=== PATIENT | female | born 1980 | race Caucasian/White ===

== ENCOUNTER 2023-10-10 09:10 | Emergency (ER) | payer SELFPAY ==
[2023-10-10] VITALS (12 sets, daily range): BP systolic 144–184; BP diastolic 98–104; PULSE 66–77; TEMP 36.7; O2SAT 95–99; BMI 37.8
--- NOTE | 2023-10-10 09:29 | XR_ITS ---
The [address] [address] Patient Name: MYLES MARADIAGA MRN: [id number] date: 1980 Sex: F Assigned Patient Location: ER Current Patient Location: ER Accession/Order Number: [id number] Exam Date: 10/10/2023 09:40 Report Date: 10/10/2023 09:53 At the request of: EVER BANSAL Procedure: XR chest 1V EXAM: XR chest 1V HISTORY: CP COMPARISON: None. TECHNIQUE: AP view of the chest. FINDINGS: The cardiomediastinal silhouette is normal. The lungs are clear. There is no pneumothorax. No pleural effusion is noted. The osseous structures are intact. XR/XR chest 1V IMPRESSION: No acute cardiopulmonary process. Electronically authenticated by: RAVINDER WRIGHT Date: 10/10/2023 09:53
--- NOTE | 2023-10-10 09:29 | ECG_ITS ---
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
--- NOTE | 2023-10-10 09:30 | ED_ITS ---
HPI - Chest Pain General Chief Complaint: Chest Pain Stated Complaint: CHEST/ABDOMINAL PAIN Time Seen by Provider: 10/10/23 09:17 Source: patient Mode of arrival: walk-in Limitations: no limitations History of Present Illness HPI narrative: 43-year-old female presents to the emergency department for chief complaint of chest pain. It started today when she was at work. There was no trauma or unusual activity and its on the right side of her chest. It is moderate. For few days she has had urinary symptoms, feeling like she cannot urinate. She has never had a UTI. No flank pain or vomiting or gross hematuria. She thought she may have had a fever this morning at home but she did not check her temperature. Related Data Home Medications ?Medication ?Instructions ?Recorded ?Confirmed clonazepam 0.5 mg tablet 0.5 mg PO DAILY 10/10/23 10/10/23 metoprolol succinate 25 mg 25 mg PO DAILY 10/10/23 10/10/23 tablet,extended release 24 hr pantoprazole 40 mg tablet,delayed 40 mg PO DAILY 10/10/23 10/10/23 release tizanidine 4 mg tablet 4 mg PO DAILY PRN muscle spasticity 10/10/23 10/10/23 Previous Rx's ?Medication ?Instructions ?Recorded cephalexin 500 mg capsule 500 mg PO TID 7 days #21 caps 10/10/23 Allergies Allergy/AdvReac Type Severity Reaction Status Date / Time calcium [From DHEA] Allergy Mild Verified 10/10/23 09:14 calcium carbonate [From DHEA] Allergy Mild Verified 10/10/23 09:14 prasterone (DHEA) [From DHEA] Allergy Mild Verified 10/10/23 09:14 Review of Systems ROS Narrative A ten point review of systems is negative except as noted above. [facility] Medical History (Updated 10/10/23 @ 11:42 by Elder Rivera MD) COVID-19 ?U07.1 - COVID-19 (ICD-10) Hypertension ?I10 - Essential (primary) hypertension (ICD-10) Atrial fibrillation ?I48.91 - Unspecified atrial fibrillation (ICD-10) Atrial fibrillation ?I48.91 - Unspecified atrial fibrillation (ICD-10) Exam Narrative Exam Narrative: Nurses note and vital signs reviewed and patient is not hypoxic. General: The patient appears uncomfortable and is in no apparent respiratory distress Skin: Warm, dry, no pallor noted. There is no rash noted. Head: Normocephalic, atraumatic Eye: Normal conjunctiva, no drainage Ears, Nose, Mouth, and Throat: oral mucosa is moist. Nares patent. Cardiovascular: Regular Rate and Rhythm Respiratory: Patient is in no distress, no accessory muscle use, lungs are clear to auscultation, no wheezing, rales or rhonchi; no crepitus on the chest wall. Back: non-tender GI: Soft and nontender Musculoskeletal: The patient has no evidence of calf tenderness, no pitting edema, symmetrical pulses noted bilaterally Neurological: A&O, normal speech Psychiatric: Cooperative Constitutional Vital Signs, click to edit/add: Last Vital Signs Temp 98.0 F 10/10/23 09:14 Pulse 66 10/10/23 10:50 Resp 18 10/10/23 09:14 BP 144/98 H 10/10/23 10:04 Pulse Ox 98 10/10/23 10:50 O2 Del Method Room Air 10/10/23 09:14 Course Vital Signs Vital signs: Vital Signs Temperature 98.0 F 10/10/23 09:14 Pulse Rate 77 10/10/23 09:14 Respiratory Rate 18 10/10/23 09:14 Blood Pressure 184/100 H 10/10/23 09:14 Pulse Oximetry 99 10/10/23 09:14 Oxygen Delivery Method Room Air 10/10/23 09:14 Temperature 98.0 F 10/10/23 09:14 Pulse Rate 66 10/10/23 10:50 Respiratory Rate 18 10/10/23 09:14 Blood Pressure 144/98 H 10/10/23 10:04 Pulse Oximetry 98 10/10/23 10:50 Oxygen Delivery Method Room Air 10/10/23 09:14 MDM - Chest Pain MDM Narrative Medical decision making narrative: Urinary tract infection is identified. She was given IV Rocephin and prescribed Keflex. She also had some pain on the right side of her chest and 2 troponins are negative. She is able to be discharged home. Treatment diagnosis and follow-up were discussed with the patient. I have no clinical suspicion of pulmonary embolism. Differential Diagnosis Differential diagnosis: Likely pneumothorax, atypical chest pain, st elevation myocardial infarction, chest pain and other (UTI) Lab Data Attestation: I reviewed the patient's lab results. Labs: Lab Results 10/10/23 10/10/23 Range/Units 09:25 10:55 WBC 10.1 (4.0-11.0) 10^3/uL RBC 4.69 (4.20-5.40) 10^6/uL Hgb 14.0 (12.0-16.0) g/dL Hct 43.6 (36.0-48.0) % MCV 93.0 (81.0-99.0) fL MCH 29.9 (26.7-34.0) pg MCHC 32.1 (29.9-35.2) g/dL RDW 14.0 (11.0-15.0) % Plt Count 288 (150-450) 10^3/uL MPV 9.9 (9.5-13.5) fL Neut % (Auto) 76.2 H (43.0-75.0) % Lymph % (Auto) 12.2 L (20.5-60.0) % [place] % (Auto) 8.4 (1.7-12.0) % Eos % (Auto) 1.5 (0.9-7.0) % Baso % (Auto) 0.9 (0.2-2.0) % Neut # (Auto) 7.7 H (1.4-6.5) 10^3/uL Lymph # (Auto) 1.2 (1.2-3.8) 10^3/uL [place] # (Auto) 0.9 H (0.3-0.8) 10^3/uL Eos # (Auto) 0.2 (0.0-0.7) 10^3/uL Baso # (Auto) 0.1 (0.0-0.1) 10^3/uL Abs Immat Gran (auto) 0.08 H (0.00-0.03) 10^3/uL Imm/Tot Granulo (auto) 0.8 H (0.0-0.5) % Sodium 135 L (136-145) mmol/L Potassium 4.1 (3.5-5.1) mmol/L Chloride 101 (98-107) mmol/L Carbon Dioxide 20.6 L (21.0-32.0) mmol/L Anion Gap 17.5 BUN 9.0 (7.0-18.0) mg/dL Creatinine 0.67 (0.55-1.02) mg/dL Est GFR ( Amer) >60 (>=60) Est GFR (Non-Af Amer) >60 (>=60) BUN/Creatinine Ratio 13.4 Glucose 86 (74-106) mg/dL Calcium 8.4 L (8.5-10.1) mg/dL Troponin I High Sens <4.0 L <4.0 L (4.0-51.3) pg/mL Urine Color Lt. yellow (YELLOW) Urine Clarity Clear (CLEAR) Urine pH 6.0 (5.0-9.0) Ur Specific [place] <=1.005 A (1.005-1.025) Urine Protein Negative (NEG/TRACE) mg/dL Urine Glucose (UA) Negative (NEGATIVE) mg/dL Urine Ketones Negative (NEGATIVE) mg/dL Urine Occult Blood Trace-i (NEGATIVE) Urine Nitrite Negative (NEGATIVE) Urine Bilirubin Negative (NEGATIVE) Urine Urobilinogen 0.2 (0.2-1.0) EU/dL Ur Leukocyte Esterase Moderate A (NEGATIVE) Urine RBC 0-2 (0-2) #/HPF Urine WBC 10-20 A (NONE SEEN) #/HPF Ur Squamous Epith Cells Few A (NONE/RARE) #/LPF Urine Crystals None seen (None Seen) #/HPF Urine Bacteria Trace A (NONE SEEN) #/HPF Urine Casts None seen (NONE SEEN) #/LPF Urine Mucus None seen (NONE SEEN) Imaging Data Chest x-ray: Radiologist's impression: ITS Impressions Chest X-Ray 10/10/23 09:29 IMPRESSION: No acute cardiopulmonary process. Electronically authenticated by: RAVINDER WRIGHT Date: 10/10/2023 09:53 Heart Score History: Slightly/Non-Suspicious ECG: Normal Age: <45 years Risk Factors: No Risk Factors Troponin: <Normal Limit Total Heart Score Recommendations & Risks:: 0 Discharge Plan Discharge Stand Alone Forms: Portal Instructions Chief Complaint: Chest Pain Clinical Impression: Urinary tract infection Patient Disposition: Home, Self-Care Time of Disposition Decision: 11:42 Condition: Good Mode of Transportation: Private Vehicle Prescriptions / Home Meds: New cephalexin 500 mg capsule 500 mg PO TID 7 Days Qty: 21 0RF No Action clonazepam 0.5 mg tablet 0.5 mg PO DAILY metoprolol succinate 25 mg tablet extended release 24 hr 25 mg PO DAILY pantoprazole 40 mg tablet,delayed release (DR/EC) 40 mg PO DAILY tizanidine 4 mg tablet 4 mg PO DAILY PRN (Reason: muscle spasticity) Print Language: Kyrgyz Instructions: Urinary Tract Infection in Women (ED) Referrals: Jenifer Loyola [employer]RA[employer] FINISHER HELPER [Primary Care Provider] - 1 week
[2023-10-10 09:34] LABS: Basophils Absolute Auto 0.1 10^3/uL (0.0-0.1); Basophils Percent Auto 0.9 % (0.2-2.0); Eosinophils Absolute Auto 0.2 10^3/uL (0.0-0.7); Eosinophils Percent Auto 1.5 % (0.9-7.0); Hematocrit 43.6 % (36.0-48.0); Immature Granulocytes Abs Auto 0.08 10^3/uL (0.00-0.03); Immature Granulocytes Pct Auto 0.8 % (0.0-0.5); Lymphocytes Absolute Auto 1.2 10^3/uL (1.2-3.8); Lymphocytes Percent Auto 12.2 % (20.5-60.0); Mean Corpuscular HGB Conc 32.1 g/dL (29.9-35.2); Mean Corpuscular Hemoglobin 29.9 pg (26.7-34.0); Mean Platelet Volume 9.9 fL (9.5-13.5); Monocytes Absolute Auto 0.9 10^3/uL (0.3-0.8); Monocytes Percent Auto 8.4 % (1.7-12.0); Neutrophils Absolute Auto 7.7 10^3/uL (1.4-6.5); Neutrophils Percent Auto 76.2 % (43.0-75.0); Platelet Count 288 10^3/uL (150-450); Red Blood Count 4.69 10^6/uL (4.20-5.40); White Blood Count 10.1 10^3/uL (4.0-11.0)
[2023-10-10 09:54] LABS: Anion Gap 17.5; BUN Creatinine Ratio 13.4; Calcium 8.4 mg/dL (8.5-10.1); Carbon Dioxide 20.6 mmol/L (21.0-32.0); Chloride 101 mmol/L (98-107); Estimated GFR (African America >60 (>=60); Estimated GFR (Non-African Ame >60 (>=60); Glucose 86 mg/dL (74-106); Potassium 4.1 mmol/L (3.5-5.1); Sodium 135 mmol/L (136-145); Troponin I High Sensitivity <4.0 pg/mL (4.0-51.3)
[2023-10-10 10:15] LABS: Bilirubin Urine NEGATIVE (NEGATIVE); Blood Urine TRACE-I (NEGATIVE); Clarity Urine CLEAR (CLEAR); Color Urine LT. YELLOW (YELLOW); Glucose Urine UA NEGATIVE (NEGATIVE); Ketones Urine NEGATIVE (NEGATIVE); Leukocyte Esterase Urine MODERATE (NEGATIVE); Nitrite Urine NEGATIVE (NEGATIVE); Protein Urine NEGATIVE (NEG/TRACE); Specific Gravity Urine <=1.005 (1.005-1.025); Urobilinogen Urine 0.2 EU/dL (0.2-1.0)
[2023-10-10 10:24] LABS: Bacteria Urine TRACE #/HPF (NONE SEEN); Cast Seen? NONE SEEN #/LPF (NONE SEEN); Crystals Seen? None Seen #/HPF (None Seen); Mucus Urine NONE SEEN (NONE SEEN); RBC Urine 0-2 #/HPF (0-2); Squamous Epithelial Cell Urine FEW #/LPF (NONE/RARE)
[2023-10-10] MEDS: KETOROLAC TROMETHAMINE 30 MG/ML VIAL IVP (10:41)
[2023-10-10] MEDS: CEFTRIAXONE 1,000 MG in 0.9 % SODIUM CHLORIDE 50 ML 100 MG IV (10:45)
[2023-10-10 11:23] LABS: Troponin I High Sensitivity <4.0 pg/mL (4.0-51.3)
--- NOTE | 2023-10-13 08:33 | PC.NURSE ---
10/13/[address] dias reviewed pt c+s or urine from 10/10/23. nno at this time. Cory Hawthorne RN
== END 2023-10-10 11:52 | disposition home or self-care (01) ==
PROVIDERS: Emergency Provider Emergency Medicine; PCP Nurse Practitioner
DX: N39.0 Urinary tract infection, site not specified (principal); I10 Essential (primary) hypertension; I48.91 Unspecified atrial fibrillation; Z86.16 Personal history of COVID-19; Z79.899 Other long term (current) drug therapy
CPT/HCPCS: 36415; 71045; 80048; 81001; 84484; 85025; 87086; 87150; 87186; 93005; 96365; 96375; 99285

== ENCOUNTER 2024-10-30 09:25 | Emergency (ER) | payer SELFPAY ==
[2024-10-30 09:34] VITALS: BP 180/105; PULSE 70; TEMP 36.9; O2SAT 100
--- NOTE | 2024-10-30 09:43 | ED_ITS ---
HPI HPI - General Adult General Chief complaint: Abdominal Pain Stated complaint: RECTAL AND VAGINAL BLEEDING Time Seen by Provider: 10/30/24 09:30 Source: patient Mode of arrival: walk-in Limitations: no limitations History of Present Illness HPI narrative: 44-year-old female presents for rectal bleeding and vaginal bleeding. She has had these issues since May, 5 months ago. She saw her PCP 3 days ago who ordered some outpatient blood test. She was told to come to the emergency department last night but she waited until today because she did not have a ride. She was told her white blood cell count was elevated. Her WBC is 18,000. She has had a colonoscopy but none for about 6 years. She states she has been fatigued as well. Related Data Home Medications ?Medication ?Instructions ?Recorded ?Confirmed clonazepam 0.5 mg tablet 0.5 mg PO DAILY 10/10/23 10/10/23 metoprolol succinate 25 mg 25 mg PO DAILY 10/10/23 10/30/24 tablet,extended release 24 hr pantoprazole 40 mg tablet,delayed 40 mg PO DAILY 10/10/23 10/10/23 release tizanidine 4 mg tablet 4 mg PO DAILY PRN muscle spasticity 10/10/23 10/10/23 Previous Rx's ?Medication ?Instructions ?Recorded cephalexin 500 mg capsule 500 mg PO TID 7 days #21 caps 10/10/23 Allergies Allergy/AdvReac Type Severity Reaction Status Date / Time calcium (From DHEA) Allergy Mild Anaphylaxis Verified 10/30/24 09:32 calcium carbonate (From DHEA) Allergy Mild Anaphylaxis Verified 10/30/24 09:32 prasterone (DHEA) (From DHEA) Allergy Mild Anaphylaxis Verified 10/30/24 09:32 Opioid HPI Opioid Management Most Recent Opioid Data: Last Pain Scale 4 10/10/23 11:15 10/10/23 Review of Systems ROS Narrative A ten point review of systems is negative except as noted above. [facility] Medical History (Updated 10/30/24 @ 11:14 by Elder Rivera MD) COVID-19 ?U07.1 - COVID-19 (ICD-10) Hypertension ?I10 - Essential (primary) hypertension (ICD-10) Atrial fibrillation ?I48.91 - Unspecified atrial fibrillation (ICD-10) Atrial fibrillation ?I48.91 - Unspecified atrial fibrillation (ICD-10) Social History Little interest or pleasure in doing things: not at all Feeling down, depressed, or hopeless: not at all Exam Narrative Exam Narrative: Nurses note and vital signs reviewed and patient is not hypoxic. General: The patient appears well and in no apparent distress. Patient is resting comfortably on cart. Skin: Warm, dry, no pallor noted. There is no rash noted. Head: Normocephalic, atraumatic Eye: Normal conjunctiva, no drainage Ears, Nose, Mouth, and Throat: oral mucosa is moist. Nares patent. Cardiovascular: Regular Rate and Rhythm Respiratory: Patient is in no distress, no accessory muscle use, lungs are clear to auscultation, no wheezing, rales or rhonchi Back: non-tender GI: Obese, mild diffuse tenderness Musculoskeletal: The patient has no evidence of calf tenderness, no pitting edema, symmetrical pulses noted bilaterally Neurological: A&O, normal speech Psychiatric: Cooperative Constitutional Vital Signs, click to edit/add: Last Vital Signs Temp 98.4 F 10/30/24 09:34 Pulse 70 10/30/24 09:34 Resp 20 10/30/24 09:34 BP 180/105 H 10/30/24 09:34 Pulse Ox 100 10/30/24 09:34 O2 Del Method Room Air 10/30/24 09:34 Course Vital Signs Vital signs: Vital Signs Temperature 98.4 F 10/30/24 09:34 Pulse Rate 70 10/30/24 09:34 Respiratory Rate 20 10/30/24 09:34 Blood Pressure 180/105 H 10/30/24 09:34 Pulse Oximetry 100 10/30/24 09:34 Oxygen Delivery Method Room Air 10/30/24 09:34 Temperature 98.4 F 10/30/24 09:34 Pulse Rate 70 10/30/24 09:34 Respiratory Rate 20 10/30/24 09:34 Blood Pressure 180/105 H 10/30/24 09:34 Pulse Oximetry 100 10/30/24 09:34 Oxygen Delivery Method Room Air 10/30/24 09:34 Medical Decision Making MDM Narrative Medical decision making narrative: Blood work was reviewed from yesterday. WBC was 18,000. CAT scan today however is negative. She is referred to general surgery for appropriate follow-up. This is an ongoing issue for this patient, at least 5 months and possibly a year. Treatment diagnosis and follow-up were discussed thoroughly. Differential Diagnosis Differential Diagnosis: Rectal: bleeding, internal hemorrhoid, diverticulitis, colitis Lab Data Lab results reviewed: Yes I reviewed the patient's lab results Labs: Lab Results 10/30/24 Range/Units 09:50 Serum HCG, Qual Negative (NEGATIVE) Imaging Data CT scan - abdomen: Radiologist's impression: Peritoneum: There is no free air or abscess, bowel: No obstruction, no evidence of inflamed bowel loops, appendix is normal, mesentery, no adenopathy Discharge Plan Discharge Chief Complaint: Abdominal Pain Clinical Impression: Rectal bleeding Patient Disposition: Home, Self-Care Time of Disposition Decision: 11:14 Condition: Good Mode of Transportation: Private Vehicle Prescriptions / Home Meds: No Action clonazepam 0.5 mg tablet 0.5 mg PO DAILY metoprolol succinate 25 mg tablet extended release 24 hr 25 mg PO DAILY pantoprazole 40 mg tablet,delayed release (DR/EC) 40 mg PO DAILY tizanidine 4 mg tablet 4 mg PO DAILY PRN (Reason: muscle spasticity) cephalexin 500 mg capsule 500 mg PO TID 7 Days Qty: 21 0RF Print Language: Korean Instructions: Rectal Bleeding (ED) Referrals: Jenifer Loyola NP [Primary Care Provider] - 1 week Olegario Camargo MD [Physician] - Olegario Pan MD [Physician] -
[2024-10-30 10:21] LABS: HCG Qualitative NEGATIVE (NEGATIVE); Internal Control Within Normal Limits
== END 2024-10-30 11:28 | disposition home or self-care (01) ==
PROVIDERS: Emergency Provider Emergency Medicine; PCP Nurse Practitioner
DX: K62.5 Hemorrhage of anus and rectum (principal)
CPT/HCPCS: 36415; 74177; 84703; 99285; Q9967

== ENCOUNTER 2024-12-22 11:19 | Outpatient (OUT) | payer OTHER, SELFPAY ==
--- OUTSIDE RECORDS SUMMARY | 2024-12-22 11:22 | XMS_ITS | Clinical Summary ---
Author Organization [facility] Address [address] [place] [address] Care Team Providers Care Business Planning Analyst Name Role Phone Unavailable Primary Care Provider Unavailabl e Social History Tobacco Use Types Packs/Day Years Used Date Smoking Tobacco: Never Assessed [place] Safety & Environment Answer Date Rec orded Fear of Current or Ex-Partner Not on file Emotionally Abused Not on file 08/30/2023 Physically Abused Not on file 08/30/2023 Sexually Abused Not on file 08/30/2023 Physically or Sexually Abused Not on file Comments Unknown Sex and Gender Information Value Date Recorded Sex Assigned at Not on file Legal Sex Female 9:56 PM EDT Gender Identity Not on file Sexual Orientation Not on file Plan of Treatment Health Maintenance Due Date Last Done Comments CT Colonography 1980 Colonoscopy 1980 Colorectal Cancer Screening 1980 FIT-DNA 1980 FIT 1980 FOBT 1980 Sigmoidoscopy 1980 Depression Screening 1990 Hepatitis B Vaccines (1 of 3 - 19+ 3-dose series) 1997 Pap Smear 1999 Adult Tetanus 01/24/2000 Cervical Cancer Screening 01/24/2008 HPV/Cotest 01/24/2008 Mammogram 2018 Influenza Vaccine (Season Ended) 2025 Zoster Vaccines (1 of 2) 01/24/2028 HIB Vaccines Aged Out No longer eligi ble based on patient's age to complete this topic HPV Vaccines Aged Out No longer eligi ble based on patient's age to complete this topic IPV Vaccines Aged Out No longer eligi ble based on patient's age to complete this topic Meningococcal B Vaccine Aged Out No l onger eligible based on patient's age to complete this topic Meningococcal Vaccine Aged Out No radha buffy eligible based on patient's age to complete this topic Pneumococcal Vaccine: Pediat rics (0 to 5 Years) and At-Risk Patients (6 to 64 Years) Aged Out No longer eligible b ased on patient's age to complete this topic Rotavirus Vaccines Aged Out No longer eligible based on patient's age to complete this topic
--- OUTSIDE RECORDS SUMMARY | 2024-12-22 11:22 | XMS_ITS | Encounter Summary ---
Author Organization [facility] Address [id number] [place] [address] Care Team Providers Care Junior Business Analyst Name Role Phone No Pcp, No Pcp Primary Care Provider Unavailabl e Reason for Visit * Reason Onset Date Comments Med Refill Med Refill 08/13/2019 Encounter Details Date Type Department Care Team (Late st Contact Info) Description 08/08/2019 Refill [facility] [address] [id number] Cameron Nascimento, DO [address] [facility] [place], [place] [id number] Med Refill; Med Refill Social History Tobacco Use Types Packs/Day Years Used Date Smoking Tobacco: Every Day Cigarettes Smokeless Tobacco: Never Alcohol Use Standard Drinks/Week Comments No 0 (1 standard drink = 0.6 oz pur e alcohol) Childcare Answer Date Recorded Childcare Unknown 12/18/2018 Employment Answer Date Recorded Employment Unknown 12/18/2018 Comments No Sex and Gender Information Value Date Recorded Sex Assigned at Female 08/27/2019 1:16 PM EST Legal Sex Female 11:28 AM EDT Gender Identity Not on file Sexual Orientation Not on file documented as of this encounter Plan of Treatment Not on file documented as of this encounter Visit Diagnoses Not on filedocumented in this encounter Care Teams Junior Business Analyst Relationship Specialty Start Date End Date No Pcp, [place] [address] PCP - General Family Medicine 08/29/19 11/27/24 documented as of this encounter
--- OUTSIDE RECORDS SUMMARY | 2024-12-22 11:22 | XMS_ITS | Referral Summary ---
Author Organization [facility] Address [address] [place] [address] Care Team Providers Care Building Coordinator Name Role Phone Unavailable Primary Care Provider [...] Orientation Not on file Plan of Treatment Not on file
[2024-12-22 11:54] LABS: Basophils Absolute Auto 0.1 10^3/uL (0.0-0.1); Basophils Percent Auto 0.8 % (0.2-2.0); Eosinophils Absolute Auto 0.2 10^3/uL (0.0-0.7); Eosinophils Percent Auto 1.6 % (0.9-7.0); Hematocrit 42.8 % (36.0-48.0); Hemoglobin 14.2 g/dL (12.0-16.0); Immature Granulocytes Abs Auto 0.08 10^3/uL (0.00-0.03); Immature Granulocytes Pct Auto 0.6 % (0.0-0.5); Lymphocytes Absolute Auto 3.7 10^3/uL (1.2-3.8); Lymphocytes Percent Auto 26.4 % (20.5-60.0); Mean Corpuscular HGB Conc 33.2 g/dL (29.9-35.2); Mean Corpuscular Hemoglobin 30.8 pg (26.7-34.0); Mean Corpuscular Volume 92.8 fL (81.0-99.0); Mean Platelet Volume 9.8 fL (9.5-13.5); Monocytes Absolute Auto 0.9 10^3/uL (0.3-0.8); Monocytes Percent Auto 6.5 % (1.7-12.0); Neutrophils Absolute Auto 9.1 10^3/uL (1.4-6.5); Neutrophils Percent Auto 64.1 % (43.0-75.0); Platelet Count 346 10^3/uL (150-450); Red Blood Count 4.61 10^6/uL (4.20-5.40); Red Cell Distribution Width 12.9 % (11.0-15.0); White Blood Count 14.1 10^3/uL (4.0-11.0)
[2024-12-22 12:04] LABS: Alanine Aminotransferase 15 U/L (14-59); Albumin Globulin Ratio 0.9; Albumin Level 3.5 g/dL (3.4-5.0); Alkaline Phosphatase 82 U/L (46-116); Anion Gap 12.5; Aspartate Amino Transferase 12 U/L (15-37); BUN Creatinine Ratio 31.4; Bilirubin Total 0.4 mg/dL (0.2-1.0); Calcium 8.8 mg/dL (8.5-10.1); Carbon Dioxide 26.5 mmol/L (21.0-32.0); Chloride 104 mmol/L (98-107); Estimated GFR (African America >60 (>=60 mL/min/1.73m^2); Estimated GFR (Non-African Ame >60 (>=60 mL/min/1.73m^2); Globulin 3.7 g/dL; Glucose 85 mg/dL (74-106); Sodium 139 mmol/L (136-145); Thyroid Stimulating Hormone 1.685 uIU/mL (0.358-3.740); Total Protein 7.2 g/dL (6.4-8.2)
[2024-12-22 12:18] LABS: Bilirubin Urine NEGATIVE (NEGATIVE); Blood Urine TRACE-I (NEGATIVE); Clarity Urine SL CLOUDY (CLEAR); Color Urine LT. YELLOW (YELLOW); Glucose Urine UA NEGATIVE (NEGATIVE); Ketones Urine NEGATIVE (NEGATIVE); Leukocyte Esterase Urine TRACE (NEGATIVE); Nitrite Urine NEGATIVE (NEGATIVE); Protein Urine NEGATIVE (NEG/TRACE); Urobilinogen Urine 0.2 EU/dL (0.2-1.0)
[2024-12-22 12:25] LABS: Percent Iron Saturation 18.7 %
[2024-12-22 12:48] LABS: Free T4 0.98 ng/dL (0.76-1.46)
[2024-12-22 12:57] LABS: Urine Microscopic Indicated YES
[2024-12-22 13:28] LABS: Bacteria Urine SMALL #/HPF (NONE SEEN); Cast Seen? NONE SEEN #/LPF (NONE SEEN); Crystals Seen? None Seen #/HPF (None Seen); Mucus Urine NONE SEEN (NONE SEEN); RBC Urine 0-2 #/HPF (0-2); Squamous Epithelial Cell Urine MODERATE #/LPF (NONE/RARE)
[2024-12-23 04:07] LABS: Vitamin B12 294 pg/mL (232-1245)
[2024-12-23 05:07] LABS: Transferrin 225 mg/dL (192-364)
== END 2024-12-22 11:20 | disposition home or self-care (01) ==
LOC: LAB 11:20
PROVIDERS: PCP Nurse Practitioner; Visit Provider Nurse Practitioner
DX: R53.83 Other fatigue (principal); I10 Essential (primary) hypertension; K58.1 Irritable bowel syndrome with constipation; E55.9 Vitamin D deficiency, unspecified; F17.219 Nicotine dependence, cigarettes, with unspecified nicotine-induced disorders; R19.4 Change in bowel habit; K62.5 Hemorrhage of anus and rectum
CPT/HCPCS: 36415; 80053; 81001; 82306; 82607; 82728; 83540; 83550; 84439; 84443; 84466; 85025

== ENCOUNTER 2025-06-08 08:54 | Outpatient (OUT) | payer OTHER, SELFPAY ==
--- OUTSIDE RECORDS SUMMARY | 2025-05-26 12:06 | XMS_ITS | Encounter Summary ---
Author Organization [facility] GoGoPin [facility] tem Address [facility] [place], [place] [address] [place] [address] Care Team Providers Care Marine Engineering Professor Name Role Phone Jenifer Loyola APRN-CARDIAC CATHETERIZATION TECHNOLOGIST Primary Care Provider Reason for Visit * ReasonCommentsHypertension Encounter Details DateTypeDepartmentCare Team (Latest Contact Info)Badqztxygjl14/18/2025 12:06 PM EST - 05/26/2025 5:14 PM [facility]Aen[facility] [address] [place] [phone] Darian Hawkins MD [address] [place] [address] Hypertensive emergency (Primary Dx) Discharge Disposition: Another Hospital Social History Tobacco UseTypesPacks/DayYears UsedDateSmoking Tobacco: Every DayCigarettes Smokeless Tobacco: NeverAlcohol UseStandard Drinks/WeekCommentsNo0 (1 standard drink = 0.6 oz pure alcohol)PHQ-2AnswerDate RecordedTotal Ilbde2722/23/2025 AUDIT-CAnswerDate RecordedQ1: How often do you have a drink containing alcohol? Never04/24/2025Q2: How many drinks containing alcohol do you have on a typical day when you are drinking?Patient does not drink10/17/2025Q3: How often do you have six or more drinks on one occasion?Never04/24/2025Overall Financial Resource Strain (CARDIA)AnswerDate RecordedHow hard is it for you to pay for the very basics like food, housing, medical care, and heating?Not hard at all 05/26/2025PRAPARE - TransportationAnswerDate RecordedIn the past 12 months, has lack of transportation kept you from medical appointments or from getting medications?No05/26/2025In the past 12 months, has lack of transportation kept you from meetings, work, or from getting things needed for daily living?No 05/26/2025HC UtilitiesAnswerDate RecordedIn the past 12 months has the electric, gas, oil, or water company threatened to shut off services in your home?No05/26/2025Housing InstabilityAnswerDate RecordedAre you worried or concerned that in the next two months you may not have stable housing that you own, rent or stay in as a part of a household?No05/26/2025hildcareAnswerDate CzmqburhLkkvjkhaxFtdecaz85/12/2019EmploymentAnswerDate RecordedEmploymentUnknown 12/18/2018Hunger ScreeningAnswerDate RecordedWithin the past 12 months we worried whether our food would run out before we got money to buy more.Never True05/27/2025Within the past 12 months the food we bought just didn't last and we didn't have money to get more.Never True05/27/2025Purpose - LifeAnswerDate RecordedPurpose and direction in dncpLqmvfgg11/11/2021CommentsNoSex and Gender InformationValueDate RecordedSex Assigned at NgztxZdzmot76/19/2020 1:16 PM ESTLegal NscWhifsc79/06/2015 11:28 AM EDTGender IdentityNot on fileSexual OrientationNot on filedocumented as of this encounter Last Filed Vital Signs Vital SignReadingTime TakenCommentsBlood Oajesbtj493/8905/26/2025 4:53 PM EST Hemjc770105/26/2025 4:53 PM SUBHafnxeiwoue30.4 ??C (97.5 ??F)05/26/2025 11:45 AM ESTRespiratory Igmn051105/26/2025 4:53 PM ESTOxygen Yjckpuzbrc32%05/26/2025 4:53 PM ESTInhaled Oxygen Concentration--Weight--Height--Body Mass Index--documented in this encounter Medications at Time of Discharge MedicationSigDispense QuantityRefillsLast FilledStart DateEnd Date busPIRone (BUSPAR) 5 mg tablet Take 1 tablet (5 mg total) by mouth 3 (three) times a day for 30 days. 90 tablet wnxhczepln-lrlmvehcdaoes-riub (FIORICET, ESGIC) 50-325-40 mg per tablet Indications:Other migraine without status migrainosus, not intractableTake 1 tablet by mouth every 6 (six) hours as needed for headaches. 15 tablet 05/21/2025 clonazePAM (KlonoPIN) 0.5 mg tablet Take 1 tablet (0.5 mg total) by mouth daily as needed for anxiety.10/27/2024 losartan (COZAAR) 100 mg tablet Take 1 tablet (100 mg total) by mouth in the morning for 30 days. 30 tablet magnesium oxide (MAGOX) 400 mg tablet Take 1 tablet (400 mg total) by mouth nightly for 30 days. 30 tablet metoprolol succinate XL (TOPROL XL) 50 mg 24 hr tablet Take 2 tablets (100 mg total) by mouth in the morning.04/03/2025 NIFEdipine XL (PROCARDIA XL) 60 mg 24 hr tablet Take 1 tablet (60 mg total) by mouth in the morning for 30 days. 30 tablet losartan (COZAAR) 50 mg tablet Take 1 tablet (50 mg total) by mouth in the morning. documented as of this encounter ED Notes * Darian Hawkins MD - 05/26/2025 12:09 PM ESTAssociated Order(s): Critical Care Images from the original note were not included. [facility] - EMERGENCY Pt Name: Damien Gill Birthdate: 1980 Chief Complaint: Chief Complaint Patient presents with Hypertension History of Present Illness: Initial evaluation performed at 12:[address] Sohail Hawkins. Patient is a 45 y.o. female who presents to the ED for evaluation of hypertension. Pt reports her blood pressure readings have been higher than her baseline for the past week, and she is experiencingheadaches and shortness of breath. History provided by: Patient spray drier used: No Past Medical History: Past Medical History: Diagnosis Date ADHD (attention deficit hyperactivity disorder) 07/1989 Anxiety 07/1989 Back pain Chest pain Dyspnea on exertion Eczema 1999 Hyperlipidemia Hypertension 2015 Migraine 1991 Peptic ulceration Pneumonia Past Surgical History: Past Surgical History: Procedure Laterality Date BACK SURGERY 2009 SECTION CHOLECYSTECTOMY COLONOSCOPY LYMPH NODE BIOPSY 2008 Family History: Family History Problem Relation Age of Onset Colon cancer Maternal Grandmother Heart disease Father Diabetes Father Early Mother Early Brother Breast cancer Neg Hx Ovarian cancer Neg Hx Uterine cancer Neg Hx Social History: Social History Socioeconomic History Marital status: Tobacco Use Smoking status: Every Day Current packs/day: 1.00 Types: Cigarettes Smokeless tobacco: Never Vaping Use Vaping status: Never Used Substance and Sexual Activity Alcohol use: No Drug use: Yes Types: Marijuana Comment: daily Sexual activity: Not Currently control/protection: None Comment: Other Topics Concern Caffeine Use Yes Social Drivers of Health Food Insecurity: No Food Insecurity (05/26/2025) Hunger Screening Food Insecurity - Worry: Never True Food Insecurity - Inability: Never True Interpersonal Safety: Unknown (08/30/2023) Received from [facility] [place] [facility] Fear of Current or Ex-Partner: Not on file Emotionally Abused: Not on file Physically Abused: Not on file Sexually Abused: Not on file Physically or Sexually Abused: Not on file Review of Systems: Review of Systems Physical Exam: ED Triage Vitals Temp Heart Rate Resp BP SpO2 05/26/25 1145 05/26/25 1143 05/26/25 1143 05/26/25 1143 05/26/25 1143 36.4 ??C (97.5 ??F) 63 18 (!) 196/126 97 % Temp Source Heart Rate Source Patient Position BP Location FiO2 (%) 05/26/25 1145 -- -- -- -- Temporal Vitals: 05/26/25 1143 05/26/25 1145 05/26/25 1345 05/26/25 1415 BP: (!) 196/126 (!) 204/125 (!) 186/114 Temp: 36.4 ??C (97.5 ??F) TempSrc: Temporal Pulse: 63 59 77 Resp: 18 15 (!) 26 SpO2: 97% 97% 98% MAP (mmHg): 149 136 Physical Exam Vitals reviewed. HENT: Head: Normocephalic and atraumatic. Eyes: Conjunctiva/sclera: Conjunctivae normal. Cardiovascular: Rate and Rhythm: Normal rate and regular rhythm. Pulmonary: Effort: Pulmonary effort is normal. No respiratory distress. Breath sounds: Normal breath sounds and air entry. No decreased breath sounds. Abdominal: General: There is no distension. Palpations: Abdomen is soft. Musculoskeletal: General: Normal range of motion. Cervical back: Normal range of motion and neck supple. Skin: General: Skin is warm and dry. Neurological: General: No focal deficit present. Mental Status: She is alert and oriented to person, place, and time. GCS: GCS eye subscore is 4. GCS verbal subscore is 5. GCS motor subscore is 6. Psychiatric: Mood and Affect: Mood is anxious. Procedure: Critical Care Performed by: Darian Hawkisn MD Authorized by: Darian Hawkins MD Critical care provider statement: Critical care time (minutes): 30 Critical care time was exclusive of: Separately billable procedures and treating other patients Critical care was necessary to treat or prevent imminent or life-threatening deterioration of the following conditions: Cardiac failure Critical care was time spent personally by me on the following activities: Blood draw for specimens, development of treatment plan with patient or surrogate, discussions with consultants, evaluation of patient's response to treatment, examination of patient, interpretation of cardiac output measurements, obtaining history from patient or surrogate, ordering and performing treatments and interventions, ordering and review of laboratory studies, ordering and review of radiographic studies, pulse oximetry and re-evaluation of patient's condition I assumed direction of critical care for this patient from another provider in my specialty: no Care discussed with: admitting provider Re-evaluation: I, Brielle sorto), documented on behalf and in the presence of Dr Sohail Hawkins. 2:30 PM Reevaluation of patient. Patient states she is not feeling much better at this time, and her blood pressure readings have also not went down. Discussed nicardipine drip and plan for admission, patient was agreeable. Medical Decision Making Amount and/or Complexity of Data Reviewed Labs: ordered. Details: Labs notable for: CBC and BMP were unremarkable. Troponin normal. ECG/medicine tests: ordered and independent interpretation performed. Discussion of management or test interpretation with external provider(s): 3:[address] Silva (Hospitalist), who reviewed case and is agreeable to admit the patient for further care and evaluation. However, would like the patient to be transferred to [place]. Risk Prescription drug management. ED Course: Clinical Impressions as of 05/26/25 1513 Hypertensive emergency . ED Disposition ED Disposition Transfer to Another Facility Date/Time SunMay 26, 2025 3:12 PM Comment At this time, the patient requires transfer due to the lack of Capacity at this facility. The patient has been informed of their EMTALA rights as well as the risks and benefits of transfer. The patient consents to transfer to the accepting facility t hat had the capacity and capability to care for them. The patient will be transferred. . Please note that portions of this note were completed with a voice recognition program. Efforts were made to edit the dictations but occasionally words are mis-transcribed. Brielle Wilcoxphrey 05/26/25 1211 Brielle Wilcoxphrey 05/26/25 1219 Jarra Simmons 05/26/25 1335 Jarra Simmons 05/26/25 1432 Jarra Simmons 05/26/25 1513 Darian Hawkins MD 06/03/25 2304 * Deepti Leija RN - 05/26/2025 11:59 AM EST Patient reports hypertension for a few days. documented in this encounter Plan of Treatment DateTypeDepartmentCare Team (Latest Contact Info)Avrqqqngxuu85/03/2025 10:00 AM ESTProcedure visit [facility] [address] [place] [address] 06/23/2025 8:30 AM ESTHospital Encounter [facility] [address] [place] [address] Idalia Neumann MD [address] [place] [address] 06/23/2025 8:30 AM EST - 06/23/2025 11:30 AM ESTSurgery [facility] [address] [place] [address] Idalia Neumann MD [address] [place] [address] [address], [address] [place] [address] DAVINCI HYSTERECTOMY XYQSTSHIHTTQC83/22/2025 11:00 AM ESTOffice Visit [facility] [address] [facility] [address] [place] [phone] Idalia Neumann MD [address] [place] [address] [address] [place] [address] 08/10/2025 11:00 AM ESTOffice Visit [facility] [address] [facility] [address] [place] [phone] Idalia Neumann MD [address] [place] [address] , [facility] [address] [place] [address] 09/22/2025 9:00 AM EDTOffice Visit [facility] [place] [address] [place] [address] Agnieszka Whipple MD [address] [place] [address], [facility] [address] [place] [address] NamePriorityAssociated DiagnosesDate/TimeDAVINCI HYSTERECTOMY SALPINGECTOMY Pelvic pain in female Subserous leiomyoma of uterus Abnormal uterine bleeding (AUB) 06/23/2025 8:30 AM ESTDAVINCI CYSTECTOMY OVARIAN Pelvic pain in female Subserous leiomyoma of uterus Abnormal uterine bleeding (AUB) 06/23/2025 8:30 AM ESTEXCISION LIPOMA MIDSECTION Pelvic pain in female Subserous leiomyoma of uterus Abnormal uterine bleeding (AUB) 06/23/2025 8:30 AM ESTdocumented as of this encounter Procedures Procedure NamePriorityDate/TimeAssociated DiagnosisCommentsTROP I, HIGH SENSITIVITY 1 PZPNETKD44/18/2025 1:56 PM EST POCT NURSING URINE MACROSCOPIC QWQoupplz96/18/2025 1:56 PM EST ER EXTRA URINE NMVGMRBWNK56/18/2025 1:48 PM EST ER EXTRA URINE BJCVFJWQPIN34/18/2025 1:48 PM EST ER EXTRA PZBENTJNW21/18/2025 1:48 PM EST TROPONIN I, HIGH SENSITIVITY 0 UUJMFHOK36/18/2025 12:35 PM EST EXTRA TUBES BLUE UQEUpydybs80/18/2025 12:35 PM EST TROPONIN I, HIGH SENSITIVITY 0 AJTJLCNA14/18/2025 12:35 PM EST EXTRA XWHWFSmfilex32/18/2025 12:35 PM EST CBC WITH AUTO XZROJHFHJTONXJIH39/18/2025 12:35 PM EST BASIC METABOLIC KKGZRENQD39/18/2025 12:35 PM EST PM ED CRITICAL BIMPUllkwdi14/18/2025 12:09 PM EST ECG 12-WLBXIIWH36/18/2025 11:49 AM EST documented in this encounter Results * (ABNORMAL) POCT Nursing Urine Macroscopic UA (05/26/2025 1:56 PM EST)Component ValueRef RangeTest MethodAnalysis TimePerformed AtPathologist [facility] Urine Specific Gravity1.0151.010, 1.015, 1.020, 1.2831005/26/2025 1:59 PM EST [facility] Urine Leukocyte EsteraseNegative Ulexennu86/18/2025 1:59 PM ESTSELECT [facility] Urine WbwbfhkUwhmekwqFrwxwnyl84/18/2025 1:59 PM [place]PR[place] Urine pH7.55.0, 6.0, 6.5, 7.0, 7.5, 8.0, 8.5, 5. 1:59 PM [place]PROKERN [place]LEY Urine ProteinNegativeNegative 05/26/2025 1:59 PM ESTSELECT [facility] Urine Glucose JxjvyuzcNwmskgev70/18/2025 1:59 PM ESTSELECT [facility] Urine DyeumzqNpbfmooaMpmizyic82/18/2025 1:59 PM ESTPROKERN VALLEY Urine Urobilinogen0.2 E.U./dL05/26/2025 1:59 PM [place]PROKERN [place]LEY Urine VacilpljoFmabntfiEvfivthr18/18/2025 1:59 PM [place]PROKERN [place]LEY Urine Blood/HGBLarge(A)Negative 05/26/2025 1:59 PM ESTPARMA COMMUNITY GENERAL HOSPITALpecimen (Source) Anatomical Location / LateralityCollection Method / VolumeCollection Time Received QfxsBpnrs03/18/2025 1:56 PM EST05/26/2025 1:59 PM EST Narrative Authorizing ProviderResult TypeResult StatusPatricmatty Hawkins MDPOINT OF CARE TEST ORDERABLESFinal ResultPerforming OrganizationAddressCity/State/ZIP CodePhone Number [facility] [address] [place] [address], [place] * Troponin I, High Sensitivity 1 Hour (05/26/2025 1:56 PM EST)ComponentValueRef RangeTest MethodAnalysis TimePerformed AtPathologist SignatureTROPONIN I, HIGH SENSITIVITY<2<16 ng/L107/26/2024 2:40 PM [facility] Specimen (Source)Anatomical Location / LateralityCollection Method / Volume Collection TimeReceived TimeBloodVenous blood / UnknownVenipuncture / Unknown 05/26/2025 1:56 PM EST05/26/2025 2:07 PM EST Narrative Authorizing ProviderResult TypeResult StatusRogertricmatty TAYLOR BLOOD ORDERABLESFinal ResultPerforming OrganizationAddressty/State/ZIP CodePhone Number [address] [address], [place] * Extra Urine Pledger (05/26/2025 1:48 PM EST)ComponentValueRef RangeTest Method Analysis TimePerformed AtPathologist SignatureExtra TubeAuto Resulted 05/26/2025 3:01 PM [facility]ITALpecatrium healthn (Source) Anatomical Location / LateralityCollection Method / VolumeCollection Time Received TimeUrineUrine specimen collection, clean catch / Erqacyi2005/26/2025 1:48 PM EST05/26/2025 2:10 PM EST Narrative Authorizing ProviderResult TypeResult StatusRogertricmatty CHISHOLM ORDERABLES Final ResultPerforming OrganizationAddCrichton Rehabilitation Center/[facility]/ZIP CodePhone Number [address] [address], [place] * Extra Urine Culture (05/26/2025 1:48 PM EST)ComponentValueRef RangeTest Method Analysis TimePerformed AtPathologist SignatureExtra TubeAuto Resulted 05/26/2025 3:01 PM ESTPROSAINT FRANCIS MEMORIAL HOSPITALpecatrium healthn (Source) Anatomical Location / LateralityCollection Method / VolumeCollection Time Received TimeUrineUrine specimen collection, clean catch / Qetpoyo0205/26/2025 1:48 PM EST05/26/2025 2:10 PM EST Narrative Authorizing ProviderResult TypeResult StatusRogertricmatty CHISHOLM ORDERABLES Final ResultPerforming OrganizationAddressty/State/ZIP CodePhone Number [address] [address], [place] * Extra Urine (05/26/2025 1:48 PM EST)ComponentValueRef RangeTest MethodAnalysis TimePerformed AtPathologist SignatureExtra TubeAuto Rghunmgl89/18/2025 3:01 PM ESTPROSAINT FRANCIS MEMORIAL HOSPITALpecatrium healthn (Source)Anatomical Location / LateralityCollection Method / VolumeCollection TimeReceived TimeUrineUrine specimen collection, clean catch / Tdkhrlz1205/26/2025 1:48 PM EST05/26/2025 2:10 PM EST Narrative Authorizing ProviderResult TypeResult StatusRogertricmatty CHISHOLM ORDERABLES Final ResultPerforming OrganizationAddressCity/State/ZIP CodePhone Number [address] [place] [address], [place] * Light Blue Top (05/26/2025 12:35 PM EST)ComponentValueRef RangeTest Method Analysis TimePerformed AtPathologist SignatureExtra TubeAuto Resulted 05/26/2025 2:03 PM ESTPARMA COMMUNITY GENERAL HOSPITALpecgrady memorial hospital (Source) Anatomical Location / LateralityCollection Method / VolumeCollection Time Received TimeBloodVenous blood / Ithscwg6505/26/2025 12:35 PM EST05/26/2025 12:48 PM EST Narrative Authorizing ProviderResult TypeResult StatusDarian TAYLOR BLOOD ORDERABLESFinal ResultPerforming OrganizationAddressCity/State/ZIP CodePhone Number [address] [place] [address], [place] * Troponin I, High Sensitivity 0 Hour (05/26/2025 12:35 PM EST)ComponentValueRef RangeTest MethodAnalysis TimePerformed AtPathologist SignatureTROPONIN I, HIGH SENSITIVITY<2<16 ng/L107/26/2024 1:18 PM ESTKETTERING HEALTH Specimen (Source)Anatomical Location / LateralityCollection Method / Volume Collection TimeReceived TimeBloodVenous blood / UnknownVenipuncture / Unknown 05/26/2025 12:35 PM EST05/26/2025 12:48 PM EST Narrative Authorizing ProviderResult TypeResult StatusDarian TAYLOR BLOOD ORDERABLESFinal ResultPerforming OrganizationAddressCity/State/ZIP CodePhone Number [facility] [address] [place] [address], * Basic Metabolic Panel (05/26/2025 12:35 PM EST)ComponentValueRef RangeTest MethodAnalysis TimePerformed AtPathologist UhlwqrrjgOOHRJY785286 - 146 mmol/L 05/26/2025 1:05 PM ESTKETTERING HEALTHPOTASSIUM4.03.5 - 5.0 mmol/L107/26/2024 1:05 PM [facility]ICCHLORIDE10298 - 109 mmol/L107/26/2024 1:05 PM [facility]ICCARBON RESWUDX7048 - 32 mmol/L107/26/2024 1:05 PM [facility]INICANION GAP95 - 15 mmol/L107/26/2024 1:05 PM [facility]ICBLOOD UREA YUMYFZIM240 - 23 mg/dL05/26/2025 1:05 PM EST [facility]ALTHCREATININE0.530.40 - 1.00 mg/dL05/26/2025 1:05 PM [facility]ICComment:METHOD TRACEABLE TO IDMS JWJRXWXXDGGLZZU6923 - 99 mg/dL05/26/2025 1:05 PM [facility]ICCALCIUM8.68.5 - 10.5 mg/dL05/26/2025 1:05 PM [facility]ICEGFR Non-Race Dependent>90>=60 ml/min/1.73sq.m107/26/2024 1:05 PM [facility]ICComment: eGFR not reported due to non-numeric value for Creatinine. Reported eGFR is based on the CKD-EPI 2020 equation that does not use a race coefficient. Specimen (Source)Anatomical Location / LateralityCollection Method / Volume Collection TimeReceived TimeBloodVenous blood / UnknownVenipuncture / Unknown 05/26/2025 12:35 PM EST05/26/2025 12:48 PM EST Narrative Authorizing ProviderResult TypeResult StatusPaml Hawkins MDLAB BLOOD ORDERABLESFinal ResultPerforming OrganizationAddressCity/State/ZIP CodePhone Number [facility] [address] [place] [address], * (ABNORMAL) CBC auto differential (05/26/2025 12:35 PM EST)ComponentValueRef RangeTest MethodAnalysis TimePerformed AtPathologist QhtpmnbqdQGJ13.3(H)4 - 11 X10^9/L107/26/2024 1:02 PM [facility]ICRBC Count4.77 3.8 - 5.2 X10^12/L107/26/2024 1:02 PM [facility] Ixjhsewezd09.511.7 - 15.5 g/dL05/26/2025 1:02 PM ESTKETTERING HEALTHHematocrit42.435 - 47 %05/26/2025 1:02 PM ESTKETTERING HEALTHMCV8980 - 100 fL05/26/2025 1:02 PM [facility]ICMCH30.527 - 34 pg05/26/2025 1:02 PM ESTKETTERING HEALTHMCHC34.332 - 36 g/dL05/26/2025 1:02 PM ESTKETTERING HEALTHRDW13.211.5 - 15 %05/26/2025 1:02 PM [facility]ICPlatelet Dhzhj603208 - 450 X10^9/L107/26/2024 1:02 PM EST [facility]MPV8.67 - 12 fL05/26/2025 1:02 PM EST [facility]ALTHNeutrophils %60.3%05/26/2025 1:02 PM EST [facility]ALTHLymphocytes %30.3%05/26/2025 1:02 PM EST [facility]Monocytes %5.9%05/26/2025 1:02 PM EST [facility]ALTHEosinophils %2.2%05/26/2025 1:02 PM EST [facility]ALTHBasophils %1.3%05/26/2025 1:02 PM EST [facility] HEALTHNeutrophils Absolute (A)6.8(H)1.5 - 6.6 X10^9/L107/26/2024 1:02 PM ESTKETTERING HEALTHLymphocytes Absolute3.41.0 - 3.5 X10^9/L107/26/2024 1:02 PM ESTKETTERING HEALTHMonocytes Absolute0.70.0 - 0.9 X10^9/L107/26/2024 1:02 PM ESTKETTERING HEALTHEosinophils Absolute0.20.0 - 0.4 X10^9/L107/26/2024 1:02 PM [facility]ICBasophils Absolute0.10.0 - 0.2 X10^9/L107/26/2024 1:02 PM [facility]ICDifferential TypeAUTOMATED LVYSZIBGLKRR82/18/2025 1:02 PM [facility]OS[facility]ITALpecimen (Source)Anatomical Location / LateralityCollection Method / VolumeCollection TimeReceived TimeBloodVenous blood / UnknownVenipuncture / Cnqcigf7305/26/2025 12:35 PM EST05/26/2025 12:47 PM EST Narrative Authorizing ProviderResult TypeResult StatusPatricmatty Hawkins MDLAB BLOOD ORDERABLESFinal ResultPerforming OrganizationAddressCity/State/ZIP CodePhone Number [facility] [address] [place] [address], * Critical Care (05/26/2025 12:09 PM EST) Narrative Darian Hawkins MD - 05/26/2025 12:09 PM EST Darian Hawkins MD 06/03/2025 11:06 PM Critical Care Performed by: Darian Hawkins MD Authorized by: Darian Hawkins MD ?? Critical care provider statement: ??Critical care time (minutes): ??30 ??Critical care time was exclusive of: ??Separately billable procedures and treating other patients ??Critical care was necessary to treat or prevent imminent or life-threatening deterioration of the following conditions: ??Cardiac failure ??Critical care was time spent personally by me on the following activities: ??Blood draw for specimens, development of treatment plan with patient or surrogate, discussions with consultants, evaluation of patient's response to treatment, examination of patient, interpretation of cardiac output measurements, obtaining history from patient or surrogate, ordering and performing treatments and interventions, ordering and review of laboratory studies, ordering and review of radiographic studies, pulse oximetry and re-evaluation of patient's condition ??I assumed direction of critical care for this patient from another provider in my specialty: no ?Care discussed with: admitting provider ?? Authorizing ProviderResult TypeResult Chris Hawkins MDPROCEDURE/MINOR SURGICAL ORDERABLESFinal Result * ECG 12 lead (05/26/2025 11:49 AM EST)Specimen (Source)Anatomical Location / LateralityCollection Method / VolumeCollection TimeReceived Time05/26/2025 11:49 AM EST Narrative TRACEMASTERVUE - 05/26/2025 12:28 PM EST Authorizing ProviderResult TypeResult Chris Hawkins MDECG ORDERABLES Final ResultPerforming OrganizationAddressCity/State/ZIP CodePhone Number TRACEMASTERVUE documented in this encounter Visit Diagnoses Diagnosis Pelvic pain in female Unspecified symptom associated with female genital organs Subserous leiomyoma of uterus Abnormal uterine bleeding (AUB) Hypertensive emergency- Primary Pelvic pain in female Unspecified symptom associated with female genital organs Subserous leiomyoma of uterus Abnormal uterine bleeding (AUB) documented in this encounter Administered Medications Medication OrderMAR ActionAction DateDoseRateSite alum-mag hydroxide-simeth (MAALOX) 200-200-20 mg/5 mL suspension 30 mL 30 mL, swish & swallow, Once, On Sun05/26/25 at 1554, For 1 dose, Nurse to mix maalox and lidocaine products together prior to administration Look-alike/sound-alike medication - verify indication for use. Shake well. Given05/26/2025 3:57 PM EST30 mL hydrALAZINE (APRESOLINE) injection 20 mg 20 mg, intravenous, Once, On Sun05/26/25 at 1327, For 1 dose, For systolic blood pressure greater than 180 mmHg Look-alike/sound-alike medication - verify indication for use. Administer IV doses as a slow IV push; maximum rate: 5 mg/minute. Given05/26/2025 1:48 PM EST20 mg lidocaine viscous (XYLOCAINE VISCOUS) 2 % solution 10 mL 10 mL, swish & swallow, Once, On Sun05/26/25 at 1554, For 1 dose, Nurse to mix maalox and lidocaine products together prior to administration Given05/26/2025 3:56 PM EST10 mL LORazepam (ATIVAN) injection 2 mg 2 mg, intravenous, Once, On Sun05/26/25 at 1214, For 1 dose, Look-alike/sound-alike medication - verify indication for use;IV use requires increased monitoring of HR,BP,Respirations and Pulse Oximetry;For IV-dilute with equal volume PF sod chloride Given05/26/2025 1:01 PM EST2 mg LORazepam (ATIVAN) injection 2 mg 2 mg, intravenous, Once, On Sun05/26/25 at 1355, For 1 dose, Look-alike/sound-alike medication - verify indication for use;IV use requires increased monitoring of HR,BP,Respirations and Pulse Oximetry;For IV-dilute with equal volume PF sod chloride Given05/26/2025 2:20 PM EST2 mg metoprolol (LOPRESSOR) injection 5 mg 5 mg, intravenous, Once, On Sun05/26/25 at 1214, For 1 dose, Look-alike/sound-alike medication - verify indication for use. Given05/26/2025 12:53 PM EST5 mg morphine injection 4 mg 4 mg, intravenous, Once, On Sun05/26/25 at 1430, For 1 dose, Look-alike/sound-alike medication - verify indication for use. Given05/26/2025 3:09 PM EST4 mg niCARdipine (CARDENE-IV) infusion 40 mg/200 mL in iso-osmotic sodium chloride (0.2 mg/mL premix) 5-15 mg/hr (25-75 mL/hr), intravenous, Continuous, Starting on Sun05/26/25 at 1430, Notify prescriber if rate exceeds 15 mg/hour Administer through large peripheral vein or central line; Change the infusion site every 12 hours if administered via peripheral vein. Look-alike/sound-alike medication.Verify indication for use. Do not combine or run in the same line as other medications., MonitoringGoals: SBP, Monitoring Goal Direction: Less than or Equal to, Please specify: 160, Starting Dose: 5mg/hour, Titration Dose Range (range 2.5 to 5 mg/hour): 2.5 to 5 mg/hour, Titration Frequency - As Frequent As: 3 minutes New Bag05/26/2025 4:04 PM EST5 mg/hr25 mL/hr ondansetron (PF) (ZOFRAN) injection 4 mg 4 mg, intravenous, Once, On Sun05/26/25 at 1519, For 1 dose, Intravenous administration preferred to be given over 2-5 minutes. Given05/26/2025 3:21 PM EST4 mg pantoprazole (PROTONIX) injection 40 mg 40 mg, intravenous, Once, On Sun05/26/25 at 1528, For 1 dose, Look-alike/sound-alike medication - verify indication for use., Indication: Contraindication/intolerance to H2RAs Given05/26/2025 3:37 PM EST40 mg sodium chloride 0.9 % flush 3 mL 3 mL, intravenous, As needed, line care, before and after each intermittent use, Starting on Sun05/26/25 at 1213 documented in this encounter Active and Recently Administered Medications Times are shown in EST.Medication Order// alum-mag hydroxide-simeth (MAALOX) 200-200-20 mg/5 mL suspension 30 mL (COMPLETED)(Linked Group 1) 30 mL, swish & swallow, Once, On Sun05/26/25 at 1554, For 1 dose, Nurse to mix maalox and lidocaine products together prior to administration Look-alike/sound-alike medication - verify indication for use. Shake well. * 1557 (Given - Provider: Sangeetha Muñoz RN) gabapentin (NEURONTIN) capsule 400 mg 400 mg, oral, Once, On Sun05/26/25 at 1554, For 1 dose, Look-alike/sound-alike medication - verifyindication for use. * 1554 (Not Given - Provider: Sangeetha Muñoz RN - Reason: Patient/family refused) hydrALAZINE (APRESOLINE) injection 20 mg (COMPLETED) 20 mg, intravenous, Once, On Sun05/26/25 at 1327, For 1 dose, For systolic blood pressure greater than 180 mmHg Look-alike/sound-alike medication - verify indication for use. Administer IV doses as a slow IV push; maximum rate: 5 mg/minute. * 1348 (Given - Provider: Sangeetha Muñoz RN) lidocaine viscous (XYLOCAINE VISCOUS) 2 % solution 10 mL (COMPLETED)(Linked Group 1) 10 mL, swish & swallow, Once, On Sun05/26/25 at 1554, For 1 dose, Nurse to mix maalox and lidocaine products together prior to administration * 1556 (Given - Provider: Sangeetha Muñoz RN) LORazepam (ATIVAN) injection 2 mg (COMPLETED) 2 mg, intravenous, Once, On Sun05/26/25 at 1214, For 1 dose, Look-alike/sound-alike medication - verify indication for use;IV use requires increased monitoring of HR,BP,Respirations and Pulse Oximetry;For IV-dilute with equal volume PF sod chloride * 1301 (Given - Provider: Sangeetha Muñoz RN) LORazepam (ATIVAN) injection 2 mg (COMPLETED) 2 mg, intravenous, Once, On Sun05/26/25 at 1355, For 1 dose, Look-alike/sound-alike medication - verify indication for use;IV use requires increased monitoring of HR,BP,Respirations and Pulse Oximetry;For IV-dilute with equal volume PF sod chloride * 1420 (Given - Provider: Sangeetha Muñoz RN) metoprolol (LOPRESSOR) injection 5 mg (COMPLETED) 5 mg, intravenous, Once, On Sun05/26/25 at 1214, For 1 dose, Look-alike/sound-alike medication - verify indication for use. * 1253 (Given - Provider: Sangeetha Muñoz RN) morphine injection 4 mg (COMPLETED) 4 mg, intravenous, Once, On Sun05/26/25 at 1430, For 1 dose, Look-alike/sound-alike medication - verify indication for use. * 1509 (Given - Provider: Sangeetha Muñoz RN) ondansetron (PF) (ZOFRAN) injection 4 mg (COMPLETED) 4 mg, intravenous, Once, On Sun05/26/25 at 1519, For 1 dose, Intravenous administration preferred to be given over 2-5 minutes. * 1521 (Given - Provider: Sangeetha Muñoz, RN) pantoprazole (PROTONIX) injection 40 mg (COMPLETED) 40 mg, intravenous, Once, On Sun05/26/25 at 1528, For 1 dose, Look-alike/sound-alike medication - verify indication for use., Indication: Contraindication/intolerance to H2RAs * 1537 (Given - Provider: Sangeetha Muñoz, RN) Medication Order// niCARdipine (CARDENE-IV) infusion 40 mg/200 mL in iso-osmotic sodium chloride (0.2 mg/mL premix) 5-15 mg/hr (25-75 mL/hr), intravenous, Continuous, Starting on Sun05/26/25 at 1430, Notify prescriber if rate exceeds 15 mg/hour Administer through large peripheral vein or central line; Change the infusion site every 12 hours if administered via peripheral vein. Look-alike/sound-alike medication.Verify indication for use. Do not combine or run in the same line as other medications., MonitoringGoals: SBP, Monitoring Goal Direction: Less than or Equal to, Please specify: 160, Starting Dose: 5mg/hour, Titration Dose Range (range 2.5 to 5 mg/hour): 2.5 to 5 mg/hour, Titration Frequency - As Frequent As: 3 minutes * 1508 (Continue to Other Facility/Home/Admission - Provider: Sangeetha Muñoz, RN) * 1604 (New Bag - Provider: Sangeetha Muñoz, RN) * 1714 (Continue to Other Facility/Home/Admission - Provider: Sangeetha Muñoz, RN) Medication Order// sodium chloride 0.9 % flush 3 mL 3 mL, intravenous, As needed, line care, before and after each intermittent use, Starting on Sun05/26/25 at 1213 Order Group 1: alum-mag hydroxide-simeth (MAALOX) 200-200-20 mg/5 mL suspension 30 mL (COMPLETED)Jump to med 30 mL, swish & swallow, Once, On Sun05/26/25 at 1554, For 1 dose, Nurse to mix maalox and lidocaine products together prior to administration Look-alike/sound-alike medication - verify indication for use. Shake well. And lidocaine viscous (XYLOCAINE VISCOUS) 2 % solution 10 mL (COMPLETED)Jump to med 10 mL, swish & swallow, Once, On Sun05/26/25 at 1554, For 1 dose, Nurse to mix maalox and lidocaine products together prior to administration documented in this encounter Additional Health Concerns AssessmentNoted TimePHQ-9 Depression Total Score: 12011/28/2024 12:43 PM EDTA Body Mass Index follow-up plan has been documented for the sbvhrqt3911/28/2024 1:38 PM EDTdocumented as of this encounter Care Teams Team MemberRelationshipSpecialtyStart DateEnd Date Jenifer Loyola, NATALIE-CARDIAC CATHETERIZATION TECHNOLOGIST [address] [facility] [place] [address] PCP - GeneralNurse Practitioner03/25/25documented as of this encounter
--- OUTSIDE RECORDS SUMMARY | 2025-05-26 17:58 | XMS_ITS | Encounter Summary ---
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 Name Role Phone Jenifer Loyola Primary Care Provider Reason for Referral * Misc (Routine) - Pending ReviewSpecialtyDiagnoses / ProceduresReferred By ContactReferred To Contact Diagnoses Hypertensive encephalopathy Hypertensive urgency Procedures Follow-up with primary care provider Talita Coombs APRN-CNP [address] [place] [address] Phone: tel: fax: Referral IDStatusReasonStart DateExpiration DateVisits RequestedVisits [id number] [id number]/ * Misc (Routine) - Pending ReviewSpecialtyDiagnoses / ProceduresReferred By ContactReferred To Contact Procedures Adult diet Talita Coombs APRN-CNP [address] [place] [address] Phone: tel: fax: Referral IDStatusReasonStart DateExpiration DateVisits RequestedVisits [id number] [id number]/ Reason for Visit * Auth/CertSpecialtyDiagnoses / ProceduresReferred By ContactReferred To Contact Kyree Lazo MD [address] [place] [address] Phone: tel: fax: Referral IDStatusReasonStart DateExpiration DateVisits RequestedVisits [id number] Encounter Details DateTypeDepartmentCare Team (Latest Contact Info)Htvhycypfsp53/18/2025 5:58 PM EST - 05/28/2025 11:11 AM ESTHospital Encounter [facility] [address] [place] [id number] Kyree Lazo MD [address], [facility] [address] [place] [address] Hypertensive encephalopathy (Primary Dx); Hypertensive urgency Discharge Disposition: Home Social History Tobacco UseTypesPacks/DayYears UsedDateSmoking Tobacco: Every DayCigarettes Smokeless Tobacco: NeverAlcohol UseStandard Drinks/WeekCommentsNo0 (1 standard drink = 0.6 oz pure alcohol)PHQ-2AnswerDate RecordedTotal Nrucn3233/23/2025 AUDIT-CAnswerDate RecordedQ1: How often do you have a drink containing alcohol? Never04/24/2025Q2: How many drinks containing alcohol do you have on a typical day when you are drinking?Patient does not drink04/24/2025Q3: How often do you have six or [...] from getting things needed for daily living?No 5AHC UtilitiesAnswerDate RecordedIn the past 12 months has the electric, gas, oil, or water company threatened to shut off services in your home?No05/26/2025Housing InstabilityAnswerDate RecordedAre you worried or concerned that in the next two months you may not have stable housing that you own, rent or stay in as a part of a household?No5ChildcareAnswerDate NkktyevmUghyoqjqvIpkpfmh61/12/2019EmploymentAnswerDate RecordedEmploymentUnknown 12/18/2018Hunger ScreeningAnswerDate RecordedWithin the past 12 months we worried whether our food would run out before we got money to buy more.Never True05/27/2025Within the past 12 months the food we bought just didn't last and we didn't have money to get more.Never True05/27/2025Purpose - LifeAnswerDate RecordedPurpose and direction in rgfqClshvqz32/11/2021CommentsNoSex and Gender InformationValueDate RecordedSex Assigned at YshvpLvrxnx08/19/2020 1:16 PM ESTLegal DoqWngumr04/06/2015 11:28 AM EDTGender IdentityNot on fileSexual OrientationNot on filedocumented as of this encounter Last Filed Vital Signs Vital SignReadingTime TakenCommentsBlood Takgyaib044/9205/28/2025 8:52 AM EST Fkahj014305/28/2025 8:52 AM QSLYsaowesjwgc64.1 ??C (97 ??F)05/28/2025 4:00 AM EST Respiratory Sksb923807/28/2024 8:52 AM ESTOxygen Gcxgrketqh97%05/28/2025 4:00 AM ESTInhaled Oxygen Concentration--Gggwoj72.7 kg (215 lb 6.4 oz)05/27/2025 2:56 AM LUVFathcw213 cm (5' 3 )05/26/2025 6:06 PM ESTBody Mass Index38.16107/26/2024 6:06 PM ESTdocumented in this encounter Functional Status documented as of this encounter Discharge Summaries * Kyree Lazo MD - 05/28/2025 7:25 AM EST Images from the original note were not included. 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 Damien Gill is a pleasant 45 year old female who presented to [facility] with ongoing HTN that has been being managed outpatient with some difficulty. Patient had multiple medication changes reports she has surgery scheduled for June 23 but with blood pressure running higher is not cleared. Patient had accompanying visual changes headache was started on IV [facility] no beds over and [facility] was transferred over here and admitted for hypertension urgency. Patient was switched over to nifedipine increase losartan had echo showing normal EF with mild LVH. Would recommend statin after repeat CMP if LFT's are normal as they were up a bit started to trend down. Patient is stable to discharge home on increased losartan, nifedipine, lifestyle changes including decrease caffeine intake anddietary changes, magnesium added and buspar. Patient will need to follow up with PCP in one week ifCMP normal would recommend statin due to 10 year cardio vascular risk score 8.7%. Review of Systems Constitutional: Negative for chills, decreased appetite, diaphoresis, fever and malaise/fatigue. HENT: Negative for congestion. Cardiovascular: Negative for chest pain, dyspnea on exertion, leg swelling and palpitations. Respiratory: Negative for cough, shortness of breath, sputum production and wheezing. Hematologic/Lymphatic: Does not bruise/bleed easily. Skin: Negative for dry skin and poor wound healing. Musculoskeletal: Negative for arthritis, back pain and falls. Gastrointestinal: Negative for bloating, abdominal pain, dysphagia, nausea and vomiting. Genitourinary: Negative for bladder incontinence. Neurological: Positive for headaches. Negative for excessive daytime sleepiness, dizziness, paresthesias, tremors and weakness. Psychiatric/Behavioral: Negative for altered mental status and memory loss. Physical Exam Vitals (on Ra) and nursing note reviewed. Constitutional: General: She is not in acute distress. Appearance: Normal appearance. She is obese. She is not ill-appearing, toxic- appearing or diaphoretic. HENT: Head: Normocephalic and atraumatic. Nose: Nose normal. Mouth/Throat: Mouth: Mucous membranes are moist. Eyes: Pupils: Pupils are equal, round, and reactive to light. Cardiovascular: Rate and Rhythm: Normal rate and regular rhythm. Pulses: Normal pulses. Heart sounds: Normal heart sounds. Pulmonary: Effort: Pulmonary effort is normal. No respiratory distress. Breath sounds: Normal breath sounds. No wheezing or rales. Abdominal: General: Bowel sounds are normal. There is no distension. Palpations: Abdomen is soft. Tenderness: There is no abdominal tenderness. Musculoskeletal: Cervical back: Normal range of motion and neck supple. Right lower leg: No edema. Left lower leg: No edema. Skin: General: Skin is warm and dry. Capillary Refill: Capillary refill takes less than 2 seconds. Neurological: Mental Status: She is alert and oriented to person, place, and time. Mental status is at baseline. Sensory: No sensory deficit. Motor: No weakness. Gait: Gait normal. Psychiatric: Mood and Affect: Mood normal. Behavior: Behavior normal. Thought Content: Thought content normal. Judgment: Judgment normal. Comments: Daughter stayed the night Sepsis suspected, no-not clinically evident at this time. Code Status: Prior Labs Recent Results (from the past 48 hours) Hepatitis panel, acute Collection Time: 05/27/25 5:52 AM Result Value Ref Range HEPATITIS B SURF AG Non-Reactive Non-Reactive HEPATITIS A IGM Non-Reactive Non-Reactive HEPATITIS B CORE IGM Non-Reactive Non-Reactive ANTI HCV W/PCR REFLX Non-Reactive Non-Reactive CBC auto differential Collection Time: 05/27/25 5:57 AM Result Value Ref Range WBC 13.3 (H) 4 - 11 10^9/L RBC Count 4.88 3.8 - 5.2 10^12/L Hemoglobin 14.8 11.7 - 15.5 g/dL Hematocrit 43.7 35 - 47 % MCV 90 80 - 100 fL MCH 30.3 27 - 34 pg MCHC 33.9 32 - 36 g/dL RDW 13.0 11.5 - 15 % Platelet Count 300 150 - 450 10^9/L MPV 8.1 7 - 12 fL Neutrophils % 69.8 % Lymphocytes % 20.8 % Monocytes % 8.0 % Eosinophils % 0.6 % Basophils % 0.8 % Neutrophils Absolute (A) 9.3 (H) 1.5 - 6.6 10^9/L Lymphocytes Absolute 2.8 1.0 - 3.5 10^9/L Monocytes Absolute 1.1 (H) 0.0 - 0.9 10^9/L Eosinophils Absolute 0.1 0.0 - 0.4 10^9/L Basophils Absolute 0.1 0.0 - 0.2 10^9/L Differential Type AUTOMATED DIFFERENTIAL Comprehensive metabolic panel Collection Time: 05/27/25 5:57 AM Result Value Ref Range SODIUM 133 (L) 134 - 146 mmol/L POTASSIUM 3.5 3.5 - 5.0 mmol/L CHLORIDE 102 98 - 109 mmol/L CARBON DIOXIDE 22 22 - 32 mmol/L ANION GAP 9 5 - 15 mmol/L BLOOD UREA NITROGEN 11 5 - 23 mg/dL CREATININE 0.57 0.40 - 1.00 mg/dL GLUCOSE 96 65 - 99 mg/dL CALCIUM 8.4 (L) 8.5 - 10.5 mg/dL TOTAL PROTEIN 7.3 6.0 - 8.0 g/dL ALBUMIN 3.7 3.2 - 5.3 g/dL ALKALINE PHOSPHATASE 110 39 - 130 U/L AST 66 (H) <=41 U/L ALT 66 (H) <=31 U/L BILIRUBIN,TOTAL 0.9 0.3 - 1.2 mg/dL EGFR Non-Race Dependent >90 >=60 ml/min/1.73sq.m Magnesium Collection Time: 05/27/25 5:57 AM Result Value Ref Range MAGNESIUM 2.1 1.8 - 2.6 mg/dL T3, free Collection Time: 05/27/25 5:57 AM Result Value Ref Range FREE T3 2.66 2.50 - 3.90 pg/mL Thyroid profile includes TSH FT4 Collection Time: 05/27/25 5:57 AM Result Value Ref Range FREE T4 0.77 0.61 - 1.60 ng/dL TSH 2.66 0.49 - 4.67 uIU/mL Lipid profile Collection Time: 05/27/25 5:57 AM Result Value Ref Range CHOLESTEROL 242 (H) 150 - 200 mg/dL TRIGLYCERIDE 121 27 - 150 mg/dL HDL CHOLESTEROL 52 >39 mg/dL LDL (CALC) 166 (H) <130 mg/dL CHOLESTEROL:HDL 4.7 1.0 - 5.0 VERY LOW LIPOPROTEIN 24 0 - 30 mg/dL Hemoglobin A1c Collection Time: 05/27/25 5:57 AM Result Value Ref Range HEMOGLOBIN A1C 5.0 4.4 - 5.6 % EST. AVERAGE GLUCOSE 97 mg/dL CBC auto differential Collection Time: 05/28/25 5:28 AM Result Value Ref Range WBC 13.7 (H) 4 - 11 10^9/L RBC Count 4.66 3.8 - 5.2 10^12/L Hemoglobin 14.4 11.7 - 15.5 g/dL Hematocrit 41.7 35 - 47 % MCV 90 80 - 100 fL MCH 31.0 27 - 34 pg MCHC 34.6 32 - 36 g/dL RDW 13.0 11.5 - 15 % Platelet Count 310 150 - 450 10^9/L MPV 8.1 7 - 12 fL Neutrophils % 73.7 % Lymphocytes % 17.8 % Monocytes % 7.4 % Eosinophils % 0.1 % Basophils % 1.0 % Neutrophils Absolute (A) 10.1 (H) 1.5 - 6.6 10^9/L Lymphocytes Absolute 2.4 1.0 - 3.5 10^9/L Monocytes Absolute 1.0 (H) 0.0 - 0.9 10^9/L Eosinophils Absolute 0.0 0.0 - 0.4 10^9/L Basophils Absolute 0.1 0.0 - 0.2 10^9/L Differential Type AUTOMATED DIFFERENTIAL Comprehensive metabolic panel Collection Time: 05/28/25 5:28 AM Result Value Ref Range SODIUM 134 134 - 146 mmol/L POTASSIUM 3.9 3.5 - 5.0 mmol/L CHLORIDE 104 98 - 109 mmol/L CARBON DIOXIDE 21 (L) 22 - 32 mmol/L ANION GAP 9 5 - 15 mmol/L BLOOD UREA NITROGEN 18 5 - 23 mg/dL CREATININE 0.47 0.40 - 1.00 mg/dL GLUCOSE 112 (H) 65 - 99 mg/dL CALCIUM 9.0 8.5 - 10.5 mg/dL TOTAL PROTEIN 7.4 6.0 - 8.0 g/dL ALBUMIN 3.7 3.2 - 5.3 g/dL ALKALINE PHOSPHATASE 91 39 - 130 U/L AST 24 <=41 U/L ALT 42 (H) <=31 U/L BILIRUBIN,TOTAL 0.7 0.3 - 1.2 mg/dL EGFR Non-Race Dependent >90 >=60 ml/min/1.73sq.m Radiology Echo complete W/O contrast Result Date: 05/27/2025 Narrative: Left Ventricle: Left ventricle appears normal in size. Systolic function is normal with an ejection fraction of 60-65%. The quantitative EF by 2D Schultz biplane is 65%. Normal left ventricular size and systolic function with mild concentric left ventricular hypertrophy. No significantlyabnormal stenotic or regurgitant flows are present. CT angiogram carotid Result Date: 05/21/2025 Narrative: CT CTA CAROTID HISTORY: Headache, vision changes, tongue numbness COMPARISON: None TECHNIQUE: * CTA of the carotid arteries performed after administration of 100 mL Omnipaque 350 intravenous contrast. 3-D post-processing techniques were utilized. * All CT scans at this facility use dose modulation, iterative reconstruction, and/or weight based dosing when appropriate to reduce radiation dose to as low as reasonably achievable. The NASCET methodology was utilized for calculation of percent stenosis. FINDINGS: Three-vessel aortic arch with minimal atherosclerotic calcification. Brachiocephalic and bilateral subclavian arteries appear unremarkable. Bilateral carotid vasculature appears unremarkable. Bilateral vertebral arteries appear unremarkable. Left dominant vertebral arterialcirculation. Visualized pulmonary parenchyma and cervical soft tissues appear grossly unremarkable.IMPRESSION: * No cervical large vessel stenosis, occlusion, dissection, or aneurysm. Approved by Resident: Sen Talbert MD on 05/21/2025 2:54 PM I, Desmond Duran MD have personally reviewed the image(s) and agree with and/or edited the report Finalized by Desmond Duran MD on 05/21/2025 3:[address] angiogram head Result Date: 05/21/2025 Narrative: CT CTA HEAD CLINICAL INFORMATION: headache vision changes tongue numbness. COMPARISON: None. PROCEDURE: Routine CTA Brady of Castro was obtained after the uncomplicated intravenous administration of contrast. Sagittal and coronal reformatted images with 3-D Maximum intensity projection reconstructions of the Brady of Castro constructed under concurrent physician supervision on a independent workstation for evaluation of vascular abnormalities. Arterial blood flow was measured to assist the stroke clinical team in the diagnosis of large vessel occlusion in patients undergoing screening for acute ischemic stroke using Rapid AI software when clinically indicated. All CT scans at this facility use dose modulation, iterative reconstruction, and/or weight based dosing when appropriate to reduce radiation dose to as low as reasonably achievable. 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 Right posterior cerebral artery ispatent. Internal carotid arteries are normal. Minimal atherosclerotic calcifications present. Anterior cerebral arteries and anterior commuting artery appear normal. The middle cerebral arteries are patent. Venous contamination degrades assessment for subtle abnormalities. 3-D reformatted images confirm the source data findings. IMPRESSION: * No evidence of large vessel occlusion. [id number] Finalized by Reza Esparza MD on 05/21/2025 2:51 PM X-ray chest 1 view Result Date: 05/21/2025 Narrative: XR CHEST 1 VW 05/21/2025 2:35 PM INDICATION: Stroke alert. Headaches. Left facial numbness. COMPARISON: 04/18/2016. TECHNIQUE: PA view of the chest. FINDINGS: Trachea is midline. Cardiomediastinal silhouette is unremarkable. No focal consolidation, pleural effusion, or discrete pneumothorax. IMPRESSION: No acute cardiopulmonary process. Finalized by Luis Eduardo Linda MD on 05/21/2025 2:[address] brain without contrast stroke alert Result Date: 05/21/2025 Narrative: CT BRAIN WO CONT STROKE ALERT CLINICAL HISTORY: Headache. Vision changes. COMPARISON: CTbrain 04/20/2011.. TECHNIQUE: CT brain without intravenous contrast. Automated exposure control wasutilized. FINDINGS: No acute intracranial hemorrhage, mass effect, shift of midline structures, or abnormal extra axial fluid collection. No evidence of acute large vessel territorial ischemia. Overall brain volume is normal. Ventricular system size and morphology are normal, basal cisterns are patent. Orbits are symmetric. No depressed or displaced calvarial fracture. Partial empty sella. Mucousretention cyst of the right maxillary sinus. Frothy secretions within the sphenoid sinuses. Mastoidair cells are well-aerated. Presumed cerumen within the external auditory canals. IMPRESSION: * No acute intracranial findings by CT. All CT scans at this facility use dose modulation, iterative reconstruction, and/or weight based dosing when appropriate to reduce radiation dose to as low as reasonably achievable. Finalized by Luis Eduardo Linda MD on 05/21/2025 2:33 PM DISCHARGE INSTRUCTION Disposition: Home Condition:Stable Activity: activity as tolerated Diet: Adult diet Follow up: JENIFER LOYOLA APRN-VIANEY within 7-14 days. CMP to recheck LFT's if ok statin Labs/Imaging/Pathology: Discharge Medications: Medication List PAUSE taking these medications Instructions Last Dose Given Next Dose Due sosobwknnk-yctxksmvjtwyg-llkm 50-325-40 mg per tablet Wait to take this until your doctor or other care provider tells you to start again. Commonly known as: FIORICET, ESGIC Take 1 tablet by mouth every 6 (six) hours as needed for headaches. START taking these medications Instructions Last Dose Given Next Dose Due busPIRone 5 mg tablet Commonly known as: BUSPAR Take 1 tablet (5 mg total) by mouth 3 (three) times a day for 30 days. magnesium oxide 400 mg tablet Commonly known as: MAGOX Take 1 tablet (400 mg total) by mouth nightly for 30 days. NIFEdipine XL 60 mg 24 hr tablet Commonly known as: PROCARDIA XL Start taking on: May 29, 2025 Take 1 tablet (60 mg total) by mouth in the morning for 30 days. CHANGE how you take these medications Instructions Last Dose Given Next Dose Due losartan 100 mg tablet Commonly known as: COZAAR What changed: medication strength how much to take Take 1 tablet (100 mg total) by mouth in the morning for 30 days. CONTINUE taking these medications Instructions Last Dose Given Next Dose Due clonazePAM 0.5 mg tablet Commonly known as: KlonoPIN Take 1 tablet (0.5 mg total) by mouth daily as needed for anxiety. metoprolol succinate XL 50 mg 24 hr tablet Commonly known as: TOPROL XL Take 2 tablets (100 mg total) by mouth in the morning. Where to Get Your Medications These medications were sent to [facility]/pharmacy #[id number] [facility] [address] busPIRone 5 mg tablet losartan 100 mg tablet magnesium oxide 400 mg tablet NIFEdipine XL 60 mg 24 hr tablet >30 minutes were spent on discharging this patient. VINI Love 05/28/2025 4:49 PM [facility] Internal Medicine 7AM-7PM & 7PM-7AM: EpicChat or page through On-Call Finder. VINI Love 05/28/25 1146 Physician Attestation I, Kyree Lazo MD, personally performed a face to face diagnostic evaluation on this patient. I have reviewed the note authored by the advance practice provider including history, review of systems,physical examination,medical decision making and agree with the assessment and plan as written. I have seen and evaluated the patient, I have repeated the jay portions of the physical exam and concur with the NAN findings. I have reviewed all laboratory findings and imaging reports/films. I agree with the plan as noted. documented in this encounter Medications at Time of Discharge MedicationSigDispense QuantityRefillsLast FilledStart DateEnd Date busPIRone (BUSPAR) 5 mg tablet Take 1 tablet (5 mg total) by mouth 3 (three) times a day for 30 days. 90 tablet lshkjxpejt-dsfikcprjizgt-hwgg (FIORICET, ESGIC) 50-325-40 mg per tablet Indications:Other [...] the morning for 30 days. 30 tablet documented as of this encounter Progress Notes * Brian Brady PA-C - 05/28/2025 8:05 AM EST Images from the original note were not included. [facility] [address] [place] [address] PROGRESS NOTE Damien Gill resting comfortably in bed. No CP, SOB, palpitations. States that she is feeling much better today compared to initial evaluation. Has very mild headache. No abdominal discomfort, vision changes, LAN. SUBJECTIVE Allergies: Allergies Allergen Reactions Morphine (Pf) GI Disturbance, Abdominal Pain and Abnormal Behavior Dhea [Prasterone (Dhea)] Propranolol CURRENT MEDICATIONS busPIRone, 5 mg, oral, TID enoxaparin (LOVENOX) injection, 40 mg, subcutaneous, Q24H BERNA famotidine, 20 mg, oral, Q12H losartan, 100 mg, oral, Daily metoprolol succinate XL, 100 mg, oral, Daily nicotine, 1 patch, transdermal, Daily NIFEdipine XL, 30 mg, oral, Q24H BERNA sodium chloride, 3 mL, intravenous, Q12H BERNA CONTINUOUS INFUSIONS dextrose 5 % in water, 100 mL/hr OBJECTIVE CBC: Results from last 7 days Lab Units 05/28/2552705/27/25 0557 05/26/25 1235 WBC 10^9/L 13.7* 13.3* 11.3* HEMOGLOBIN g/dL 14.4 14.8 14.5 HEMATOCRIT % 41.7 43.7 42.4 MCV fL 90 90 89 PLATELETS 10^9/L 310 300 300 BMP: Results from last 7 days Lab Units 05/28/25 0528 05/27/25 0557 05/26/25 1235 05/21/25 1450 SODIUM mmol/L 134 133* 136 131* POTASSIUM mmol/L 3.9 3.5 4.0 3.7 CHLORIDE mmol/L 104 102 102 102 CO2 mmol/L 21* 22 25 23 BUN mg/dL 18 11 12 13 CREATININE mg/dL 0.47 0.57 0.53 0.67 CALCIUM mg/dL 9.0 8.4* 8.6 8.4* MAGNESIUM mg/dL -- 2.1 -- 2.1 PT/INR: APTT: MAG: Results from last 7 days Lab Units 05/27/25 0557 05/21/25 1450 MAGNESIUM mg/dL 2.1 2.1 D Dimer: Troponin I ProBNP Lipid Panel: Lab Results Component Value Date CHOL 242 (H) 05/27/2025 TRIG 121 05/27/2025 HDL 52 05/27/2025 HDL 33 01/20/2015 CHOLHDLR 01/20/2015 RISK FEMALE RATIO MALE RATIO 1/2 AVERAGE 3.27 3.43 AVERAGE 4.44 4.97 2X 7.05 9.55 3X 11.04 23.39 Liver Panel: No results found for: TBIL , ALB HgA1C: Lab Results Component Value Date HGBA1C 5.0 05/27/2025 ABG: CV TESTING HISTORY: ECHO: Echo complete W/O contrast Result Date: 05/27/2025 Left Ventricle: Left ventricle appears normal in size. Systolic function is normal with an ejectionfraction of 60-65%. The quantitative EF by 2D Schultz biplane is 65%. Normal left ventricular size and systolic function with mild concentric left ventricular hypertrophy. No significantly abnormal stenotic or regurgitant flows are present. CXR: X-ray chest 1 view Result Date: 05/21/2025 XR CHEST 1 VW 05/21/2025 2:35 PM INDICATION: Stroke alert. Headaches. Left facial numbness. COMPARISON: 04/18/2016. TECHNIQUE: PA view of the chest. FINDINGS: Trachea is midline. Cardiomediastinal silhouette is unremarkable. No focal consolidation, pleural effusion, or discrete pneumothorax. IMPRESSION: No acute cardiopulmonary process. Finalized by Luis Eduardo Linda MD on 05/21/2025 2:50 PM TELEMETRY: NSR PHYSICAL EXAM Admission Weight: Weight: 100.6 kg (221 lb 12.8 oz) I/O last 3 completed shifts: In: 940 [P.O.:240; I.V.:200; IV Piggyback:500] Out: 1275 [Urine:1275] Weight change: Wt Readings from Last 3 Encounters: 05/27/25 97.7 kg (215 lb 6.4 oz) 05/21/25 94.3 kg (208 lb) 04/24/25 94.3 kg (208 lb) Vitals: Vitals: 05/28/25 0100 05/28/25 0200 05/28/25 0300 05/28/25 0400 BP: (!) 161/99 (!) 163/100 137/87 135/76 Pulse: 76 66 68 67 Resp: Temp: 36.1 ??C (97 ??F) TempSrc: Temporal SpO2: 97% Weight: Height: Admit Weight Weight: 100.6 kg (221 lb 12.8 oz) Last 3 Weights Last 3 Weight Readings 05/26/25 1806 05/27/25 0256 Weight: 100.6 kg (221 lb 12.8 oz) 97.7 kg (215 lb 6.4 oz) Body mass index is 38.16 kg/m??. INTAKE/OUTPUT I/O last 3 completed shifts: In: 940 [P.O.:240; I.V.:200; IV Piggyback:500] Out: 1275 [Urine:1275] Intake/Output Summary (Last 24 hours) at 05/28/2025 0805 Last data filed at 05/27/2025 1943 Gross per 24 hour Intake 940 ml Output -- Net 940 ml General appearance: Alert oriented and cooperative, In no acute distress Skin: Warm and dry to touch Lungs: Clear to ausculation bilaterally, no use of accessory muscles Heart:: RRR with normal S1 and S2, no murmurs and no gallops. Extremities: No edema ASSESSMENT Essential HTN Dyslipidemia Elevated liver enzymes Your other diagnoses PLAN Currently maintained on Losartan 100 mg QD, Toprol XL 100 mg QD, and Nifedipine XL 30 mg QD. BP overnight and into this morning noted to be elevated. Will increase Nifedipine to 60 mg QD. Can additionally consider switch in Toprol XL to Carvedilol for further BP optimization. Pending BP response, patient likely can discharge home today with close outpatient follow up in 1-2weeks. Will arrange. BRIAN BRADY PA-C This note was completed using a voice stringing machine operator system. Every effort was made to ensure accuracy. However, inadvertent computerized stringing machine operator errors may be present. Brian Brady PA-C 05/28/25 0823 documented in this encounter H&P Notes * Kyree Lazo MD - 05/27/2025 7:05 AM EST Images from the original note were not included. [facility] - ICU [address] [place] [id number] Hospital Medicine History & Physical Patient: Damien Gill Date of : 1980 Room: 08/09 PCP: JENIFER LOYOLA APRN-VIANEY Admission date: 05/26/2025 5:58 PM Encounter date: 05/27/25 Hospital Day: 2 SUBJECTIVE Damien Gill is a 45 y.o. female who presents with HTN with known history and is also a smoker. BP196/126 HR 63 was given IV lopressor, IV Ativan, IV hydralazine, Protonix and zofran. Meds did not make much of a difference so was started on Nicardipine, no beds at [facility] sent to [facility] for admit. Patient reports she is scheduled for full hysterectomy on and she is not cleared due to chronic BP issues. Patient reports her PCP did make some changes recently with BP meds but not working and having headaches but does have a hx of migraines. Patient had some blurred vision at some point too since those are gone. Daughter is present in room. Patient reports that she has a lot of stress with her job and does smoke working on quitting. Patient reports dad of a maker at age 48 but was also doing drugs. Patient reports that her brother from drugs at age 31 and patient's mom passed in Jul. Patient reports they are doing hysterectomy due to uterine fibroid they think possible attached to colon and causing constipation. Results in ER WBC 11.3 A. Neutrophils 6.8 BMP ok negative cardiac enzymes No imaging in ER EKG SR Admit for HTN urgency Allergies: Morphine (pf), Dhea [prasterone (dhea)], and Propranolol Prior to Admission medications Medication Sig Start Date End Date Taking? Authorizing Provider yoqpxjfmtg-niqjrnnlfeycn-yhay (FIORICET, ESGIC) 50-325-40 mg per tablet Take 1 tablet by mouth every 6 (six) hours as needed for headaches. 05/21/25 Yes Talita Lagos APRN-VIANEY clonazePAM (KlonoPIN) 0.5 mg tablet Take 1 tablet (0.5 mg total) by mouth daily as needed for anxiety. 10/27/24 Yes Not In System Ref Prov losartan (COZAAR) 50 mg tablet Take 1 tablet (50 mg total) by mouth in the morning. 05/12/25 Yes NotIn System Ref Prov metoprolol succinate XL (TOPROL XL) 50 mg 24 hr tablet Take 2 tablets (100 mg total) by mouth in the morning. 04/03/25 Yes Not In System Ref Prov Past Medical History: Patient has a past medical history of ADHD (attention deficit hyperactivity disorder) (07/1989), Anxiety (07/1989), Back pain, Chest pain, Dyspnea on exertion, Eczema (1999), Hyperlipidemia, Hypertension (2014), Migraine (1991), Peptic ulceration, and Pneumonia. Past Surgical History: Patient has a past surgical history that includes Back surgery (2008); Cholecystectomy; section; Colonoscopy; and Lymph node biopsy (2008). Family History: Patient's family history includes Colon cancer in her maternal grandmother; Diabetes in her father;Early in her brother and mother; Heart disease in her father. Social History: Patient reports that she has been smoking cigarettes. She has never used smokeless tobacco. She reports current drug use. Drug: Marijuana. She reports that she does not drink alcohol. Review of Systems Constitutional: Negative for chills, decreased appetite, diaphoresis, fever and malaise/fatigue. HENT: Negative for congestion. Cardiovascular: Negative for chest pain, dyspnea on exertion, leg swelling and palpitations. Respiratory: Negative for cough, shortness of breath, sputum production and wheezing. Hematologic/Lymphatic: Does not bruise/bleed easily. Skin: Negative for dry skin and poor wound healing. Musculoskeletal: Negative for arthritis, back pain and falls. Gastrointestinal: Positive for constipation. Negative for bloating, abdominal pain, dysphagia, nausea and vomiting. Genitourinary: Negative for bladder incontinence. Neurological: Positive for headaches. Negative for excessive daytime sleepiness, dizziness, paresthesias, tremors and weakness. Psychiatric/Behavioral: Negative for altered mental status and memory loss. OBJECTIVE BP (!) 152/92 Pulse 71 Temp 36.1 ??C (97 ??F) Resp 21 Ht 160 cm (5' 3 ) Wt 97.7 kg (215 lb 6.4 oz) SpO2 93% BMI 38.16 kg/m?? Temp: [36.1 ??C (97 ??F)-36.7 ??C (98 ??F)] 36.1 ??C (97 ??F) Pulse: [64-83] 71 Resp: [10-22] 21 BP: (109-158)/(66-100) 152/92 SpO2: [87 %-100 %] 93 % O2 Device: None (Room air) O2 Flow Rate (L/min): [0 L/min-2 L/min] 0 L/min Intake/Output Summary (Last 24 hours) at 05/27/2025 1836 Last data filed at 05/27/2025 0945 Gross per 24 hour Intake 240 ml Output 1275 ml Net -1035 ml Physical Exam Vitals (on RA) and nursing note reviewed. Constitutional: General: She is not in acute distress. Appearance: Normal appearance. She is obese. She is not ill-appearing, toxic- appearing or diaphoretic. HENT: Head: Normocephalic and atraumatic. Nose: Nose normal. Mouth/Throat: Mouth: Mucous membranes are moist. Eyes: Pupils: Pupils are equal, round, and reactive to light. Cardiovascular: Rate and Rhythm: Normal rate and regular rhythm. Pulses: Normal pulses. Heart sounds: Normal heart sounds. Pulmonary: Effort: Pulmonary effort is normal. No respiratory distress. Breath sounds: Normal breath sounds. No wheezing or rales. Abdominal: General: Bowel sounds are normal. There is no distension. Palpations: Abdomen is soft. Tenderness: There is no abdominal tenderness. Musculoskeletal: Cervical back: Normal range of motion and neck supple. Right lower leg: No edema. Left lower leg: No edema. Skin: General: Skin is warm and dry. Capillary Refill: Capillary refill takes less than 2 seconds. Neurological: Mental Status: She is alert and oriented to person, place, and time. Mental status is at baseline. Sensory: No sensory deficit. Motor: No weakness. Gait: Gait normal. Psychiatric: Mood and Affect: Mood normal. Behavior: Behavior normal. Thought Content: Thought content normal. Judgment: Judgment normal. Medications Scheduled: enoxaparin (LOVENOX) injection, 40 mg, subcutaneous, Q24H BERNA famotidine, 20 mg, oral, Q12H losartan, 100 mg, oral, Daily metoprolol succinate XL, 100 mg, oral, Daily nicotine, 1 patch, transdermal, Daily NIFEdipine XL, 30 mg, oral, Q24H BERNA sodium chloride, 3 mL, intravenous, Q12H BERNA Infusions: dextrose 5 % in water, 100 mL/hr As Needed: acetaminophen alum-mag hydroxide-simeth ezjxwgdokk-cttxshyqvktnh-pijl clonazePAM dextrose dextrose 5 % in water dextrose 50 % in water (D50W) diazePAM glucagon (human recombinant) ketorolac ondansetron prochlorperazine OR prochlorperazine OR prochlorperazine sennosides-docusate sodium sodium chloride sodium chloride Allergies: Morphine (pf), Dhea [prasterone (dhea)], and Propranolol Labs Recent Results (from the past 24 hours) CBC auto differential Collection Time: 05/27/25 5:57 AM Result Value Ref Range WBC 13.3 (H) 4 - 11 10^9/L RBC Count 4.88 3.8 - 5.2 10^12/L Hemoglobin 14.8 11.7 - 15.5 g/dL Hematocrit 43.7 35 - 47 % MCV 90 80 - 100 fL MCH 30.3 27 - 34 pg MCHC 33.9 32 - 36 g/dL RDW 13.0 11.5 - 15 % Platelet Count 300 150 - 450 10^9/L MPV 8.1 7 - 12 fL Neutrophils % 69.8 % Lymphocytes % 20.8 % Monocytes % 8.0 % Eosinophils % 0.6 % Basophils % 0.8 % Neutrophils Absolute (A) 9.3 (H) 1.5 - 6.6 10^9/L Lymphocytes Absolute 2.8 1.0 - 3.5 10^9/L Monocytes Absolute 1.1 (H) 0.0 - 0.9 10^9/L Eosinophils Absolute 0.1 0.0 - 0.4 10^9/L Basophils Absolute 0.1 0.0 - 0.2 10^9/L Differential Type AUTOMATED DIFFERENTIAL Comprehensive metabolic panel Collection Time: 05/27/25 5:57 AM Result Value Ref Range SODIUM 133 (L) 134 - 146 mmol/L POTASSIUM 3.5 3.5 - 5.0 mmol/L CHLORIDE 102 98 - 109 mmol/L CARBON DIOXIDE 22 22 - 32 mmol/L ANION GAP 9 5 - 15 mmol/L BLOOD UREA NITROGEN 11 5 - 23 mg/dL CREATININE 0.57 0.40 - 1.00 mg/dL GLUCOSE 96 65 - 99 mg/dL CALCIUM 8.4 (L) 8.5 - 10.5 mg/dL TOTAL PROTEIN 7.3 6.0 - 8.0 g/dL ALBUMIN 3.7 3.2 - 5.3 g/dL ALKALINE PHOSPHATASE 110 39 - 130 U/L AST 66 (H) <=41 U/L ALT 66 (H) <=31 U/L BILIRUBIN,TOTAL 0.9 0.3 - 1.2 mg/dL EGFR Non-Race Dependent >90 >=60 ml/min/1.73sq.m Magnesium Collection Time: 05/27/25 5:57 AM Result Value Ref Range MAGNESIUM 2.1 1.8 - 2.6 mg/dL T3, free Collection Time: 05/27/25 5:57 AM Result Value Ref Range FREE T3 2.66 2.50 - 3.90 pg/mL Thyroid profile includes TSH FT4 Collection Time: 05/27/25 5:57 AM Result Value Ref Range FREE T4 0.77 0.61 - 1.60 ng/dL TSH 2.66 0.49 - 4.67 uIU/mL Lipid profile Collection Time: 05/27/25 5:57 AM Result Value Ref Range CHOLESTEROL 242 (H) 150 - 200 mg/dL TRIGLYCERIDE 121 27 - 150 mg/dL HDL CHOLESTEROL 52 >39 mg/dL LDL (CALC) 166 (H) <130 mg/dL CHOLESTEROL:HDL 4.7 1.0 - 5.0 VERY LOW LIPOPROTEIN 24 0 - 30 mg/dL Hemoglobin A1c Collection Time: 05/27/25 5:57 AM Result Value Ref Range HEMOGLOBIN A1C 5.0 4.4 - 5.6 % EST. AVERAGE GLUCOSE 97 mg/dL Radiology CT angiogram carotid Result Date: 05/21/2025 Narrative: CT CTA CAROTID HISTORY: Headache, vision changes, tongue numbness COMPARISON: None TECHNIQUE: * CTA of the carotid arteries performed after administration of 100 mL Omnipaque 350 intravenous contrast. 3-D post-processing techniques were utilized. * All CT scans at this facility use dose modulation, iterative reconstruction, and/or weight based dosing when appropriate to reduce radiation dose to as low as reasonably achievable. The NASCET methodology was utilized for calculation of percent stenosis. FINDINGS: Three-vessel aortic arch with minimal atherosclerotic calcification. Brachiocephalic and bilateral subclavian arteries appear unremarkable. Bilateral carotid vasculature appears unremarkable. Bilateral vertebral arteries appear unremarkable. Left dominant vertebral arterialcirculation. Visualized pulmonary parenchyma and cervical soft tissues appear grossly unremarkable.IMPRESSION: * No cervical large vessel stenosis, occlusion, dissection, or aneurysm. Approved by Resident: Sen Talbert MD on 05/21/2025 2:54 PM I, Desmond Duran MD have personally reviewed the image(s) and agree with and/or edited the report Finalized by Desmond Duran MD on 05/21/2025 3:[address] angiogram head Result Date: 05/21/2025 Narrative: CT CTA HEAD CLINICAL INFORMATION: headache vision changes tongue numbness. COMPARISON: None. PROCEDURE: Routine CTA Brady of [place] was obtained after the uncomplicated intravenous administration of contrast. Sagittal and coronal reformatted images with 3-D Maximum intensity projection reconstructions of the Brady of [place] constructed under concurrent physician supervision on a independent workstation for evaluation of vascular abnormalities. Arterial blood flow was measured to assist the stroke clinical team in the diagnosis of large vessel occlusion in patients undergoing screening for acute ischemic stroke using Rapid AI software when clinically indicated. All CT scans at this facility use dose modulation, iterative reconstruction, and/or weight based dosing when appropriate to reduce radiation dose to as low as reasonably achievable. 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 Right posterior cerebral artery ispatent. Internal carotid arteries are normal. Minimal atherosclerotic calcifications present. Anterior cerebral arteries and anterior commuting artery appear normal. The middle cerebral arteries are patent. Venous contamination degrades assessment for subtle abnormalities. 3-D reformatted images confirm the source data findings. IMPRESSION: * No evidence of large vessel occlusion. [id number] Finalized by Reza Esparza MD on 05/21/2025 2:51 PM X-ray chest 1 view Result Date: 05/21/2025 Narrative: XR CHEST 1 VW 05/21/2025 2:35 PM INDICATION: Stroke alert. Headaches. Left facial numbness. COMPARISON: 04/18/2016. TECHNIQUE: PA view of the chest. FINDINGS: Trachea is midline. Cardiomediastinal silhouette is unremarkable. No focal consolidation, pleural effusion, or discrete pneumothorax. IMPRESSION: No acute cardiopulmonary process. Finalized by Luis Eduardo Linda MD on 05/21/2025 2:[address] brain without contrast stroke alert Result Date: 05/21/2025 Narrative: CT BRAIN WO CONT STROKE ALERT CLINICAL HISTORY: Headache. Vision changes. COMPARISON: CTbrain 04/20/2011.. TECHNIQUE: CT brain without intravenous contrast. Automated exposure control wasutilized. FINDINGS: No acute intracranial hemorrhage, mass effect, shift of midline structures, or abnormal extra axial fluid collection. No evidence of acute large vessel territorial ischemia. Overall brain volume is normal. Ventricular system size and morphology are normal, basal cisterns are patent. Orbits are symmetric. No depressed or displaced calvarial fracture. Partial empty sella. Mucousretention cyst of the right maxillary sinus. Frothy secretions within the sphenoid sinuses. Mastoidair cells are well-aerated. Presumed cerumen within the external auditory canals. IMPRESSION: * No acute intracranial findings by CT. All CT scans at this facility use dose modulation, iterative reconstruction, and/or weight based dosing when appropriate to reduce radiation dose to as low as reasonably achievable. Finalized by Luis Eduardo Linda MD on 05/21/2025 2:33 PM HOSPITAL PROBLEM LIST Principal Problem: Hypertensive urgency Active Problems: Anxiety Hyperlipidemia Obstructive sleep apnea, adult Migraine headache with aura Insomnia Hypertensive encephalopathy ASSESSMENT & PLAN HTN urgency -cardene gtt -on losartan and toprol continue with both -135/88 HR 64 will wait to see what BP does with home meds, did increase losartan -ECHO today -cardiology consulted appreciate input especially with need of clearance for upcoming surgery. -encourage decreasing stress Hyperlipidemia -encourage low fat/low cholesterol diet KIARA Obesity BMI 38 -supportive care encourage compliance Nicotine dependence -supportive care -encourage cessation -nicotine patch in place Sepsis suspected, no-not clinically evident at this time. Chart reviewed. Admission orders placed. Home medications reconciled. VTE chemoprophylaxis: enoxaparin. GI prophylaxis: add famotidine. PT/OT to evaluate and treat. DC planning: Full code. Medically Ready for Discharge: Anticipated Today or tomorrow pending BP and ECHO results VINI Love 05/27/2025 6:36 PM [facility] Internal Medicine 7AM-7PM & 7PM-7AM: EpicChat or page through On-Call Finder. VINI Love 05/27/25 1212 Physician Attestation I, Kyree Lazo MD, personally performed a face to face diagnostic evaluation on this patient. I have reviewed the note authored by the advance practice provider including history, review of systems,physical examination,medical decision making and agree with the assessment and plan as written. I have seen and evaluated the patient, I have repeated the jay portions of the physical exam and concur with the NAN findings. I have reviewed all laboratory findings and imaging reports/films. I agree with the plan as noted. documented in this encounter Consult Notes * DEJA Kearney - 05/27/2025 2:44 PM ESTSummary: Nutrition Note Pt offered nutrition education r/t abnormal Lipid panel and diagnosis of HTN. Cholesterol = 242, LDL = 166, results reviewed with pt. Pt denies ever having abnormal Lipid panel in the past. Pt is interested in weight loss which can improve Lipid panel. Pt states that she has recently lost 50# d/t GI issues related to a uterine fibroid. Wt Readings from Last 10 Encounters: 05/27/25 97.7 kg (215 lb 6.4 oz) 05/21/25 94.3 kg (208 lb) 04/24/25 94.3 kg (208 lb) 03/25/25 94.3 kg (208 lb) 02/26/25 93.1 kg (205 lb 3.2 oz) 01/19/25 85.3 kg (188 lb) 11/28/24 90.8 kg (200 lb 3.2 oz) 08/29/19 106.6 kg (235 lb) 03/09/19 97.5 kg (215 lb) 08/02/18 100.7 kg (222 lb) Pt is planning a hysterectomy which she hopes will alleviate GI symptoms. Reviewed a gastric soft diet with pt for symptoms she described as being related to diverticulitis (nausea, abdominal pain, and decreased appetite). Pt to reintroduce fiber into her diet after symptoms subside. Pt educated kofi calorie restricted, low fat, low cholesterol, high fiber, FAUSTINO diet for improvement in Lipid paneland weight loss. 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 Pt has abstract writer's contact information for any questions or concerns in the future. No further f/u planned unless condition changes or consulted. Frida Stephenson RD, LD, [facility] * Rell Mcnair MD - 05/27/2025 1:34 PM ESTAssociated Order(s): IP CONSULT TO CARDIOLOGY Images from the original note were not included. [facility] ([facility] Consult Date of Admission: 05/26/2025 Date of Consultation: 05/27/2025 PCP: JENIFER LOYOLA APRN-VIANEY Chief Complaint: Asked to see this patient regarding hypertension. History of Present Illness: Damien Gill is a 45 y.o. female smoker with a history of ADHD, anxiety, chronic back pain previous surgery, dyslipidemia, migraine headaches, fairly severe essential hypertension. She has uterine fibroids and is scheduled for hysterectomy in June. Patient has been extremely anxious with multiple family stressors. Blood pressures have generally been running high and there have been a couple of adjustments as an outpatient. She presented to emergency room in [facility] with fairly severe hypertension and admitted at [facility] due to lack of beds at [facility]. She was on a Cardene drip which has been discontinued. She is still mildly hypertensive but blood pressures mostly have been controlled. She has had no neurologic issues. She denies particular chest pain. She is breathing comfortably. No history of renal failure She has had echocardiogram which shows preserved left ventricular systolic function without significant valvulopathy. PMH: Past Medical History: Diagnosis Date ADHD (attention deficit hyperactivity disorder) 07/1989 Anxiety 07/1989 Back pain Chest pain Dyspnea on exertion Eczema 1999 Hyperlipidemia Hypertension 2014 Migraine 1991 Peptic ulceration Pneumonia PSH: has a past surgical history that includes Back surgery (2008); Cholecystectomy; section; Colonoscopy; and Lymph node biopsy (2008). Allergies: Allergies Allergen Reactions Morphine (Pf) GI Disturbance, Abdominal Pain and Abnormal Behavior Dhea [Prasterone (Dhea)] Propranolol Home Meds: Prior to Admission medications Medication Sig Start Date End Date Taking? Authorizing Provider judqvhjrxk-qpbzqncbqquof-tkxd (FIORICET, ESGIC) 50-325-40 mg per tablet Take 1 tablet by mouth every 6 (six) hours as needed for headaches. 05/21/25 Yes Talita Lagos APRN-VIANEY clonazePAM (KlonoPIN) 0.5 mg tablet Take 1 tablet (0.5 mg total) by mouth daily as needed for anxiety. 10/27/24 Yes Not In System Ref Prov losartan (COZAAR) 50 mg tablet Take 1 tablet (50 mg total) by mouth in the morning. 05/12/25 Yes NotIn System Ref Prov metoprolol succinate XL (TOPROL XL) 50 mg 24 hr tablet Take 2 tablets (100 mg total) by mouth in the morning. 04/03/25 Yes Not In System Ref Prov Hospital Meds: Current Facility-Administered Medications Medication Dose Route Frequency Provider Last Rate Last Admin acetaminophen (TYLENOL) tablet 650 mg 650 mg oral Q4H PRN Kyree Lazo MD 650 mg at 05/27/25 0945 alum-mag hydroxide-simeth (MAALOX) 200-200-20 mg/5 mL suspension 30 mL 30 mL oral [facility] Kyree Lazo MD nyratcekjp-muqjplgudrxyg-sabs (FIORICET, ESGIC) 50-325-40 mg per tablet 1 tablet 1 tablet oral Q6H PRN Kyree Lazo MD clonazePAM (KlonoPIN) tablet 0.5 mg 0.5 mg oral Daily PRN Kyree Lazo MD dextrose (GLUTOSE) 40 % gel 15 g 15 g oral PRN Kyree Lazo MD dextrose 5 % (D5W) infusion 100 mL/hr intravenous Continuous PRN Kyree Lazo MD dextrose 50 % in water (D50W) 50% solution 25 mL 25 mL intravenous PRN Kyree Lazo MD diazePAM (VALIUM) injection 4 mg 4 mg intravenous Q4H PRN JHONY Munoz 4 mg at 05/26/25 2108 enoxaparin (LOVENOX) syringe 40 mg 40 mg subcutaneous Q24H BERNA Kyree Lazo MD 40 mg at 05/27/25 0824 famotidine (PEPCID) tablet 20 mg 20 mg oral Q12H Kyree Lazo MD 20 mg at 05/27/25 0820 glucagon HCL injection 1 mg 1 mg intramuscular PRN Kyree Lazo MD ketorolac (TORADOL) injection 15 mg 15 mg intravenous Q6H PRN Kyree Lazo MD 15 mg at 05/27/25 0820 losartan (COZAAR) tablet 100 mg 100 mg oral Daily Kyree Lazo MD 100 mg at 05/27/25 0820 metoprolol succinate XL (TOPROL XL) 24 hr tablet 100 mg 100 mg oral Daily Kyree Lazo MD 100 mg at 05/27/25 0820 niCARdipine (CARDENE-IV) infusion 40 mg/200 mL in iso-osmotic sodium chloride (0.2 mg/mL premix) 2.5-15 mg/hr intravenous Continuous Kyree Lazo MD 12.5 mL/hr at 05/27/25 1110 2.5 mg/hr at 05/27/25 1110 nicotine (NICODERM CQ) 21 mg/24 hr 1 patch 1 patch transdermal Daily Talita Coombs APRN-VIANEY 1 patchat 05/27/25 1126 ondansetron (PF) (ZOFRAN) injection 4 mg 4 mg intravenous Q6H PRN Kyree Lazo MD 4 mg at 05/27/25 0946 prochlorperazine (COMPAZINE) tablet 5 mg 5 mg oral Q6H PRRamone Lazo MD Or prochlorperazine (COMPAZINE) injection 5 mg 5 mg intravenous Q6H PRN Kyree Lazo MD 5 mg at 05/27/25 0449 Or prochlorperazine (COMPAZINE) injection 5 mg 5 mg intramuscular Q8H PRN Kyree Lazo MD sennosides-docusate sodium (SENOKOT-S) 8.6-50 mg 1 tablet 1 tablet oral Q12H PRN Kyree Lazo MD sodium chloride 0.9 % flush 3 mL 3 mL intravenous PRN Kyree Lazo MD sodium chloride 0.9 % flush 3 mL 3 mL intravenous Q12H BERNA Kyree Lazo MD 3 mL at 05/27/25 0829 sodium chloride 0.9 % flush bag 25 mL intravenous PRN Kyree Lazo MD sodium chloride 0.9 % infusion 20 mL/hr intravenous Continuous PRRamone Lazo MD Social History: Social History Socioeconomic History Marital status: Spouse name: Not on file Number of children: Not on file Years of education: Not on file Highest education level: Not on file Occupational History Not on file Tobacco Use Smoking status: Every Day Current packs/day: 1.00 Types: Cigarettes Smokeless tobacco: Never Vaping Use Vaping status: Never Used Substance and Sexual Activity Alcohol use: No Drug use: Yes Types: Marijuana Comment: daily Sexual activity: Not Currently control/protection: None Comment: Other Topics Concern Caffeine Use Yes Social History Narrative Not on file Social Drivers of Health Financial Resource Strain: Low Risk (05/26/2025) Overall Financial Resource Strain (CARDIA) Difficulty of Paying Living Expenses: Not hard at all Food Insecurity: No Food Insecurity (05/27/2025) Hunger Screening Food Insecurity - Worry: Never True Food Insecurity - Inability: Never True Transportation Needs: No Transportation Needs (05/26/2025) PRAPARE - Transportation Lack of Transportation (Medical): No Lack of Transportation (Non-Medical): No Physical Activity: Not on file Stress: Not on file Social Connections: Not on file Interpersonal Safety: Not At Risk (05/26/2025) Humiliation, Afraid, Rape, and Kick questionnaire Fear of Current or Ex-Partner: No Emotionally Abused: No Physically Abused: No Sexually Abused: No Housing Instability: Low Risk (05/26/2025) Housing Instability Housing Instability: No Family History: Family History Problem Relation Age of Onset Colon cancer Maternal Grandmother Heart disease Father Diabetes Father Early Mother Early Brother Breast cancer Neg Hx Ovarian cancer Neg Hx Uterine cancer Neg Hx Review of Systems: Constitutional: No Fevers/Chills, No recent weight gain weight loss, No fatigue. Eyes: No visual changes or diplopia. ENT: No Headaches, hearing loss or vertigo. Cardiovascular: Per HPI Respiratory: No cough or wheezing, no sputum production. No hematemesis. Gastrointestinal: No Nausea, Vomiting, Diarrhea, or Constipation Genitourinary: No dysuria,hematuria. Musculoskeletal: No gait disturbance, weakness or joint complaints. Integumentary: No rash or pruritis. Neurological: No headache, No Hx CVA/TIA Psychiatric: Generally anxious Endocrine: No temperature intolerance. Hematologic/Lymphatic: No abnormal bruising or bleeding Physical Exam Vital Signs: BP 141/85 Pulse 72 Temp 36.1 ??C (97 ??F) Resp 13 Ht 160 cm (5' 3 ) Wt 97.7 kg (215 lb 6.4 oz) SpO2 93% BMI 38.16 kg/m?? O2 Flow Rate (L/min): 0 L/min Admission Weight: 100.6 kg (221 lb 12.8 oz) General appearance: Alert oriented and cooperative. In no acute distress Skin: Warm and Dry to touch Head: Normocephalic, without obvious abnormality, atraumatic Eyes: Conjunctivae unremarkable, EOM's intact. Neck: No JVD, No carotid bruit. Neck supple, trachea midline Lungs: Clear to ausculation bilaterally, no use of accessory muscles. Heart:: S1-S2 are normal. No murmur Abdomen: Soft, non-tender. Bowel sounds normal. Extremities: No edema Neurologic: Oriented to time, person and place, affect appropriate. No focal/major motor defects noted. Psychiatric: Appropriate mood, memory and judgment Pertinent Testing: Cardiac Cath: ECHO/BUTCH: 05/27/25 Ordering Provider: Kyree Lazo MD Clinical Indications: None Listed Reading Physicians Performing Staff Cardiology: Rell Mcnair MD Tech: Pura Flores RDMS Department Department Name Address Phone Fax [facility] - ICU [address] [place], [place] [address] [id number] Reason for Exam Reason for exam? dyspnea Reason for Exam Reason for exam? dyspnea PACS Images (Uniview) Show images for Echo complete W/O contrast Interpretation Summary Show Result Comparison Left Ventricle: Left ventricle appears normal in size. Systolic function is normal with an ejectionfraction of 60-65%. The quantitative EF by 2D Schultz biplane is 65%. Normal left ventricular size and systolic function with mild concentric left ventricular hypertrophy. No significantly abnormal stenotic or regurgitant flows are present. Study Information Study Details A complete echo was performed using complete 2D, color flow Doppler and spectral Doppler. Overall the study quality was adequate. Myocardial Findings Left Ventricle Left ventricle appears normal in size. There is mild concentric increased wall thickness/hypertrophy. Systolic function is normal with an ejection fraction of 60-65%. The quantitative EF by 2D Schultz biplane is 65%. No obvious regional wall motion abnormalities. Normal diastolic function is present. Lateral E' is 9.36 cm/s. Medial E' is 9.57 cm/s. Right Ventricle Right ventricular size appears normal. The right ventricular basal diameter is 38.0mm. Systolic function is normal. Left Atrium Left atrium volume index is normal. The left atrial volume index is 26.8 mL/m2. Right Atrium Right atrium is normal in size. The right atrial area is 17.1 cm2. Aortic Valve Unable to determine leaflets. The leaflets are not thickened. There is no regurgitation or stenosis. Mitral Valve Mitral valve structure is normal. There is trace regurgitation. There is no evidence of mitral valve stenosis. Tricuspid Valve Tricuspid valve appears to be normal. There is no regurgitation or stenosis. Pulmonic Valve The leaflets are not thickened. There is trace to mild regurgitation. There is no evidence of pulmonic valve stenosis. Ascending Aorta The aortic root is normal in size. IVC/SVC IVC appears normal. Pericardium There is no pericardial effusion. Wall Motion Wall Scoring Baseline Score Index: 1.00 The left ventricular wall motion is normal. 2D Measurements STRESS: EKG: CXR: Labs: CBC: Lab Results Component Value Date WBC 13.3 (H) 05/27/2025 HGB 14.8 05/27/2025 HCT 43.7 05/27/2025 MCV 90 05/27/2025 RDW 13.0 05/27/2025 RDW 13.9 04/23/2015 PLT 300 05/27/2025 BMP: Lab Results Component Value Date K 3.5 05/27/2025 CL 102 05/27/2025 CL 104 08/15/2015 CO2 22 05/27/2025 BUN 11 05/27/2025 CREATININE 0.57 05/27/2025 CREATININE 0.72 08/15/2015 EGFR >90 05/27/2025 GLU 96 05/27/2025 GLU 95 05/21/2025 MG/PHOS: Lab Results Component Value Date MG 2.1 05/27/2025 PT/INR: No results found for: LABPROT , INR PTT: No results found for: APTT BNP: No results found for: BNP Last 3 Troponin: No components found for: TROPONINI;3 Lipid Panel: Lab Results Component Value Date CHOL 242 (H) 05/27/2025 TRIG 121 05/27/2025 HDL 52 05/27/2025 HDL 33 01/20/2015 CHOLHDLR 01/20/2015 RISK FEMALE RATIO MALE RATIO 1/2 AVERAGE 3.27 3.43 AVERAGE 4.44 4.97 2X 7.05 9.55 3X 11.04 23.39 Plan: 1. Essential hypertension. Toprol and Cardizem have been increased and she is being started on low-dose of calcium channel amara. The addition of a diuretic could be considered if not at goal. Likely be able to discharge tomorrow. 2. Dyslipidemia. She has not been on statin therapy. By the ACC risk calculator she would qualify but AST and ALT are elevated and I would not empirically start statin. 3. Encouraged to quit smoking 4. Elevated AST ALT. I would defer the primary service. Previous we are normal her abdominal exam is benign. Right upper quadrant ultrasound could be considered 5. Surgical risk. From a cardiac standpoint she seems to represent low risk of cardiac complications from general anesthesia and I see no cardiac contraindication to proceeding with clinically indicated surgery. Routine monitoring is appropriate 6. Your other diagnoses documented in this encounter Miscellaneous Notes * Plan of Care - Sindy Gill RN - 05/28/2025 10:36 AM EST Problem: Pain Goal: Patient goal is pain score less than 4, able to rest, and participant in treatment plan as appropriate Description: INTERVENTIONS: 1. Encourage patient or legal phlebotomy services representative to report early pain and ask for pain medicine when needed 2. Assess pain using appropriate pain scale and include the scale used when documenting 3. Administer analgesics based on type and severity of pain and evaluate response within appropriate time frame 4. Implement non-pharmacological measures as appropriate and evaluate response 5. Consider cultural and social influences on pain and pain management 6. Notify LIP if interventions ineffective or patient reports new pain 7. Monitor vital signs including pulse ox, end-tidal CO2 based on pain intervention 8. Reassess pain per policy 9. Teach patient or legal phlebotomy services representative interventions for comforting Outcome: Progressing Note: Evaluation of progress towards goal: Patient pain controlled with PRN pain medication. Will continue to assess every 4 hours and as needed Problem: Safety Goal: Patient will be injury free during hospitalization Description: INTERVENTIONS: 1. Assess patient's risk for falls and implement fall prevention plan of care per policy 2. Provide and maintain a safe environment 3. Proper use of double Identifiers 4. Medication administration using the 5 rights 5. Hand hygiene 6. Specimens are labeled at the bedside 7. Instruct patient/ patient phlebotomy services representative about use of safety devices 8. Include patient/ patient phlebotomy services representative in decisions related to safety Outcome: Progressing Note: Evaluation of progress towards goal: Patient remains free of falls and injury this shift. * Plan of Care - Loretta Washington RN - 05/28/2025 4:24 AM EST Problem: Pain Goal: Patient goal is pain score less than 4, able to rest, and participant in treatment plan as appropriate Description: INTERVENTIONS: 1. Encourage patient or legal phlebotomy services representative to report early pain and ask for pain medicine when needed 2. Assess pain using appropriate pain scale and include the scale used when documenting 3. Administer analgesics based on type and severity of pain and evaluate response within appropriate time frame 4. Implement non-pharmacological measures as appropriate and evaluate response 5. Consider cultural and social influences on pain and pain management 6. Notify LIP if interventions ineffective or patient reports new pain 7. Monitor vital signs including pulse ox, end-tidal CO2 based on pain intervention 8. Reassess pain per policy 9. Teach patient or legal phlebotomy services representative interventions for comforting Outcome: Progressing Note: Evaluation of progress towards goal: Patient will be taught pain scale, medication options, repositioning * Query Response - Kyree Lazo MD - 05/27/2025 6:37 PM EST Query Response Note CDI QUERY TEXT: Encephalopathy Type [id number] Disclaimer: By submitting this query, we are merely seeking further clarification of documentation to accurately reflect all conditions that you are monitoring, evaluating, treating or that extend the hospitalization or utilize additional resources of care. Please utilize your independent clinical judgment when addressing the question(s) below. Encephalopathy is documented in the medical record. -- Malignant Hypertension bp 204/14 206/106 -- Visual Disturbance -- IV Antihypertensives Please specify type such as: - Alcoholic - Anoxic - Due to medications or drugs, specify: - Hepatic - Hypertensive - Hypoxic - Hypoxic ischemic (please specify mild, moderate or severe) - Leukoencephalopathy with calcifications and cysts - Megaloencephalic leukoencephalopathy with subcortical cysts - Metabolic - Septic - Toxic, Toxic metabolic - Wernicke?s Thank you, Gino Dang MD, [facility] Clinical Documentation Senior Sales Compensation Analyst [facility] Clinical Revenue Cycle Email: [email or web address] The patient's Clinical Indicators include: see CDI RESPONSE TEXT: Acute hypertensive encephalopathy Query created by: Gino Dang on 05/27/2025 4:59 PM Electronically signed by: Kyree Lazo MD 05/27/2025 6:35 PM * Discharge Planning Note - DANIAL Hill - 05/27/2025 9:29 AM EST Images from the original note were not included. Initial Assessment Discharge Planning Assessment Damien Gill Admit Status: Inpatient Meet: Unknown Readmission Risk: 9%. Date of Admission: 05/26/2025 GMLOS: unknown Target Discharge Date: unknown Discharge Planning Assessment completed at bedside. Press Tender Incendiary Grenade identified self and role to the patient.Patient is agreeable to the assessment and discussion of a safe discharge plan. Initial Assessment Flowsheet Row Most Recent Value Patient Information Initial Pre-Hospitalization Assessment Completed? Completed Primary Caregiver Self Support System Children Discharge Planning Living Arrangements Adult Child(elida) Assistance Needed Patient is independent with ADLs and mobility. She and her adult adult live together in a one story home. She is currently employed and does drive. She does not endorse any financial barriers to food, medication, or utilities. Type of Residence Private residence Private Residence 1 story Can patient reside on one level? Yes Home Care Services No Community Agencies Currently Utilized None Community Referrals / Resources Provided Denies needs Does The Patient Have Existing Home DME? No Will the patient need DME at discharge? 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 Never True Within the past 12 months the food we bought just didn't last and we didn't have money to get more.Never True Hunger Screening Complete? Yes Warm Handoff Complete Caregiver/Family Member Caregiver/Support System Limitations Caregiver/Support Systems Limitations (Check All That Apply) No Caregiver Needed Patient/Caregiver Goals Patient/Caregiver Goals Home No Needs Home No Needs Alone Community Provider Referral Community Provider Referral None Services Requested Patient expects to be discharged to: Home with self care Does the patient wish to have family/friend/caregiver involved in their discharge planning? No, thepatient does not wish to have family/friend/caregiver involved in their discharge planning Discharge Disposition Home with self care Does the patient need discharge transportation arranged? No DC Planning Complete Discharge Milestones Yes 3-Midnight Pharmacy: [facility] [place] PCP: Jenifer [facility] Providers this admission: none Patient will make her own follow up appointments: yes Patient Goals: Goals Home with self care (pt-stated) Evaluation of progress towards goal: Patient will return home with self care Plan to prevent readmission: follow up with PCP Patient/Family do not endorse any questions at this time. Patient Discharge Plan: Home with self care Follow up with PCP Jenifer Loyola within 7-10 days. Patient prefers to schedule own appointment. - DANIAL Hill 05/27/25 9:32 AM * Plan of Care - Yara Alfredo RN - 05/27/2025 9:16 AM EST Problem: Pain Goal: Patient goal is pain score less than 4, able to rest, and participant in treatment plan as appropriate Description: INTERVENTIONS: 1. Encourage patient or legal phlebotomy services representative to report early pain and ask for pain medicine when needed 2. Assess pain using appropriate pain scale and include the scale used when documenting 3. Administer analgesics based on type and severity of pain and evaluate response within appropriate time frame 4. Implement non-pharmacological measures as appropriate and evaluate response 5. Consider cultural and social influences on pain and pain management 6. Notify LIP if interventions ineffective or patient reports new pain 7. Monitor vital signs including pulse ox, end-tidal CO2 based on pain intervention 8. Reassess pain per policy 9. Teach patient or legal phlebotomy services representative interventions for comforting Outcome: Progressing Note: Evaluation of progress towards goal: Pt able to report pain according to 0/10 pain scale. Medicating patient for pain per orders. Problem: Safety Goal: Patient will be injury free during hospitalization Description: INTERVENTIONS: 1. Assess patient's risk for falls and implement fall prevention plan of care per policy 2. Provide and maintain a safe environment 3. Proper use of double Identifiers 4. Medication administration using the 5 rights 5. Hand hygiene 6. Specimens are labeled at the bedside 7. Instruct patient/ patient phlebotomy services representative about use of safety devices 8. Include patient/ patient phlebotomy services representative in decisions related to safety Outcome: Progressing Note: Evaluation of progress towards goal: Safety measures initiated/maintained. Pt remains safe from harm/injury/falls Problem: Infection Goal: Absence of infection during hospitalization Description: INTERVENTIONS 1. Assess and monitor for signs and symptoms of infection. 2. Monitor lab/diagnostic results. 3. Monitor all insertion sites i.e., indwelling lines, tubes and drains. 4. Monitor endotracheal (as able) and nasal secretions for changes in amount and color. 5. Administer medications as ordered. 6. Instruct and encourage patient and family to use good hand hygiene technique. 7. Identify and instruct patient/patient phlebotomy services representative in use of appropriate isolation precautionsfor identified infection/symptoms. 8. Provide and discuss with patient/patient phlebotomy services representative on educational MDRO sheet. 9. Encourage and monitor nutritional status daily and consult blacktop spreader if indicated. 10. Implement neutropenic guidelines as needed. Outcome: Progressing Note: Evaluation of progress towards goal: Patient VS WNL, remains afebrile for shift. Continue to monitor. Problem: Knowledge Deficit Goal: Patient/patient phlebotomy services representative demonstrates understanding of disease process, treatment plan,medications, and discharge instructions Description: INTERVENTIONS 1. Complete learning assessment and assess knowledge base 2. Provide teaching at level of understanding 3. Provide teaching via preferred learning method(s) Outcome: Progressing Note: Evaluation of progress towards goal: POC discussed with patient. Questions answered PRN. * Plan of Care - Mariella Foreman RN - 05/26/2025 7:46 PM EST Problem: Pain Goal: Patient goal is pain score less than 4, able to rest, and participant in treatment plan as appropriate Description: INTERVENTIONS: 1. Encourage patient or legal phlebotomy services representative to report early pain and ask for pain medicine when needed 2. Assess pain using appropriate pain scale and include the scale used when documenting 3. Administer analgesics based on type and severity of pain and evaluate response within appropriate time frame 4. Implement non-pharmacological measures as appropriate and evaluate response 5. Consider cultural and social influences on pain and pain management 6. Notify LIP if interventions ineffective or patient reports new pain 7. Monitor vital signs including pulse ox, end-tidal CO2 based on pain intervention 8. Reassess pain per policy 9. Teach patient or legal phlebotomy services representative interventions for comforting Outcome: Progressing Note: Evaluation of progress towards goal: Pt able to report pain according to 0/10 scale. Medicating patient per PRN orders. Problem: Safety Goal: Patient will be injury free during hospitalization Description: INTERVENTIONS: 1. Assess patient's risk for falls and implement fall prevention plan of care per policy 2. Provide and maintain a safe environment 3. Proper use of double Identifiers 4. Medication administration using the 5 rights 5. Hand hygiene 6. Specimens are labeled at the bedside 7. Instruct patient/ patient phlebotomy services representative about use of safety devices 8. Include patient/ patient phlebotomy services representative in decisions related to safety Outcome: Progressing Note: Evaluation of progress towards goal: Safety measures initiated/maintained. Patient remains safe from harm/injury/falls. Problem: Infection Goal: Absence of infection during hospitalization Description: INTERVENTIONS 1. Assess and monitor for signs and symptoms of infection. 2. Monitor lab/diagnostic results. 3. Monitor all insertion sites i.e., indwelling lines, tubes and drains. 4. Monitor endotracheal (as able) and nasal secretions for changes in amount and color. 5. Administer medications as ordered. 6. Instruct and encourage patient and family to use good hand hygiene technique. 7. Identify and instruct patient/patient phlebotomy services representative in use of appropriate isolation precautionsfor identified infection/symptoms. 8. Provide and discuss with patient/patient phlebotomy services representative on educational MDRO sheet. 9. Encourage and monitor nutritional status daily and consult blacktop spreader if indicated. 10. Implement neutropenic guidelines as needed. Outcome: Progressing Note: Evaluation of progress towards goal: Patient VS WNL's, remains aferbile for shift. Continue to monitor. Problem: Knowledge Deficit Goal: Patient/patient phlebotomy services representative demonstrates understanding of disease process, treatment plan,medications, and discharge instructions Description: INTERVENTIONS 1. Complete learning assessment and assess knowledge base 2. Provide teaching at level of understanding 3. Provide teaching via preferred learning method(s) Outcome: Progressing Note: Evaluation of progress towards goal: POC discussed with patient, questions answered PRN. Problem: Discharge Planning Goal: Discharge to post-acute care, other facility, or home with appropriate resources Description: Patient's goal is: INTERVENTIONS 1. Conduct assessment to determine patient/family and health care team treatment goals, and need for post-acute services based on payer coverage, community resources, and patient preferences, and barriers to discharge 2. Coordinate with Social work, Care Navigation, and Utilization Review to arrange appropriate level of services according to patient's needs based on patient preference and payer coverage in collaboration with the physician and health care team 3. Address psychosocial, clinical, and financial barriers to discharge as identified in assessment in conjunction with the patient/family and health care team 4. Consult appropriate ancillary services (i.e.. PT/OT/ST, etc) as needed 5. Communicate with and update the patient/family, physician, and health care team regarding progress on the discharge plan 6. Identify discharge learning needs (meds, wound care, etc). 7. Arrange for needed discharge transportation as appropriate Outcome: Progressing Note: Evaluation of progress towards goal: Pt discharge initated with attending provider, PT/Familycommunicated with and updated regarding process on discharge as needed. * Plan of Care - Yara Alfredo RN - 05/26/2025 6:27 PM EST Problem: Pain Goal: Patient goal is pain score less than 4, able to rest, and participant in treatment plan as appropriate Description: INTERVENTIONS: 1. Encourage patient or legal phlebotomy services representative to report early pain and ask for pain medicine when needed 2. Assess pain using appropriate pain scale and include the scale used when documenting 3. Administer analgesics based on type and severity of pain and evaluate response within appropriate time frame 4. Implement non-pharmacological measures as appropriate and evaluate response 5. Consider cultural and social influences on pain and pain management 6. Notify LIP if interventions ineffective or patient reports new pain 7. Monitor vital signs including pulse ox, end-tidal CO2 based on pain intervention 8. Reassess pain per policy 9. Teach patient or legal phlebotomy services representative interventions for comforting Outcome: Progressing Note: Evaluation of progress towards goal: Pt able to report pain according to 0/10 pain scale. Medicating patient for pain per orders. Problem: Safety Goal: Patient will be injury free during hospitalization Description: INTERVENTIONS: 1. Assess patient's risk for falls and implement fall prevention plan of care per policy 2. Provide and maintain a safe environment 3. Proper use of double Identifiers 4. Medication administration using the 5 rights 5. Hand hygiene 6. Specimens are labeled at the bedside 7. Instruct patient/ patient phlebotomy services representative about use of safety devices 8. Include patient/ patient phlebotomy services representative in decisions related to safety Outcome: Progressing Note: Evaluation of progress towards goal: Safety measures initiated/maintained. Pt remains safe from harm/injury/falls Problem: Infection Goal: Absence of infection during hospitalization Description: INTERVENTIONS 1. Assess and monitor for signs and symptoms of infection. 2. Monitor lab/diagnostic results. 3. Monitor all insertion sites i.e., indwelling lines, tubes and drains. 4. Monitor endotracheal (as able) and nasal secretions for changes in amount and color. 5. Administer medications as ordered. 6. Instruct and encourage patient and family to use good hand hygiene technique. 7. Identify and instruct patient/patient phlebotomy services representative in use of appropriate isolation precautionsfor identified infection/symptoms. 8. Provide and discuss with patient/patient phlebotomy services representative on educational MDRO sheet. 9. Encourage and monitor nutritional status daily and consult blacktop spreader if indicated. 10. Implement neutropenic guidelines as needed. Outcome: Progressing Note: Evaluation of progress towards goal: Patient VS WNL, remains afebrile for shift. Continue to monitor. Problem: Knowledge Deficit Goal: Patient/patient phlebotomy services representative demonstrates understanding of disease process, treatment plan,medications, and discharge instructions Description: INTERVENTIONS 1. Complete learning assessment and assess knowledge base 2. Provide teaching at level of understanding 3. Provide teaching via preferred learning method(s) Outcome: Progressing Note: Evaluation of progress towards goal: POC discussed with patient. Questions answered PRN. documented in this encounter Plan of Treatment DateTypeDepartmentCare Team (Latest Contact Info)Jqlxeftfvms68/03/2025 10:00 AM ESTProcedure visit [facility] [place] [address] 06/23/2025 8:30 AM ESTHospital Encounter [facility] [address] [place] [address] Idalia Neumann MD [address] [place] [address] , [address] [place] [address] 06/23/2025 8:30 AM EST - 06/23/2025 11:30 AM ESTSurgery [facility] [address] [address] Idalia Nuemann MD [address] [place] [address] [address], [address] [place] [address] DAVINCI HYSTERECTOMY QVNBPXUOHRSBL31/22/2025 11:00 AM ESTOffice Visit [facility] [address] [place] [address] Idalia [facility] [place] [address] [place] [address] 08/10/2025 11:00 AM ESTOffice Visit [facility] [address] [place] [address] Idalia Nuemann MD [address] [facility] , [facility] [address] [place] [address] 09/22/2025 9:00 AM EDTOffice Visit [facility] [address] [place] [address] Agnieszka Whipple MD [facility], [facility] [address] [place] [id number] NamePriorityAssociated DiagnosesDate/TimeDAVINCI HYSTERECTOMY SALPINGECTOMY Pelvic pain in female Subserous leiomyoma of uterus Abnormal uterine bleeding (AUB) 06/23/2025 8:30 AM ESTDAVINCI CYSTECTOMY OVARIAN Pelvic pain in female Subserous leiomyoma of uterus Abnormal uterine bleeding (AUB) 06/23/2025 8:30 AM ESTEXCISION LIPOMA MIDSECTION Pelvic pain in female Subserous leiomyoma of uterus Abnormal uterine bleeding (AUB) 06/23/2025 8:30 AM ESTdocumented as of this encounter Goals GoalPatient Goal TypeAssociated ProblemsRecent ProgressPatient-Stated?Author Home with self care Katie Cruz LSW Note: Evaluation of progress towards goal: Patient will return home with self care documented as of this encounter Procedures Procedure NamePriorityDate/TimeAssociated DiagnosisCommentsCBC WITH AUTO QXLFUQCIUFIEMxhvlwj20/20/2025 5:28 AM EST COMPREHENSIVE METABOLIC LRLDPHridxve33/20/2025 5:28 AM EST ECHO COMPLETE WO WURKHVYOSkwhrvm51/19/2025 10:57 AM EST RESPIRATORY CARE IIEVDNWGPGbzrqil10/19/2025 9:27 AM ESTTHYROID PROFILE INCLUDES TSH VW8Ylqpwkp14/19/2025 5:57 AM EST CBC WITH AUTO VSXRQDNSPGINEyleuki55/19/2025 5:57 AM EST T3, FJVUFqluiwd01/19/2025 5:57 AM EST TDJSGBTRRJskupno15/19/2025 5:57 AM EST HEMOGLOBIN Y9NKmtcnti60/19/2025 5:57 AM EST LIPID XXEPOMNZmdbnjn25/19/2025 5:57 AM EST COMPREHENSIVE METABOLIC METUCKaqyhps30/19/2025 5:57 AM EST HEPATITIS PANEL, GEHJPGtlxbsn79/19/2025 5:52 AM EST documented in this encounter Results * (ABNORMAL) Comprehensive metabolic panel (05/28/2025 5:28 AM EST)Component ValueRef RangeTest MethodAnalysis TimePerformed AtPathologist SignatureSODIUM 231392 - 146 mmol/L107/28/2024 6:20 AM [facility]POTASSIUM 3.93.5 - 5.0 mmol/L107/28/2024 6:20 AM [facility]OSPITALCHLORIDE 33683 - 109 mmol/L107/28/2024 6:20 AM [facility]ITALCARBON YJUHGZD15(L)22 - 32 mmol/L107/28/2024 6:20 AM [facility] ANION GAP95 - 15 mmol/L107/28/2024 6:20 AM [facility]ITALBLOOD UREA UZRLMEUQ131 - 23 mg/dL05/28/2025 6:20 AM [facility] CREATININE0.470.40 - 1.00 mg/dL05/28/2025 6:20 AM [facility]ITALComment:METHOD TRACEABLE TO IDMS RBSXVTJNIYOQOIS043(H)65 - 99 mg/dL 05/28/2025 6:20 AM [facility]ITALCALCIUM9.08.5 - 10.5 mg/dL 05/28/2025 6:20 AM [facility]ITALTOTAL PROTEIN7.46.0 - 8.0 g/dL05/28/2025 6:20 AM [facility]ITALALBUMIN3.73.2 - 5.3 g/dL 05/28/2025 6:20 AM [facility]ITALALKALINE DPOYVTOXVNR1365 - 130 U/L107/28/2024 6:20 AM [facility]ITALAST24<=41 U/L 05/28/2025 6:20 AM [facility]ITALALT42(H)<=31 U/L107/28/2024 6:20 AM [facility]PITALBILIRUBIN,TOTAL0.70.3 - 1.2 mg/dL 05/28/2025 6:20 AM [facility]OSPITALEGFR Non-Race Dependent>90 >=60 ml/min/1.73sq.m107/28/2024 6:20 AM [facility]PITALComment: eGFR not reported due to non-numeric value for Creatinine. Reported eGFR is based on the CKD-EPI 2020 equation that does not use a race coefficient. Specimen (Source)Anatomical Location / LateralityCollection Method / Volume Collection TimeReceived TimeBloodVenous blood / UnknownVenipuncture / Unknown 05/28/2025 5:28 AM EST05/28/2025 5:51 AM EST Narrative Authorizing ProviderResult TypeResult StatusKaedouard Lazo MDLAB BLOOD ORDERABLES Final ResultPerforming OrganizationAddressCity/State/[facility] CodePhone Number [address] [address], * (ABNORMAL) CBC auto differential (05/28/2025 5:28 AM EST)ComponentValueRef RangeTest MethodAnalysis TimePerformed AtPathologist HgxivwmmdTTH07.7(H)4 - 11 10^9/L107/28/2024 5:59 AM [facility]OSPITALRBC Count4.663.8 - 5.2 10^12/L107/28/2024 5:59 AM [facility]PITALHemoglobin14.411.7 - 15.5 g/dL05/28/2025 5:59 AM [facility]OSPITALHematocrit41.735 - 47 %05/28/2025 5:59 AM [facility]PITALMCV9080 - 100 fL 05/28/2025 5:59 AM [facility]ITALMCH31.027 - 34 pg05/28/2025 5:59 AM [facility] PUIBEQAKDITI78.632 - 36 g/dL05/28/2025 5:59 AM [facility] FRDMBCJEAMA30.011.5 - 15 %05/28/2025 5:59 AM [facility] HOSPITALPlatelet Irzwf980036 - 450 10^05/28/2025 5:59 AM [facility] HOSPITALMPV8.17 - 12 fL05/28/2025 5:59 AM [facility] HOSPITALNeutrophils %73.7%05/28/2025 5:59 AM [facility] HOSPITALLymphocytes %17.8%05/28/2025 5:59 AM [facility] HOSPITAL Monocytes %7.4%05/28/2025 5:59 AM [facility] HOSPITALEosinophils % 0.1%05/28/2025 5:59 AM [facility] HOSPITALBasophils %1.0%05/28/2025 5:59 AM [facility] HOSPITALNeutrophils Absolute (A)10.1(H)1.5 - 6.6 10^05/28/2025 5:59 AM [facility] HOSPITALLymphocytes Absolute2.4 1.0 - 3.5 10^05/28/2025 5:59 AM [facility] HOSPITALMonocytes Absolute1.0(H)0.0 - 0.9 10^05/28/2025 5:59 AM [facility] HOSPITALEosinophils Absolute0.00.0 - 0.4 10^05/28/2025 5:59 AM [facility] HOSPITALBasophils Absolute0.10.0 - 0.2 10^05/28/2025 5:59 AM [facility] HOSPITALDifferential TypeAUTOMATED CMHMJGBENFSA01/20/2025 5:59 AM [facility] HOSPITALSpecimen (Source)Anatomical Location / LateralityCollection Method / VolumeCollection TimeReceived TimeBloodVenous blood / UnknownVenipuncture / Cuxzzdg6205/28/2025 5:28 AM EST05/28/2025 5:51 AM EST Narrative Authorizing ProviderResult TypeResult StatusKyree Lazo MDLAB BLOOD ORDERABLES Final ResultPerforming OrganizationAddressCity/State/ZIP CodePhone Number [address] [address], [place] * Echo complete W/O contrast (05/27/2025 10:57 AM EST)ComponentValueRef Range Test MethodAnalysis TimePerformed AtPathologist SignatureLVOT stroke volume 53.57mlXCELERALV Systolic Pbgamy54.50fHETHNMSVQR87%SWGHOSWZR7507 - 44 %XCELERA LV Diastolic Qihjop33.27rUZACSAZOQVFVw0.504.95 - 6.87 cmXCELERALVIDs3.002.91 - 4.40 cmXCELERAIVS1.100.6 - 1.1 cmXCELERAPW1.000.6 - 1.1 cmXCELERALVOT diameter 1.47scDABRQIJGVU7.36cm/sXCELERAMV TDI E' (medial)9.57cm/sXCELERALA Volume Index26.8mL/h2TKVZEBNU/A ratio1.15XCELERAE wave deceleration kaor614.00msec XCELERAMV Peak E Vel93.40cm/sXCELERAMV Peak A Vel81.40cm/sXCELERALA size4.20cm XCELERAAortic root3.50cmXCELERALA .23af8QRMRTUNZT diastolic dimension (basal)38.3pcAKQQUVJZSWBY9.00cmXCELERAAV peak apm992.00cm/sXCELERALVOT peak vel1.09m/sXCELERAAV VTI31.90cmXCELERALVOT peak VTI23.60cmXCELERAAV mean gradient5.00mmHgXCELERAAV peak gradient8.07mmHgXCELERAAV valve area1.68XCELERA Valve area - Index0.8XCELERAMV pressure 1/2 time67.00msXCELERAMV valve area p 1/2 method3.08pj3PWEKNHAII ESV A2C49.80mLXCELERALV ESV A4C57.10mLXCELERALV RWT 2D44.44XCELERAEcho EF Hszbjavnr34%XCELERAAV Velocity Ratio0.74XCELERALeft Ventricle Axhf494.158036025530593gGNQDFJBZketuryiartegyqf Septum Diastolic Thickness by 4L13taKNZYIIMJBOY01.4cm/sXCELERARA 2D Ruaqnp20.0mL/d2TAYOQFECB area17.9ul9PPIEDDZUZPTVV-3.39XCELERAZLVIDD-2.59XCELERAEnergy loss index19.23 XCELERAAnatomical RegionLateralityModalityChestN/AUltrasoundSpecimen (Source) Anatomical Location / LateralityCollection Method / VolumeCollection Time Received Time Narrative 05/27/2025 11:09 AM EST Left Ventricle: Left ventricle appears normal in size. Systolic function is normal with an ejection fraction of 60-65%. The quantitative EF by 2D Schultz biplane is 65%. Normal left ventricular size and systolic function with mild concentric left ventricular hypertrophy. ?? No significantly abnormal stenotic or regurgitant flows are present. Left Ventricle Left ventricle appears normal in size. There is mild concentric increased wall thickness/hypertrophy. Systolic function is normal with an ejection fraction of 60-65%. The quantitative EF by 2D Schultz biplane is 65%. No obvious regional wall motion abnormalities. Normal diastolic function is present. Lateral E' is 9.36 cm/s. Medial E' is 9.57 cm/s. Right Ventricle Right ventricular size appears normal. The right ventricular basal diameter is 38.0 mm. Systolic function is normal. Left Atrium Left atrium volume index is normal. The left atrial volume index is 26.8 mL/m2. Right Atrium Right atrium is normal in size. The right atrial area is 17.1 cm2. IVC/SVC IVC appears normal. Mitral Valve Mitral valve structure is normal. There is trace regurgitation. There is no evidence of mitral valve stenosis. Tricuspid Valve Tricuspid valve appears to be normal. There is no regurgitation or stenosis. Aortic Valve Unable to determine leaflets. The leaflets are not thickened. There is no regurgitation or stenosis. Pulmonic Valve The leaflets are not thickened. There is trace to mild regurgitation. There is no evidence of pulmonic valve stenosis. Ascending Aorta The aortic root is normal in size. Pericardium There is no pericardial effusion. Study Details A complete echo was performed using complete 2D, color flow Doppler and spectral Doppler. Overall the study quality was adequate. Wall Scoring Baseline Score Index: 1.00 The left ventricular wall motion is normal. Authorizing ProviderResult TypeResult StatusKyree Lazo MDCV ECHO ORDERABLES Final Result * Hemoglobin A1c (05/27/2025 5:57 AM EST)ComponentValueRef RangeTest Method Analysis TimePerformed AtPathologist SignatureHEMOGLOBIN A1C5.04.4 - 5.6 % 05/27/2025 9:57 AM [facility] LABORATORYComment: ?ADA Guidelines ?Result ?HgbA1c ? Normal : ? less than 5.7 % ? Prediabetes : ?5.7 % ??to 6.4 % Diabetes : > 6.4 % ?Use with caution in patients with abnormal hemoglobin variants as ??the half-life of red blood cells and in vivo glycation rates are ??affected. EST. AVERAGE BZXNSIT45uy/dL05/27/2025 9:57 AM [facility] LABORATORYSpecimen (Source)Anatomical Location / LateralityCollection Method / VolumeCollection TimeReceived TimeBloodVenous blood / UnknownVenipuncture / Ftjuyof5705/27/2025 5:57 AM EST05/27/2025 6:09 AM EST Narrative Authorizing ProviderResult TypeResult StatusKyree Lazo MDLAB BLOOD ORDERABLES Final ResultPerforming OrganizationAddressCity/State/ZIP CodePhone Number [facility] [address] [place] [address], [place] [phone] * (ABNORMAL) Lipid profile (05/27/2025 5:57 AM EST)ComponentValueRef RangeTest MethodAnalysis TimePerformed AtPathologist BaiibivaePXOCMNJDNHJ072(H)150 - 200 mg/dL05/27/2025 9:56 AM [facility] XOVMYBQPYERIEXLQQHBXSS592 27 - 150 mg/dL05/27/2025 9:56 AM [facility] LABORATORYHDL LAIKXCBQHSG75>39 mg/dL05/27/2025 9:56 AM [facility] LABORATORYComment: HDL <40 mg/dL - High Risk HDL > or = 40mg/dL- Desirable HDL >60 mg/dL - Negative Risk LDL (CALC)166(H)<130 mg/dL05/27/2025 9:56 AM [facility] LABORATORYComment: LDL <100 mg/dL - Desirable LDL >160 mg/dL - High Risk CHOLESTEROL:HDL4.71.0 - 5.011 9:56 AM [facility] LABORATORYVERY LOW VLRPCOMBPFC870 - 30 mg/dL05/27/2025 9:56 AM [facility] LABORATORYSpecimen (Source)Anatomical Location / Laterality Collection Method / VolumeCollection TimeReceived TimeBloodVenous blood / UnknownVenipuncture / Yoheijh2205/27/2025 5:57 AM EST05/27/2025 6:09 AM EST Narrative Authorizing ProviderResult TypeResult StatusKalestephani Lazo MDLAB BLOOD ORDERABLES Final ResultPerforming OrganizationAddressCity/State/ZIP CodePhone Number [facility] [address] [place] [address], * Thyroid profile includes TSH FT4 (05/27/2025 5:57 AM EST)ComponentValueRef RangeTest MethodAnalysis TimePerformed AtPathologist SignatureFREE T40.770.61 - 1.60 ng/dL05/27/2025 6:47 AM [facility]ITALTSH2.660.49 - 4.67 uIU/mL05/27/2025 6:47 AM [facility]) Anatomical Location / LateralityCollection Method / VolumeCollection Time Received TimeBloodVenous blood / UnknownVenipuncture / Foyysnd3305/27/2025 5:57 AM EST05/27/2025 6:09 AM EST Narrative Authorizing ProviderResult TypeResult StatusKyree TAYLOR BLOOD ORDERABLES Final ResultPerforming OrganizationAddressty/State/ZIP CodePhone Number [address] [address], [place] * T3, free (05/27/2025 5:57 AM EST)ComponentValueRef RangeTest MethodAnalysis TimePerformed AtPathologist SignatureFREE T32.662.50 - 3.90 pg/mL05/27/2025 10:06 AM [facility] LABORATORYSpecimen (Source)Anatomical Location / LateralityCollection Method / VolumeCollection TimeReceived Time BloodVenous blood / UnknownVenipuncture / Pnqsagr9105/27/2025 5:57 AM EST 05/27/2025 6:09 AM EST Narrative Authorizing ProviderResult TypeResult StatusKyree TAYLOR BLOOD ORDERABLES Final ResultPerforming OrganizationAddressty/State/ZIP CodePhone Number [facility] [address] [place] [address], [place] [phone] * Magnesium (05/27/2025 5:57 AM EST)ComponentValueRef RangeTest MethodAnalysis TimePerformed AtPathologist SignatureMAGNESIUM2.11.8 - 2.6 mg/dL05/27/2025 6:40 AM [facility]ITALpecimen (Source)Anatomical Location / LateralityCollection Method / VolumeCollection TimeReceived TimeBloodVenous blood / UnknownVenipuncture / Ymgimuh7305/27/2025 5:57 AM EST05/27/2025 6:09 AM EST Narrative Authorizing ProviderResult TypeResult StatusKyree TAYLOR BLOOD ORDERABLES Final ResultPerforming OrganizationAddressCity/State/ZIP CodePhone Number [place] [phone], [place] * (ABNORMAL) Comprehensive metabolic panel (05/27/2025 5:57 AM EST)Component ValueRef RangeTest MethodAnalysis TimePerformed AtPathologist SignatureSODIUM 133(L)134 - 146 mmol/L107/27/2024 6:40 AM [facility] POTASSIUM3.53.5 - 5.0 mmol/L107/27/2024 6:40 AM [facility] IVWXFWSW86533 - 109 mmol/L107/27/2024 6:40 AM [facility] CARBON VVTCYBV7589 - 32 mmol/L107/27/2024 6:40 AM [facility]ITALANION GAP95 - 15 mmol/L107/27/2024 6:40 AM [facility]ITALBLOOD UREA PPDQZMBQ724 - 23 mg/dL05/27/2025 6:40 AM [facility]PITALCREATININE0.570.40 - 1.00 mg/dL05/27/2025 6:40 AM [facility]Comment:METHOD TRACEABLE TO IDMS TTBTEJXPGCUYHUL06 65 - 99 mg/dL05/27/2025 6:40 AM [facility]PITALCALCIUM8.4(L)8.5 - 10.5 mg/dL05/27/2025 6:40 AM [facility]ITALTOTAL PROTEIN7.3 6.0 - 8.0 g/dL05/27/2025 6:40 AM [facility]ITALALBUMIN3.73.2 - 5.3 g/dL05/27/2025 6:40 AM [facility] HOSPITALALKALINE PHOSPHATASE 63903 - 130 U/L107/27/2024 6:40 AM [facility] TWOQLBSZFWX07(H)<=41 U/L107/27/2024 6:40 AM [facility] VHPIATMRCAZ94(H)<=31 U/L107/27/2024 6:40 AM [facility]PITALBILIRUBIN,TOTAL0.90.3 - 1.2 mg/dL 05/27/2025 6:40 AM [facility]OSPITALEGFR Non-Race Dependent>90 >=60 ml/min/1.73sq.m107/27/2024 6:40 AM [facility]ITALComment: eGFR not reported due to non-numeric value for Creatinine. Reported eGFR is based on the CKD-EPI 2020 equation that does not use a race coefficient. Specimen (Source)Anatomical Location / LateralityCollection Method / Volume Collection TimeReceived TimeBloodVenous blood / UnknownVenipuncture / Unknown 05/27/2025 5:57 AM EST05/27/2025 6:09 AM EST Narrative Authorizing ProviderResult TypeResult StatusKyree Lazo MDLAB BLOOD ORDERABLES Final ResultPerforming OrganizationAddressCity/State/ZIP CodePhone Number [address] [address], * (ABNORMAL) CBC auto differential (05/27/2025 5:57 AM EST)ComponentValueRef RangeTest MethodAnalysis TimePerformed AtPathologist FoengartgUVK88.3(H)4 - 11 10^9/L107/27/2024 6:19 AM [facility]OSPITALRBC Count4.883.8 - 5.2 10^12/L107/27/2024 6:19 AM [facility]PITALHemoglobin14.811.7 - 15.5 g/dL05/27/2025 6:19 AM [facility]PITALHematocrit43.735 - 47 %05/27/2025 6:19 AM [facility]ITALMCV9080 - 100 fL 05/27/2025 6:19 AM [facility]ITALMCH30.327 - 34 pg05/27/2025 6:19 AM [facility]ITALMCHC33.932 - 36 g/dL05/27/2025 6:19 AM [facility]OSPITALRDW13.011.5 - 15 %05/27/2025 6:19 AM [facility]OSPITALPlatelet Rnyry205664 - 450 10^9/L107/27/2024 6:19 AM [facility]ITALMPV8.17 - 12 fL05/27/2025 6:19 AM [facility] HOSPITALNeutrophils %69.8%05/27/2025 6:19 AM [facility]ITALLymphocytes %20.8%05/27/2025 6:19 AM [facility] HOSPITAL Monocytes %8.0%05/27/2025 6:19 AM [facility] HOSPITALEosinophils % 0.6%05/27/2025 6:19 AM [facility]ITALBasophils %0.8%05/27/2025 6:19 AM [facility] HOSPITALNeutrophils Absolute (A)9.3(H)1.5 - 6.6 10^9/L107/27/2024 6:19 AM [facility] HOSPITALLymphocytes Absolute2.8 1.0 - 3.5 10^9L107/27/2024 6:19 AM [facility] HOSPITALMonocytes Absolute1.1(H)0.0 - 0.9 10^9/L107/27/2024 6:19 AM [facility] HOSPITALEosinophils Absolute0.10.0 - 0.4 10^9/L107/27/2024 6:19 AM [facility]ITALBasophils Absolute0.10.0 - 0.2 10^9L107/27/2024 6:19 AM [facility] HOSPITALDifferential TypeAUTOMATED ITZTSGVBHVJM63/19/2025 6:19 AM [facility]ITALpecimen (Source)Anatomical Location / LateralityCollection Method / VolumeCollection TimeReceived TimeBloodVenous blood / UnknownVenipuncture / Cohrvrv3205/27/2025 5:57 AM EST05/27/2025 6:09 AM EST Narrative Authorizing ProviderResult TypeResult StatusKaleem Nghia Lazo MDLAB BLOOD ORDERABLES Final ResultPerforming OrganizationAddressCity/State/ZIP CodePhone Number [address] [address], * Hepatitis panel, acute (05/27/2025 5:52 AM EST)ComponentValueRef RangeTest MethodAnalysis TimePerformed AtPathologist SignatureHEPATITIS B SURF AG Fjr-TmvikyocPtb-Vqkidlxw76/19/2025 6:55 PM [facility] LABORATORYHEPATITIS A RBREby-DgqmdxrzBib-Vyldcffd28/19/2025 6:55 PM [facility] LABORATORYHEPATITIS B CORE MCDDfy-DwbrwsvaXjd-Tsmwpnhe 05/27/2025 6:55 PM [facility] LABORATORYANTI HCV W/PCR REFLX Znb-SfaifddwYzp-Jggnfsze34/19/2025 6:55 PM [facility] LABORATORYComment: If recent infection suspected, recommend repeat testing (>2 months). Akabse-rf-hdojnn ratio is <1.0. Specimen (Source)Anatomical Location / LateralityCollection Method / Volume Collection TimeReceived TimeBloodVenous blood / UnknownVenipuncture / Unknown 05/27/2025 5:52 AM EST05/27/2025 11:47 AM EST Narrative Authorizing ProviderResult TypeResult StatusRachel Corin FARM WORKER-CNPLAB BLOOD ORDERABLESFinal ResultPerforming OrganizationAddressCity/State/ZIP CodePhone Number [facility] [address] [place] [address], documented in this encounter Visit Diagnoses Diagnosis Pelvic pain in female Unspecified symptom associated with female genital organs Subserous leiomyoma of uterus Abnormal uterine bleeding (AUB) Hypertensive urgency- Primary Hypertensive encephalopathy Hypertensive urgency Hyperlipidemia Other and unspecified hyperlipidemia Anxiety Anxiety state, unspecified Obstructive sleep apnea, adult Migraine headache with aura Insomnia Insomnia, unspecified Hypertensive encephalopathy Pelvic pain in female Unspecified symptom associated with female genital organs Subserous leiomyoma of uterus Abnormal uterine bleeding (AUB) documented in this encounter Admitting Diagnoses Diagnosis Hypertensive urgency documented in this encounter Administered Medications Medication OrderMAR ActionAction DateDoseRateSite acetaminophen (TYLENOL) tablet 650 mg 650 mg, oral, Every 4 hours PRN, Temperature greater than 38.3 C, Starting on Sun05/26/25 at 1830,[Warning: Total Acetaminophen not to exceed more than 4 grams (4000 mg) in 24 hours] Given05/27/2025 9:45 AM ZAT921 mg alum-mag hydroxide-simeth (MAALOX) 200-200-20 mg/5 mL suspension 30 mL 30 mL, oral, 4 times daily after meals and at bedtime as needed, dyspepsia, Starting on Sun05/26/25 at 1830, Look-alike/sound-alike medication - verify indication for use. Shake well., Indications: dyspepsia Indications:dyspepsia busPIRone (BUSPAR) 5 mg tablet - Pyxis Override Pull Starting on Sun05/27/25 at 1914, For 1 dose, [place], [place]: cabinet override Look-alike/sound-alike medication - verify indication for use. Avoid grapefruit juice. busPIRone (BUSPAR) tablet 5 mg 5 mg, oral, 3 times daily, First dose on Sun05/27/25 at 2200, Look-alike/sound-alike medication - verify indication for use. Avoid grapefruit juice. Given05/28/2025 5:30 AM EST5 wyLpzyf1105/27/2025 7:16 PM EST5 mg gfbcwcbzye-ughjjfaosxzyt-iyrb (FIORICET, ESGIC) 50-325-40 mg per tablet 1 tablet 1 tablet, oral, Every 6 hours PRN, headaches, Starting on Sun05/26/25 at 1828, Look-alike/sound-alike medication - verify indication for use. Given05/27/2025 9:31 PM EST1 tablet clonazePAM (KlonoPIN) tablet 0.5 mg 0.5 mg, oral, Daily PRN, anxiety, Starting on Sun05/26/25 at 1828, Look-alike/sound-alike medication - verify indication for use. Given05/28/2025 12:16 AM EST0.5 kvVmpuw1405/27/2025 1:55 PM EST0.5 mg dexAMETHasone (DECADRON) injection 4 mg 4 mg, intravenous, Once, On Sun05/27/25 at 1115, For 1 dose, May alter blood glucose or insulin requirements. Look-alike/sound-alike medication - verify indication for use. Given05/27/2025 11:26 AM EST4 mg dextrose (GLUTOSE) 40 % gel 15 g 15 g, oral, As needed, low blood sugar, blood glucose less than 70 mg/dL, Starting on Sun05/26/25 at 1830, If patient conscious and taking PO. If blood glucose is not greater than 70 mg/dL after initial treatment, repeat treatment. dextrose 5 % (D5W) infusion 100 mL/hr, intravenous, Continuous PRN, blood glucose less than 70 mg/dL, Starting on Sun05/26/25 at 1830, For 365 days, Use immediately following dextrose 50% or glucagon treatment for patients whoare unconscious or NPO. Contact prescriber for additional orders. If blood glucose is not greater than 70 mg/dL after initial treatment, repeat treatment. dextrose 50 % in water (D50W) 50% solution 25 mL 25 mL, intravenous, As needed, low blood sugar, blood glucose less than 70 mg/dL and unconscious orNPO with IV access, Starting on Sun05/26/25 at 1830, Push over 1-3 minutes STAT. If conscious and not NPO, immediately follow with meal tray or high protein (7 grams) snack if tray not available. IfNPO, initiate 5% dextrose in water at 100 mL/hr and contact prescriber for additional orders. If blood glucose is not greater than 70 mg/dL after initial treatment, repeat treatment. VESICANT (RED) Warning: HYPERTONIC solution. diazePAM (VALIUM) injection 4 mg 4 mg, intravenous, Every 4 hours PRN, anxiety, Starting on Sun05/26/25 at 2018, Look-alike/sound-alike medication - verify indication for use. Given05/28/2025 2:03 AM EST4 kvOaqut8305/27/2025 9:25 PM EST4 ngPfveb9205/27/2025 3:15 PM EST4 mg enoxaparin (LOVENOX) syringe 40 mg 40 mg, subcutaneous, Every 24 hours scheduled, First dose on Sun05/27/25 at 0900, Look-alike/sound-alike medication - verify indication for use. Given05/27/2025 8:24 AM EST40 mgAbdominal Tissue famotidine (PEPCID) tablet 20 mg 20 mg, oral, Every 12 hours, First dose on Sun05/26/25 at 2100, Pharmacy to adjust dose per renal function Given05/28/2025 8:44 AM EST20 maJncnt2605/27/2025 7:16 PM EST20 jdEeoij4605/27/2025 8:20 AM EST20 mg glucagon HCL injection 1 mg 1 mg, intramuscular, As needed, low blood sugar, blood glucose less than 70 mg/dL and unconscious or NPO without IV access., Starting on Sun05/26/25 at 1830, If conscious and not NPO, immediately follow with meal tray or high protein (7Grams) snack if tray not available. If NPO, initiate IV 5% Dext edvin/Water at 100 mL/hr and contact prescriber for additional orders. If blood glucose is not greater than 70 mg/dL after initial treatment, repeat treatment. ketorolac (TORADOL) injection 15 mg 15 mg, intravenous, Every 6 hours PRN, severe pain - pain scale 7-10, Starting on Sun05/26/25 at 1833, For 5 days, Look-alike/sound-alike medication - verify indication for use. Duration of therapy is not to exceed 5 days. Maximum recommended dose + 120mg/24 hours. Given05/28/2025 2:03 AM EST15 tdJzhec8205/27/2025 7:20 PM EST15 mwXixkv7905/27/2025 8:20 AM EST15 mg ketorolac (TORADOL) injection 15 mg 15 mg, intravenous, Once, On Sun05/27/25 at 1115, For 1 dose, Look-alike/sound-alike medication - verify indication for use. Duration of therapy is not to exceed 5 days. Maximum recommended dose + 120mg/24 hours. Given05/27/2025 11:25 AM EST15 mg losartan (COZAAR) tablet 100 mg 100 mg, oral, Daily, First dose (after last modification) on Sun05/27/25 at 0900, Look-alike/sound-alike medication - verify indication for use. Given05/28/2025 8:44 AM FQY169 ttOolbz4005/27/2025 8:20 AM [id number] mg magnesium sulfate IVPB 1000 mg/100 mL in dextrose 5% (10 mg/mL premix) 1,000 mg, intravenous, at 100 mL/hr, Administer over 60 Minutes, Once, On Lou 05/28/25 at 0945, For1 dose, Infuse each gram over 60 minutes. New Bag05/28/2025 9:50 AM EST1,000 mg100 mL/hr metoprolol succinate XL (TOPROL XL) 24 hr tablet 100 mg 100 mg, oral, Daily, First dose on Sun05/27/25 at 0900, Look-alike/sound-alike medication - verifyindication for use. Do not crush or chew. Given05/28/2025 8:44 AM FOD235 [id number]/27/2025 8:20 AM [id number] mg niCARdipine (CARDENE-IV) infusion 40 mg/200 mL in iso-osmotic sodium chloride (0.2 mg/mL premix) 2.5-15 mg/hr (12.5-75 mL/hr), intravenous, Continuous, Starting on Sun05/26/25 at 1845, Notify prescriber if rate exceeds 15 mg/hour Administer through large peripheral vein or central line; Change the infusion site every 12 hours if administered via peripheral vein. Look-alike/sound-alike medication. Verify indication for use. Do not combine or run in the same line as other medications., Monitoring Goals: SBP, Monitoring Goal Direction: Less than or Equal to, Please specify: 150, Starting Dose: 5 mg/hour, Titration Dose Range (range 2.5 to 5 mg/hour): 2.5 to 5 mg/hour, Titration Frequency -As Frequent As: 3 minutes Rate/Dose Yutqtb0705/27/2025 11:10 AM EST2.5 mg/hr12.5 mL/hrRate/Dose Change 05/27/2025 12:55 AM EST5 mg/hr25 mL/hrNew Bag05/26/2025 10:34 PM EST2.5 mg/hr 12.5 mL/hr nicotine (NICODERM CQ) 21 mg/24 hr 1 patch 1 patch, transdermal, Administer over 24 Hours, Daily, First dose on Sun05/27/25 at 0930, Remove patch prior to MRI procedure as serious bourgeois may occur- patch may be reapplied. Remove previous patch, if present, before applying new. Medication Fxrfmgm0405/28/2025 8:44 AM EST1 patchOtherMedication Ghpuknu5505/27/2025 11:26 AM EST1 patchLeft Arm NIFEdipine XL (PROCARDIA XL) 24 hr tablet 30 mg 30 mg, oral, Every 24 hours scheduled, First dose on Sun05/27/25 at 1600, Look-alike/sound-alike medication - verify indication for use. Swallow whole-do not split, crush, or chew. Avoid grapefruit juice. Given05/27/2025 4:31 PM EST30 mg NIFEdipine XL (PROCARDIA XL) 24 hr tablet 60 mg 60 mg, oral, Every 24 hours scheduled, First dose (after last modification) on Sun05/28/25 at 0900, Look-alike/sound-alike medication - verify indication for use. Swallow whole-do not split, crush, or chew. Avoid grapefruit juice. Given05/28/2025 8:48 AM EST60 mg ondansetron (PF) (ZOFRAN) injection 4 mg 4 mg, intravenous, Once, On Sun05/26/25 at 1815, For 1 dose, Intravenous administration preferred to be given over 2-5 minutes. Given05/26/2025 6:47 PM EST4 mg ondansetron (PF) (ZOFRAN) injection 4 mg 4 mg, intravenous, Every 6 hours PRN, nausea, vomiting, Starting on Sun05/26/25 at 1830, Intravenous administration preferred to be given over 2-5 minutes. Given05/27/2025 9:46 AM EST4 mg prochlorperazine (COMPAZINE) injection 10 mg 10 mg, intravenous, Once, On Sun05/27/25 at 1115, For 1 dose, When administered via IV push, do not exceed 5 mg per minute When administered via IV Push, do not exceed 5 mg per minute Given05/27/2025 11:25 AM EST10 mg prochlorperazine (COMPAZINE) injection 5 mg 5 mg, intravenous, Every 6 hours PRN, nausea, vomiting, if patient unable to tolerate PO, Starting on Sun05/26/25 at 1812, When administered via IV Push, do not exceed 5 mg per minute Given05/27/2025 11:20 PM EST5 [id number]/27/2025 4:49 AM EST5 ebCrtwu0105/26/2025 7:21 PM EST5 mg prochlorperazine (COMPAZINE) injection 5 mg 5 mg, intramuscular, Every 8 hours PRN, nausea, vomiting, if patient unable to tolerate PO and doesnot have IV access, Starting on Sun05/26/25 at 1812, When administered via IV Push, do not exceed 5 mg per minute prochlorperazine (COMPAZINE) tablet 5 mg 5 mg, oral, Every 6 hours PRN, nausea, vomiting, Starting on Sun05/26/25 at 1812 sennosides-docusate sodium (SENOKOT-S) 8.6-50 mg 1 tablet 1 tablet, oral, Every 12 hours PRN, constipation, Starting on Sun05/26/25 at 1830 sodium chloride 0.9 % bolus 500 mL, intravenous, at 2,000 mL/hr, Administer over 15 Minutes, Once, On Sun05/27/25 at 1115, For1 dose New Bag05/27/2025 11:38 AM [id number] mL/hr sodium chloride 0.9 % flush 3 mL 3 mL, intravenous, As needed, line care, before and after each intermittent use, Starting on Sun05/26/25 at 1830 sodium chloride 0.9 % flush 3 mL 3 mL, intravenous, Every 12 hours scheduled, First dose on Sun05/26/25 at 2100 Given05/28/2025 8:50 AM EST3 sUTbsyj5505/27/2025 7:21 PM EST3 yNBuxse4005/27/2025 8:29 AM EST3 mL sodium chloride 0.9 % flush bag 25 mL, intravenous, at 100 mL/hr, Administer over 15 Minutes, As needed, line care, line care afterIVPB administration, Starting on Sun05/26/25 at 1830 documented in this encounter Active and Recently Administered Medications Times are shown in EST.Medication Order511/511/ busPIRone (BUSPAR) tablet 5 mg 5 mg, oral, 3 times daily, First dose on Sun05/27/25 at 2200, Look-alike/sound-alike medication - verify indication for use. Avoid grapefruit juice. * 1916 (Given - Provider: Loretta Washington, SARA) * 0530 (Given - Provider: Loretta Washington, SARA) dexAMETHasone (DECADRON) injection 4 mg (COMPLETED) 4 mg, intravenous, Once, On Sun05/27/25 at 1115, For 1 dose, May alter blood glucose or insulin requirements. Look-alike/sound-alike medication - verify indication for use. * 1126 (Given - Provider: Niru Richmond) enoxaparin (LOVENOX) syringe 40 mg 40 mg, subcutaneous, Every 24 hours scheduled, First dose on Sun05/27/25 at 0900, Look-alike/sound-alike medication - verify indication for use. * 0824 (Given - Provider: Niru Richmond) * 0900 (Not Given - Provider: Sindy Gill RN - Reason: Patient/family refused) famotidine (PEPCID) tablet 20 mg 20 mg, oral, Every 12 hours, First dose on Sun05/26/25 at 2100, Pharmacy to adjust dose per renal function * 2100 (Not Given - Provider: Mariella Foreman RN - Reason: Nausea) * 0820 (Given - Provider: Niru Richmond) * 1916 (Given - Provider: Loretta Washington RN) * 0844 (Given - Provider: Sindy Gill RN) ketorolac (TORADOL) injection 15 mg (COMPLETED) 15 mg, intravenous, Once, On Sun05/27/25 at 1115, For 1 dose, Look-alike/sound-alike medication - verify indication for use. Duration of therapy is not to exceed 5 days. Maximum recommended dose + 120mg/24 hours. * 1125 (Given - Provider: Niru Richmond) losartan (COZAAR) tablet 100 mg 100 mg, oral, Daily, First dose (after last modification) on Sun05/27/25 at 0900, Look-alike/sound-alike medication - verify indication for use. * 0820 (Given - Provider: Niru Richmond) * 0844 (Given - Provider: Sindy Gill RN) magnesium sulfate IVPB 1000 mg/100 mL in dextrose 5% (10 mg/mL premix) (COMPLETED) 1,000 mg, intravenous, at 100 mL/hr, Administer over 60 Minutes, Once, On Sun05/28/25 at 0945, For1 dose, Infuse each gram over 60 minutes. * 0950 (New Bag - Provider: Sindy Gill RN) * 1050 (Due: Stop Bag - Provider: Sindy Gill RN) metoprolol succinate XL (TOPROL XL) 24 hr tablet 100 mg 100 mg, oral, Daily, First dose on Sun05/27/25 at 0900, Look-alike/sound-alike medication - verifyindication for use. Do not crush or chew. * 0820 (Given - Provider: Niru Richmond) * 0844 (Given - Provider: Sindy Gill RN) nicotine (NICODERM CQ) 21 mg/24 hr 1 patch 1 patch, transdermal, Administer over 24 Hours, Daily, First dose on Sun05/27/25 at 0930, Remove patch prior to MRI procedure as serious bourgeois may occur- patch may be reapplied. Remove previous patch, if present, before applying new. * 1126 (Medication Applied - Provider: Niru Richmond) * 0843 (Medication Removed - Provider: Sindy Gill RN) * 0844 (Medication Applied - Provider: Sindy Gill RN - Comment: rt chest) * 1111 (Due: Medication Removed - Provider: Automatic Discharge Provider - Comment: Time automatically adjusted from order being discontinued) NIFEdipine XL (PROCARDIA XL) 24 hr tablet 30 mg (CANCELED) 30 mg, oral, Every 24 hours scheduled, First dose on Sun05/27/25 at 1600, Look-alike/sound-alike medication - verify indication for use. Swallow whole-do not split, crush, or chew. Avoid grapefruit juice. * 1631 (Given - Provider: Yara Alfredo, SARA) NIFEdipine XL (PROCARDIA XL) 24 hr tablet 60 mg 60 mg, oral, Every 24 hours scheduled, First dose (after last modification) on Sun05/28/25 at 0900, Look-alike/sound-alike medication - verify indication for use. Swallow whole-do not split, crush, or chew. Avoid grapefruit juice. * 0848 (Given - Provider: Sindy Gill RN) ondansetron (PF) (ZOFRAN) injection 4 mg (COMPLETED) 4 mg, intravenous, Once, On Sun05/26/25 at 1815, For 1 dose, Intravenous administration preferred to be given over 2-5 minutes. * 1847 (Given - Provider: Yara Alfredo, SARA) prochlorperazine (COMPAZINE) injection 10 mg (COMPLETED) 10 mg, intravenous, Once, On Sun05/27/25 at 1115, For 1 dose, When administered via IV push, do not exceed 5 mg per minute When administered via IV Push, do not exceed 5 mg per minute * 1125 (Given - Provider: Niru Richmond) sodium chloride 0.9 % bolus (COMPLETED) 500 mL, intravenous, at 2,000 mL/hr, Administer over 15 Minutes, Once, On Sun05/27/25 at 1115, For1 dose * 1138 (New Bag - Provider: Niru Richmond) * 1153 (Stop Bag - Provider: Niru Richmond) sodium chloride 0.9 % flush 3 mL 3 mL, intravenous, Every 12 hours scheduled, First dose on Sun05/26/25 at 2100 * 2106 (Given - Provider: Mariella Foreman RN) * 0829 (Given - Provider: Niru Richmond) * 1921 (Given - Provider: Loretta Washington, SARA) * 0850 (Given - Provider: Sindy Gill, SARA) Medication Order/ niCARdipine (CARDENE-IV) infusion 40 mg/200 mL in iso-osmotic sodium chloride (0.2 mg/mL premix) (CANCELED) 2.5-15 mg/hr (12.5-75 mL/hr), intravenous, Continuous, Starting on Sun05/26/25 at 1845, Notify prescriber if rate exceeds 15 mg/hour Administer through large peripheral vein or central line; Change the infusion site every 12 hours if administered via peripheral vein. Look-alike/sound-alike medication. Verify indication for use. Do not combine or run in the same line as other medications., Monitoring Goals: SBP, Monitoring Goal Direction: Less than or Equal to, Please specify: 150, Starting Dose: 5 mg/hour, Titration Dose Range (range 2.5 to 5 mg/hour): 2.5 to 5 mg/hour, Titration Frequency -As Frequent As: 3 minutes * 1845 (Continue to Other Facility/Home/Admission - Provider: Yara Alfredo RN) * 2234 (New Bag - Provider: Mariella Foreman RN) * 0055 (Rate/Dose Change - Provider: Mariella Foreman RN) * 1110 (Rate/Dose Change - Provider: Yara Alfredo, SARA) * 1523 (Stop Bag - Provider: Yara Alfredo RN) Medication Order/ acetaminophen (TYLENOL) tablet 650 mg 650 mg, oral, Every 4 hours PRN, Temperature greater than 38.3 C, Starting on Sun05/26/25 at 1830,[Warning: Total Acetaminophen not to exceed more than 4 grams (4000 mg) in 24 hours] * 0945 (Given - Provider: Yara Somerville, RN - Comment: pt requested tylenol) alum-mag hydroxide-simeth (MAALOX) 200-200-20 mg/5 mL suspension 30 mL 30 mL, oral, 4 times daily after meals and at bedtime as needed, dyspepsia, Starting on Sun05/26/25 at 1830, Look-alike/sound-alike medication - verify indication for use. Shake well., Indications: dyspepsia enibtpknaj-uiqrcpzjaemzc-vexn (FIORICET, ESGIC) 50-325-40 mg per tablet 1 tablet 1 tablet, oral, Every 6 hours PRN, headaches, Starting on Sun05/26/25 at 1828, Look-alike/sound-alike medication - verify indication for use. * 2131 (Given - Provider: Loretta Washington, RN) clonazePAM (KlonoPIN) tablet 0.5 mg 0.5 mg, oral, Daily PRN, anxiety, Starting on Sun05/26/25 at 1828, Look-alike/sound-alike medication - verify indication for use. * 1355 (Given - Provider: Yara Alfredo RN) * 0016 (Given - Provider: Loretta Washington, SARA) dextrose (GLUTOSE) 40 % gel 15 g 15 g, oral, As needed, low blood sugar, blood glucose less than 70 mg/dL, Starting on Sun05/26/25 at 1830, If patient conscious and taking PO. If blood glucose is not greater than 70 mg/dL after initial treatment, repeat treatment. dextrose 5 % (D5W) infusion 100 mL/hr, intravenous, Continuous PRN, blood glucose less than 70 mg/dL, Starting on Sun05/26/25 at 1830, For 365 days, Use immediately following dextrose 50% or glucagon treatment for patients whoare unconscious or NPO. Contact prescriber for additional orders. If blood glucose is not greater than 70 mg/dL after initial treatment, repeat treatment. dextrose 50 % in water (D50W) 50% solution 25 mL 25 mL, intravenous, As needed, low blood sugar, blood glucose less than 70 mg/dL and unconscious orNPO with IV access, Starting on Sun05/26/25 at 1830, Push over 1-3 minutes STAT. If conscious and not NPO, immediately follow with meal tray or high protein (7 grams) snack if tray not available. IfNPO, initiate 5% dextrose in water at 100 mL/hr and contact prescriber for additional orders. If blood glucose is not greater than 70 mg/dL after initial treatment, repeat treatment. VESICANT (RED) Warning: HYPERTONIC solution. diazePAM (VALIUM) injection 4 mg 4 mg, intravenous, Every 4 hours PRN, anxiety, Starting on Sun05/26/25 at 2018, Look-alike/sound-alike medication - verify indication for use. * 2107 (Given - Provider: Mariella Foreman, RN) * 151 (Given - Provider: Yara Alfredo, RN) * 2124 (Given - Provider: Loretta Washington, RN) * 0203 (Given - Provider: Loretta Washington, RN) glucagon HCL injection 1 mg 1 mg, intramuscular, As needed, low blood sugar, blood glucose less than 70 mg/dL and unconscious or NPO without IV access., Starting on Sun05/26/25 at 1830, If conscious and not NPO, immediately follow with meal tray or high protein (7Grams) snack if tray not available. If NPO, initiate IV 5% Dext edvin/Water at 100 mL/hr and contact prescriber for additional orders. If blood glucose is not greater than 70 mg/dL after initial treatment, repeat treatment. ketorolac (TORADOL) injection 15 mg 15 mg, intravenous, Every 6 hours PRN, severe pain - pain scale 7-10, Starting on Sun05/26/25 at 1833, For 5 days, Look-alike/sound-alike medication - verify indication for use. Duration of therapy is not to exceed 5 days. Maximum recommended dose + 120mg/24 hours. * 4 (Given - Provider: Mariella Foreman, SARA) * 0156 (Given - Provider: Mariella Foreman RN) * 0820 (Given - Provider: Yara Alfredo, RN) * 1920 (Given - Provider: Loretta Washington, RN) * 0203 (Given - Provider: Loretta Washington, RN) ondansetron (PF) (ZOFRAN) injection 4 mg 4 mg, intravenous, Every 6 hours PRN, nausea, vomiting, Starting on Sun05/26/25 at 1830, Intravenous administration preferred to be given over 2-5 minutes. * 0946 (Given - Provider: Yara Alfredo RN) prochlorperazine (COMPAZINE) injection 5 mg(Linked Group 1) 5 mg, intravenous, Every 6 hours PRN, nausea, vomiting, if patient unable to tolerate PO, Starting on Sun05/26/25 at 1812, When administered via IV Push, do not exceed 5 mg per minute * 1921 (Given - Provider: Mariella Foreman RN) * 0449 (Given - Provider: Mariella Foreman RN) * 1052 (Canceled Entry - Provider: Niru Richmond) * 2320 (Given - Provider: Loretta Wahsington RN) prochlorperazine (COMPAZINE) injection 5 mg(Linked Group 1) 5 mg, intramuscular, Every 8 hours PRN, nausea, vomiting, if patient unable to tolerate PO and doesnot have IV access, Starting on Sun05/26/25 at 1812, When administered via IV Push, do not exceed 5 mg per minute * 192 (See Alternative - Provider: Mariella Foreman RN) * 0449 (See Alternative - Provider: Mariella Foreman RN) * 1052 (See Alternative - Provider: Niru Richmond) * 2320 (See Alternative - Provider: Loretta Washington RN) prochlorperazine (COMPAZINE) tablet 5 mg(Linked Group 1) 5 mg, oral, Every 6 hours PRN, nausea, vomiting, Starting on Sun05/26/25 at 1812 * 1921 (See Alternative - Provider: Mariella Foreman RN) * 0449 (See Alternative - Provider: Mariella Foreman RN) * 1052 (See Alternative - Provider: Niru Richmond) * 2320 (See Alternative - Provider: Loretta Washington RN) sennosides-docusate sodium (SENOKOT-S) 8.6-50 mg 1 tablet 1 tablet, oral, Every 12 hours PRN, constipation, Starting on Sun05/26/25 at 1830 sodium chloride 0.9 % flush 3 mL 3 mL, intravenous, As needed, line care, before and after each intermittent use, Starting on Sun05/26/25 at 1830 sodium chloride 0.9 % flush bag 25 mL, intravenous, at 100 mL/hr, Administer over 15 Minutes, As needed, line care, line care afterIVPB administration, Starting on Sun05/26/25 at 1830 Order Group 1: prochlorperazine (COMPAZINE) tablet 5 mgJump to med 5 mg, oral, Every 6 hours PRN, nausea, vomiting, Starting on Sun05/26/25 at 1812 Or prochlorperazine (COMPAZINE) injection 5 mgJump to med 5 mg, intravenous, Every 6 hours PRN, nausea, vomiting, if patient unable to tolerate PO, Starting on Sun05/26/25 at 181, When administered via IV Push, do not exceed 5 mg per minute Or prochlorperazine (COMPAZINE) injection 5 mgJump to med 5 mg, intramuscular, Every 8 hours PRN, nausea, vomiting, if patient unable to tolerate PO and doesnot have IV access, Starting on Sun05/26/25 at 181, When administered via IV Push, do not exceed 5 mg per minute documented in this encounter Additional Health Concerns AssessmentNoted TimePHQ-9 Depression Total Score: 12011/28/2024 12:43 PM EDTA Body Mass Index follow-up plan has been documented for the iogpotf9311/28/2024 1:38 PM EDTdocumented as of this encounter Care Teams Team MemberRelationshipSpecialtyStart DateEnd Date Jenifer 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
--- OUTSIDE RECORDS SUMMARY | 2025-06-01 11:35 | XMS_ITS | Continuity of Care Document ---
Author Organization [facility] Address [address] [place] [address] Phone Care Team Providers Care Pharmacy Analyst Name Role Phone Jenifer Loyola C [employer] DEVELOPER-C Primary Care Provider [phone] Jenifer Loyola C [employer] DEVELOPER-C Attending Provider Angelic Hyman Attending Provider Unavailable Care Teams Patient Care Team Team Status: Active Member Role/Relationship Status Dates Jenifer Loyola C [employer] DEVELOPER-C Primary Care Provider Active Visit Care Team Team Status: Inactive Member Role/Relationship Status Dates Jenifer Loyola C [employer] DEVELOPER-C Primary Care Provider Active Start: April 15, 2025 End: April 15, 2025Jenifer Loyola NP-CAttenjay ProviderActiveStart: April 15, 2025 End: April 15, 2025 Visit Care Team Team Status: Inactive Member Role/Relationship Status Dates Jenifer Loyola C [employer] DEVELOPER-C Primary Care Provider Active Start: April 29, 2025 End: April 29, 2025Jenifer Loyola NP-CAttenjay ProviderActiveStart: April 29, 2025 End: April 29, 2025 Patient Care Team Team Status: Active Member Role/Relationship Status Dates Jenifer Loyola C [employer] DEVELOPER-C Primary Care Provider Active Start: June 01, 2025 Angelic HymanAttending ProviderActiveStart: June 01, 2025 Patient Care Team Team Status: Inactive Member Role/Relationship Status Dates BOOKER Nova Primary Care Provider Active Start: June 01, 2025 End: June 01, 2025SHANIKA NovaCAttending ProviderActiveStart: June 01, 2025 End: June 01, 2025 Chief Complaint and Reason for Visit Chief Complaint Admit Date surgical clearance April 15, 2025 3: 12pm 2W April 29, 2025 3 :09pm Amb Documentation June 01, 2025 10:30am 1M June 01, 2025 3:01pm Reason for Visit Admit Date Essential hypertension April 15, 2025 3:12pm Hyperlipidemia April 15, 2025 3: 12pm Morbid (severe) obesity due to excess ca lories April 15, 2025 3:12pm Nicotine dependence April 15, 2025 3: 12pm KIARA (obstructive sleep apnea) April 3:12pm Pre-operative clearance April 15 3:12pm Elevated WBC count April 29, 2025 3 :09pm Essential hypertension April 29 3:09pm Generalized anxiety disorder with panic attacks April 29, 2025 3:09pm Migraine headache with aura April 3:09pm Morbid (severe) obesity due to excess ca lories April 29, 2025 3:09pm Nicotine dependence April 29, 2025 3 :09pm Essential hypertension June 01 3:01pm Generalized anxiety disorder with panic attacks June 01, 2025 3:01pm Headache June 01, 2025 3:01pm Morbid (severe) obesity due to excess ca lories June 01, 2025 3:01pm Nicotine dependence June 01, 2025 3:01pm KIARA (obstructive sleep apnea) May 102024 3:01pm Allergies, Adverse Reactions, Alerts Allergen Type Severity Reaction Last Updated Verified Status calcium Allergy Unknown anaphylaxis February 17, 2022 1:23pm Yes Active calcium carbonate Allergy Unknown anaphylaxis February 17, 2022 1:23pm Yes Active prasterone (DHEA) Allergy Unknown anaphylaxis February 17, 2022 1:23pm Yes Active dihydroergotamine Allergy Unknown Swelling o f Lip/Tongue/Throat November 17, 2021 1:10pm Yes Active DHE Allergy Unknown Swelling of Lip/Tongue/Throat November 17, 2021 1:10pm No Active Social History Smoking Status Status Start Date End Date Date of Observa tion Never smoked tobacco (finding) November 17, 2021 2:39pm Observation Status Observation Response Date of Response Legal Sex Female (finding) Sex Assigned At BirthFemaleJuly 1979 Family History Relationship Condition Age at Onset Recorded Date/T jaja brother Unknown fatherDiabetes mellitusUnknownHeart diseaseUnknownmotherEpilepsyUnknownDeceased Unknown Problems Active Problems Problem Diagnosis/Recorded Date Onset Date Status C omments Change in bowel habit April 08, 2025 6:18pm Unknown Active Generalized anxiety disorder with panic attacksSeptember 2024 11:48am UnknownActiveNicotine dependenceOctober 2024 6:20pmUnknownActiveInsomnia April 03, 2025 6:04amUnknownActiveOSA (obstructive sleep apnea)April 08, 2025 6:21pmUnknownActiveMorbid (severe) obesity due to excess calories April 08, 2025 6:20pmUnknownActiveOther fatigueOctober 2024 6:21pm UnknownActiveMigraine headache with auraOctober 2024 6:20pmUnknownActive Encounter for screening mammogram for malignant neoplasm of breastOct2024 6:18pmUnknownActiveMuscle spasms of neckOctober 2024 6:20pmUnknown ActiveLeft anterior shoulder painOctober 2024 6:20pmUnknownActive PalpitationsOctober 2024 6:19pmUnknownActivePre-operative clearanceOctober 2024 6:05amUnknownActiveHeadacheNovember 2024 4:00pmUnknownActive Migraine headacheOctober 2024 3:19pmUnknownActiveHyperlipidemiaOctober 2024 6:19pmUnknownActiveElevated WBC countOctober 2024 5:36amUnknown ActivePancreatitisOctober 2024 6:21pmUnknownActiveEssential hypertension April 03, 2025 5:59amUnknownActiveAbnormal complete blood countOctober 17th, 2025 3:13pmUnknownActiveEpigastric painOctober 2024 6:18pmUnknown ActiveGERD without esophagitisSeptember 2024 6:02amUnknownActiveRectal bleedingOctober 2024 6:21pmUnknownActiveIrritable bowel syndrome with constipationOctober 2024 6:19pmUnknownActiveVitamin D deficiencyOctober 2024 6:21pmUnknownActiveAbscess of breast, rightOctober 2024 6:18pm UnknownActiveIron deficiencyOctober 2024 6:19pmUnknownActive Inactive/Resolved Problems Problem Diagnosis/Recorded Date Onset Date Status C omments Chest pain November 17, 2021 5:05pm Unknown Resolved Pro blem List clean-up per request of Phys. EHR Cmte Medications Medication Status Dose Units Route Directions Qty Days Refills S tart Date Stop Date End Date Reason(s) Instructions Adherence Metoprolol Succinate 50 mg t ablet extended release 24 hr Discontinued 50 MG PO Daily 90 0Sept2024 11:00pmOctober 2024 3:10pmPrimary hypertension Essential (primary) hypertensiontotal dose is 75mgPantoprazole 40 mg tablet,delayed release (DR/EC)Fxoygu58BIWUYxalc154Xsvowxwit 25th, 2025 11:00pm Gastroesophageal reflux disease without esophagitis Gastro-esophageal reflux disease without esophagitisUnknownMetoprolol Succinate 25 mg tablet extended release 24 uvSdbxcncdgovt48QSDNXkuxi286Gbxhfrrab 25th, 2025 11:00pmOctober 2024 3:10pmPrimary hypertension Essential (primary) hypertensiontotal dose is 75mgTrazodone 50 mg hknwxhSezvzc89 MGPODaily at bedtime as needed for zmtjgixt063Jnvwuuned 25th, 2025 11:00pm Insomnia Insomnia, unspecifiedUnknownClonazepam (Klonopin) 0.5 mg tabletDiscontinued0.5MG POTwice daily as needed for cirizml29133Qskbwvvdy 28th, 2025 11:00pmOctober 2024 4:16pmGeneralized anxiety disorder with panic attacks Generalized anxiety disorder Panic disorder [episodic paroxysmal anxiety]Losartan 50 mg nkdutpYfqgupsparzo63 RPNVMetqc985Kfwgdcij 4th, 2025 12:00amNovember 2024 3:20pmPrimary hypertension Essential (primary) hypertensionNaproxen (Naprosyn) 500 mg igxfskWwcvabtvlblm454 MGPOTwice daily as needed for gnmv9802Szn 2021 11:00pmOctober 2024 6:00amLosartan 25 mg idfmzmZrwhldvlqaei47BQMAGqpocMzg 2017 11:00pmOctober 2024 6:00amLinaclotide 72 mcg rnqpicyEbnubyopdcdb27JYJAYXbjfuSky 2017 11:00pmMay 2017 8:29amLinaclotide (Linzess) 290 mcg plsfwwrSznrmtcolqfr646 CGUUTJqghb866Jis 2017 11:00pmOctober 2024 5:58amAlbuterol Sulfate (Ventolin Hfa) 90 mcg/actuation HFA aerosol inhalerActiveINHALATIONOct2024 11:00pmUnknownLubiprostone (Amitiza) 8 mcg ncfmfrfVqoxuu2VJBYSDinnc daily April 10, 2025 11:00pmUnknownMetoprolol Succinate 100 mg tablet extended release 24 vqOakjti777TOLVUapsm599Pcudttg 2024 11:00pmPrimary hypertension Essential (primary) hypertensionUnknownUbrogepant (Ubrelvy) 100 mg tabletActive 100MGPOOnce as needed for migraine headacheOctober 2024 11:00pmMigraine headache Migraine, unspecified, not intractable, without status migrainosusUnknown Losartan 25 mg wjhfzeOksvactyksaq73RBJSPgxuq327Ayagrru 2024 11:00pm May 12, 2025 3:37pmInsomnia Primary hypertension Insomnia, unspecified Essential (primary) hypertensionClonazepam (Klonopin) 0.5 mg tabletActive0.5MGPO Twice daily as needed for jukmniz68033Rfkhrcz 2024 4:16pmGeneralized anxiety disorder with panic attacks Generalized anxiety disorder Panic disorder [episodic paroxysmal anxiety]UnknownBuspirone 5 mg tabletActive5 MGPOThree times dailyNov2024 12:00amComplies with drug therapy Nifedipine 60 mg tablet extended nmxidfvPjzimp34OYISBhbvrZpjtrqte 24th, 2025 12:00amComplies with drug therapyLosartan 100 mg gwaufeMkphsb290GVYLQdefd June 01, 2025 12:00amComplies with drug therapy Vital Signs Vital Reading Result Reference Range Collection Date/Time Height 63 [in_i] April 15, 2025 2:06yfEdwtes55.33 kgOct2024 2:35pmBody Temperature 97.8 [degF]97.6-99.0Oct2024 2:35pmHeart Rate76 /usd60-212PsbzbjyApril 15, 2025 2:35pmRespiratory rate18 /hni27-36BshqtjxApril 15, 2025 2:35pmOxygen saturation by Pulse uhfpiwmx06 %95-100April 15, 2025 2:35pmBP Tkukddnd873 mm[Hg]100-140 April 15, 2025 3:43pmBP Qnqktbcrl06 mm[Hg]60-100April 15, 2025 3:43pmBMI (Body Mass Index)37.6 kg/o6WybzewlApril 15, 2025 2:89xcBvabnt93.00 [in_i]April 29, 2025 2:50rnBkhvor60.27 [facility] 2:52pmBody Efufzawlfuv43.8 [degF]97.6-99.0[facility]2024 2:52pmHeart Rate77 /gmk48-838DtowebfApril 29, 2025 2:52pmRespiratory rate18 /qja74-25PbczqaxApril 29, 2025 2:52pmOxygen saturation by Pulse getpjwtb68 %95-100[facility]2024 2:52pmBP Mofbelwk084 mm[Hg]100-140Oct2024 4:17pmBP Jisaesthc664 mm[Hg]60-100Oct2024 4:17pmBMI (Body Mass Index)37.5 kg/q2Anjwhpi2024 2:43clBmnklh97 [in_i]June 01, 2025 3:59opVjunwv67.57 kgNov[facility] 2024 3:34pmBody Ngsxumtrmcm32.8 [degF]97.6-99.0Nov[facility] 2024 3:34pmHeart Rate76 /spe30-157 June 01, 2025 3:34pmRespiratory rate20 /xtp35-26GeiwodduJune 01, 2025 3:34pm Oxygen saturation by Pulse jkxbjpei03 %95-100June 01, 2025 3:34pmBP Bseyeoyc379 mm[Hg]100-140June 01, 2025 3:38pmBP Vjyyumzeu47 mm[Hg]60-100 June 01, 2025 3:38pmBMI (Body Mass Index)38.1 kg/v7WztbavgrJune 01, 2025 3:34pm Advance Directives Advance Directive Response Recorded Date/ Time Advance Directives No November 23 5:52am Insurance Providers Guarantor Damien Gill Address [address] [facility] [address]Ppblabd Info.Home Phone: Coverage Status Update:2025 Payer Group Member ID Coverage Type Subscriber Relationship to Subscriber Effective Date Expiration Date [facility] Medicaid Id: [id number] Shanonn Iddi Id: [id number] [facility] [address] Home Phone: Email: [email or web address] Insurance [id number] [facility] [address] Work Phone: [phone] L Iddi Id: [id number] [facility] [address] [facility] [address] Home Phone: Email: [email or web address] [id number] Shannon Iddi Id: [id number] [facility] [address] [facility] [address] Home Phone: Email: [email or web address] Encounter Location(s) Arrival/Admit Date Discharge/Departure Date Discharge/Departure Disposition Provider(s) Departed Physician/ Provider Office Visit -[facility] Family Medicine Herrera April 15, 2025 3:12pm April 15, 2025 4:08pm Discharged to home care or self care (routine discharge) BOOKER Nova Departed Physician/ Provider Office Visit -[facility] April 29, 2025 3:09pm April 29, 2025 4:27pm Discharged to home care or self care (routine discharge) BOOKER Nova Non-patient / Non-visit -[facility] Nov emb2024 10:30am Saeble RoblesDeparted Physician/Provider Office Visit-[facility] June 01, 2025 3:01pmNov2024 4:33pmDischarged to home care or self care (routine discharge)BOOKER Nova Recent Diagnosis Onset Date Admit Date Essential hypertension Unknown April 152024 3:12pm Hyperlipidemia Unknown April 15 3:12pm Morbid (severe) obesity due to excess calories U nknown April 15, 2025 3:12pm Nicotine dependence Unknown April 15, 2025 3:12pm KIARA (obstructive sleep apnea) Unknown Oc tober 2024 3:12pm Pre-operative clearance Unknown April 15, 2025 3:12pm Elevated WBC count Unknown April 29, 2025 3:09pm Essential hypertension Unknown April 092024 3:09pm Generalized anxiety disorder with panic attacks Unknown April 29, 2025 3:09pm Migraine headache with aura Unknown 2024 3:09pm Morbid (severe) obesity due to excess calories U nknown April 29, 2025 3:09pm Nicotine dependence Unknown April 3:09pm Essential hypertension Unknown June 01, 2025 3:01pm Generalized anxiety disorder with panic attacks Unknown June 01, 2025 3:01pm Headache Unknown June 01, 2 025 3:01pm Morbid (severe) obesity due to excess calories U nknown June 01, 2025 3:01pm Nicotine dependence Unknown May 3:01pm KIARA (obstructive sleep apnea) Unknown No vember 2024 3:01pm Assessments Diagnosis Onset Date Resolution Status Admit Date Essential hypertension acuteOctober 2024 3:12pmHyperlipidemiaacuteOctober 2024 3:12pmMorbid (severe) obesity due to excess caloriesacuteOctober 2024 3:12pmNicotine dependenceacuteOctober 2024 3:12pmOSA (obstructive sleep apnea)acuteOctober 2024 3:12pmPre-operative clearanceacuteOctober 2024 3:12pmElevated WBC countacuteOctober 2024 3:09pmEssential hypertensionacuteOctober 2024 3:09pmGeneralized anxiety disorder with panic attacksacuteOctober 2024 3:09pmMigraine headache with auraacuteOctober 2024 3:09pmMorbid (severe) obesity due to excess caloriesacuteOctober 2024 3:09pmNicotine dependenceacuteOct2024 3:09pmEssential hypertensionacuteNovember 2024 3:01pmGeneralized anxiety disorder with panic attacksacuteNov2024 3:01pmHeadacheacuteNov2024 3:01pmMorbid (severe) obesity due to excess caloriesacuteNov2024 3:01pmNicotine dependenceacute June 01, 2025 3:01pmOSA (obstructive sleep apnea)acuteNov2024 3:01pm Plan of Treatment Author Jenifer Loyola [facility]AuthoredOctliving[facility] 2024 3:50pmPlease check blood pressure daily and record DASH diet Limit caffeine Take medication as directed Contact office if chest pain, pressures, dizziness, shortness of breath, swelling in the legs Recommend slow position changes if you develop dizziness with position changes current meds: metoprolol, will increase dose to 100mg fu in 3 weeks no statin therapy You have a diagnosis of KIARA it is recommended that you wear your PAP device anytime while in bed sleeping. Not using the PAP device can increase your risk of elevated or uncontrolled blood pressure, atrial fibrillation, heart attack, stroke, and sudden . Compliance with PAP:yes How many hours of use per night:6 Do you feel refreshed in the morning:no Company that supplies your machine, tubing/filters etc: Doctor that manages your KIARA:PCP The patient has been advised of the risks of continued smoking: stroke, OK, all forms of cancer, lung disease, and . Options for quitting: cold turkey, hypnosis, acupuncture, nicotine replacement meds (gum, lozenges, and patches), as well as oral meds: buproprion or varenicline . At this time pt is encouraged to evaluate their goals for wanting to quit smoking, and reach out to provider when ready to start this process Discussed with patient their BMI (actual vs recommended). We have discussed lifestyle modifications: attempts to perform phsyical activity as chronic conditions allow, monitor dietary intake: increasing protein/fruits/veggies and lowering carb intake (unless contraindicated). Limit sodas, juices, sugary drinks, as well as alcohol consumption. will check EKG, and labs no clearance yet, will fu in 2-3 weeks for recheck of blood pressure etc Author Jenifer Loyola [facility] CenterAuthoredOctliving[facility] services 2024 4:27pmPlease check blood pressure daily and record DASH diet Limit caffeine Take medication as directed Contact office if chest pain, pressures, dizziness, shortness of breath, swelling in the legs Recommend slow position changes if you develop dizziness with position changes current meds: metoprolol 100mg , will add losartan (amlodipine gave SANCHEZ in the past) fu in 2 weeks for BP check likely combination of stress, and migraine making bp higher as well The patient has been advised of the risks of continued smoking: stroke, OK, all forms of cancer, lung disease, and . Options for quitting: cold turkey, hypnosis, acupuncture, nicotine replacement meds (gum, lozenges, and patches), as well as oral meds: buproprion or varenicline . At this time pt is encouraged to evaluate their goals for wanting to quit smoking, and reach out to provider when ready to start this process Discussed with patient their BMI (actual vs recommended). We have discussed lifestyle modifications: attempts to perform phsyical activity as chronic conditions allow, monitor dietary intake: increasing protein/fruits/veggies and lowering carb intake (unless contraindicated). Limit sodas, juices, sugary drinks, as well as alcohol consumption. hx of persistent mild elevation over the years, 04/24/25 draw 17, recheck 04/28/25 was 12 I do not believe this is a reason not to clear her for surgery, but will plan to make a referral to hematology for further evaluation lengthy discussion with pt about setting boundaries with father, allowed her to verbalize her feelings, reassurance given will refill her Klonopin OARRS reviewed #4 samples of Ubadelfoy 100 lot [id number] exp 07/03 likely stress and migraine making blood pressure worse Author Jenifer Loyola [facility] CenterAuthoredNovember 2024 4:02pmPlease check blood pressure daily and record DASH diet Limit caffeine Take medication as directed Contact office if chest pain, pressures, dizziness, shortness of breath, swelling in the legs Recommend slow position changes if you develop dizziness with position changes current meds: metoprolol 100mg , losartan (amlopdipine gives SANCHEZ), nifedipine ER at 60mg reviewed notes from [facility] ECHO: 06/02 EF 60-65% no other acute findings Discussed with patient their BMI (actual vs recommended). We have discussed lifestyle modifications: attempts to perform phsyical activity as chronic conditions allow, monitor dietary intake: increasing protein/fruits/veggies and lowering carb intake (unless contraindicated). Limit sodas, juices, sugary drinks, as well as alcohol consumption. The patient has been advised of the risks of continued smoking: stroke, OK, all forms of cancer, lung disease, and . Options for quitting: cold turkey, hypnosis, acupuncture, nicotine replacement meds (gum, lozenges, and patches), as well as oral meds: buproprion or varenicline . At this time pt is encouraged to evaluate their goals for wanting to quit smoking, and reach out to provider when ready to start this process has been taking klonopin prn while in hospital was added buspar You have a diagnosis of KIARA it is recommended that you wear your PAP device anytime while in bed sleeping. Not using the PAP device can increase your risk of elevated or uncontrolled blood pressure, atrial fibrillation, heart attack, stroke, and sudden . Compliance with PAP: How many hours of use per night: Do you feel refreshed in the morning: Company that supplies your machine, tubing/filters etc: Doctor that manages your KIARA: Future Tests Future scheduled test information is unavailable Pending Tests Test Name Ordered Date Scheduled Date ECG 12 lead ECG April 15, 2025 3:47pm Future Visits Future appointment information is unavailable Future Procedures Procedure Name Ordered Date Scheduled Date Basic Metabolic Panel April 15, 2025 3:47pm Complete Blood Count Auto DiffOctober 2024 3:47pm Future Medications Future medication information is unavailable Patient Instructions Patient instructions are unavailable
--- OUTSIDE RECORDS SUMMARY | 2025-06-08 08:59 | XMS_ITS | CCD ---
Author Organization [facility] Care Team Providers Care Fish Hatchery Supervisor Name Role Phone Kaic Mock Unavailable Lamberto Felix Attending Unavailable Lamberto Felix Admitting Unavailable Fawwad, Coelho Primary Care Unavailable NICOLE ANDREWS Consulting Unavailable PATSY ., BLAYNE Admitting Unavailable PATSY ., BLAYNE Attending Unavailable AICHHOLZ, FILENET ADMIN JENIFER Primary Care Unavailable BLAYNE CAMPUZANO Consulting Unavailable ALEXIS COLEMAN Consulting Unavailable AICHHOLZ, FILENET ADMIN JENIFER Admitting Unavailable AICHHOLZ, FILENET ADMIN JENIFER Attending Unavailable AICHHOLZ, FILENET ADMIN JENIFER Primary Care Unavailable AICHHOLZ, FILENET ADMIN JENIFER Primary Care Unavailable AICHHOLZ, FILENET ADMIN JENIFER Attending Unavailable AICHHOLZ, FILENET ADMIN JENIFER Consulting Unavailable AICHHOLZ, FILENET ADMIN JENIFER Admitting Unavailable DR MARK KEBEDE Consulting Unavailable SUNG RODRIGUEZ Consulting Unavailable AICHHOLZ, FILENET ADMIN JENIFER Attending Unavailable AICHHOLZ, FILENET ADMIN JENIFER Consulting Unavailable AICHHOLZ, FILENET ADMIN JENIFER Primary Care Unavailable AICHHOLZ, FILENET ADMIN JENIFER Admitting Unavailable AICHHOLZ, FILENET ADMIN JENIFER Admitting Unavailable AICHHOLZ, FILENET ADMIN JENIFER Attending Unavailable DR LIZZY KEY V Consulting Unavailable AICHHOLZ, FILENET ADMIN JENIFER Primary Care Unavailable AICHHOLZ, FILENET ADMIN JENIFER Consulting Unavailable AICHHOLZ, FILENET ADMIN JENIFER Admitting Unavailable AICHHOLZ, FILENET ADMIN JENIFER Attending Unavailable AICHHOLZ, FILENET ADMIN JENIFER Consulting Unavailable AICHHOLZ, FILENET ADMIN JENIFER Primary Care Unavailable AICHHOLZ, FILENET ADMIN JENIFER Admitting Unavailable DR LIZZY KEY V Consulting Unavailable AICHHOLZ, FILENET ADMIN JENIFER Attending Unavailable AICHHOLZ, FILENET ADMIN JENIFER Primary Care Unavailable AICHHOLZ, FILENET ADMIN JENIFER Consulting Unavailable Deep Ng MD Primary Care Provider Unavailable Primary Care Provider Unavailabl e AICHHOLZ, JENIFER Attending Unavailable AICHHOLZ, JENIFER Attending Unavailable AICHHOLZ, JENIFER J Primary Care Physician Ricardo Burns Talal Admitting Unavaila ble Sarmini, Silva Talal Attending Unavaila ble Sarmini, Silva Talal Attending Unavaila ble KROTZER JENIFER M Attending Unavailable KROTZER, JENIFER M Referring Unavailable NO PCP, NO PCP Primary Care Unavailable ERNESTO TREVINO Attending Unavailable Aichholz CERTIFIED LEGAL INVESTIGATOR-FILENET ADMINJenifer Primary Care Provider Ricardo Burns Talal Attending Unavaila ble Sarmini, Ricardo Talal Attending Unavaila ble Sarmini, Silva Talal Referring Unavaila ble Sarmini, Silva Talal Attending Unavaila ble Aichholz ICE CREAM MACHINE OPERATOR-C, Jenifer Reaves Primary Care Provider [phone] Aichholz ICE CREAM MACHINE OPERATOR-C, Jenifer Reaves Attending Provider RIKI SMITH Attending Unavailable PATIBANDLA, CHEN Referring Unavailable AICHHOLZ, JENIFER J Primary Care Unavailable KRMAXIMINO, JENIFER M Referring Unavailable AICHHOLZ, JENIFER J Primary Care Unavailable AICHHOLZ, JENIFER J Referring Unavailable AICHHOLZ, JENIFER J Primary Care Unavailable AICHHOLZ, JENIFER J Referring Unavailable AICHHOLZ, JENIFER J Primary Care Unavailable AICHHOLZ, JENIFER J Referring Unavailable AICHHOLZ, JENIFER J Primary Care Unavailable PATIBANDLA, CHEN Attending Unavailable AICHHOLZ, JENIFER J Primary Care Unavailable PATIBANDLA, CHEN Attending Unavailable AICHHOLZ, JENIFER J Referring Unavailable AICHHOLZ, JENIFER J Primary Care Unavailable Allergies Allergy ClassificationReported Allergen(s)Allergy TypeDate of OnsetReaction(s) Facility (15 sources)DHEADrug cbcmxaa47-68-1379xtgbcsmcwqs, Shortness [facility] breathN[facility] (3 sources)DheDrug allergy (disorder)27-61-5546Fotakqkh of Lip/Tong[facility]at[facility] (13 sources)prasterone; Translations: [PRASTERONE (DHEA)]Drug Fetkdwp91-18-3240 anaphylaxisProMitro System Work Phone: (11 sources)Propranolol; Translations: [PROPRANOLOL]Drug Vgzjyke83-52-7243 [facility] [employer] [facility] [facility] Work Phone: (2 sources)CalciumDrug Rogvkpe06-51-2785klfqnojxbitLdauiaztcKeenan Private Hospital (2 sources)Calcium CarbonateDrug Blcoltl28-57-2643nsvsrvemykfYardvettoKeenan Private Hospital (2 sources)DihydroergotamineDrug Bycokak23-68-5887Nkunuaco of Lip/Tongue/Throat [facility] Medications Current Medications MedicationDrug Class(es)DatesSig (Normalized)Sig (Original)[id number] 200 actuat albuterol 0.09 mg/actuat metered dose inhaler (16 sources)beta2-Adrenergic AgonistStart: 38-33-6501Blunlezja Sulfate (Ventolin Hfa) 90 mcg/actuation HFA aerosol inhaler Active INHALATION April 11, 2025 12:00am Complies with drug therapytake 2 puff(s) by inhalation every four hours for wheezingalbuterol HFA 90 mcg/act inhaler Inhale 2 puffs every 4 (four) hours if needed for wheezing ActiveAspirin (1 source)Platelet Aggregation Inhibitor, Nonsteroidal Anti-inflammatory Drug Baby Aspirin Activecholecalciferol 0.125 mg oral capsule (3 sources)Vitamin DStart: 12-22-2024 End: 00-70-7438dgmj 1 capsule by mouth once dailycholecalciferol (Vitamin D-3) 125 MCG (5000 UT) capsule Indications: Vitamin D deficiency Take 1 capsule (125 mcg) by mouth Daily 30 capsule 2 12/22/2024 01/21/2025 ActiveclonazePAM 0.5 mg oral tablet (20 sources)BenzodiazepineStart: 19-92-5779rbcb 1 tablet by mouth twice daily as needed for anxietyClonazepam (Klonopin) 0.5 mg tablet Active 0.5 MG PO Twice daily as needed for anxiety 60 30 0 April 06, 2025 12:00am Generalized anxiety disorder with panic attacks Generalized anxiety disorder Panic disorder [episodic paroxysmal anxiety] Complies with drug therapyStart: 01-01-2024 End: 56-50-7560ksyf 1 tablet by mouth once daily as needed for anxietyclonazePAM (KlonoPIN) 0.5 mg tablet Take 1 tablet (0.5 mg total) by mouth daily as needed for anxiety. 10/27/2024 ActiveStart: 08-21-2023 End: 38-46-3711pzfl 1 tablet by mouth onceclonazePAM (KlonoPIN) 0.5 MG tablet Indications: Generalized anxiety disorder with panic attacks (CMS/HCC) Take 1 tablet (0.5 mg) by mouth every 12 (twelve) hours if needed for anxiety 60 tablet 2 08/21/2023 09/20/2023 ActiveKlonoPIN Activeferrous sulfate 325 mg delayed release oral tablet (3 sources)Start: 12-22-2024 End: 47-18-7702nxlb 1 tablet by mouth at mealtimeferrous sulfate (Fe Tabs) 325 (65 Fe) MG EC tablet Indications: Iron deficiency Take 1 tablet (325 mg) by mouth in the morning. Take with meals. Do not crush, chew, or split. 30 tablet 1 12/22/2024 01/21/2025 Activeibuprofen 800 mg oral tablet (9 sources)Nonsteroidal Anti-inflammatory DrugStart: 02-12-2025 End: 58-15-1337gptg 1 tablet by mouth every eight hours as needed for pain ibuprofen (MOTRIN) 800 mg tablet Indications: Pelvic cramping , Uterine leiomyoma, unspecified location Take 1 tablet (800 mg total) by mouth every 8 (eight) hours as needed for pain for up to 30 days. 60 tablet 02/12/2025 03/14/2025 Active End: 76-73-1523ngzq 1 tablet by mouth every six hours as needed for pain ibuprofen 800 MG tablet Take 1 tablet by mouth every 6 (six) hours if needed for mild pain 10/27/2024 Discontinued (Therapy completed)losartan potassium 25 mg oral tablet (3 sources)Angiotensin 2 Receptor BlockerStart: 64-51-4940vmch 1 tablet by mouth once dailyLosartan 25 mg tablet Active 25 MG PO Daily 30 April 29, 2025 12:00am Insomnia Primary hypertension Insomnia, unspecified Essential (primary) hypertension Complies with drug therapyStart: 11-19-2017 End: 20-07-7144ozim 1 tablet by mouth once dailyLosartan 25 mg tablet Discontinued 25 MG PO Daily November 19, 2017 12:00am April 11, 2025 7:00am lubiprostone 0.008 mg oral capsule (14 sources)Chloride Channel ActivatorStart: 36-71-0651xpor 1 capsule by mouth twice dailyLubiprostone (Amitiza) 8 mcg capsule Active 8 MCG PO Twice daily April 11, 2025 12:00am Complieswith drug therapyStart: 63-93-5375aivp 1 capsule by mouth twice dailyAmitiza 24 mcg Cap 24 mcg = 1 cap(s), Oral, BID, # 60 cap(s), Refills(s) 3, Pharmacy: [id number], 160, cm, 01/16/25 9:06:00 EDT, Height/Length Dosing, 89.4, kg, 01/16/25 9:06:00 EDT, Weight Dosing Start Date: 01/24/25 Status: Ordered Quantity: 60.0 Unit: cap(s) Repeat number: 4Start: 12-11-2024 End: 55-55-2873diic 1 capsule by mouth once daily at breakfastlubiprostone (AMITIZA) 8 MCG capsule Take 1 capsule (8 mcg total) by mouth daily with breakfast. 12/11/2024 Acfxvg93 hr metoprolol succinate 100 mg extended release oral tablet (20 sources)beta-Adrenergic BlockerStart: 39-41-3211srbm 1 tablet by mouth once dailyMetoprolol Succinate 100 mg tablet extended release 24 hr Active 100 MG PO Daily 90 0 April 15, 2025 12:00am Primary hypertension Essential (primary) hypertension Complies with drug therapyStart: 10-27-2024 End: 01-50-5345hhbb 1 tablet by mouth every twenty-four hours in the morning metoprolol succinate XL (TOPROL XL) 25 mg 24 hr tablet Take 1 tablet (25 mg total) by mouth in the morning. 01/21/2025 04/24/2025 ActiveStart: 10-27-2024 End: 34-00-0914cwhx 1 tablet by mouth every twenty-four hours in the morning metoprolol succinate XL (TOPROL XL) 50 mg 24 hr tablet Take 1 tablet (50 mg total) by mouth in the morning. 01/21/2025 04/24/2025 ActiveStart: 01-01-2024 End: 17-43-7969Dqzvtjffar Succinate 25 mg tablet extended release 24 hr Discontinued 25 MG PO Daily 90 0 2024 12:00am April 15, 2025 4:10pm Primary hypertension Essential (primary) hypertension total dose is 75mg Start: 01-01-2024 End: 12-56-7442Tbgbifjloh Succinate 50 mg tablet extended release 24 hr Discontinued 50 MG PO Daily 90 0 2024 12:00am April 15, 2025 4:10pm Primary hypertension Essential (primary) hypertension total dose is 75mg Start: 08-21-2023 End: 77-21-2746oyvv 1 tablet by mouth every twenty-four hours in the morning metoprolol succinate XL (Toprol-XL) 25 MG 24 hr tablet Indications: Primary hypertension (CMS/HCC) , Heart palpitations Take 1 tablet (25 mg) by mouth in the morning. Do not crush or chew. TOTAL DOSEIS 75 MG. 90 tablet 1 08/21/2023 11/19/2023 ActiveStart: 08-21-2023 End: 92-02-5958hylj 1 tablet by mouth every twenty-four hours in the morning metoprolol succinate XL (Toprol-XL) 50 MG 24 hr tablet Indications: Primary hypertension (CMS/HCC) , Heart palpitations Take 1 tablet (50 mg) by mouth in the morning. Do not crush or chew. TOTAL DOSEIS 75 MG. 90 tablet 1 08/21/2023 11/19/2023 ActiveMetoprolol Succinate ActivemetroNIDAZOLE 500 mg oral tablet (8 sources)Nitroimidazole AntimicrobialStart: 12-02-2024 End: 79-25-8685ugrl 1 tablet by mouth in the morningmetroNIDAZOLE (Flagyl) 500 MG tablet Take 500 mg by mouth in the morning and 500 mg before bedtime. 12/02/2024 ActiveMotrin Dual Action With Tylenol (2 sources)Start: 85-48-9752Qtskhw Dual Action With Tylenol Oral, q8hr, Refill(s) 0 Start Date: 01/16/25 Status: Ordered Repeat number: 1ondansetron 4 mg oral tablet (15 sources)Serotonin-3 Receptor AntagonistStart: 01-16-2025 End: 95-01-5884Hsngpo 4 mg Tab 4 mg = 1 tab(s), Oral, As Directed, PRN Nausea/Vomiting, X 30 day(s), # 30 tab(s), Refills(s) 2, Pharmacy: [facility] #[id number], 160, cm, 01/16/25 9:06:00 EDT, Height/Length Dosing, 89.4, kg, 01/16/25 9:06:00 EDT, Weight Dosing Start Date: 01/16/25 Stop Date: 04/16/25 Status: Ordered Quantity: 30.0 Unit: tab(s) Repeat number: 3Start: 01-16-2025 Zofran Refills(s) 0 Start Date: 01/16/25 Status: Ordered Repeat number: 1Start: 08-21-2023 End: 82-76-8296qisu 1 tablet by mouth every eight hours for nauseaondansetron ODT (Zofran-ODT) 4 MG disintegrating tablet Indications: Epigastric pain Take 1 tablet (4 mg) by mouth every 8 (eight) hours if needed for nausea or vomiting for up to 7 days 20 tablet 0 08/21/2023 08/28/2023 ActiveStart: 40-82-5223lcsj 1 tablet by mouth every eight hours as neededOndansetron HCl 4 MG 1 tablet Orally every 8 hours as needed for 3 days Feb, Activepantoprazole 40 mg delayed release oral tablet (15 sources)Proton Pump InhibitorStart: 73-69-9817sofy 1 tablet by mouth once dailyPantoprazole 40 mg tablet,delayed release (DR/EC) Active 40 MG PO Daily 90 0 April 03, 2025 12:00am Gastroesophageal reflux disease without esophagitis Gastro-esophageal reflux disease without esophagitis Complies with drug therapyStart: 35-41-5571zwwcjhpggdsn (Protonix) 40 MG EC tablet Indications: Epigastric pain 1 pill twice a day for 7 days,then decrease to 1 pill daily. Do not crush, chew, or split. 30 tablet 1 08/21/2023 Active polyethylene glycol 3350 19192 mg powder for oral solution (5 sources)Osmotic LaxativeStart: 12-11-2024 End: 58-98-9352kyiu 4-6 [oz_av] by mouth once dailypolyethylene glycol, PEG, 3350 (MiraLax) 17 GM/SCOOP powder Indications: Irritable bowel syndrome with constipation Take 17 g by mouth Daily Mix in 4-6 oz fluid 510 g 2 12/11/2024 01/10/2025 Activepolyethylene glycol 3350 063910 mg / potassium chloride 1480 mg / sodium bicarbonate 5720 mg / sodium chloride 49474 mg powder for oral solution (2 sources)Osmotic LaxativeStart: 49-31-5293WrZUWTWS Wilkes oral powder for reconstitution See Instructions, 1 EA, Refill(s) 0, follow up physicians insctructions, [facility][id number], 160, cm, 12/29/24 10:07:00 EDT, Height/Length Dosing, 90.6, kg, 12/29/24 10:07:00 EDT, Weight Dosing Start Date: 12/29/24 Status: Ordered Quantity: 1.0Unit: EA Repeat number: 1 Indications: Change in bowel habit; Hemorrhage of anus and rectum;rimegepant 75 mg disintegrating oral tablet (14 sources)take 1 tablet by mouth every twenty-four hours as neededRimegepant Sulfate (Nurtec) 75 MG tablet dispersible Take 1 tablet by mouth Daily as needed (Migraine SANCHEZ) Activetenapanor 50 mg oral tablet (2 sources)Start: 01-16-2025 End: 24-78-5149swfp 1 tablet by mouth twice dailyIbsrela 50 mg oral tablet 50 mg = 1 tab(s), Oral, BID, X 90 day(s), # 180 tab(s), Refills(s) 3, Pharmacy: [facility] #[id number], 160, cm, 01/16/25 9:06:00 EDT, Height/Length Dosing, 89.4, kg, 01/16/25 9:06:00 EDT, Weight Dosing Start Date: 01/16/25 Stop Date: 01/11/26 Status: Ordered Quantity: 180.0 Unit: tab(s) Repeat number: 4 traZODone hydrochloride 50 mg oral tablet (17 sources)Serotonin Reuptake InhibitorStart: 64-61-4655zvht 1 tablet by mouth once daily at bedtime as neededTrazodone 50 mg tablet Active 50 MG PO Daily at bedtime as needed for insomnia 90 0 March 12:00am Insomnia Insomnia, unspecified Complies with drug therapyStart: 90-41-5964clcn 1 tablet by mouth at bedtimetraZODone (Desyrel) 50 MG tablet Indications: Primary insomnia Take 1 tablet (50 mg) by mouth at bedtime Take 1 tablet by mouth at bedtime 90 tablet 1 01/01/2024 ActiveStart: 08-21-2023 End: 76-24-8717fhpl 1 tablet by mouth at bedtimetraZODone (Desyrel) 50 MG tablet Indications: Primary insomnia Take 1 tablet (50 mg) by mouth at bedtime Take 1 tablet by mouth at bedtime 90 tablet 1 08/21/2023 11/19/2023 Activeubrogepant 100 mg oral tablet (1 source)Start: 04-70-1169pgzw 1 tablet by mouth once as needed for headache Ubrogepant (Ubrelvy) 100 mg tablet Active 100 MG PO Once as needed for migraine headache April 29, 2025 12:00am Migraine headache Migraine, unspecified, not intractable, without status migrainosus Complies with drug therapy Completed/Discontinued Medications MedicationDrug Class(es)DatesSig (Normalized)Sig (Original)amitriptyline hydrochloride 25 mg oral tablet (6 sources)Tricyclic Antidepressant End: 42-69-6095wxjr 1 tablet by mouth once at bedtimeamitriptyline (Elavil) 25 MG tablet Take 1 tablet by mouth at bedtime Per Dr Maguire Sleep doctor Discontinued (Therapy completed)fluticasone propionate 0.05 mg/actuat metered dose nasal spray (6 sources)Corticosteroid End: 73-61-6425mlmn 2 spray(s) nasal route in the morningfluticasone (Flonase) 50 MCG/ACT nasal spray Administer 2 sprays into each nostril in the morning. S alia gently. Before first use, prime pump. After use, clean tip and replace cap.. 10/27/2024 Discontinued (Therapy completed)linaclotide 0.29 mg oral capsule (4 sources)Guanylate Cyclase-C AgonistStart: 11-23-2017 End: 37-24-5627tqbj 1 capsule by mouth once dailyLinaclotide (Linzess) 290 mcg capsule Discontinued 290 MCG PO Daily 90 November 23, 2017 12:00am April 11, 2025 6:58amStart: 11-19-2017 End: 29-26-5330klsr 1 capsule by mouth once dailyLinaclotide 72 mcg capsule Discontinued 72 MCG PO Daily November 19, 2017 12:00am November 23, 2017 9:29am loratadine 10 mg oral tablet (6 sources) End: 83-21-8858pwxc 1 tablet by mouth in the morningloratadine (Claritin) 10 MG tablet Take 1 tablet by mouth in the morning. 10/27/2024 Discontinued (Therapy completed)naproxen 500 mg oral tablet (2 sources)Nonsteroidal Anti-inflammatory DrugStart: 11-17-2021 End: 22-18-8243gbhj 1 tablet by mouth twice daily as needed for painNaproxen (Naprosyn) 500 mg tablet Discontinued 500 MG PO Twice daily as needed for pain 10 5 0 November 17, 2021 12:00am April 11, 2025 7:00amtiZANidine 4 mg oral tablet (8 sources)Central alpha-2 Adrenergic AgonistStart: 01-01-2024 End: 66-87-1593mwqk 1 tablet by mouth oncetiZANidine (Zanaflex) 4 MG tablet Indications: Muscle spasms of neck Take 1 tablet (4 mg) by mouth every 12 (twelve) hours if needed for muscle spasms Take 1 tablet by mouth every 12 (twelve) hours if needed for muscle spasms 180 tablet 1 01/01/2024 10/27/2024 Discontinued (Therapy completed)Start: 08-21-2023 End: 62-20-6625ufha 1 tablet by mouth oncetiZANidine (Zanaflex) 4 MG tablet Indications: Muscle spasms of neck Take 1 tablet (4 mg) by mouth every 12 (twelve) hours if needed for muscle spasms Take 1 tablet by mouth every 12 (twelve) hours if needed for muscle spasms 180 tablet 1 08/21/2023 11/19/2023 Active Problems Active Problems Problem ClassificationProblemDateDocumented DateEpisodic/ChronicAbdominal pain (20 sources)Epigastric pain; Translations: [Epigastric pain]Onset: 08-21-2023 11-97-7904ExqcnwxsJoqngdj disorders (20 sources)Generalized anxiety disorder; Translations: [Panic disorder [episodic paroxysmal anxiety]]Onset: 01-06-2022 Resolved: 235699-67-4357GdxnyeeGzhmoo neoplasm of uterus (8 sources)Uterine leiomyoma; Translations: [Leiomyoma of uterus, unspecified] Onset: 499741-74-9707PhusdnusQgpzbnr dysrhythmias (20 sources)Palpitations; Translations: [Palpitations]Onset: 41-50-2273Kwroznkp Diseases of white blood cells (2 sources)Leukocytosis; Translations: [Elevated white blood cell count, unspecified]62-54-7899GihgpklZlygdiwbs of lipid metabolism (20 sources)Hyperlipidemia; Translations: [Hyperlipidemia, unspecified]Onset: 708251-89-0478SmocsozNeglmryqgc disorders (2 sources)Gastroesophageal reflux disease without esophagitis; Translations: [Gastro-esophageal reflux disease without esophagitis]91-93-0094CctrkmlOypssdytn hypertension (20 sources)Hypertensive disorder; Translations: [Essential (primary) hypertension]Onset: 08-21-2023 Resolved: 194808-67-0811EpovfntHtbhsaldyvgybluo hemorrhage (20 sources)Rectal hemorrhage; Translations: [Hemorrhage of anus and rectum] Onset: 129086-29-0519FmabajkiIeonsaea; including migraine (20 sources)Migraine with aura; Translations: [Migraine with aura, not intractable, without status migrainosus]Onset: hronic Malaise and fatigue (11 sources)Other fatigue; Translations: [Fatigue]Onset: 183126-27-9277 EpisodicMenstrual disorders (6 sources)Menometrorrhagia; Translations: [Excessive and frequent menstruation with irregular cycle]Onset: 265778-51-4453BcdrhndNbwbxaipewxly mental health disorders (2 sources)Primary insomnia; Translations: [Primary insomnia]19-92-9348Csclhad Nausea and vomiting (4 sources)Vomiting; Translations: [Vomiting, unspecified]Onset: 01-16-2025 EpisodicNonmalignant breast conditions (16 sources)Abscess of breast; Translations: [Abscess of the breast and nipple] Onset: 671475-70-1939EnjcivaeSdaazvgswyx chest pain (15 sources)Chest pain, unspecified; Translations: [Chest pain]Onset: 12-27-2021 EpisodicComment on above:Problem List clean-up per request of Phys. CALVIN Cmte Nutritional deficiencies (11 sources)Vitamin D deficiency; Translations: [Vitamin D deficiency, unspecified]Onset: 391754-28-6265RurwpylHpwlbkajmpo deficiencies (7 sources)Iron deficiency; Translations: [Iron deficiency]Onset: 12-22-2024 60-20-2432OuusyxtiFsdzw connective tissue disease (18 sources)Muscle spasm of cervical muscle of neck; Translations: [Other muscle spasm]Onset: 718979-41-0167IihspmztIzmdj female genital disorders (4 sources)Abnormal uterine bleeding; Translations: [Abnormal uterine and vaginal bleeding, unspecified]Onset: 797958-86-8018HbpvjtxFlhlm female genital disorders (3 sources)Abnormal uterine and vaginal bleeding, unspecified; Translations: [Abnormal uterine and vaginal bleeding, unspecified]Onset: 58-95-1821Eperkkp Other female genital disorders (2 sources)Pain in female pelvis; Translations: [Pelvic pain in female]Onset: 327220-68-8660ZlzfioapQkobu gastrointestinal disorders (20 sources)Irritable bowel syndrome characterized by constipation; Translations: [Irritable bowel syndrome with constipation]Onset: 08-21-2023 06-31-3122ZnrakdwJvqdj gastrointestinal disorders (20 sources)Altered bowel function; Translations: [Change in bowel habit]Onset: 915007-00-6266NygaylkvQxnlp infections; including parasitic (1 source)Infection by Trichomonas; Translations: [Trichomoniasis, unspecified] 96-91-4790ZzuoeyreWddvc lower respiratory disease (8 sources)Dyspnea on exertion; Translations: [Other forms of dyspnea]07-15-2018 EpisodicOther non-traumatic joint disorders (20 sources)Shoulder pain; Translations: [Pain in left shoulder]Onset: 777353-51-0904OlbexwdkIsfak nutritional; endocrine; and metabolic disorders (19 sources)Obesity caused by energy imbalance; Translations: [Morbid (severe) obesity due to excess calories]Onset: 994374-00-3464MuzhynkFaqlm nutritional; endocrine; and metabolic disorders (10 sources)Obese class II; Translations: [Obesity, Class II, BMI 35-39.9]Onset: 711823-27-5101PidclcnIsvjo screening for suspected conditions (not mental disorders or infectious disease) (20 sources)Encounter for screening mammogram for malignant neoplasm of breast; Translations: [Patient encounter status]Onset: 92-36-3304ErniqgorHrbxd upper respiratory disease (1 source)Nasal congestion; Translations: [Nasal congestion]EpisodicPancreatic disorders (not diabetes) (20 sources)Pancreatitis; Translations: [Acute pancreatitis without necrosis or infection, unspecified]Onset: 227995-89-7979OntbbgfxKxttauma codes; unclassified (1 source)Congenital central alveolar hypoventilation syndrome; Translations: [CONGEN CNTRL ALVEOLAR HYPOVENTSYND]Onset: 02-32-0972TiqcchlIkxerzwe codes; unclassified (20 sources)Obstructive sleep apnea of adult; Translations: [Obstructive sleep apnea (adult) (pediatric)]Onset: 510854-57-7180FfgoeceSsbtaaax codes; unclassified (5 sources)Obstructive sleep apnea syndrome; Translations: [Obstructive sleep apnea (adult) (pediatric)]49-62-0516LcymjkvAshbjgcx codes; unclassified (20 sources)Insomnia; Translations: [Insomnia, unspecified]Onset: 08-21-2023 32-15-5497GodbxccwDufxsbyd codes; unclassified (18 sources)Tobacco user; Translations: [Tobacco use]Onset: 08-21-2023 Resolved: 576448-28-5288LsabuzlkWkqmwoomd-ggwnpfl disorders (20 sources)Nicotine dependence, cigarettes, uncomplicated; Translations: [Tobacco dependence caused by cigarettes]Onset: hronic Unclassified (1 source)Gynecologic ExamOnset: 32-86-4618Ddpxsgigklbw (1 source)EMSOnset: 99-14-8254Cejibtjklmbm (1 source)Autogenerated ProblemOnset: 344222-44-8840Hgghqnxguegh (1 source)New PatientOnset: 31-35-6332Knkbdzorhsee (1 source)ConsultOnset: 77-84-9280Ntece infection (1 source)Disease caused by 2019-nCoV; Translations: [UNVACCINATED COVID 19] Onset: 11-16-2021 Past or Other Problems Problem ClassificationProblemDateDocumented DateEpisodic/ChronicImmunizations and screening for infectious disease (1 source)Encounter for screening for infections with a predominantly sexual mode of transmission; Translations: [Encounter for screening for infections with a predominantly sexual mode of transmission]Onset: 79-14-3963ToxsobppGqvm disorders (8 sources)Mood disordersOnset: Other liver diseases (1 source)Abnormal levels of other serum enzymes; Translations: [Abnormal levels of other serum enzymes]Onset: 55-46-1134WblxlthoVfhai lower respiratory disease (1 source)Dyspnea, unspecified; Translations: [DYSPNEA UNSPECIFIED]Onset: 78-79-9881IhdycxnqWdfad nutritional; endocrine; and metabolic disorders (14 sources)Body mass index 40+ - severely obese; Translations: [Morbid (severe) obesity due to excess calories]Onset: 08-21-2023 Resolved: [id number] nutritional; endocrine; and metabolic disorders (12 sources)Body mass index 30+ - obesity; Translations: [Body mass index (BMI) 35.0-35.9, adult]Onset: 10-27-2024 Resolved: [id number] upper respiratory disease (1 source)Nasal congestionOnset: 02-17-2022 Resolved: 58-99-6062KaapwlwgGdeyg upper respiratory infections (1 source)Acute upper respiratory infection, unspecifiedOnset: 02-17-2022 Resolved: 63-24-4591BakpretqClvrvylea and history of mental health and substance abuse codes (1 source)Encounter for screening for depression; Translations: [Encounter for screening for depression]Onset: 96-63-7062LtorclqsFbxtkiboaup; intervertebral disc disorders; other back problems (3 sources)Acute back pain with sciatica; Translations: [Lumbago with sciatica, left side]Onset: 43-86-7546XyqnmkreEytawqrepoqz (8 sources)Onset: Results Test NameValueInterpretationReference RangeFacilityCBC WITH AUTO DIFFERENTIALon [id number] BASOPHILS ABSOLUTE COUNT (10*3/UL) BY MANUAL COUNT0.1 10*3/uLNormal0.0-0.2PMetroHealth Parma Medical CenterComduane l. waters hospital on above:Result Comment: This is an appended report. These results have been appended to a previously preliminary verified report.Performed By: #### CBCA #### [facility] ([facility]) [address] [place] [address] VIRCELLAVISION BASOPHILS RELATIVE PERCENT BY MANUAL COUNT1 % NormalProAspire Behavioral Health HospitalComduane l. waters hospital on above:Result Comment: This is an appended report. These results have been appended to a previously preliminary verified report.Performed By: #### CBCA #### [facility] ([facility]) [address] [place] [address] VIRCELLAVISION DIFFERENTIAL TYPEMANUAL DIFFERENTIALNormal [facility] CenterComduane l[facility] on above:Result Comment: This is an appended report. These results have been appended to a previously preliminary verified report.Performed By: #### CBCA #### [facility] ([facility]) [address] [place] [address] VIRCELLAVISION EOSINOPHILS ABSOLUTE COUNT (10*3/UL) BY MANUAL COUNT0.1 10*3/uLNormal0.0-0.4ProAspire Behavioral Health HospitalComduane l. waters hospital on above:Result Comment: This is an appended report. These results have been appended to a previously preliminary verified report.Performed By: #### CBCA #### [facility] ([facility]) [address] [place] [address] VIRCELLAVISION EOSINOPHILS PERCENT BY MANUAL COUNT1 %Normal [facility] CenterComduane l[facility] on above:Result Comment: This is an appended report. These results have been appended to a previously preliminary verified report.Performed By: #### CBCA #### [facility] ([facility]) [address] [place] [address] VIRCELLAVISION LYMPHOCYTES ABSOLUTE COUNT (10*3/UL) BY MANUAL COUNT4.4 10*3/uLHigh1.0-3.5PTrinity Health System on above:Result Comment: This is an appended report. These results have been appended to a previously preliminary verified report.Performed By: #### CBCA #### [facility] ([facility]) [address] [place] [address] VIRCELLAVISION LYMPHOCYTES RELATIVE PERCENT BY MANUAL COUNT37 % NormalProAspire Behavioral Health HospitalComduane l. waters hospital on above:Result Comment: This is an appended report. These results have been appended to a previously preliminary verified report.Performed By: #### CBCA #### [facility] ([facility]) [address] [place] [address] VIRCELLAVISION MONOCYTES ABSOLUTE COUNT (10*3/UL) IN BLOOD BY MANUAL COUNT0.8 10*3/uLNormal0.0-0.9[facility] CenterComduane l[facility] on above: Result Comment: This is an appended report. These results have been appended to a previously preliminary verified report.Performed By: #### CBCA #### [facility] ([facility]) [address] [place] [address] VIRCELLAVISION MONOCYTES RELATIVE PERCENT BY MANUAL COUNT7 % NormalProAspire Behavioral Health HospitalComduane l. waters hospital on above:Result Comment: This is an appended report. These results have been appended to a previously preliminary verified report.Performed By: #### CBCA #### [facility] ([facility]) [address] [place] [address] VIRCELLAVISION NEUTROPHILS ABSOLUTE COUNT BY MANUAL COUNT6.6 10*3/uLNormal1.5-6.6[facility] CenterComduane l[facility] hospital on above:Result Comment: This is an appended report. These results have been appended to a previously preliminary verified report.Performed By: #### CBCA #### [facility] ([facility]) [address] [place] [address] VIRCELLAVISION NEUTROPHILS RELATIVE PERCENT BY MANUAL COUNT54 % NormalProAspire Behavioral Health HospitalComment on above:Result Comment: This is an appended report. These results have been appended to a previously preliminary verified report.Performed By: #### CBCA #### [facility] ([facility]) [address] [place] [address] VIRCELLAVISION RBC MORPHOLOGYNormalNormalProAspire Behavioral Health HospitalComment on above:Result Comment: This is an appended report. These results have been appended to a previously preliminary verified report.Performed By: #### CBCA #### [facility] ([facility]) [address] [place] [address] VIRErythrocyte distribution width (RBC) [Ratio]13.3 %Normal 11.5-15ProAspire Behavioral Health HospitalComment on above:Performed By: #### CBCA #### [facility] ([facility]) [address] [place] [address] VIRHematocrit (Bld) [Volume fraction]43.7 %Kaguhn79-23ZhdSinrobDayton VA Medical CenterComment on above:Performed By: #### CBCA #### [facility] ([facility]) [address] [place] [address] VIRHemoglobin (Bld) [Mass/Vol]14.5 g/kVWvtkur66.7-15.5PMetroHealth Parma Medical CenterComment on above:Performed By: #### CBCA #### [facility] ([facility]) [address] [place] [address] VIRMCH (RBC) [Entitic mass]30.2 giEiizax72-23EfnDosweuDayton VA Medical CenterComment on above:Performed By: #### CBCA #### [facility] ([facility]) [address] [place] [address] VIRMCHC (RBC) [Mass/Vol]33.3 g/gLRhkadx64-74NnxRdcphwAspire Behavioral Health HospitalComment on above:Performed By: #### CBCA #### [facility] ([facility]) [address] [place] [address] VIRMCV (RBC) [Entitic vol]91 hSClzilb53-128JdrNmxyavDayton VA Medical CenterComment on above:Performed By: #### CBCA #### [facility] ([facility]) [address] [place] [address] VIRPlatelet mean volume (Bld) [Entitic vol]9.8 fLNormal7-12 [facility] Medical CenterComment on above:Performed By: #### CBCA #### [facility] ([facility]) [address] [place] [address] VIRPlatelets (Bld) [#/Vol]299 10*3/nERrpbwx127-526EelJaxewz [facility] HospitalComment on above:Performed By: #### CBCA #### [facility] ([facility]) [address] [place] [address] VIRRBC COUNT4.82 X10E12/LNormal3.8-5.2[facility] Medical CenterComment on above:Performed By: #### CBCA #### [facility] ([facility]) [address] [place] [address] VIRWBC (Bld) [#/Vol]12.0 10*3/uLHigh4-11[facility] CenterComment on above:Performed By: #### CBCA #### [facility] ([facility]) [address] [place] [address] VIRBASIC METABOLIC PANELon 29-51-4266Tmamb gap [Moles/Vol]8 mmol/LNormal5-15[facility] CenterComduane l. waters hospital on above:Performed By: #### BMP #### [facility] ([facility]) [address] [place] [address] VIRCalcium [Mass/Vol]9.1 mg/dLNormal8.5-10.5PMetroHealth Parma Medical CenterComment on above:Performed By: #### BMP #### [facility] ([facility]) [address] [place] [address] VIRChloride [Moles/Vol]106 mmol/CKynnsq67-867GizUrjepvAspire Behavioral Health HospitalComment on above:Performed By: #### BMP #### [facility] ([facility]) [address] [place] [address] VIRCO2 [Moles/Vol]25 mmol/KMpjcnl36-44BgfStqoimMetroHealth Parma Medical CenterComment on above:Performed By: #### BMP #### [facility] ([facility]) [address] [place] [address] VIRCreatinine [Mass/Vol]0.63 mg/dLNormal0.40-1.00ProAspire Behavioral Health HospitalComment on above:Result Comment: METHOD TRACEABLE TO IDMS STANDARDPerformed By: #### BMP #### [facility] ([facility]) [address] [place] [address] VIREGFR (CKD-EPI) NON-RACE DEPENDENT>^90Normal>=60ProAspire Behavioral Health HospitalComment on above:Result Comment: Reported eGFR is based on the CKD-EPI 2020 equation that does not use a race coefficient.Performed By: #### BMP #### [facility] ([facility]) [address] [place] [address] VIRGlucose [Mass/Vol]99 mg/eFYuajyv51-40VkpQgirlfAspire Behavioral Health HospitalComment on above:Performed By: #### BMP #### [facility] ([facility]) [address] [place] [address] VIRPotassium [Moles/Vol]4.2 mmol/LNormal3.5-5.0ProAspire Behavioral Health HospitalComment on above:Performed By: #### BMP #### [facility] ([facility]) [address] [place] [address] VIRSodium [Moles/Vol]139 mmol/XGbmyyx676-974GtnVbqdcq [facility] HospitalComment on above:Performed By: #### BMP #### [facility] ([facility]) [address] [place] [address] VIRUrea nitrogen [Mass/Vol]16 mg/dLNormal5-23[facility] CenterComduane l. waters hospital on above:Performed By: #### BMP #### [facility] ([facility]) [address] [place] [address] VIRCBC WITH AUTO DIFFERENTIALon 95-47-3787Iwfw form neutrophils/100 WBC (Bld)1 %NormalDayton VA Medical CenterComduane l. waters hospital on above: Result Comment: This is an appended report. These results have been appended to a previously preliminary verified report.Performed By: #### CBCA #### [facility] ([facility]) [address] [place] [address] VIRCELLAVISION DIFFERENTIAL TYPEMANUAL DIFFERENTIALNormal [facility] CenterComduane l. [facility] on above:Result Comment: This is an appended report. These results have been appended to a previously preliminary verified report.Performed By: #### CBCA #### [facility] ([facility]) [address] [place] [address] VIRCELLAVISION EOSINOPHILS ABSOLUTE COUNT (10*3/UL) BY MANUAL COUNT0.2 10*3/uLNormal0.0-0.4[facility] CenterComduane l[facility] on above:Result Comment: This is an appended report. These results have been appended to a previously preliminary verified report.Performed By: #### CBCA #### [facility] ([facility]) [address] [place] [address] VIRCELLAVISION EOSINOPHILS PERCENT BY MANUAL COUNT1 %Normal [facility] CenterComduane l. [facility] hospital on above:Result Comment: This is an appended report. These results have been appended to a previously preliminary verified report.Performed By: #### CBCA #### [facility] ([facility]) [address] [place] [address] VIRCELLAVISION LYMPHOCYTES ABSOLUTE COUNT (10*3/UL) BY MANUAL COUNT4.9 10*3/uLHigh1.0-3.5PTrinity Health System on above:Result Comment: This is an appended report. These results have been appended to a previously preliminary verified report.Performed By: #### CBCA #### [facility] ([facility]) [address] [place] [address] VIRCELLAVISION LYMPHOCYTES RELATIVE PERCENT BY MANUAL COUNT29 % NormalProAspire Behavioral Health HospitalComduane l. waters hospital on above:Result Comment: This is an appended report. These results have been appended to a previously preliminary verified report.Performed By: #### CBCA #### [facility] ([facility]) [address] [place] [address] VIRCELLAVISION MONOCYTES ABSOLUTE COUNT (10*3/UL) IN BLOOD BY MANUAL COUNT0.9 10*3/uLNormal0.0-0.9[facility] CenterComduane l[facility] on above: Result Comment: This is an appended report. These results have been appended to a previously preliminary verified report.Performed By: #### CBCA #### [facility] ([facility]) [address] [place] [address] VIRCELLAVISION MONOCYTES RELATIVE PERCENT BY MANUAL COUNT5 % NormalProAspire Behavioral Health HospitalComduane l. waters hospital on above:Result Comment: This is an appended report. These results have been appended to a previously preliminary verified report.Performed By: #### CBCA #### [facility] ([facility]) [address] [place] [address] VIRCELLAVISION NEUTROPHILS ABSOLUTE COUNT BY MANUAL COUNT11.0 10*3/uLHigh1.5-6.6[facility] CenterComduane l[facility] hospital on above:Result Comment: This is an appended report. These results have been appended to a previously preliminary verified report.Performed By: #### CBCA #### [facility] ([facility]) [address] [place] [address] VIRCELLAVISION NEUTROPHILS RELATIVE PERCENT BY MANUAL COUNT64 % NormalProAspire Behavioral Health HospitalComment on above:Result Comment: This is an appended report. These results have been appended to a previously preliminary verified report.Performed By: #### CBCA #### [facility] ([facility]) [address] [place] [address] VIRCELLAVISION RBC MORPHOLOGYNormalNormalProAspire Behavioral Health HospitalComment on above:Result Comment: This is an appended report. These results have been appended to a previously preliminary verified report.Performed By: #### CBCA #### [facility] ([facility]) [address] [place] [address] VIRErythrocyte distribution width (RBC) [Ratio]13.5 %Normal 11.5-15ProAspire Behavioral Health HospitalComment on above:Performed By: #### CBCA #### [facility] ([facility]) [address] [place] [address] VIRHematocrit (Bld) [Volume fraction]45.4 %Qamfyq60-29UbkIskudxDayton VA Medical CenterComment on above:Performed By: #### CBCA #### [facility] ([facility]) [address] [place] [address] VIRHemoglobin (Bld) [Mass/Vol]14.9 g/uXQyuoxh61.7-15.5PMetroHealth Parma Medical CenterComment on above:Performed By: #### CBCA #### [facility] ([facility]) [address] [place] [address] VIRMCH (RBC) [Entitic mass]30.2 szLqnuke64-11LagDyzcjpDayton VA Medical CenterComment on above:Performed By: #### CBCA #### [facility] ([facility]) [address] [place] [address] VIRMCHC (RBC) [Mass/Vol]32.9 g/jNGahnlx03-33CkxOdidldAspire Behavioral Health HospitalComment on above:Performed By: #### CBCA #### [facility] ([facility]) [address] [place] [address] VIRMCV (RBC) [Entitic vol]92 kQWqicxe78-805VslPabntaDayton VA Medical CenterComment on above:Performed By: #### CBCA #### [facility] ([facility]) [address] [place] [address] VIRPlatelet mean volume (Bld) [Entitic vol]9.1 fLNormal7-12 [facility] CenterComment on above:Performed By: #### CBCA #### [facility] ([facility]) [address] [place] [address] VIRPlatelets (Bld) [#/Vol]288 10*3/gRJvqqqf040-350ZxzDetnqpDayton VA Medical CenterComment on above:Performed By: #### CBCA #### [facility] ([facility]) [address] [place] [address] VIRRBC COUNT4.95 X10E12/LNormal3.8-5.2[facility] CenterComment on above:Performed By: #### CBCA #### [facility] ([facility]) [address] [place] [address] VIRWBC (Bld) [#/Vol]17.0 10*3/uLHigh4-11[facility] CenterComment on above:Performed By: #### CBCA #### [facility] ([facility]) [address] [place] [address] VIRUS PELVIC WITH TRANSVAGINALon 30-84-0368KW PELVIC WITH TRANSVAGINALUS PELVIC WITH TRANSVAGINAL HISTORY: A 45-year-old female with a history of the abnormal uterine bleeding, dysmenorrhea and menorrhagia with irregular cycles. Pelvic pain and bloating. TECHNIQUE: Multiple real-time images of the pelvis are obtained by using transabdominal and transvaginal approaches. Color Doppler study is performed. COMPARISON: Comparison is made with the CT scan of the abdomen and pelvis of 01/19/2021. FINDINGS: Uterus measures 9.4 x 3.9 x 4.9 cm. Endometrial echo stripe thickness was 8.7 mm. There is a hypoechoic or isoechoic mass in the left side of the fundus of the uterus and measures 4.9 x 4.7x 6.0 cm. Appearance is suggestive of uterine fibroid. Cervix appears normal. Right ovary measures 4.7 x 2.9 x 2.9 cm. There is a cyst in the right ovary and measures 2.8 x 2.0 cm. Left ovary measures 1.7 x 2.1 x 2.4 cm. Left ovary appears unremarkable. No other adnexal mass is identified. Color Doppler study reveals presence of the color Doppler flow without evidence of torsion. No free fluid is seen in the cul-de-sac. IMPRESSION: * There is an approximately 6.0 x 4.9 x 4.7 cm fibroid in the left fundal uterine wall. Overall appearance is stable. * Normal ovaries with right ovarian cyst and measures 2.8 x 2.0 cm. No evidence of ovarian torsion. * No free fluid is seen in the cul-de-sac. Finalized by Anish Kamara MD on 04/05/2025 11:05 AMNormalDayton VA Medical CenterTHYROID PROFILE INCLUDES TSH FT4on [id number] T4 [Mass/Vol]0.95 ng/dLNormal0.61-1.60[facility] Medical CenterComment on above:Performed By: #### THYR #### [facility] ([facility]) [address] [place] [address] VIRTSH0.92 uIU/mLNormal0.49-4.67[facility] Comment on above:Performed By: #### THYR #### [facility] ([facility]) [address] [place] [address] VIRCT ABDOMEN AND PELVIS W CONTon [id number] ABDOMEN AND PELVIS W CONTCT ABDOMEN AND PELVIS W CONT CT ABDOMEN AND PELVIS W CONT CLINICAL HISTORY: Upper abdominal pain/tenderness, nausea, vomiting COMPARISON: 2016 TECHNIQUE: * CT abdomen and pelvis was performed with the administration of intravenous contrast. Coronal and sagittal reformatted images were generated and reviewed. Automated exposure control was utilized. * All CT scans at this facility use dose modulation, iterative reconstruction, and/or weight based dosing when appropriate to reduce radiation dose to as low as reasonably achievable. FINDINGS: Visualized portions of lung parenchyma appear unremarkable. No pleural or pericardial effusions. No intra-abdominal free air or free fluid. Noncirrhotic liver morphology with no focal hepatic lesion. Intra-/extrahepatic biliary ductal prominence likely reflects reservoir effect in the setting of prior cholecystectomy. This appears similar to prior examination. Spleen, pancreas, and adrenal glands appear unremarkable. Nonobstructive 3 mm calculus mid pole left kidney. No hydronephrosis or suspicious renal lesion. No pelvic free fluid. Solid left fundal uterine lesion measures 6.1 cm (likely fibroid, previously 1.8 cm in 2016). Likely physiologic left adnexal cyst measures 3.0 cm. The small bowel, terminal ileum, large bowel, and appendix appear unremarkable. No abdominal or pelvic lymphadenopathy. Nonaneurysmal abdominal aorta. No acute osseous abnormality. IMPRESSION: * No acute abdominopelvic process. * Left fundal uterine fibroid measures 6.1 cm. Approved by Resident: Sen Talbert MD on 01/19/2025 11:55 PM I, Hipolito Silverman MD have personally reviewed the image(s) and agree with and/or edited the report Finalized by Hipolito Silverman MD on 01/20/2025 12:16 AMNormalProAspire Behavioral Health HospitalBASI METABOLIC PANELon 63-79-2948Eqtiv gap [Moles/Vol]8 mmol/LNormal -ProAspire Behavioral Health HospitalComment on above:Performed By: #### BMP #### [facility] [address] [place] [address]. [place] [address] VIRCalcium [Mass/Vol]9.1 mg/dLNormal8.5-10.5[facility] Medical CenterComment on above:Performed By: #### BMP #### [facility] ([facility]) [address] [place] [address]. [place] [address] VIRChloride [Moles/Vol]108 mmol/NKhbyvp01-042MjlWoqlyvAspire Behavioral Health HospitalComment on above:Performed By: #### BMP #### [facility] ([address] [address] VIRCO2 [Moles/Vol]21 mmol/ZUmm70-34QfwQaguvpFairchild Medical Center Comment on above:Performed By: #### BMP #### [facility] ([address] [address] VIRCreatinine [Mass/Vol]0.71 mg/dLNormal0.40-1.00ProAspire Behavioral Health HospitalComment on above:Result Comment: METHOD TRACEABLE TO IDMS STANDARDPerformed By: #### BMP #### [facility] ([address] [address] VIREGFR (CKD-EPI) NON-RACE DEPENDENT>^90Normal>=60ProAspire Behavioral Health HospitalComment on above:Result Comment: eGFR not reported due to non- numeric value for Creatinine. Reported eGFR is based on the CKD-EPI 2020 equation that does not use a race coefficient.Performed By: #### BMP #### [facility] ([address] [address] VIRGlucose [Mass/Vol]97 mg/oUUtovif98-98HkqJhpcnnAspire Behavioral Health HospitalComment on above:Performed By: #### BMP #### [facility] ([address] [address] VIRPotassium [Moles/Vol]3.5 mmol/LNormal3.5-5.0ProAspire Behavioral Health HospitalComment on above:Performed By: #### BMP #### [facility] ([address] [address] VIRSodium [Moles/Vol]137 mmol/XQetxur715-373HawIpgqbp [facility] HospitalComment on above:Performed By: #### BMP #### [facility] ([address] [address] VIRUrea nitrogen [Mass/Vol]19 mg/dLNormal5-ProAspire Behavioral Health HospitalComment on above:Performed By: #### BMP #### [facility] ([address] [address] [address] VIRCBC WITH AUTO DIFFERENTIALon [id number] ABSOLUTE COUNT (10*3/UL) BY AUTOMATED COUNT0.1 10*3/uLNormal0.0-0.2ProMedFairchild Medical CenterComment on above:Performed By: #### CBCA #### [facility] ([address] [address] VIRBASOPHILS RELATIVE PERCENT BY AUTOMATED COUNT0.7 %Normal [facility] CenterComment on above:Performed By: #### CBCA #### [facility] ([address] [address] VIRCELLAVISION DIFFERENTIAL TYPEAUTOMATED DIFFERENTIALNormal [facility] CenterComment on above:Performed By: #### CBCA #### [facility] ([address] [address] VIREosinophils (Bld) [#/Vol]0.2 10*3/uLNormal0.0-0.4[facility] Medical CenterComduane l. waters hospital on above:Performed By: #### CBCA #### [facility] ([address] [address] VIREOSINOPHILS RELATIVE PERCENT BY AUTOMATED COUNT1.3 %Normal [facility] CenterComment on above:Performed By: #### CBCA #### [address] [address] VIRErythrocyte distribution width (RBC) [Ratio]13.8 %Normal 11.5-15ProAspire Behavioral Health HospitalComment on above:Performed By: #### CBCA #### [facility] ([address] [place] [address] VIRHematocrit (Bld) [Volume fraction]42.6 %Omblng71-02 [facility] CenterComment on above:Performed By: #### CBCA #### [facility] ([address] [place] [address] VIRHemoglobin (Bld) [Mass/Vol]14.5 g/jZVdkfwt16.7-15.5 [facility] CenterComment on above:Performed By: #### CBCA #### [facility] ([address] [place] [address] VIRLYMPHOCYTES ABSOLUTE COUNT (10*3/UL) BY AUTOMATED COUNT3.5 10*3/uLNormal1.0-3.5PMetroHealth Parma Medical CenterComment on above:Performed By: #### CBCA #### [facility] ([address] [address] VIRLYMPHOCYTES RELATIVE PERCENT BY AUTOMATED COUNT23.3 %Normal [facility] CenterComment on above:Performed By: #### CBCA #### [facility] ([address] [place] [address] VIRMCH (RBC) [Entitic mass]29.9 omJgwctk23-03LflPjyngyDayton VA Medical CenterComment on above:Performed By: #### CBCA #### [facility] ([address] [place] [address] VIRMCHC (RBC) [Mass/Vol]34.0 g/sCZwowct80-63PzxYirmogDayton VA Medical CenterComment on above:Performed By: #### CBCA #### [facility] ([address] [place] [address] VIRMCV (RBC) [Entitic vol]88 eJWshill88-647NlhImaawh Fremont HospitalComment on above:Performed By: #### CBCA #### [facility] ([address] [place] [address] VIRMONOCYTES ABSOLUTE COUNT (10*3/UL) BY AUTOMATED COUNT1.1 10*3/uLHigh0.0-0.9ProAspire Behavioral Health HospitalComment on above:Performed By: #### CBCA #### [facility] ([address] [place] [address] VIRMONOCYTES RELATIVE PERCENT BY AUTOMATED COUNT7.5 %Normal [facility] CenterComment on above:Performed By: #### CBCA #### [facility] ([address] [place] [address] VIRNEUTROPHILS ABSOLUTE COUNT BY AUTOMATED COUNT10.1 10*3/uL High1.5-6.6ProAspire Behavioral Health HospitalComment on above:Performed By: #### CBCA #### [facility] ([address] [place] [address] VIRNEUTROPHILS RELATIVE PERCENT BY AUTOMATED COUNT67.2 %Normal [facility] CenterComment on above:Performed By: #### CBCA #### [facility] ([address] [place] [address] VIRPlatelet mean volume (Bld) [Entitic vol]8.0 fLNormal7-12 [facility] CenterComment on above:Performed By: #### CBCA #### [facility] ([address] [place] [address] VIRPlatelets (Bld) [#/Vol]361 10*3/jOPztkaw664-879LnuVabbnk [facility]ont HospitalComment on above:Performed By: #### CBCA #### [facility] ([address] [place] [address] VIRRBC COUNT4.85 X10E12/LNormal3.8-5.2PMetroHealth Parma Medical CenterComment on above:Performed By: #### CBCA #### [facility] ([address] [place] [address] VIRWBC (Bld) [#/Vol]15.1 10*3/uLHigh4-11ProAspire Behavioral Health HospitalComment on above:Performed By: #### CBCA #### [facility] ([address] [place] [address] VIRLIPASEon 70-88-1594Afiaia [Catalytic activity/Vol]170 U/L Ynvn76-34KlhQhzsdrAspire Behavioral Health HospitalComment on above:Performed By: #### LIPA #### [facility] ([address] [place] [address] VIRLIVER PANELon 32-70-5603Mxgykrv [Mass/Vol]4.3 g/dLNormal 3.2-5.3PMetroHealth Parma Medical CenterComment on above:Performed By: #### LIVR #### [facility] ([address] [facility] [place] [place] [address] VIRALP [Catalytic activity/Vol]96 U/YDlnqqc08-187RmeVrjtxlAspire Behavioral Health HospitalComment on above:Performed By: #### LIVR #### [facility] ([address] [place] [address] VIRALT [Catalytic activity/Vol]30 U/LNormal<=31PMetroHealth Parma Medical CenterComment on above:Performed By: #### LIVR #### [facility] ([address] [address] VIRAST [Catalytic activity/Vol]81 U/LHigh<=41ProAspire Behavioral Health HospitalComment on above:Performed By: #### LIVR #### [facility] ([place] [address] [facility] [place] [address] VIRBilirubin [Mass/Vol]0.8 mg/dLNormal0.3-1.2ProMedica Mills-Peninsula Medical CenterComment on above:Performed By: #### LIVR #### [facility] ([facility]) [address] [place] [address]. [place] [address] VIRBilirubin.indirect [Mass/Vol]0.3 mg/dLNormal<=0.4ProAspire Behavioral Health HospitalComment on above:Performed By: #### LIVR #### [facility] ([facility]) [address] [place] [address]. [place] [address] VIRProtein [Mass/Vol]7.7 g/dLNormal6.0-8.0ProAspire Behavioral Health HospitalComment on above:Performed By: #### LIVR #### [facility] ([address] [place] [address] VIRGastroenterology Office/Clinic Noteon 01-17-2025 Gastroenterology Office/Clinic NoteGastroenterology Office/Clinic Note Chief Complaint Severe abdominal pain and constipation. HPI Staff This is a 44 year old female who presents today for a follow up to EGD and colonoscopy with c/o nausea and abdominal pain. Colonoscopy recall needs placed. Patient states that she was supposed to be prescribed constipation medication and didn't receive. Linzess was too expensive? Patient is tearful she c/o severe constipation, right side severe shooting pain and also colon pain. Patient is unable to use enema due too pain. History of Present Illness Reviewed HPI collected by staff Review of Systems PHQ Score Initial Depression Screen Score: 0 SCORE All systems reviewed, negative; Except for above Physical Exam Vitals & Measurements HR: 66(Peripheral) BP: 158/90 HT: 63 in HT: 160 cm WT: 197.093 lb WT: 89.4 kg BMI: 34.92 No acute distress Procedure EGD w/ Dr Burns Endoscopic diagnosis: 1. Esophageal landmarks identified, normal exam 2. Small erosion in the antrum of the stomach, otherwise normal examined stomach, random biopsies were taken to rule out H Pylori. 3. Normal Duodenum Colonoscopy w/ Dr Burns Endoscopic diagnosis: 1. Moderate internal and external hemorrhoids 2. Mild sigmoid diverticulosis 3. 2 Sessile polyps in the sigmoid colon, 5 mm each, resected with cold snare completely and retrieved 4. Otherwise normal colonic mucosa 5. Normal TI Suspect rectal bleeding was likely due to hemorrhoids. Recommendations: Repeat Colonoscopy in 5-7 years Final Diagnosis (Verified) A: STOMACH, BIOPSY: ??? GASTRIC ANTRAL MUCOSA COMPATIBLE WITH MILD REACTIVE GASTROPATHY. ??? GASTRIC OXYNTIC MUCOSA WITH NO SIGNIFICANT PATHOLOGIC CHANGES. ??? NO H. PYLORI MICROORGANISMS IDENTIFIED WITH IMMUNOSTAIN. B: POLYPS X2, SIGMOID COLON, POLYPECTOMY: ??? SESSILE SERRATED ADENOMA. ??? HYPERPLASTIC POLYP. Assessment/Plan 1. Change in bowel habits (R19.4: Change in bowel habit) C/o severe pain from rectum that radiates up into back Has constipation, uses an enema or glycerine for relief, will not have a BM without it No relief with MiraLax or Fiber Tried squatty potty in the past, no relief Tried Linzess in the past, stopped working and was expensive Ibsrela prescribed at last visit, has not received it Has had 1 BM so far this week - Ibsrela prescribed - Consider Vibrating capsule if no improvement 2. Rectal bleeding (K62.5: Hemorrhage of anus and rectum) Passing blood clots in her stools, every times she has a BM 3. Vomiting (R11.10: Vomiting, unspecified) Vomiting daily Mostly bile Most likely related to severe constipation - Schedule CT abdomen/pelvis to evaluate I, Radha Solis, personally scribed for Ricardo Burns on 01/16/2025 09:21:00. . Follow-up With When Contact Information Magalis DELAROSA, SHELTON Jacobsen MED In [address], [address] [address] [phone] Additional Instructions: Problem List/Past Medical History Ongoing Change in bowel habits Rectal bleeding Vomiting Historical No qualifying data Procedure/Surgical History Laminectomy and discectomy (11/05/2008), Cholecystectomy, Colonoscopy, EGD (esophagogastroduodenoscopic) electrohydraulic lithotripsy of bezoar in stomach, Endoscopy. Medications Klonopin 0.5 mg Tab, 0.5 mg, Oral, Daily metoprolol succinate 25 mg ER Tab, 25 mg, Oral, Daily metoprolol succinate 50 mg ER Tab, 50 mg, Oral, Daily Motrin Dual Action With Tylenol, Oral, q8hr Zofran Allergies No active allergies Social History Alcohol Never., 12/29/2024 Substance Abuse Never., 12/29/2024 Tobacco 5-9 cigarettes (between 1/4 to 1/2 pack)/day in last 30 days Tobacco Use:. Never Smokeless Tobacco Use:. Cigarettes, 01/16/2025 Family History Acute myocardial infarction: Grandparent. Primary malignant neoplasm of colon: Grandparent and Grandparent. Immunizations Vaccine Date Status SARSCoV2 mRNA(ccmfrllbp-lynz-kvqgtn) vac 07/09/2019 [facility]Comment [facility] above:Result Comment: Electronically Signed By: Magalis DELAROSA, Ricardo Carlton\.br\Date and Time Signed: 01/17/25 13:53 EDT\.br\Electronically Co-Signed By: Radha Solis MA\.br\Date and Time Co- Signed: 01/16/25 09:27 EDTAmbulatory Visit Summaryon [id number] Visit SummaryAmbulatory Visit Summary DAMIEN MARADIAGA :1980 Visit Date:01/16/2025 Ambulatory Visit Instructions Your Diagnosis Change in bowel habits Rectal bleeding Vomiting Abdominal pain, acute Your Care Team Attending Physician - Ricardo Burns MD Primary Care Physician - JENIFER LOYOLA CNP This Is Your Medications List tenapanor (Ibsrela 50 mg oral tablet) Contact prescribing physician if questions or concerns acetaminophen-ibuprofen (Motrin Dual Action With Tylenol) clonazepam (Klonopin 0.5 mg Tab) metoprolol (metoprolol succinate 25 mg ER Tab) metoprolol (metoprolol succinate 50 mg ER Tab) ondansetron (Zofran) Procedures Performed Laminectomy and discectomy (11/05/2008), Cholecystectomy, Colonoscopy, EGD (esophagogastroduodenoscopic) electrohydraulic lithotripsy of bezoar in stomach, Endoscopy. Discharge Vitals Heart Rate (Peripheral) 66 Blood Pressure 158/90 Height 63 in Height 160 cm Weight 197.093 lb Weight 89.4 kg BMI 34.92 What to do next Scheduled Follow-Up Appointments Sunday 10:45 AM EDT With: Magalis DELAROSA, Ricardo Carlton Where: [facility] [address] [facility] [place] [address] [place] [address]- You Need to Schedule the Following Appointments Follow Up with Magalis DELAROSA, Ricardo Carlton, [facility], MED When: In 1 month Where: [address], [address] [phone] You Need to Complete the Following CT Abdomen/Pelvis w/o Contrast, 01/16/25, Routine, Order for future visit, Transport Mode: Ambulatory, Reason: Pain, No, No, Abdominal pain, acute, pp_set_radiology_subspecialty, [facility] Medications What How Much When Instructions New tenapanor (Ibsrela 50 mg oral tablet) 1 Tablets By Mouth 2 times a day Duration: 90 Days Refills: 3 Pickup at [facility] #[id number] Unchanged acetaminophen-ibuprofen (Motrin Dual Action With Tylenol) By Mouth Every 8 hours Contact prescribing physician if questions or concerns Unchanged clonazepam (Klonopin 0.5 mg Tab) 0.5 Milligram By Mouth Every day Contact prescribing physician if questions or concerns Unchanged metoprolol (metoprolol succinate 25 mg ER Tab) 25 Milligram By Mouth Every day Contact prescribing physician if questions or concerns Unchanged metoprolol (metoprolol succinate 50 mg ER Tab) 50 Milligram By Mouth Every day Contact prescribing physician if questions or concerns Unchanged ondansetron (Zofran) Contact prescribing physician if questions or concerns Pharmacy Information [facility] #[id number]: [address], [place] [phone] Allergies No active allergies Problems Ongoing - Any problem that you are currently receiving treatment for. Change in bowel habits Rectal bleeding Vomiting Patient Survey You may receive a survey via text or e-mail asking about your office visit. Please share your experience with us by completing your survey. We appreciate your feedback and thank you for choosing us for your care. Patient Portal You may access all of your results and other medical record information on our secure patient portal. If you are not signed up for this yet, please contact [employer] at [phone] to get signed up today. Language Information Language assistance services are available as needed. [facility] CenterRembanner md [facility] [id number] Reminders From: Pura Bauer To: [facility] - Reminders/Recalls; Sent: 01/16/2025 14:45:07 EDT Show up: 12/07/2029 14:45:00 EDT Subject: Ambulatory Reminder Due Date/Time: 01/06/2030 14:45:00 EDT Reminder/Recall [address] [facility]on 01-14-2025 [address] [address]- Surgical Pathology Report Collected Date/Time: 01/06/2025 10:34 EDT Pathologist: Edmundo DELAROSA PhD, Violeta Ortega Received Date/Time: 01/07/2025 07:46 EDT Magalis DELAROSA, Ricardo Burns MD, Ricardo Carlton 07 Surgical Pathology Report - 01/14/2025 13:24 EDT - Auth (Verified) Final Diagnosis A: STOMACH, BIOPSY: - GASTRIC ANTRAL MUCOSA COMPATIBLE WITH MILD REACTIVE GASTROPATHY. - GASTRIC OXYNTIC MUCOSA WITH NO SIGNIFICANT PATHOLOGIC CHANGES. - NO H. PYLORI MICROORGANISMS IDENTIFIED WITH IMMUNOSTAIN. B: POLYPS X2, SIGMOID COLON, POLYPECTOMY: - SESSILE SERRATED ADENOMA. - HYPERPLASTIC POLYP. (Electronic Signature) Violeta Wyatt MD PhD 01/14/2025 13:24 Clinical Information Change in bowel habits, rectal bleeding Pre-Op Diagnosis: Change in bowel habits, rectal bleeding Procedure: EGD, colonoscopy Post-Op Diagnosis: 1. Esophageal landmarks identified, normal examined esophagus 2. Small erosion in the antrum of the stomach, otherwise normal examined stomach, random biopsies were taken to rule out H. pylori 3. Normal examined duodenum 4. Moderate internal and external hemorrhoids 5. Mild sigmoid diverticulosis 6. Two sessile polyps in the sigmoid colon, 5 mm each, resected with cold snare completely and retrieved 7. Otherwise normal colonic mucosa 8. Normal examined terminal ileum Specimen(s) Received A.Gastric biopsies B.Sigmoid colon polyps x2 Gross Description A: Received in formalin labeled with patient name, number, and gastric biopsies are two fragments of cadet tissue measuring 0.1 and 0.2 cm. Specimen is entirely submitted in one cassette. B: Received in formalin labeled with patient name, number, and sigmoid colon polyps x2 are multiple fragments of cadet tissue ranging from less than 0.1 cm up to 0.6 cm measuring in aggregate 0.8 x 0.8 x 0.1 cm. The specimen is entirely submitted in one cassette. (DC) DC:MCA Microscopic Description The use of one or more reagents in the above tests is regulated as an analyte specific reagent (ASR). The test or tests are ordered following initial H&E microscopic examination. The performance characteristics were determined by the Laboratory of [facility] Surgical Pathology. They have not been cleared or approved by the US Food and Drug Administration. The FDA has determined that such clearance or approval is not necessary. These tests are used for clinical Surgical Pathology Report Collected Date/Time: 01/06/2025 10:34 EDT Pathologist: Edmundo DELAROSA PhD, Violeta Ortega Received Date/Time: 01/07/2025 07:46 EDT Magalis DELAROSA, Ricardo Burns MD, Ricardo Carlton Microscopic Description purposes. They should not be regarded as investigational or for research. Appropriate positive and negative controls are performed and are acceptable. This report was transcribed using voice recognition technology and might contain unintended computerized reimbursement coordinator errors. Microscopic examination performed unless gross only specified. Quality was accessed and acceptable.[facility] CenterComment on above:Performed By: #### [id number] #### [facility] [address], [place] [address]Qnfljrdfse Visit Summaryon [id number] Visit Summary Ambulatory Visit Summary DAMIEN MARADIAGA :1980 Visit Date:12/29/2024 Ambulatory Visit Instructions Your Diagnosis Change in bowel habits Rectal bleeding Your Care Team Attending Physician - Magalis DELAROSA, Ricardo Carlton Primary Care Physician - JENIFER LOYOLA CNP This Is Your Medications List polyethylene glycol 3350 with electrolytes (NuLYTELY Wilkes oral powder for reconstitution) Contact prescribing physician if questions or concerns clonazepam (Klonopin 0.5 mg Tab) metoprolol (metoprolol succinate 25 mg ER Tab) metoprolol (metoprolol succinate 50 mg ER Tab) Procedures Performed Laminectomy and discectomy (11/05/2008), Cholecystectomy, Colonoscopy, EGD (esophagogastroduodenoscopic) electrohydraulic lithotripsy of bezoar in stomach, Endoscopy. Discharge Vitals Heart Rate (Peripheral) 78 Blood Pressure 158/98 Height 63 in Height 160 cm Weight 199.739 lb Weight 90.6 kg BMI 35.39 Medications What How Much When Why Instructions New polyethylene glycol 3350 with electrolytes (NuLYTELY Wilkes oral powder for reconstitution) Seeinstructions Change in bowel habits Rectal bleeding follow up physicians insctructions Pickup at [facility] #[id number] Unchanged clonazepam (Klonopin 0.5 mg Tab) 0.5 Milligram By Mouth Every day Contact prescribing physician if questions or concerns Unchanged metoprolol (metoprolol succinate 25 mg ER Tab) 25 Milligram By Mouth Every day Contact prescribing physician if questions or concerns Unchanged metoprolol (metoprolol succinate 50 mg ER Tab) 50 Milligram By Mouth Every day Contact prescribing physician if questions or concerns Pharmacy Information [facility] #[id number]: [address], [place] [phone] Medications and Immunizations Administered Given SARSCoV2 mRNA(tusabjyan-mwcv-jamarw) vac, Allergies No active allergies Problems Ongoing - Any problem that you are currently receiving treatment for. Change in bowel habits Rectal bleeding Patient Survey You may receive a survey via text or e-mail asking about your office visit. Please share your experience with us by completing your survey. We appreciate your feedback and thank you for choosing us for your care. [facility] CenterGastroenterology Office/Clinic Noteon [id number] Office/Clinic NoteGastroenterology Office/Clinic Note Chief Complaint Constipation, colon pain, nausea and vomiting HPI Staff Patient is a(n) 44 year old female who was referred by Tye Loyola CNP for change in bowel habits and rectal bleeding. Patient also c/o nausea and vomiting. Severe colon pain. How are bowels moving? Constipation that has worsened Now the only way she has a BM is to use an enema or glycerine Tried changing diet- adding fiber Have you tried any medications for it? Yes Linzess- stopped working When did the rectal bleeding and clots start? 6 months Previous EGD/ colonoscopy? Yes 2 colonoscopies and 1 EGD [facility]- colonoscopy and EGD [facility]- colonoscopy Denies blood thinners. Denies GLP-1 agonists. Labs 12/22/24: WBC: 14.1 High RBC: 4.61 Hgb: 14.2 Hct: 42.8 MCV: 92.8 MCH: 30.8 MCHC: 33.2 Red Cell Distribution Width: 12.9 Platelet: 346 MPV: 9.8 Neutrophils %: 64.1 Lymphocytes %: 26.4 Monocytes %: 6.5 Eosinophils %: 1.6 Basophils %: 0.8 Immature Granulocytes %: 0.6 High Neutrophils Abs: 9.1 High Lymphocytes Abs: 3.7 Monocytes Abs: 0.9 High Eosinophils Abs: 0.2 Basophils Abs: 0.1 Immature Granulocytes Abs Auto: 0.08 High Sodium: 139 Potassium: 4.0 Chloride: 104 Carbon Dioxide: 26.5 Anion Gap: 12.5 Glucose: 85 Blood Urea Nitrogen: 16.0 Creatinine: 0.51 Low Estimated GFR ( Giovana: >60 Estimated GFR (Non- Laura: >60 BUN Creatinine Ratio: 31.4 Calcium: 8.8 Bilirubin Total: 0.4 Aspartate Amino Transferase: 12 Low Alanine Aminotransferase: 15 Alkaline Phosphatase: 82 Total Protein: 7.2 Albumin Level: 3.5 Globulin: 3.7 Albumin Globulin Ratio: 0.9 TSH: 1.685 Free T4: 0.98 Ferritin: 76.0 Vitamin D: 9.7 History of Present Illness Reviewed HPI collected by staff Review of Systems PHQ Score Initial Depression Screen Score: 0 SCORE All systems reviewed, negative; Except for above Physical Exam Vitals & Measurements HR: 78(Peripheral) BP: 158/98 HT: 160 cm HT: 63 in WT: 199.739 lb WT: 90.6 kg BMI: 35.39 No acute distress Assessment/Plan 1. Change in bowel habits (R19.4: Change in bowel habit) C/o severe pain from rectum that radiates up into back Has constipation, Has to use an enema or glycerine for relief, will not have a BM without it No relief with MiraLax or Fiber Tried squatty potty in the past, no relief Tried Linzess in the past, stopped working and was expensive - Differential includes IBS-C vs CIC - Ibsrela prescribed - Schedule EGD to evaluate. Discussed risks such as bleeding, injury and perforation as well as benefits. Patient agreeable. - Schedule Colonoscopy to evaluate. Discussed risks such as bleeding, injury and perforation as well as benefits. Patient agreeable. - Consider referral to [facility] for rectal manometry 2. Rectal bleeding (K62.5: Hemorrhage of anus and rectum) Passing blood clots in her stools, every times she has a BM IRadha, personally scribed for Ricardo Burns on 12/29/2024 10:14:09. . Follow-up No qualifying data available Problem List/Past Medical History Ongoing Change in bowel habits Rectal bleeding Historical No qualifying data Procedure/Surgical History Laminectomy and discectomy (11/05/2008), Cholecystectomy, Colonoscopy, EGD (esophagogastroduodenoscopic) electrohydraulic lithotripsy of bezoar in stomach, Endoscopy. Medications Klonopin 0.5 mg Tab, 0.5 mg, Oral, Daily metoprolol succinate 25 mg ER Tab, 25 mg, Oral, Daily metoprolol succinate 50 mg ER Tab, 50 mg, Oral, Daily NuLYTELY Wilkes oral powder for reconstitution, See Instructions Allergies No active allergies Social History Alcohol Never., 12/29/2024 Substance Abuse Never., 12/29/2024 Tobacco 5-9 cigarettes (between 1/4 to 1/2 pack)/day in last 30 days Tobacco Use:. Never Smokeless Tobacco Use:. Cigarettes, 12/29/2024 Family History Acute myocardial infarction: Grandparent. Primary malignant neoplasm of colon: Grandparent and Grandparent. Immunizations Vaccine Date Status SARSCoV2 mRNA(nitaigoxa-odcl-gmwgsa) vac 07/09/2019 [facility] HospitalComment on above:Result Comment: Electronically Signed By: Magalis DELAROSA, Ricardo Carlton\.br\Date and Time Signed: 12/29/24 10:33 EDT\.br\Electronically Co-Signed By: Radha Solis MA\.br\Date and Time Co- Signed: 12/29/24 10:21 EDTALL CBC WITH AUTO DIFFon [id number] ABSOLUTE AUTO0.1NOMS HealthcareBasophils/100 WBC (Bld)0.8 %0.2 - 2.0 %[facility] Eosinophils/100 WBC (Bld)1.6 %0.9 - 7.0 %NOMSsm RehabErythrocyte distribution width (RBC) [Ratio]12.9 %11.0 - 15.0 %NOM HealthcareHematocrit (Bld) [Volume fraction]42.8 %36.0 - 48.0 %NOMSsm RehabHemoglobin (Bld) [Mass/Vol]14.2 g/dL 12.0 - 16.0 g/dLSaint Louis University HospitalIMMATURE GRANULOCYTES ABS AUTO0.08HighNOKansas City VA Medical CenterImmature granulocytes/100 WBC (Bld)0.6 %High0.0 - 0.5 %[facility] Interpretation and review of laboratory resultsAbnormLancaster Rehabilitation Hospital LYMPHOCYTES ABSOLUTE AUTO3.7NOMS [facility] HospitalLymphocytes/100 WBC (Bld)26.4 %20.5 - 60.0 %[facility] HospitalH (RBC) [Entitic mass]30.8 pg26.7 - 34.0 pgNOExcelsior Springs Medical CenterHC (RBC) [Mass/Vol]33.2 g/dL29.9 - 35.2 g/dLWashington County Memorial HospitalV (RBC) [Entitic vol]92.8 fL81.0 - 99.0 fLNOKansas City VA Medical CenterMONOCYTES ABSOLUTE AUTO0.9High [facility] HealthcareMonocytes/100 WBC (Bld)6.5 %1.7 - 12.0 %[facility] NEUTROPHILS ABSOLUTE AUTO9.1HighNOPA HealthcareNeutrophils/100 WBC (Bld)64.1 % 43.0 - 75.0 %NOMS HealthcarePlatelet mean volume (Bld) [Entitic vol]9.8 fL9.5 - 13.5 fLNOMS HealthcareTBH EO #0.2NOMS HealthcareTBH OTA466YTUI HealthcareTBH RBC 4.61NOMS HealthcareTBH WBC14.1HighNOMS HealthcareCLINISYNCNOMS Healthcare CHLAMYDIA/GONORRHOEAE BY PCR, FLUIDon 80-24-3786TYSTAJZFI/GONORRHOEAE BY PCR, FLUIDCHLAMYDIA PCR, FL Negative Chlamydia trachomatis not detected by nucleic acid amplification. This does not exclude the possibility of infection because results are dependent on adequate specimen collection. GONORRHOEAE PCR, [place] Negative Neisseria gonorrhoeae not detected by nucleic acid amplification. This does not exclude the possibility of infection because results are dependent on adequate specimen collection.NormalOhio State University Wex[facility] Center Ambulatory PPGComment on above: Performed By: #### CGTPCR #### [facility] ([facility]) [address] [place] [address] VIRHIGH RISK HPV W/GENOon [id number] 16NegativeNormal NegativeOhio State University Wexner Medical Center Ambulatory PPGComment on above:Performed By: #### HPV #### [facility] ([facility]) [address] [place] [address] VIRHPV 18NegativeNormalNegativeOhio State University Wexner Medical Center Ambulatory PPGComment on above:Performed By: #### HPV #### [facility] ([facility]) [address] [place] [address] VIROTHER HIGH RISK HPVNegativeNormalNegativeOhio State University Wexner [facility] Center Ambulatory PPGComment on above:Result Comment: HPV types 31, 33, 35, 39, 45, 52, 56, 58, 59, 66, and 68 DNA were undetectable.Performed By: #### HPV #### [facility] ([facility]) [address] [place] [address] VIRMG MAMM SCREEN 3D CAMPBELL CADon [id number] MAMM SCREEN 3D CAMPBELL CADPatient: DAMIEN MARADIAGA Exam Date: 09/07/2022 : 1980 Gender:F Ordering : VIANEY LOYOLA CNP Admission #: [id number] Family : Order #: [id number] CLICK HERE TO VIEW EXAM RADIOLOGY REPORT PROCEDURE: MAMMOGRAM SCREENING 3D BILATERAL CAD COMPARISON: None. INDICATIONS: Screening mammography Calculator Name NCI Breast Cancer Risk Assessment Tool 5 Year Breast Cancer Risk Not Reported. Lifetime Breast Cancer Risk Not Reported. Personal Breast Cancer No Personal Ovarian Cancer No Treatments None Family Cancers None LOCATION: [facility] BREAST COMPOSITION: Scattered areas fibroglandular density. FINDINGS: DIAGNOSTIC CATEGORY 1--NEGATIVE. NO CHANGE FROM COMPARISON ASSESSMENT. Scattered benign-appearing lymph nodes are present. RIGHT BREAST: No significant suspicious finding. LEFT BREAST: No significant suspicious finding. RECOMMENDATIONS: ROUTINE MAMMOGRAM AND CLINICAL EVALUATION IN 12 MONTHS. PLEASE NOTE: A NORMAL MAMMOGRAM DOES NOT EXCLUDE THE POSSIBILITY OF BREAST CANCER. A CLINICALLY SUSPICIOUS PALPABLE LUMP SHOULD BE BIOPSIED. Dictated by: Lizzy Key MD on 09/08/2022 at 12:31 Approved by: Lizzy Key MD on 09/08/2022 at 12:33[facility] STRESS/REST MULTIon [id number] STRESS/REST MULTIPatient: DAMIEN MARADIAGA Exam Date: 12/27/2021 : 1980 Gender:F Ordering : VIANEY LOYOLA [facility] Admission #: [id number] Family : Order #: [id number] CLICK HERE TO VIEW EXAM RADIOLOGY REPORT PROCEDURE: RADIONUCLIDE IMAGING STRESS/REST MULTI COMPARISON: None. INDICATIONS: Chest pain and shortness of breath for 6 months TECHNIQUE: Exam Description: Stress/Rest one day protocol gated SPECT Rest Imagin.0 mCi Tc-99m Cardiolite IV on 12/27/2021 Stress Imaging 30.0 mCi Tc-99m Cardiolite IV on 12/27/2021 Exercise Protocol: 0.4 mg Lexiscan given IV Heart Rate (bpm): Rest: 76 Max: 110 PMHR: 62 Blood Pressure: Rest: 142/90 Max: 158/80 Symptoms: shortness of breath Rest and peak stress ECG findings were non-diagnostic and the exercise portion of the study was abnormal per attending physician Dr. Baires due to EKG changes. For more details please see separate cardiac stress test report. FINDINGS: QUALITY OF STUDY: Good. PERFUSION DEFECT: LOCATION: Mid-anterior. SIZE: Small (1-2 segments). SEVERITY: Mild. TYPE: Persistent. WALL MOTION: Normal. LV SIZE: Normal. 83 mL. TID / TCD: None; 0.9 LVEF: Normal. Calculated EF 73%. SUMMARY: Myocardial perfusion imaging study is NORMAL. CONCLUSION: 1. Small mild defect in the mid anterior wall, I favor breast attenuation artifact 2. No reversible ischemia 3. Nondiagnostic exercise test secondary to EKG changes Dictated by: Lizzy Key MD on 12/27/2021 at 13:33 Approved by: Lizzy Key MD on 12/27/2021 at 13:40[facility] ECHOCARDIO M/2D COMPLETEon 60-50-1217AUIWQWVYSK M/2D COMPLETEPatient: DAMIEN MARADIAGA Exam Date: 12/12/2021 : 1980 Gender:F Ordering : VIANEY JENIFER LOYOLA [facility] Admission #: [id number] Family : Order #: [id number] CLICK HERE TO VIEW EXAM ECHOCARDIOGRAM REPORT PROCEDURE: CARDIO PULMONARY ECHOCARDIO M/2D COMP INDICATIONS: Chest pain, dyspnea, fatigue COMPARISON: None. DESCRIPTION: COMPLETE ECHOCARDIOGRAM Real-time transthoracic echocardiography with 2D, M-mode, spectral and color flow Doppler performed. QUALITY: Technical quality was good. LEFT VENTRICLE: Normal chamber size. Normal wall thickness. Systolic function is normal. LV EF: Normal left ventricular ejection fraction, (65%). DIASTOLIC: Normal diastolic function. ATRIAL SEPTUM: Visually appears intact. LEFT ATRIUM: Normal chamber size. RIGHT ATRIUM: Normal chamber size. RIGHT VENTRICLE: Normal chamber size. Normal right ventricular systolic function. TRICUSPID VALVE: Normal mobility and thickness. No stenosis with mild regurgitation. Doppler studies reveal mildly (35-45) elevated right sided pressures. RVSP 40 mmHg MITRAL VALVE: Normal mobility and thickness. No evidence of mitral valve stenosis. There is no mitral annular calcification. Trivial mitral regurgitation. AORTIC VALVE: Normal trileaflet appearance. No visible sclerosis. Normal leaflet mobility. No evidence of aortic valve stenosis. No aortic regurgitation. AORTIC ROOT: Normal diameter and appearance. Ascending aorta is normal in size. PULMONIC VALVE: Normal thickness and mobility. No stenosis. No regurgitation. PERICARDIUM: No evidence of pericardial effusion. IVC: Collapses with inspirations. IVC is normal in size. PLEURA: CONCLUSION: 1. Normal ventricular systolic function. LVEF is 65%. 2. Normal diastolic function. 3. No significant valvular dysfunction. 4. Mildly elevated right-sided pressures. 5. No pericardial effusion. Adult Echocardiography Procedure Report Left Ventricle LVEDD (3.7 - 5.6 cm): 4.70 cm LVESD (2.2 - 4.0 cm): 3.25 cm LVIVS thickness (0.6 - 1.2 cm): 9.40 mm LVPW thickness (0.5 - 1.0 cm): 1.08 cm e': 9.98 cm/s E - e': 9.40 LVOT Area (cm2): 4.91 cm2 LVOT Diameter 2.50 cm Left Ventricular Ejection Fraction: 65 % Left Atrium LA Volume Index (2D A2C): 32.40 ml/m2 Left Atrium Systolic Dimension: 4.00 cm Left Atrium Systolic Area(A2C): 21.20 cm2 Left Atrium Systolic Area(A4C): 17.70 cm2 Left Atrium Systolic Volume(A2C): 48882 mm3 Left Atrium Systolic Volume(A4C): 72865 mm3 Mitral Valve MV E to A Ratio: 1.30 Mitral Valve A-Wave Peak Velocity: 73.50 cm/s Mitral Valve E-Wave Peak Velocity: 94.30 cm/s Deceleration Time: 187 ms Right Ventricle Aorta AO Root Diam: 3.00 cm Aortic Valve AoV Area (Peak Kunal): 3.82 cm2 Peak Velocity(Antegrade Flow): 122.00 cm/s Peak Gradient(Antegrade Flow): 6 mm[Hg] Tricuspid Valve Pulmonic Valve Peak Velocity: 78.00 cm/s Peak Gradient: 2 mm[Hg] Right Atrium Dictated by: Vernon Mendez M.D. on 12/12/2021 at 17:31 Approved by: Vernon Mendez M.D. on 12/12/2021 at 17:33[facility] HospitalB-Type Natriuretic Peptideon 95-39-3420Mabeuplkdha peptide B (Bld) [Mass/Vol]32.0 pg/mLNormal5-100Lima Memorial HospitalComment on above:Result Comment: PERFORMED BY: [place] [id number] [place] [address] PATHOLOGIST HOG CUTTER MIRIAM LIZ M.D.Performed By: #### BNP, CBC, BMP, CK, CKMB, HS TROP, PT, PTT #### [facility] [address] [place] [address] USABasic Metabolic Panelon 03-60-5388Psoekjd [Mass/Vol]9.0 mg/dLNormal8.2-10.2FToledo HospitalComment on above:Performed By: #### BNP, CBC, BMP, CK, CKMB, HS TROP, PT, PTT #### [place] [address] USAChloride [Moles/Vol]105 mmol/VUrvjbr66-564DqoonzdscLima Memorial HospitalComment on above:Performed By: #### BNP, CBC, BMP, CK, CKMB, HS TROP, PT, PTT #### [place] [address] USACO2 [Moles/Vol]21.2 mmol/LLow22.0-30.0L[facility] Memorial HospitalComment on above:Performed By: #### BNP, CBC, BMP, CK, CKMB, HS TROP, PT, PTT #### [place] [address] USACreatinine [Mass/Vol]0.68 mg/dLNormal0.44-1.03[facility] HospitalComment on above:Performed By: #### BNP, CBC, BMP, CK, CKMB, HS TROP, PT, PTT #### [place] [address] USACreatinine Clr Calc Hpfruwkf462.33NoFort Hamilton HospitalComment on above:Result Comment: PERFORMED BY: [place] [address] PATHOLOGIST HOG CUTTER MIRIAM LIZ M.D.Performed By: #### BNP, CBC, BMP, CK, CKMB, HS TROP, PT, PTT #### [place] [address] USAEstimated GFR ( Giovana> 60NoFort Hamilton HospitalComment on above:Result Comment: GFR estimated reference range: According to KDOQI guidelines, <60 ml/min/1.73m2 is sufficient to diagnose a patient with chronic kidney disease.Performed By: #### BNP, CBC, BMP, CK, CKMB, HS TROP, PT, PTT #### [facility] [address] [place] [address] USAEstimated GFR (Non- Am> 60NormalLima Memorial HospitalComment on above:Performed By: #### BNP, CBC, BMP, CK, CKMB, HS TROP, PT, PTT #### [facility] [address] [place] [address] USAGlucose [Mass/Vol]105 mg/xEQvot92-104RdrxmhpdvLima Memorial HospitalComment on above:Result Comment: Random Glucose Reference Range is dependent on time and content of last meal. Glucose of more than 200 mg/dL in a nonstressed, ambulatory subject supports the diagnosis of Diabetes Mellitus. ADA recommended reference rangePerformed By: #### BNP, CBC, BMP, CK, CKMB, HS TROP, PT, PTT #### [place] [address] USAPotassium [Moles/Vol]3.6 mmol/LNormal3.5-5.1FToledo HospitalComment on above:Performed By: #### BNP, CBC, BMP, CK, CKMB, HS TROP, PT, PTT #### [facility] [address] [place] [address] USASodium [Moles/Vol]137 mmol/BJesabs450-398RaimndlqqLima Memorial HospitalComment on above:Performed By: #### BNP, CBC, BMP, CK, CKMB, HS TROP, PT, PTT #### [facility] [address] [place] [address] USAUrea nitrogen [Mass/Vol]9 mg/dLNormal9-23Lima Memorial HospitalComment on above:Performed By: #### BNP, CBC, BMP, CK, CKMB, HS TROP, PT, PTT #### [place] [address] USAComplete Blood Count Auto Diffon 55-32-7779Lojvpenih (Bld) [#/Vol]0.2 10*3/uLNormal0.0-0.2FToledo HospitalComment on above:Result Comment: PERFORMED BY: [place] [address] PATHOLOGIST HOG CUTTER MIRIAM LIZ M.D.Performed By: #### BNP, CBC, BMP, CK, CKMB, HS TROP, PT, PTT #### [place] [address] USABasophils/100 WBC (Bld)1.3 %Normal.Lima Memorial HospitalComment on above:Performed By: #### BNP, CBC, BMP, CK, CKMB, HS TROP, PT, PTT #### [place] [address] USAEosinophils (Bld) [#/Vol]0.2 10*3/uLNormal0.0-0.45 [facility] HospitalComment on above:Performed By: #### BNP, CBC, BMP, CK, CKMB, HS TROP, PT, PTT #### [place] [address] USAEosinophils/100 WBC (Bld)2.0 %Normal.Lima Memorial HospitalComment on above:Performed By: #### BNP, CBC, BMP, CK, CKMB, HS TROP, PT, PTT #### [place] [address] USAErythrocyte distribution width (RBC) [Ratio]13.2 %Normal 11.9-15.3FToledo HospitalComduane l. waters hospital on above:Performed By: #### BNP, CBC, BMP, CK, CKMB, HS TROP, PT, PTT #### [place] [address] USAHematocrit (Bld) [Volume fraction]39.8 %Kedeau73.0-46.4 L[facility] Memorial HospitalComduane l. waters hospital on above:Performed By: #### BNP, CBC, BMP, CK, CKMB, HS TROP, PT, PTT #### [place] [address] USAHemoglobin (Bld) [Mass/Vol]13.6 g/mTYomwfb17.8-15.4 [facility] HospitalComment on above:Performed By: #### BNP, CBC, BMP, CK, CKMB, HS TROP, PT, PTT #### [facility] [address] [place] [address] USALymphocytes (Bld) [#/Vol]3.6 10*3/uLNormal1.00-4.8 [facility] HospitalComment on above:Performed By: #### BNP, CBC, BMP, CK, CKMB, HS TROP, PT, PTT #### [facility] [address] [place] [address] USALymphocytes/100 WBC (Bld)30.7 %Normal.Lima Memorial HospitalComment on above:Performed By: #### BNP, CBC, BMP, CK, CKMB, HS TROP, PT, PTT #### [facility] [address] StreetMCH (RBC) [Entitic mass]29.7 xfPihesk64.7-34.3FToledo HospitalComment on above:Performed By: #### BNP, CBC, BMP, CK, CKMB, HS TROP, PT, PTT #### [facility] [address] [place] [address] USAMCV (RBC) [Entitic vol]87.4 qWSnqqrc74-471OjkhhkfcbLima Memorial HospitalComment on above:Performed By: #### BNP, CBC, BMP, CK, CKMB, HS TROP, PT, PTT #### [facility] [address] [place] [address] USAMean Corpuscular HGB Conc34.0 g/bJXeaffl49.0-35.0L[facility] Memorial HospitalComment on above:Performed By: #### BNP, CBC, BMP, CK, CKMB, HS TROP, PT, PTT #### [place] [address] USAMonocytes (Bld) [#/Vol]0.8 10*3/uLNormal0.0-0.8L[facility] Memorial HospitalComment on above:Performed By: #### BNP, CBC, BMP, CK, CKMB, HS TROP, PT, PTT #### [facility] [address] [place] [address] USAMonocytes/100 WBC (Bld)6.6 %Normal.Lima Memorial HospitalComment on above:Performed By: #### BNP, CBC, BMP, CK, CKMB, HS TROP, PT, PTT #### [facility] [address] [place] [address] USANeutrophils (Bld) [#/Vol]7.0 10*3/uLNormal1.8-7.7FToledo HospitalComment on above:Performed By: #### BNP, CBC, BMP, CK, CKMB, HS TROP, PT, PTT #### [facility] [address] [place] [address] USANeutrophils/100 WBC (Bld)59.4 %Normal.Lima Memorial HospitalComment on above:Performed By: #### BNP, CBC, BMP, CK, CKMB, HS TROP, PT, PTT #### [facility] [address] [place] [address] USANucleated RBC/100 WBC (Bld) [Ratio]0.2 %Normal0-0.5 [facility] Memorial HospitalComduane l. waters hospital on above:Performed By: #### BNP, CBC, BMP, CK, CKMB, HS TROP, PT, PTT #### [facility] [address] [place] [address] USAPlatelet mean volume (Bld) [Entitic vol]8.0 fLNormal 6.3-10.7FToledo HospitalComment on above:Performed By: #### BNP, CBC, BMP, CK, CKMB, HS TROP, PT, PTT #### [facility] [address] [place] [address] USAPlatelets (Bld) [#/Vol]413 10*3/yNUgbvdj309-932GtxuwxnfcLima Memorial HospitalComment on above:Performed By: #### BNP, CBC, BMP, CK, CKMB, HS TROP, PT, PTT #### [facility] [address] [place] [address] USARBC (Bld) [#/Vol]4.56 10*6/uLNormal3.60-5.00L[facility] HospitalComment on above:Performed By: #### BNP, CBC, BMP, CK, CKMB, HS TROP, PT, PTT #### [facility] [address] [place] [address] USAWBC (Bld) [#/Vol]11.8 10*3/uLHigh4.5-11.0[facility] Memorial HospitalComment on above:Performed By: #### BNP, CBC, BMP, CK, CKMB, HS TROP, PT, PTT #### [address] [address] USACreatine Kinaseon 92-72-5781TR [Catalytic activity/Vol]72 U/REbwvbm00-815PouoyvaukLima Memorial HospitalComment on above:Performed By: #### BNP, CBC, BMP, CK, CKMB, HS TROP, PT, PTT #### [facility] [address] [place] [address] USACreatinine Kinase MBon 47-91-8407NC.MB [Mass/Vol]0.9 ng/mL Normal0.6-6.3FToledo HospitalComment on above:Performed By: #### BNP, CBC, BMP, CK, CKMB, HS TROP, PT, PTT #### [place] [address] USACKMB Relative Index1.2 %Normal0.00-2.50L[facility] Memorial HospitalComment on above:Performed By: #### BNP, CBC, BMP, CK, CKMB, HS TROP, PT, PTT #### [place] [id number] USAECG 12 lead ECGon 16-50-9759GZM 12 lead ECGAD[facility] Main [place] [address] [place] [address] Electrocardiograph Report Signed Patient: Damien Maradiaga MR#: [id number] 4 : 1980 Acct:[id number] Age/Sex: 41 / F ADM Date: 11/17/21 Loc: ER Room: Type: [facility] ER Attending Dr: Ordering Provider: Lamberto Felix PA-C Date of Service: 11/17/2106/29/1410 ECG/ECG 12 lead ECG: Chest Pain Copies to: Test Reason : Blood Pressure : / mmHG Vent. Rate : 077 BPM Atrial Rate : 077 BPM P-R Int : 146 ms QRS Dur : 088 ms QT Int : 406 ms P-R-T Axes : 047 038 059 degrees QTc Int : 459 ms Normal sinus rhythm Normal ECG No previous ECGs available Confirmed by Carson Deal DO ([id number]) on 11/17/2021 3:39:52 PM Referred By: Electronically Signed By:Carson Deal DO Transcribed By: MUS Signed By Carson Deal DO 11/17 1539NormalLima Memorial HospitalPartial Thromboplastin Timeon 32-73-0480nUCE Coag (Bld) [Time]33.8 hFnpops05.1-36.5FToledo HospitalComment on above:Result Comment: PERFORMED BY: [place] [address] PATHOLOGIST HOG CUTTER MIRIAM LIZ M.D.Performed By: #### BNP, CBC, BMP, CK, CKMB, HS TROP, PT, PTT #### [place] [address] USAProthrombin Time INRon 53-25-9325XAY Coag (PPP) [Relative time]1.1 {INR}Wayne HospitalComment on above:Result Comment: INR Therapeutic Range A) Pre- and Peroperative OAT started two weeks before surgery. NOT HIP SURGERY: 1.5 - 2.5 HIP SURGERY: 2 - 3 B) Primary and secondary prevention of venous THROMBOSIS: 2 - 3 C) Active venous thrombosis, pulmonary embolism and prevention of recurrent venous thrombosis: 2 - 3 D) Prevention of arterial thromboembolism including patients with mechanical heart valves: 3 - 4.5Performed By: #### BNP, CBC, BMP, CK, CKMB, HS TROP, PT, PTT #### [facility] [address] [place] [address] USAPT Coag (PPP) [Time]12.5 sNormal9.0-12.9L[facility] Memorial HospitalComment on above:Performed By: #### BNP, CBC, BMP, CK, CKMB, HS TROP, PT, PTT #### [place] [address] USATroponin I High Sensitivityon 04-37-0938Kcqdpukj I High Sensitivity4 pg/mLNormal0-15[facility] Memorial HospitalComment on above: Result Comment: PERFORMED BY: [place] [address] PATHOLOGIST HOG CUTTER MIRIAM LIZ M.D.Performed By: #### HS TROP #### [place] [address] USATroponin I High Sensitivity< 4Klwifv3-38JaxaigdrlLima Memorial HospitalComment on above:Result Comment: PERFORMED BY: [place] [address] PATHOLOGIST HOG CUTTER MIRIAM LIZ M.D.Performed By: #### BNP, CBC, BMP, CK, CKMB, HS TROP, PT, PTT #### [place] [address] USAXR chest 2V*on 70-91-6972PY chest 2V*[facility] [place] [address] XRay Report Signed Patient: Damien Maradiaga MR#: [id number] 4 : 1980 Acct:[id number] Age/Sex: 41 / F ADM Date: 11/17/21 Loc: ER Room: Type: [facility] ER Attending Dr: Ordering Provider: Lamberto Felix PA-C Date of Service: 11/17/21 XR/XR chest 2V*: Chest Pain Copies to: Lamberto Felix PA-C Chest 11/17/2021. CLINICAL DATA: Chest pain. FINDINGS: 2 views of the chest were obtained. No prior study is available for comparison. The cardiac silhouette is normal in size. The pulmonary vasculature is within normal limits. No pulmonary consolidation or collapse is identified. No pneumothorax or pleural effusion is seen. XR/XR chest 2V* IMPRESSION: No acute cardiopulmonary disease. Impression dictated by: Andrea Mckee Jr., M.D.11/17/2021 2:53 PM Dictation Location: [place] [address] Transcribed By: GIANCARLO 11/17/211452 Dictated By: Andrea Mckee Jr, MD 11/17/211452 Signed By: 11/17/21 145Wayne HospitalBNPon 68-99-3716Klirjccjeqv peptide B (Bld) [Mass/Vol]179.0 pg/mLNormal<=450.0The [facility] HospitalComment on above:Performed By: #### CMP, HSTROPN, BNP #### [facility] [address] [place] [address] Dr. Violeta Huitron AUTO DIFFon 19-97-0090UFME #0.1 103/ulNormal0.0-0.1[facility] Hospital - CincinnatiComment on above:Performed By: #### CBC #### [facility] [address] [place] [address] Dr. Violeta WyattBasophils/100 WBC (Bld)0.6 %Normal0.2-2.0[facility] Comment on above:Performed By: #### CBC #### [facility] [address] [place] [address] Dr. Violeta Becerra #0.2 103/ulNormal0.0-0.7The [facility] Memorial HospitalComment on above: Performed By: #### CBC #### [facility] [address] [place] [address] Dr. Violeta Muñozosinophils/100 WBC (Bld)1.7 %Normal0.9-7.0[facility] Comment on above:Performed By: #### CBC #### [facility] [address] [place] [address] Dr. Violeta Muñozrythrocyte distribution width (RBC) [Ratio]13.2 %Jvtoep87.0-15.0 [facility] - CincinnatiComment on above:Performed By: #### CBC #### [facility] [address] [place] [address] Dr. Violeta WyattHematocrit (Bld) [Volume fraction]43.5 %Ccnaay29.0-48.0The [facility] Memorial HospitalComment on above:Performed By: #### CBC #### [facility] [address] [place] [address] Dr. Violeta WyattHemoglobin (Bld) [Mass/Vol]14.2 g/dTXypwmw54.0-16.0The [facility] HospitalComment on above:Performed By: #### CBC #### [facility] [address] [place] [address] Dr. Violeta Nevarez #0.08 10e3/ulCritically high0.00-0.03[facility] Comment on above:Performed By: #### CBC #### [facility] [address] [place] [address] Dr. Violeta Nevarez %0.6 %Critically high0.0-0.5The [facility] Memorial HospitalComment on above:Performed By: #### CBC #### [facility] [address] [place] [address] Dr. Violeta Washburn #4.1 103/ulCritically high1.2-3.8[facility] Comment on above:Performed By: #### CBC #### [facility] [address] [place] [address] Dr. Violeta Carolinahocytes/100 WBC (Bld)29.4 %Tahlur28.5-60.0The [facility] HospitalComment on above:Performed By: #### CBC #### [facility] [address] [place] [address] Dr. Violeta RuizUAL DIFF REQNONormalThe [facility] Memorial HospitalComment on above: Performed By: #### CBC #### [facility] [address] [place] [address] Dr. Violeta FrancoAngelina (RBC) [Entitic mass]30.0 rdQzrrln81.7-34.0The [facility] HospitalComment on above:Performed By: #### CBC #### [facility] [address] [place] [address] Dr. Violeta Franco (RBC) [Mass/Vol]32.6 g/yKGishkv01.9-35.2The [facility] HospitalComment on above:Performed By: #### CBC #### [facility] [address] [place] [address] Dr. Violeta Franco (RBC) [Entitic vol]91.8 bMRytqbw98.0-99.0The [facility] HospitalComment on above:Performed By: #### CBC #### [facility] [address] [place] [address] Dr. Violeta Fry #0.9 103/ulCritically high0.3-0.8The [facility] Comment on above:Performed By: #### CBC #### [facility] [address] [place] [address] Dr. Violeta Freitasocytes/100 WBC (Bld)6.3 %Normal1.7-12.0The [facility] Comment on above:Performed By: #### CBC #### [facility] [address] [place] [address] Dr. Violeta Pérez #8.5 103/ulCritically high1.4-6.5The [facility] Comment on above:Performed By: #### CBC #### [facility] [address] [place] [address] Dr. Violeta Garzautrophils/100 WBC (Bld)61.4 %Uacjyr84.0-75.0The [facility] HospitalComment on above:Performed By: #### CBC #### [facility] [address] [place] [address] Dr. Violeta Mcfadden mean volume (Bld) [Entitic vol]10.0 fLNormal9.5-13.5The [facility] HospitalComment on above:Performed By: #### CBC #### [facility] [address] [address] [address] Violeta WyattPLT394 103/osZwamvx669-376Yea [facility] on above: Performed By: #### CBC #### [facility] [address] [address] [address] Violeta WyattRBC4.74 106/ulNormal4.20-5.40The [facility] on above:Performed By: #### CBC #### [facility] [address] [address] [address] Violeta WyattWBC13.8 103/ulCritically high4.0-11.0The [facility] on above:Performed By: #### CBC #### [facility] [address] [address] [address] Violeta ShahidDIMERon 19-28-6900A-DIMER0.36 mg/L FEUNormal0.19-0.50The [facility] on above:Performed By: #### PT, PTT, DDIM ####[facility] [address] [address]DrEkta WyattD- DIMER COMMENTSSEE [facility] on above:Result Comment: Increases in D-Dimer concentration observed with thromboembolic events can be variable due to localization, size, and age of the thrombus. Therefore, a thromboembolic event cannot be diagnosed with certainty on the basis of the reference range. D-Dimers may also be elevated for a variety of disorders including: advanced age, , coronary disease, cancer, liver disease, infection, inflammation, hematoma, DIC, trauma, post-surgery, diabetes, thrombolytic or anticoagulant therapy, stress, and generalized hospitalization. Performed By: #### PT, PTT, DDIM ####[facility] [address] [address]Dr. Violeta WyattPROF 14(COMP METB)on 61-43-1368Zssaohc [Mass/Vol]3.6 g/dLNormal3.4-5.0The [facility] on above:Performed By: #### CMP, HSTROPN, BNP #### [facility] [address] [address] [address] Violeta WyattAlbumin/Globulin [Mass ratio]0.9 {ratio}NormalThe [facility] HospitalComment on above:Performed By: #### CMP, HSTROPN, BNP #### [facility] [address] [address] [address] Violeta DunnP [Catalytic activity/Vol]100 U/YPwyhuo38-138Jbw [facility] HospitalComment on above:Performed By: #### CMP, HSTROPN, BNP #### [facility] [address] [place] [address] Dr. Violeta Carrington [Catalytic activity/Vol]29 U/XAwanpx57-55Few [facility] HospitalComment on above:Performed By: #### CMP, HSTROPN, BNP #### [facility] [address] [place] [address] Dr. Violeta WyattAnion gap [Moles/Vol]8.9 mmol/LNormalThe [facility] HospitalComment on above:Performed By: #### CMP, HSTROPN, BNP #### [facility] [address] [place] [address] Dr. Violeta WyattAST [Catalytic activity/Vol]22 U/LSjbmfj20-12Qrm [facility] HospitalComment on above:Performed By: #### CMP, HSTROPN, BNP #### [facility] [address] [place] [address] Dr. Violeta WyattBilirubin [Mass/Vol]0.4 mg/dLNormal0.2-1.0The [facility] Comment on above:Performed By: #### CMP, HSTROPN, BNP #### [facility] [address] [place] [address] Dr. Violeta WyattCalcium [Mass/Vol]8.4 mg/dLCritically low8.5-10.1The [facility] HospitalComment on above:Performed By: #### CMP, HSTROPN, BNP #### [facility] [address] [place] [address] Dr. Violeta WyattChloride [Moles/Vol]103 mmol/PNqujxq48-473Xdn [facility] Comment on above:Performed By: #### CMP, HSTROPN, BNP #### [facility] [address] [address] [address] Violeta WyattCO2 [Moles/Vol]26.2 mmol/DSxlsfh20.0-32.0The [facility] Comment on above:Performed By: #### CMP, HSTROPN, BNP #### [facility] [address] [address] [address] Violeta WyattCreatinine [Mass/Vol]0.58 mg/dLNormal0.55-1.02The [facility] HospitalComment on above:Performed By: #### CMP, HSTROPN, BNP #### [facility] [address] [address] [address] Mcdaniel ChangEGFR-AF UGANDAN>60Normal>=60The [facility] HospitalComment on above:Performed By: #### CMP, HSTROPN, BNP #### [facility] [address] [address] [address] Violeta MuñozGFR-NON AF UGANDAN>60Normal>=60The [facility] HospitalComment on above:Performed By: #### CMP, HSTROPN, BNP #### [facility] [address] [address] [address] Violeta WyattGlobulin (S) [Mass/Vol]3.9 g/dLNormalThe [facility] HospitalComment on above:Performed By: #### CMP, HSTROPN, BNP #### [facility] [address] [address] [address] Violeta WyattGlucose [Mass/Vol]91 mg/bOAsifyb83-333Rtq [facility] Comment on above:Performed By: #### CMP, HSTROPN, BNP #### [facility] [address] [address] [address] Violeta WyattPotassium [Moles/Vol]4.1 mmol/LNormal3.5-5.1The [facility] Comment on above:Result Comment: specimen hemolyzed may affect K+ ans AST resultsPerformed By: #### CMP, HSTROPN, BNP #### [facility] [address] [address] [address] Violeta WyattProtein [Mass/Vol]7.5 g/dLNormal6.4-8.2[facility] Comment on above:Performed By: #### CMP, HSTROPN, BNP #### [facility] [address] [address] [address] Violeta WyattSodium [Moles/Vol]134 mmol/LCritically fic184-841Mvc [facility] HospitalComment on above:Performed By: #### CMP, HSTROPN, BNP #### [facility] [address] [place] [address] Dr. Violeta WyattUrea nitrogen [Mass/Vol]12.0 mg/dLNormal7.0-18.0The [facility] HospitalComment on above:Performed By: #### CMP, HSTROPN, BNP #### [facility] [address] [place] [address] Dr. Violeta Briceno nitrogen/Creatinine [Mass ratio]20.7 mg/mgNoAshtabula County Medical CenterComment on above:Performed By: #### CMP, HSTROPN, BNP #### [facility] [address] [place] [address] Dr. Violeta Grant 88-59-5595ZKY Coag (PPP) [Relative time]0.98 {INR} NormalThe [facility] HospitalComment on above:Performed By: #### PT, PTT, DDIM ####[facility] [address] [address]Dr. Violeta Bear GUIDELINESSEE BELOWOhioHealth Marion General HospitalComment on above: Result Comment: DESIRED INR: 2.0 - 3.0 CONDITIONS NOT LISTED BELOW 2.5 - 3.5 FOR PROSTHETIC HEART VALVE REPLACEMENT 2.5 - 3.5 RECURRENT THROMBOSISPerformed By: #### PT, PTT, DDIM ####[facility] [address] [address]Dr. Violeta WyattPT Coag (PPP) [Time]10.6 sNormal 9.0-11.6The [facility] HospitalComment on above:Performed By: #### PT, PTT, DDIM ####[facility] [address] [id number] WyattPTTon 24-22-5643pEEE Coag (Bld) [Time]30.5 oSmtqaf48.3-36.2The [facility] HospitalComment on above:Performed By: #### PT, PTT, DDIM ####[facility] [address] [address]DrEkta Wyatt TROPONIN, HIGH SENSITIVITYon 51-79-7321MQKJWI0.6 pg/mLNormal4.0-51.3The [facility] HospitalComduane l. waters hospital on above:Result Comment: CUT-OFF POINTS HAVE BEEN ESTABLISHED BASED ON THE FOURTH UNIVERSAL DEFINITIONS OF MYOCARDIAL INFARCTION. THE UPPER REFERENCE LIMIT (URL) OF TROPONIN, DEFINED THE 99TH PERCENTILE OF cTnI DISTRIBUTION IN A REFERENCE POPULATION, HAS BEEN CONFIRMED THE DECISION THRESHOLD FOR [place] DIAGNOSIS.Performed By: #### HSTROPN ####[facility] [address] [address]Dr. Violeta EdmundoHSTROP<4.8Nasadm5.0-51.3The [facility] on above:Result Comment: CUT-OFF POINTS HAVE BEEN ESTABLISHED BASED ON THE FOURTH UNIVERSAL DEFINITIONS OF MYOCARDIAL INFARCTION. THE UPPER REFERENCE LIMIT (URL) OF TROPONIN, DEFINED THE 99TH PERCENTILE OF cTnI DISTRIBUTION IN A REFERENCE POPULATION, HAS BEEN CONFIRMED THE DECISION THRESHOLD FOR [place] DIAGNOSIS. Previously reported as: 3.3 On 11/14/2021 17:50 By [id number] By: #### CMP, HSTROPN, BNP #### [facility] [address] [address] [address] Violeta WyattXR CHEST 1 Von 36-64-8753WX CHEST 1 VEXAM: XR CHEST 1 V EXAM: XR CHEST 1 V INDICATION: 41 years old Female CHEST PAIN, UNSPECIFIED COMPARISON: October 26, 2021 FINDINGS: The cardiac silhouette is normal. There is no pulmonary edema. The lungs are clear. There is no pneumonia. There is no pneumothorax. There is no abnormal foreign body. IMPRESSION: There is no acute abnormality. Electronically authenticated by: ALEXIS COLEMAN Date: 2021-11-14 18:02[facility] AUTO DIFFon 85-91-8363EOQD #0.1 103/ulNormal0.0-0.1The [facility] HospitalComment on above:Performed By: #### CBC #### [facility] [address] [place] [address] Dr. Violeta WyattBasophils/100 WBC (Bld)0.7 %Normal0.2-2.0[facility] Comment on above:Performed By: #### CBC #### [facility] [address] [place] [address] Dr. Violeta Becerra #0.3 103/ulNormal0.0-0.7The [facility] HospitalComment on above: Performed By: #### CBC #### [facility] [address] [place] [address] Dr. Violeta Muñozosinophils/100 WBC (Bld)2.2 %Normal0.9-7.0[facility] Comment on above:Performed By: #### CBC #### [facility] [address] [place] [address] Dr. Violeta Muñozrythrocyte distribution width (RBC) [Ratio]12.8 %Cgageg27.0-15.0 The [facility] HospitalComment on above:Performed By: #### CBC #### [facility] [address] [place] [address] Dr. Violeta WyattHematocrit (Bld) [Volume fraction]45.2 %Lfpgec06.0-48.0The [facility] HospitalComment on above:Performed By: #### CBC #### [facility] [address] [place] [address] Dr. Violeta WyattHemoglobin (Bld) [Mass/Vol]14.5 g/aMHgrohi86.0-16.0The [facility] HospitalComment on above:Performed By: #### CBC #### [facility] [address] [address] [address] Violeta Nevarez #0.11 10e3/ulCritically high0.00-0.03The [facility] Comment on above:Performed By: #### CBC #### [facility] [address] [place] [address] Dr. Violeta Nevarez %0.8 %Critically high0.0-0.5The [facility] HospitalComment on above:Performed By: #### CBC #### [facility] [address] [place] [address] Dr. Violeta Washburn #4.2 103/ulCritically high1.2-3.8The [facility] Comment on above:Performed By: #### CBC #### [facility] [address] [place] [address] Dr. Violeta Carolinahocytes/100 WBC (Bld)31.1 %Pryipe34.5-60.0The [facility] HospitalComment on above:Performed By: #### CBC #### [facility] [address] [place] [address] Dr. Violeta RuizUAL DIFF REQNONormalThe [facility] HospitalComment on above: Performed By: #### CBC #### [facility] [address] [place] [address] Dr. Violeta Franco (RBC) [Entitic mass]29.5 byHmigpz99.7-34.0The [facility] HospitalComment on above:Performed By: #### CBC #### [facility] [address] [place] [address] Dr. Violeta Franco (RBC) [Mass/Vol]32.1 g/rQGrkxdf48.9-35.2The [facility] HospitalComment on above:Performed By: #### CBC #### [facility] [address] [place] [address] Dr. Violeta Franco (RBC) [Entitic vol]91.9 oPNxgyfq82.0-99.0The [facility] HospitalComment on above:Performed By: #### CBC #### [facility] [address] [address] [address] Violeta Fry #0.8 103/ulNormal0.3-0.8The [facility] HospitalComment on above:Performed By: #### CBC #### [facility] [address] [address] [address] Violeta Freitasocytes/100 WBC (Bld)5.9 %Normal1.7-12.0[facility] Comment on above:Performed By: #### CBC #### [facility] [address] [place] [address] Dr. Violeta Pérez #8.0 103/ulCritically high1.4-6.5The [facility] Comment on above:Performed By: #### CBC #### [facility] [address] [place] [address] Dr. Violeta Garzautrophils/100 WBC (Bld)59.3 %Aatwcc67.0-75.0The [facility] HospitalComment on above:Performed By: #### CBC #### [facility] [address] [place] [address] Dr. Violeta Mcfadden mean volume (Bld) [Entitic vol]9.4 fLCritically low 9.5-13.5The [facility] HospitalComment on above:Performed By: #### CBC #### [facility] [address] [place] [address] Dr. Violeta WyattPLT376 103/qwDmvvxs150-454Gvn [facility] HospitalComment on above: Performed By: #### CBC #### [facility] [address] [place] [address] Dr. Violeta WyattRBC4.92 106/ulNormal4.20-5.40The [facility] HospitalComment on above:Performed By: #### CBC #### [facility] [address] [place] [address] Dr. Violeta WyattWBC13.4 103/ulCritically high4.0-11.0The [facility] HospitalComment on above:Performed By: #### CBC #### [facility] [address] [place], [place] [address] DrEkta WyattCKMBon 40-57-6714AY.MB [Mass/Vol]0.38 ng/mLNormal<=2.37The [facility] on above:Performed By: #### TSH, CKMB, HSTROPN, NATY, CK, BMP, LIVER ####[facility] [address] [id number]. Violeta WyattCPKon 74-28-2640XH [Catalytic activity/Vol]63 U/LNormal 30-135The [facility] on above:Performed By: #### TSH, CKMB, HSTROPN, NATY, CK, BMP, LIVER ####[facility] [address] [address]Dr. Violeta WyattD-DIMERon 37-03-7031C-DIMER0.32 mg/L FEUNormal0.19-0.50The [facility] on above:Performed By: #### DDIM ####[facility] [address] [address]Dr. Violeta EdmundoD-DIMER COMMENTSSEE [facility] on above: Result Comment: Increases in D-Dimer concentration observed with thromboembolic events can be variable due to localization, size, and age of the thrombus. Therefore, a thromboembolic event cannot be diagnosed with certainty on the basis of the reference range. D-Dimers may also be elevated for a variety of disorders including: advanced age, , coronary disease, cancer, liver disease, infection, inflammation, hematoma, DIC, trauma, post-surgery, diabetes, thrombolytic or anticoagulant therapy, stress, and generalized hospitalization. Performed By: #### DDIM ####[facility] [address] [address]Dr. Violeta EdmundoFREE T4on 20-97-5224Fnkv T4 [Mass/Vol] 1.09 ng/dLNormal0.78-2.19The [facility] on above:Performed By: #### FT4 ####[facility] [address] [address]Dr.Violeta WyattLIVER PROFILEon 30-66-1142Nuteowc [Mass/Vol]3.6 g/dLNormal 3.4-5.0The [facility] Centerment on above:Performed By: #### TSH, CKMB, HSTROPN, NATY, CK, BMP, LIVER ####[facility] [address] [address]Dr. Yilan ChangAlbumin/Globulin [Mass ratio]0.9 {ratio}NormalThe [facility] HospitalComduane l. waters hospital on above:Performed By: #### TSH, CKMB, HSTROPN, NATY, CK, BMP, LIVER ####[facility] [address] [address]Dr. Yilan ChangALP [Catalytic activity/Vol]102 U/L Qesjke25-509Ckx [facility] on above:Performed By: #### TSH, CKMB, HSTROPN, NATY, CK, BMP, LIVER ####[facility] [address] [address]Dr. Yilan ChangALT [Catalytic activity/Vol]26 U/L Ruxeor82-84Izm [facility] on above:Performed By: #### TSH, CKMB, HSTROPN, NATY, CK, BMP, LIVER ####[facility] [address] [address]Dr. Yilan ChangAST [Catalytic activity/Vol]12 U/L Critically kpu98-55Omo [facility] on above:Performed By: #### TSH, CKMB, HSTROPN, NATY, CK, BMP, LIVER ####[facility] [address] [address]Dr. Yilan ChangBILI, CONJUGATED0.1 mg/dLNormal 0.0-0.3The [facility] on above:Performed By: #### TSH, CKMB, HSTROPN, NATY, CK, BMP, LIVER ####[facility] [address] [address]Dr. Yilan ChangBilirubin [Mass/Vol]0.3 mg/dLNormal 0.2-1.3The [facility] HospitalComment on above:Performed By: #### TSH, CKMB, HSTROPN, NATY, CK, BMP, LIVER ####[facility] [address] [address]Dr. Yilan ChangGlobulin (S) [Mass/Vol]3.8 g/dLNormal The [facility] HospitalComment on above:Performed By: #### TSH, CKMB, HSTROPN, NATY, CK, BMP, LIVER ####[facility] [address] [address]Dr. Yilan ChangProtein [Mass/Vol]7.4 g/dLNormal6.1-8.2 The [facility] HospitalComment on above:Performed By: #### TSH, CKMB, HSTROPN, NATY, CK, BMP, LIVER ####[facility] [address] [address]Dr. Yilan ChangMYOGLOBINon 87-69-5612DND14.0 ng/mL Normal<=61.5The [facility] on above:Performed By: #### TSH, CKMB, HSTROPN, NATY, CK, BMP, LIVER ####[facility] [address] [address]Dr. Yilan ChangPROF CHEM 8 (BAS METB)on 10-26-2021 Anion gap [Moles/Vol]11.4 mmol/LNormalThe [facility] HospitalComment on above: Performed By: #### TSH, CKMB, HSTROPN, NATY, CK, BMP, LIVER ####[facility] [address] [address]Dr. Yilan ChangCalcium [Mass/Vol]8.3 mg/dLCritically low8.5-10.1The [facility] HospitalComment on above: Performed By: #### TSH, CKMB, HSTROPN, NATY, CK, BMP, LIVER ####[facility] [address] [address]Dr. Yilan ChangChloride [Moles/Vol]102 mmol/PEmffbn82-192Xhh [facility] HospitalComment on above:Performed By: #### TSH, CKMB, HSTROPN, NATY, CK, BMP, LIVER ####[facility] [address] [address]Dr. Yilan ChangCO2 [Moles/Vol]24.4 mmol/YQrqyrk19.0-30.0[facility] CincinnatiComment on above: Performed By: #### TSH, CKMB, HSTROPN, NATY, CK, BMP, LIVER ####[facility] [address] [address]Dr. Yilan ChangCreatinine [Mass/Vol]0.55 mg/dLNormal0.52-1.04The [facility] HospitalComment on above: Performed By: #### TSH, CKMB, HSTROPN, NATY, CK, BMP, LIVER ####[facility] [address] [address]Dr. Yilan ChangEGFR-AF UGANDAN>60Normal>=60The [facility] HospitalComment on above:Performed By: #### TSH, CKMB, HSTROPN, NATY, CK, BMP, LIVER ####[facility] [address] [address]Dr. Yilan ChangEGFR-NON AF UGANDAN>60Normal >=60The [facility] on above:Performed By: #### TSH, CKMB, HSTROPN, NATY, CK, BMP, LIVER ####[facility] [address] [address]Dr. Yilan ChangGlucose [Mass/Vol]86 mg/aKEmkkxh39-577 The [facility] HospitalComment on above:Performed By: #### TSH, CKMB, HSTROPN, NATY, CK, BMP, LIVER ####[facility] [address] [place], [place] [address]Dr. Yilan ChangPotassium [Moles/Vol]3.8 mmol/LNormal 3.4-5.0The [facility] HospitalComment on above:Performed By: #### TSH, CKMB, HSTROPN, NATY, CK, BMP, LIVER ####[facility] [address] [address]Dr. Yilan ChangSodium [Moles/Vol]134 mmol/LCritically ocp992-959Wsm [facility] on above:Performed By: #### TSH, CKMB, HSTROPN, NATY, CK, BMP, LIVER ####[facility] [address] [id number]. Yilan ChangUrea nitrogen [Mass/Vol]8.0 mg/dLNormal 7.0-18.0The [facility] HospitalComment on above:Performed By: #### TSH, CKMB, HSTROPN, NATY, CK, BMP, LIVER ####[facility] [address] [address]Dr. Yilan ChangUrea nitrogen/Creatinine [Mass ratio] 14.5 mg/mgNormalThe [facility] HospitalComment on above:Performed By: #### TSH, CKMB, HSTROPN, NATY, CK, BMP, LIVER ####[facility] [address] [address]Dr. Yilan ChangSED RATE WESTERGRENon 10-26-2021 SED RATE36 mm/hrCritically high<=20The [facility] on above: Performed By: #### SEDR #### [facility] [address] [address] [address] Violeta Sanchez, HIGH SENSITIVITYon 08-69-8292LKMFTW9.6 pg/mLNormal 4.0-35.5The [facility] HospitalComduane l. [facility] hospital on above:Result Comment: CUT-OFF POINTS HAVE BEEN ESTABLISHED BASED ON THE FOURTH UNIVERSAL DEFINITIONS OF MYOCARDIAL INFARCTION. THE UPPER REFERENCE LIMIT (URL) OF TROPONIN, DEFINED THE 99TH PERCENTILE OF cTnI DISTRIBUTION IN A REFERENCE POPULATION, HAS BEEN CONFIRMED THE DECISION THRESHOLD FOR [place] DIAGNOSIS.Performed By: #### TSH, CKMB, HSTROPN, NATY, CK, BMP, LIVER ####[facility] [address] [address]Dr. Yilan ChangTSHon 65-08-9083JWS8.587 uIU/mLNormal0.470-4.680The [facility] Comment on above:Performed By: #### TSH, CKMB, HSTROPN, NATY, CK, BMP, LIVER ####[facility] [address] [place], [place] [address]Ou. Violeta AndersonH AMANUELProvidence HospitalComment on above:Result Comment: <0.34 UIU/ml HYPERTHYROID 0.34-5.60 UIU/ml EUTHYROID >5.60 UIU/ml HYPOTHYROIDPerformed By: #### TSH, CKMB, HSTROPN, NATY, CK, BMP, LIVER ####[facility] [address] [place], [place] [address]Wn. Violeta WyattXR CHEST 2 Von 50-80-2954UY CHEST 2 VEXAMINATION: XR CHEST 2 V HISTORY: Chest pain COMPARISON: Chest x-ray 06/30/2021, 04/18/2016 FINDINGS: Two views are submitted. The lungs and pleural spaces are clear. Pulmonary vascular markings are normal. The cardiomediastinal silhouette is within normal limits. No bony lesions are shown. IMPRESSION: No acute cardiopulmonary abnormality. Electronically authenticated by: JULIÁN KAN Date: 2021-10-26 17:00[facility] HospitalXR CSPINE MIN 4 VIEWSon 68-05-7248MM CSPINE MIN 4 VIEWS EXAMINATION: XR CSPINE MIN 4 VIEWS HISTORY: Neck pain ; acute low cervical neck pain COMPARISON: No relevant comparison available. FINDINGS: BONES: Straightening of the normal lordotic curvature. No significant spondylosis, scoliosis, fracture, or visible bony lesion. DISC SPACES: No significant disc height narrowing, subluxation, or endplate abnormality. PARASPINOUS: Negative. No paraspinous abnormality is seen. OTHER: Negative. IMPRESSION: 1. Straightening of the normal lordotic curvature; positioning versus muscle spasm. 2. No appreciable acute abnormality or significant degenerative changes. Electronically authenticated by: MARK KEBEDE Date: 2021-10-26 16:52[facility] Vital Signs Date TimeVital SignValuePerforming LzzdsufzkKbdgxvty86-78-9274 15:52-0400Body sykkss427.02 Aldo Loyola NP-C Work Phone: [phone] [place], [place] 6365010-22-2025 15:52-0400 Body mass index (BMI) [Ratio]37.5 kg/m2Lisa Aichholz ICE CREAM MACHINE OPERATOR-C Work Phone: [phone]10-22-2025 15:52-0400 Body oizruvcvyni11.8 [degF]Jenifer Aichholz ICE CREAM MACHINE OPERATOR-C Work Phone: [phone]10-22-2025 15:52-0400 Body rxyozj48.27 kgLisa Aichholz ICE CREAM MACHINE OPERATOR-C Work Phone: [phone]10-22-2025 15:52-0400 Diastolic blood fnlolbxz454 mm[Hg]Jenifer Aichholz ICE CREAM MACHINE OPERATOR-C Work Phone: [phone]10-22-2025 15:52-0400 Heart rate77 /minLisa Aichholz ICE CREAM MACHINE OPERATOR-C Work Phone: [phone] [address]10-22-2025 15:52-0400 Respiratory rate18 /minLisa Aichholz ICE CREAM MACHINE OPERATOR-C Work Phone: [phone]10-22-2025 15:52-0400 SaO2% (BldA) [Mass fraction]97 %Jenifer Aichholz ICE CREAM MACHINE OPERATOR-C Work Phone: [phone] [place], [place] 6365010-22-2025 15:52-0400 Systolic blood mm[Hg]Jenifer Aichholz ICE CREAM MACHINE OPERATOR-C Work Phone: [phone]10-17-2025 09:05-0400 Body ocnwux236 cmAday Neumann MD Work Phone: [facility]10-17-2025 09:05-0400Body mass index (BMI) [Ratio]36.86 kg/u9DxzkyChen Neumann MD Work Phone: [facility]10-17-2025 09:05-0400Body .35 kgChen Neumann MD Work Phone: [facility]10-17-2025 09:05-0400Diastolic blood tbykvpdo99 mm[Hg]Chen Neumann MD Work Phone: [facility]10-17-2025 09:05-0400Systolic blood yylcgqfw021 mm[Hg]Chen Neumann MD Work Phone: [facility]10-08-2025 16:43-0400Diastolic blood fmdtodwx95 mm[Hg]Jenifer Aichholz ICE CREAM MACHINE OPERATOR-C Work Phone: [phone])[address]10-08-2025 16:43-0400 Systolic blood kfnnputz756 mm[Hg]Jenifer Aichholz ICE CREAM MACHINE OPERATOR-C Work Phone: [phone])[address]10-08-2025 15:35-0400 Body .02 cmLisa Aichholz ICE CREAM MACHINE OPERATOR-C Work Phone: 1([phone])095-[address] [place], [place] 6365010-08-2025 15:35-0400 Body mass index (BMI) [Ratio]37.6 kg/m2Lisa Aichholz ICE CREAM MACHINE OPERATOR-C Work Phone: [phone] [address]10-08-2025 15:35-0400 Body rtnwzhdyqai36.8 [degF]Jenifer Aichholz ICE CREAM MACHINE OPERATOR-C Work Phone: [phone] [place], [place] 6365010-08-2025 15:35-0400 Body .33 kgLisa Aichholz ICE CREAM MACHINE OPERATOR-C Work Phone: 1([phone])907-[address] [place], [place] 6365010-08-2025 15:35-0400 Diastolic blood wanqjosq114 mm[Hg]Jenifer Aichholz ICE CREAM MACHINE OPERATOR-C Work Phone: 1([phone])396-[address] [place], [place] 6365010-08-2025 15:35-0400 Heart rate76 /minLisa Aichholz ICE CREAM MACHINE OPERATOR-C Work Phone: 1([phone])676-[address] [place], [place] 6365010-08-2025 15:35-0400 Respiratory rate18 /minLisa Aichholz ICE CREAM MACHINE OPERATOR-C Work Phone: [facility]10-08-2025 15:35-0400 SaO2% (BldA) [Mass fraction]95 %Jenifer Loyola ICE CREAM MACHINE OPERATOR-C Work Phone: [facility]10-08-2025 15:35-0400 Systolic blood vhazfhxm029 mm[Hg]Jenifer Loyola ICE CREAM MACHINE OPERATOR-C Work Phone: [facility]09-17-2025 13:37-0400 Body irtius378 cmAday Neumann MD Work Phone: [facility]09-17-2025 13:37-0400Body mass index (BMI) [Ratio]36.85 kg/g3RhsbrChen Neumann MD Work Phone: [facility]09-17-2025 13:37-0400Body bdemal35.35 kgChen Neumann MD Work Phone: [facility]09-17-2025 13:37-0400Diastolic blood crayynvw46 mm[Hg]Chen Neumann MD Work Phone: [facility]09-17-2025 13:37-0400Systolic blood ltkysnqo491 mm[Hg]Chen Neumann MD Work Phone: [facility]08-21-2025 11:47-0400Body cmTmario Trevino DO Work Phone: [facility]08-21-2025 11:47-0400Body mass index (BMI) [Ratio]36.35 kg/o2UykgyErnesto Trevino DO Work Phone: [facility]08-21-2025 11:47-0400Body acgold33.08 kgErnesto Trevino DO Work Phone: [facility]08-21-2025 11:47-0400Diastolic blood vnidesdc26 mm[Hg]Ernesto Trevino DO Work Phone: [facility]08-21-2025 11:47-0400Systolic blood pxymxqgv561 mm[Hg]Ernesto Trevino DO Work Phone: [facility]06-05-2025 15:54-0400Diastolic blood rodzptdu12 mm[Hg]Jenifer Nir ICE CREAM MACHINE OPERATOR Work Phone: [facility] HospitalPzabcztouu70-84-8900 15:54-0400Systolic blood mm[Hg]Jenifer Nir ICE CREAM MACHINE OPERATOR Work Phone: [facility] HospitalKoyaxdfsdr67-81-6367 15:23-0400Body mass index (BMI) [Ratio]34.33 kg/m2Lisa Nir ICE CREAM MACHINE OPERATOR Work Phone: [facility] HospitalKvmnmrhpwz07-42-2463 15:23-0400Body temperature 98.49 [degF]Jeniferasael Loyola ICE CREAM MACHINE OPERATOR Work Phone: [facility] HospitalWwqonytbir58-59-0547 15:23-0400Body .72 kgLisa Monez ICE CREAM MACHINE OPERATOR Work Phone: [facility] HospitalCelnzdaabd77-04-7509 15:23-0400Heart rate68 /min Jenifer Nir ICE CREAM MACHINE OPERATOR Work Phone: [facility] HospitalPmdwjyzzyz70-69-6517 15:23-0400Respiratory rate18 /minLisa Nir ICE CREAM MACHINE OPERATOR Work Phone: [facility] HospitalEeipcvaxnh07-53-0393 15:23-4772ByO7% (BldA) [Mass fraction]97 %Jenifer Monez ICE CREAM MACHINE OPERATOR Work Phone: [facility] HospitalAaxrwftzxe49-96-6271 17:33-0400Diastolic blood tpyjqvzf82 mm[Hg]Jenifer Monez ICE CREAM MACHINE OPERATOR Work Phone: [facility] HospitalIapzdihhmi17-21-5474 17:33-0400Systolic blood jaxnjawe749 mm[Hg]Jenifer Nir ICE CREAM MACHINE OPERATOR Work Phone: [facility] HospitalIqidoedaxa07-16-7280 17:04-0400Body mass index (BMI) [Ratio]33.44 kg/m2Jenifer Loyola ICE CREAM MACHINE OPERATOR Work Phone: [facility] HospitalWkaqekdhfk43-93-2427 17:04-0400Body temperature 97.81 [degF]Jenifer Loyola ICE CREAM MACHINE OPERATOR Work Phone: [facility] HospitalAnufhvmiys47-39-8759 17:04-0400Body .36 kgLisa Shorez ICE CREAM MACHINE OPERATOR Work Phone: [facility] HospitalXyciwbxjmm93-71-6876 17:04-0400Heart rate89 /min Jenifer Monez ICE CREAM MACHINE OPERATOR Work Phone: [facility] HospitalGelhwpgbhl89-77-5237 17:04-0400Respiratory rate20 /minLisa Shorez ICE CREAM MACHINE OPERATOR Work Phone: [facility] HospitalNytrojfoku47-64-7486 17:04-0567YwT4% (BldA) [Mass fraction]98 %Jenifer Loyola ICE CREAM MACHINE OPERATOR Work Phone: [facility] HospitalDetjplstia42-40-6455 14:42-0500Body itneyb636.6 cmLisa Monez ICE CREAM MACHINE OPERATOR Work Phone: [facility] HospitalQboclyvech51-96-6401 14:42-0500Body mass index (BMI) [Ratio]35.91 kg/m2Stefaniesa Monez ICE CREAM MACHINE OPERATOR Work Phone: [facility] HospitalJhnzzbqzdp91-18-8724 14:42-0500Body temperature 97.11 [degF]Jenifer Loyola ICE CREAM MACHINE OPERATOR Work Phone: [facility] HospitalWftvfhzxtq52-75-0426 14:42-0500Body kdedis74.89 kgLisa Monez ICE CREAM MACHINE OPERATOR Work Phone: [facility] HospitalFlpwmtkatj14-99-6993 14:42-0500Diastolic blood ibznhogd23 mm[Hg]Jenifer Shorez ICE CREAM MACHINE OPERATOR Work Phone: [facility] HospitalCwzorytgtd27-09-6531 14:42-0500Heart rate73 /min Jenifer Monez ICE CREAM MACHINE OPERATOR Work Phone: [facility] HospitalJgpuyvivwm95-93-2169 14:42-0500Respiratory rate18 /minLisa Nir ICE CREAM MACHINE OPERATOR Work Phone: [facility] HospitalTnykkkcvpq30-44-7352 14:42-5383KzJ0% (BldA) [Mass fraction]99 %Jenifer Nir ICE CREAM MACHINE OPERATOR Work Phone: noK[facility] Medical CenterMwhissiofn33-26-0412 14:42-0500Systolic blood fpenprgb687 mm[Hg]Jenifer Nir ICE CREAM MACHINE OPERATOR Work Phone: [facility] HospitalWthzzfnkmc47-13-4385 14:35-0400Body raglzr590.56 cmAjuvenal Blountler Other [employer] Other 08-12-2022 14:35-0400Body mass index (BMI) [Ratio] 39.48 kg/d6HznzpKaci Mock Other [employer] Other 08-12-2022 14:35-0400Body rrqrkmbowjo97.2 [degF]Kaci Mock Other [employer] Other 08-12-2022 14:35-0400Body janpky432.33 kgKaci Mock Other [employer] Other 08-12-2022 14:35-0400Respiratory rate18 /minKaci Mock Other [employer] Other 08-12-2022 14:35-8449AbQ0% (BldA) [Mass fraction]98 % Kaci Mock Other [employer] Other Encounters Encounter DateEncounter TypeCare ProviderFacilityStart: 04-29-2025 End: 40-73-3005kvhstnnwtqRyug J Aichholz ICE CREAM MACHINE OPERATOR-C Work Phone: -[facility] ClydeStart: 04-29-2025 End: 81-53-1346Nmvsztj encounter procedureJenifer Loyola NP-C-[facility] Work Phone: Start: 04-29-2025 End: 91-19-4281Szdfapsbasan stateJenifer Loyola [facility] Hospitaltart: 04-29-2025 End: 19-46-4525Qpihqfasr encounterChjuan Jones [facility] ServicesComment on above:ProcedureStart: 69-63-0301lhehelxjczZJXJ J AICHHOLZ [facility]art: 04-24-2025 End: 77-72-7997Tupbrk outpatient visit 25 minutesChen Neumann MD Work Phone: [facility] ServicesComment on above:Abnormal uterine bleeding (AUB) (Primary Dx); Obesity, Class II, BMI 35-39.9; Anxiety; Essential (primary) hypertension; Pelvic pain in female; Subserous leiomyoma of uterusStart: 04-24-2025 End: 26-78-6634iplpzijkykYHCTJ PATIBANDLAProMedica [facility] HospitalStart: 04-21-2025 End: 75-29-2968ldyavicfewNRHW J AICHHOLZOhioHealth Pickerington Methodist Hospitaltart: 94-68-0004Dqdyhfjrt for other preprocedural examinationADAM RETTIGProMedica Crawford HospitalStart: 04-15-2025 End: 60-83-9501fnpnrpmwowKgnf J Aichholz NP-Carla Work Phone: [facility] Work Phone: Start: 04-15-2025 End: 63-92-8561Cshaxey encounter procedureJenifer Loyola NP-C-[facility] Work Phone: Start: 04-15-2025 End: 23-60-0378Vlcqypsstvnn stateJenifer Loyola NP-[facility] Campustart: 14-56-2599Rinrtszdibpj Heather Loyola ICE CREAM MACHINE OPERATOR-C Work Phone: [facility] Hospitaltart: 04-02-2025 End: 47-34-0972ckjwvggzwlExlianit Talal SarminiFacility:Syed [facility]ENTERtart: 04-02-2025 End: 65-99-3842Bsvstki encounter procedureMulazaro Durani [phone]-KempaEast [facility] Start: 04-01-2025 End: 65-60-2368Olzzwpxvs encounterA'[facility] Start: 04-01-2025 End: 97-77-6125nqdqaqxzttEKAP M KROTZEROhioHealth Pickerington Methodist Hospitaltart: 03-25-2025 End: 24-40-8997Heismj outpatient new 45 Radha Neumann MD Work Phone: [place] [facility] ServicesComment on above:Abnormal uterine bleeding (AUB) (Primary Dx); Uterine leiomyoma, unspecified location; Pelvic pain; Essential (primary) hypertension; Obesity, Class II, BMI 35-39.9; Cigarette nicotine dependence without complicationStart: 03-25-2025 End: 12-39-6567eiwxgcboliCUMYZMercy Health Anderson Hospitaltart: 02-26-2025 End: 98-98-8118Zpyyev outpatient visit 15 Alyssa Trevino DO Work Phone: [facility]/GynecologyComment on above:Uterine leiomyoma, unspecified location (Primary Dx); Menorrhagia with irregular cycle; Abnormal uterine bleeding (AUB); Dysmenorrhea; Cigarette smokerStart: 02-26-2025 End: 20-10-6535fvrjslnausXQDNE L WATSONOhio State University [facility] Ambulatory PPGStart: 02-12-2025 End: 73-85-7534Czxlks Rosa Wu CERTIFIED LEGAL INVESTIGATOR-FILENET ADMIN Work Phone: [facility] - CyldeComment on above: Pelvic cramping (Primary Dx); Uterine leiomyoma, unspecified locationStart: 01-21-2025 End: 96-68-2644KizcxuSalo Aichholz ICE CREAM MACHINE OPERATOR Work Phone: n[facility] CWM FMComment on above:Primary hypertension ; Heart palpitationsStart: 01-19-2025 End: 82-10-5353Nalhreaas department patient visitADAWRIGHT MEMORIAL HOSPITALTIGProMedica Santa [facility] Valley Medical Centertart: 01-16-2025 End: 41-01-5438wcfluhmsmhTpuqeaue Talal SarminiFacility:Syed DHStart: 01-16-2025 End: 39-77-6921Hyblxjl encounter procedureMuhammad Talal Sarmini [phone]-CxqhtEast [facility] Hospital [facility] Start: 01-06-2025 End: 00-53-2936Zqt Drop offMuhammad Talal Sarmini [facility] Start: 01-06-2025 End: 09-66-5692jfmwpnzarwRzekdqai Talal SarminiFacility:FTMCStart: 01-06-2025 End: 07-55-9926eklvkhgolqDngyjmpa Talal SarminiFacility:CD:[id number]: 12-31-2024 End: 79-78-2609YfzuwuWkqb Aichholz ICE CREAM MACHINE OPERATOR Work Phone: [facility] CWM FMComment on above:Generalized anxiety disorder with panic attacksStart: 12-29-2024 End: 52-40-3284vjyedalsfrSblxkbnx Talal SarminiFacility:Syed DHStart: 12-29-2024 End: 34-93-6552Enhzjbr encounter procedureMuhammad Talal Sarmini [phone]-GzexlEast [facility] Hospital [facility] Start: 12-22-2024 End: 47-05-9350Nhthoangz Result Jeannette Loyola ICE CREAM MACHINE OPERATOR Work Phone: noms External Department UnsolicitedStart: 12-22-2024 End: 37-79-2570Pszahcbym Result EncounterJenifer Lombardoshreyas ICE CREAM MACHINE OPERATOR Work Phone: [facility]oms External Department UnsolicitedStart: 12-22-2024 End: 99-84-2564VkisjlKbyk Aichholanne ICE CREAM MACHINE OPERATOR Work Phone: [facility] CWM FMComment on above:Vitamin D deficiency (Primary Dx); Iron deficiencyStart: 80-85-3806sefcupctfrGjshcsyi SarminiFacility:De Anda-Raghav DHStart: 12-11-2024 End: 72-45-9279Mtlokx outpatient visit 25 Emma Lombardoshreyas ICE CREAM MACHINE OPERATOR Work Phone: [facility] CWM FMComment on above:Irritable bowel syndrome with constipation (Primary Dx); Essential (primary) hypertension (CMS/HCC); Change in bowel habit; Rectal bleeding; Morbid (severe) obesity due to excess calories (CMS/HCC); Other fatigue; Vitamin D deficiency; Cigarette nicotine dependence with nicotine-induced disorderStart: 12-11-2024 End: 31-07-9480pwqgqaynpwEQBO AICHHOLZNot AvailableStart: 12-11-2024 End: 99-85-8610Yygqmd flowsTiff Lombardoshreyas ICE CREAM MACHINE OPERATOR Work Phone: [facility] CWM FMStart: 12-11-2024 End: 76-70-7189Ngfmbg Brandon Yadiangelinashreyas ICE CREAM MACHINE OPERATOR Work Phone: [facility] CWM FMStart: 12-02-2024 End: 07-23-3663Rtdbbj OnlyJenifer Wu CERTIFIED LEGAL INVESTIGATOR-FILENET ADMIN Work Phone: [facility]/GynecologyComment on above:Trichomoniasis (Primary Dx)Start: 11-28-2024 End: 84-10-1161ikkgtwstrbINGZ M [facility] Ambulatory PPGStart: 43-24-1173Zwmyzzqsx for gynecological examination (general) (routine) without abnormal findingsJENIFER [facility] Ambulatory PPGStart: 11-25-2024 End: 52-60-6296Sobjasvhd encounterLi Nir ICE CREAM MACHINE OPERATOR Work Phone: [facility] FMStart: 10-27-2024 End: 65-26-8891Sjarvm outpatient visit 25 minutesJenifer Loyola ICE CREAM MACHINE OPERATOR Work Phone: noMS CWM FMComment on above:Rectal bleeding (Primary Dx); Morbid (severe) obesity due to excess calories (CMS/HCC); Essential (primary) hypertension (CMS/HCC); Body mass index (BMI) 35.0-35.9, adult; Anxiety; Generalized anxiety disorder with panic attacks (CMS/HCC); Cigarette nicotine dependence with nicotine-induced disorder; Encounter for screening mammogram for malignant neoplasm of breast; Mixed hyperlipidemia (CMS/HCC); Primary hypertension (CMS/HCC); Heart palpitations; Irritable bowel syndrome with constipation; Change in bowel habitStart: 10-27-2024 End: 01-35-7179vmsuyaclloKEMA AICHHOLZNot AvailableStart: 05-20-2024 End: 78-01-6035JftxdzJsdl Aichholz ICE CREAM MACHINE OPERATOR Work Phone: [facility] FMComment on above:Primary hypertension (CMS/HCC); Heart palpitations; Muscle spasms of neck; Generalized anxiety disorder with panic attacks (CMS/HCC)Start: 08-21-2023 End: 21-60-1525Xbnoak outpatient visit 25 minutesJenifer Loyola ICE CREAM MACHINE OPERATOR Work Phone: [facility] C[facility] FMComment on above:Epigastric pain (Primary Dx); Encounter for screening mammogram for malignant neoplasm of breast; Obstructive sleep apnea, adult; Primary insomnia; Primary hypertension (CMS/HCC); Heart palpitations; Irritable bowel syndrome with constipation; Generalized anxiety disorder with panic attacks (CMS/HCC); Muscle spasms of neckStart: 99-35-8376Fckark flowsheetJenifer Loyola ICE CREAM MACHINE OPERATOR Work Phone: [facility] FMStart: 18-53-6883Ovahkr flowsheetJenifer Loyola ICE CREAM MACHINE OPERATOR Work Phone: [facility] FMStart: 09-07-2022 End: 44-30-0888pkvhwwwjdnYBY JENIFER AICHHOLZFacility:Q0Azmkh: 25-22-9665kudqqpzshx FILENET ADMIN JENIFER AICHHOLZFacility:C9Wziwl: 02-17-2022 End: 59-47-3988dtuvkvveowMnqni Nish Other [facility] [employer] Other Start: 85-36-0944Reigqv outpatient visit 25 minutes Kaci NishFPG Urgent Care ClydeStart: 01-04-2022 End: 71-03-8250vnpifdocfgYPL JENIFER AICHHOLZFacility:N9Ebrhf: 12-27-2021 End: 08-62-3883qwahjecfqlAAS JENIFER AICHHOLZFacility:X6Fxofu: 12-12-2021 End: 65-42-2794oyjvpcakqnUTL JENIFER AICHHOLZFacility:K9Pbiyo: 11-17-2021 End: 31-26-7732Nxyhkelfu department patient visitArthlisbet Jean Paul Isidro Facility:[facility]tart: 11-14-2021 End: 74-68-8915dgvhqymqtuMDGOX PARKERFacility:E0Nnnip: 10-26-2021 End: 75-70-8274bkxfpbnwzjEYR JENIFER AICHHOLZFacility:H1 Procedures DateProcedureProcedure DetailPerforming ClinicianStart: 61-91-9983CaqlsxHczdlb CHEN PATIBANDLAStart: 75-44-4230Fsrjxc-up visitFollow-upTANYA L WATSONStart: 89-19-6503KxdkxnsrycxBgrn Aichholz ICE CREAM MACHINE OPERATOR Work Phone: Start: 43-92-9855QoftacaoinhArmuotnx Sarmini Start: 01-93-5078TiteylnftdrgorloeatsvgxmbiXmtqpvzj Sarmini Start: 30-63-2682YAB CBC WITH AUTO DIFFLisa Aichholz ICE CREAM MACHINE OPERATOR Work Phone: Start: 86-29-2990Kvopf depression screening assessment Jenifer Wu CERTIFIED LEGAL INVESTIGATOR-FILENET ADMIN Work Phone: Start: 48-86-0937Mcciisnfscx observation [Identifier] in Cervix by Cyto stainJenifer Wu CERTIFIED LEGAL INVESTIGATOR-FILENET ADMIN Work Phone: Start: 89-68-1777XngxgqfsnviHycv Aichholz ICE CREAM MACHINE OPERATOR Work Phone: Start: 27-52-8683Npeeesqtozm observation [Identifier] in Cervix by Cyto stainLisa Aichholz ICE CREAM MACHINE OPERATOR Work Phone: Start: 55-86-6691RtbyiyjwfjeFjmk Aichholz ICE CREAM MACHINE OPERATOR Work Phone: Start: 63-28-1159Mapnspgqwcn and discectomyMuhammad Meliamini CholecystectomyMubutler memorial hospitalmad Sarmini ColonoscopyMuhammad Sarmini EndoscopyMuhartselle medical centerd Meliamini Esophagogastroduodenoscopic electrohydraulic lithotripsy of bezoar in stomachMuhartselle medical centerd Meliamini Plan of Treatment DateCare ActivityDetailAuthorStart: 93-42-8396Tsvvqcosq for malignant neoplasm of colonNOMS HealthcareStart: 14-46-0712Efddgsufq for malignant neoplasm of cervixNOMS HealthcareStart: 06-92-0415Fgnzdwxcu for malignant neoplasm of cervix Pap SmearProPremier Health [facility] SystemStart: 81-13-2169Ozpthxmch for malignant neoplasm of colonNOMS HealthcareStart: 46-78-8047Xrkok BMI ScreeningAdult BMI ScreeningProOhio State Health Systemca [facility] SystemStart: 11-14-6527Atjzwzd ScreeningTobacco ScreeningProOhio State Health Systemca [facility] SystemStart: 87-74-7440Sjjdg BMI ScreeningAdult BMI ScreeningProOhio State Health Systemca [facility] SystemStart: 80-07-3627Bsnlnwx ScreeningTobacco ScreeningMcCullough-Hyde Memorial Hospital SystemStart: 78-10-5254Xcgtx BMI ScreeningAdult BMI ScreeningMcCullough-Hyde Memorial Hospital SystemStart: 41-69-9768Hbbiomg ScreeningTobacco ScreeningMcCullough-Hyde Memorial Hospital SystemStart: 66-10-5766Swcod BMI ScreeningAdult BMI ScreeningProPremier Health [facility]rium [facility] SystemStart: 80-66-7328Xpdmuwc ScreeningTobacco ScreeningMcCullough-Hyde Memorial Hospital SystemStart: 87-78-5066Ztrid BMI Follow Up PlanAdult BMI Follow Up PlanMcCullough-Hyde Memorial Hospital SystemStart: 70-01-2223Eozug BMI Screening Adult BMI ScreeningMcCullough-Hyde Memorial Hospital SystemStart: 92-58-0527Wubxzjgljb Screening Depression ScreeningMcCullough-Hyde Memorial Hospital SystemStart: 40-35-7662Mnpgpvx Screening Tobacco ScreeningMcCullough-Hyde Memorial Hospital SystemStart: 08-10-2025 End: 42-75-2661Qawgvot encounter omdhwegwj89/02/2026 11:00 AM EST Office Visit [facility] [address] [place] [address] Chen Neumann MD [address], [address] [place] [address] [facility]'s ServicesStart: 06-29-2025 End: 67-27-2475Kahdfir encounter dzoojnkgl32/22/2025 11:00 AM EST Office Visit [facility] [address] [place] [id number] Chen Neumann MD [address] [place] [address] [facility]'s ServicesStart: 06-23-2025 End: 70-92-8030Pyohtakfe to same day surgery aeccfq4306/23/2025 8:30 AM EST - 06/23/2025 11:30 AM EST Surgery [facility] -Surgery [address] [place] [address] Chen Neumann MD [address] [place], [place] [id number] DAVINCI HYSTERECTOMY SALPINGECTOMYProClinton Memorial Hospital -SurgeryComment on above: DAVINCI HYSTERECTOMY SALPINGECTOMYStart: 06-23-2025 End: 36-91-1026ECZKRNT CYSTECTOMY OVARIANDAVINCI CYSTECTOMY OVARIAN Pelvic pain in female Subserous leiomyoma of uterus Abnormal uterine bleeding (AUB) 06/23/2025 8:30 AM [facility] 06-23[facility]2025 End: 78-78-4468IPYCLEE HYSTERECTOMY SALPINGECTOMYDAVINCI HYSTERECTOMY SALPINGECTOMY Pelvic pain in female Subserous leiomyoma of uterus Abnormal uter ine bleeding (AUB) 06/23/2025 8:30 AM [facility]: 06-23-2025 End: 41-80-1970OZLSUAHJ LIPOMA MIDSECTIONEXCISION LIPOMA MIDSECTION Pelvic pain in female Subserous leiomyoma of uterus Abnormal uterine bleeding (AUB) 06/23/2025 8:30 AM [facility]: 14-26-5303Ucvvmwgola hospital visit by xthjkewqf12/16/2025 8:30 AM EST Hospital Encounter [facility] -Surgery [address] [place] [address] Chen Neumann MD [address] [facility] , [address] [place] [address] [facility] -SurgeryStart: 06-10-2025 End: 68-05-7134Dznedar encounter qlpubpcaq13/03/2025 10:00 AM EST Procedure visit [facility] -Pre Admission Testing [address] [place] [address] [facility] -Pre Admission TestingStart: 04-24-2025 End: 23-89-9050AQ Pelvis transabdominal and transvaginalUltrasound pelvic with transvaginal Imaging Routine Abnormal uterine bleeding (AUB) Uterine leiomyoma, unspecified location Pelvic pain Expected: 04/24/2025 (Approximate), Expires: 03/25/2026[facility] SystemComment on above:Expected: 04/24/2025 (Approximate), Expires: 03/25/2026Start: 04-24-2025 End: 30-39-5757Pqcqdle encounter ijjesesat24/17/2025 9:00 AM EDT Procedure visit [facility] [address] [place] [address] Chen Neumann MD [address] [place] [address] [place] [facility] ServicesStart: 04-01-2025 End: 66-03-5189Qswslkp encounter wiatmlejr78/24/2025 2:30 PM EDT Appointment [facility] - Ultrasound [address] [place] [address] DrdQnrpbiMercy Health [facility] - UltrasoundStart: 04-01-2025 End: 19-19-0687idcxtxapoj72/24/2025 2:00 PM EDT Lab [facility] - Lab [address] [place] [address] LmoEpbybeMercy Health Fair[facility] Hospital - LabStart: 03-25-2025 End: 67-27-6685Wrrqllc encounter hafdthnuw68/17/2025 1:30 PM EDT Office Visit [facility] [address] [place] [address] Chen Neumann MD [address], [address] [place] [address] [facility] ServicesStart: 03-09-2025 COVID-19 Vaccine ( season)COVID-19 Vaccine ( season) [facility] SystemStart: 86-96-3756Ratbwdnnr vaccinationInfluenza Vaccine [facility] SystemStart: 02-26-2025 End: 98-77-6831Tnepcki encounter wewejciwe81/21/2025 11:30 AM EDT Office Visit [facility] [address] [place] [address] Ernesto Trevino, [address] [place], [place] [id number] [facility]/GynecologyStart: 01-28-2025 End: 82-65-0872Phikjqs encounter /23/2025 3:20 PM EDT Office Visit [facility] [address] [place] [address] Jenifer Loyola, CORINA [address] [place] [address] [facility] FMStart: 12-11-2024 End: 01-87-0604Pnhmxhk encounter procedureNOMS CWM FMComment on above:Essential (primary) hypertension (CMS/HCC) (Primary Dx); Change in bowel habit; Rectal bleeding; Morbid (severe) obesity due to excess calories (CMS/HCC)Start: 12-11-2024 End: 320245-krghdvtriahaug D3 [Mass/volume] in Serum or PlasmaVitamin D 25 hydroxy Lab Routine Vitamin D deficiency Expected: 12/11/2024 (Approximate), Expires: 12/11/2025NOPA HealthcareComment on above:Expected: 12/11/2024 (Approximate), Expires: 12/11/2025Start: 12-11-2024 End: [id number] W Auto Differential panel - BloodCBC and differential Lab Routine Change in bowel habit Rectal bleeding Irritable bowel syndrome with constipation Cigarette nicotine dependence with nicotine-induced disorder Expected: 12/11/2024 (Approximate), Expires: 12/11/2025NOPA HealthcareComment on above:Expected: 12/11/2024 (Approximate), Expires: 12/11/2025Start: 12-11-2024 End: 82-38-9877Ukaxaijtq (Vitamin B12) [Mass/volume] in Serum or PlasmaVitamin B12 Lab Routine Other fatigue Expected: 12/11/2024 (Approximate), Ex[facility]: 12/11/2025[facility] HealthcareComment on above:Expected: 12/11/2024 (Approximate), Expires: 12/11/2025Start: 12-11-2024 End: 31-42-8240Rogeeahmotmnz metabolic 2000 panel - Serum or PlasmaComprehensive metabolic panel Lab Routine Essential (primary) hypertension (CMS/HCC) Vitamin D deficiency Expected: 12/11/2024 (Approximate), Expires: 12/11/2025[facility] HealthcareComment on above:Expected: 12/11/2024 (Approximate), Expires: 12/11/2025Start: 12-11-2024 End: 21-66-9541Ampvwnls [Mass/volume] in Serum or PlasmaFerritin Lab Routine Rectal bleeding Other fatigue Expected: 12/11/2024 (Approximate), Expires: 11/2025[facility] HealthcareComment on above:Expected: 12/11/2024 (Approximate), Expires: 12/11/2025Start: 12-11-2024 End: 87-89-3562Qvdy + transferrin + TIBCIron + transferrin + TIBC Lab Routine Rectal bleeding Other fatigue Expected: 12/11/2024 (Approximate), Expires: 12/11/2025[facility] HealthcareComment on above:Expected: 12/11/2024 (Approximate), Expires: 12/11/2025Start: 12-11-2024 End: 02-44-8032Vpqvvdyxyuq [Units/volume] in Serum or PlasmaTSH Lab Routine Other fatigue Irritable bowel syndrome with constipation Expected: 12/11/2024 (Approximate), Expires: 12/11/2025[facility] Work Phone: Comment on above:Expected: 12/11/2024 (Approximate), Expires: 12/11/2025Start: 12-11-2024 End: 12-99-6142Wkmqahuta (T4) free [Mass/volume] in Serum or PlasmaT4, free Lab Routine Other fatigue Irritable bowel syndrome with constipation Expected: 12/11/2024 (Approximate), Expires: 12/11/2025[facility] HealthcareComment on above: Expected: 12/11/2024 (Approximate), Expires: 12/11/2025Start: 12-11-2024 End: 59-93-8674Zftaduxmow complete panel - UrineUrinalysis with reflex microscopic (clean catch) Lab Routine Cigarette nicotine dependence with donna chirag-induced disorder Expected: 12/11/2024 (Approximate), Expires: 12/11/2025 [facility] HealthcareComment on above:Expected: 12/11/2024 (Approximate), Expires: 12/11/2025Start: 12-04-2024 End: 07-37-5892Zhmmjjh encounter /29/2025 3:00 PM EDT Appointment [facility] - Ultrasound [address] [place] [id number] [phone] Health Fairfield Hospital - UltrasoundStart: 10-27-2024 End: 89-92-5857SEQ W Auto Differential panel - BloodCBC and differential Lab Routine Cigarette nicotine dependence with nicotine-induced disorder Expected: 10/27/2024 (Approximate), Expires: 10/27/2025[facility] HealthcareComment on above: Expected: 10/27/2024 (Approximate), Expires: 10/27/2025Start: 10-27-2024 End: 90-20-4231Caavluxoerilk metabolic 2000 panel - Serum or PlasmaComprehensive metabolic panel Lab Routine Morbid (severe) obesity due to excess calories (CMS/HCC) Essential (primary) hypertension (CMS/HCC) Expected: 10/27/2024 (Approximate), Expires: 10/27/2025[facility] HealthcareComment on above:Expected: 10/27/2024 (Approximate), Expires: 10/27/2025Start: 10-27-2024 End: 25-74-8216Zdzkf 1996 panel - Serum or PlasmaLipid panel Lab Routine Mixed hyperlipidemia (CMS/HCC) Expected: 10/27/2024 (Approximate), Expires:10/27/2025 [facility] HealthcareComment on above:Expected: 10/27/2024 (Approximate), Expires: 10/27/2025Start: 10-27-2024 End: 96-41-0684DK Breast - bilateral ScreeningBilateral screening mammogram Imaging Routine Encounter for screening mammogram for malignant neoplasm of breast Expected: 10/27/2024 (Approximate), Expires: 12/27/2025[facility] Work Phone: Comment on above:Expected: 10/27/2024 (Approximate), Expires: 12/27/2025Start: 10-27-2024 End: 70-16-7561Fafswhiectea/Creatinine panel in random UrineMicroalbumin / creatinine, urine ratio Lab Routine Essential (primary) hypertension (CMS/HCC) Expected: 10/27/2024 (Approximate), Expires: 10/27/2025[facility] HealthcareComment on above:Expected: 10/27/2024 (Approximate), Expires: 10/27/2025Start: 10-27-2024 End: 87-66-1997Bdqjkhuhal complete panel - UrineUrinalysis with reflex microscopic (clean catch) Lab Routine Cigarette nicotine dependence with donna chirag-induced disorder Expected: 10/27/2024 (Approximate), Expires: 10/27/2025 [facility] HealthcareComment on above:Expected: 10/27/2024 (Approximate), Expires: 10/27/2025Start: 09-20-2023 End: 16-99-6511Nbeqsuf encounter yzgcqafea98/14/2024 3:00 PM EDT Office Visit [facility] [address] [place] [id number] Jenifer Loyola NP [address] [place] [id number] [facility] FMStart: 09-09-2023 End: 55-18-9501EQ Breast - bilateral ScreeningBilateral screening mammogram Imaging Routine Encounter for screening mammogram for malignant neoplasm of breast Expected: 09/09/2023 (Approximate), Expires: 10/19/2024[facility] Work Phone: Comment on above:Expected: 09/09/2023 (Approximate), Expires: 10/19/2024Start: 73-42-6484Ynaocudqy for malignant neoplasm of breast MammogramNOPA HealthcareStart: 30-10-6457Dzzsjgcjr vaccinationInfluenza Vaccine (#1)[facility] HealthcareStart: 87-83-9409Rdrasfktz for malignant neoplasm of cervix [facility] HealthcareStart: 31-45-1952NRmH,Tdap and Td Vaccines (2 - Td or Tdap) DTaP,Tdap and Td Vaccines (2 - Td or Tdap)[facility]: 96-10-1867Ucxynvkxz for malignant neoplasm of breastMammogramFormerly [facility], [facility]art: 06-55-6177Ipoulqnfs for malignant neoplasm of cervixHPV/CotestNOMS HealthcareStart: 12-44-6826NXjR,Tdap and Td Vaccines (1 - Tdap)DTaP,Tdap and Td Vaccines (1 - Tdap)[facility]: 91-45-2899Excfeatak for malignant neoplasm of colonNOMS HealthcareStart: 19-04-9406Oclylde Counseling Tobacco CounselingThe Christ HospitalEK 12 channel panelLima Memorial Hospital End: 93-47-5468Gtlgvgw profile includes TSH JN1Ajpjuan profile includes TSH FT4 Lab Routine Abnormal uterine bleeding (AUB) Uterine leiomyoma, unspecified location Pelvic pain 1 Occurrences starting 03/25/2025 until 03/25/2026ProOhio [facility] Systemca Work Phone: Comment on above:1 Occurrences starting 03/25/2025 until 03/25/2026[facility] Immunizations Immunization DateImmunizationNotesCare IezkhzwjGjktnfkr08-99-6439UGUK-ZlL-6 (COVID-19) mRNA BNT-162b2 vaxMuAlphiond Sarmini [phone]-MhixvEast [facility] Hospital Digestive HealthComment on above:Result Comment: 2025-03-31: [id number]-ZjV-3 (COVID-19) mRNA BNT- 162b2 vaxMuhammad Sarmini [phone]-TiwtsEast [facility] Hospital Digestive Whzwix87-53-8758 SARS-CoV-2 mRNA (lfdvvblgzmb-bdre-vvibzam) vaccineMuhammad Sarmini [phone]-QwgduEast [facility] Regional Hospital Digestive Equbta54-65-8722 influenza virus vaccine, unspecified formulationLisa Wu CERTIFIED LEGAL INVESTIGATOR-FILENET ADMIN Work Phone: [facility]09-02-2008tetanus toxoid, reduced diphtheria toxoid, and acellular pertussis vaccine, adsorbedMuhammad Sarmini [phone]-ShsojEast [facility] Regional Hospital Dig[facility]ive Health Payers DatePayer CategoryPayerPolicy [id number] Managed Care - [employer] [id number] Care HMO (unspecified)[id number] Care Other (unspecified)COMMERCIAL Member Subscriber Plan / Payer (Effective 2024-Present) Name: Damien Maradiaga Shannon Relation to Subscriber: Self Name: Damien Maradiaga Payer ID: Noton file Type: Not on file Address: [address] [place] [id number] Health [id number] [id number] Health [id number] 2.16.840.1.806132.3.57[id number] 2.16.840.1.924337.3.57[id number] 2.840.1.017445.3.57[id number] 2.840.1.164177.3.57[id number] 2.840.1.609124.3.57[id number] 2.840.1.740866.3.57[id number] 2.840.1.730503.3.57[id number] 2.840.1.148055.3.579.[id number] 2.840.1.653273.3.57[id number] 2.840.1.861215.3.579.2.[id number] 2.840.1.486104.3.579.2.1[id number] 2.840.1.817086.3.57[id number] 2.840.1.392620.3.579.2.[id number] 2.840.1.216870.3.57[id number] 2.840.1.867328.3.579.2.[id number] 2..840.1.455641.3.57[id number] 2.840.1.274827.3.579.2.[id number] 2..840.1.207359.3.579.2.5285[id number] 2.840.1.495741.3.579.2.09[id number] 2.840.1.288891.3.579.2.81[id number] 2.840.1.093976.3.579.[id number] 2.840.1.376917.3.579.2.35[id number] 2.840.1.780241.3.57[id number] 2.840.1.309453.3.579.2.963395-01-7458Ygsv-xgp61930344424-28-2978Kggvklm [id number] 2.0.4.287522.34[id number] Social History DateTypeDetailFacilityUnknown if ever smokedNohawthorn [facility]'s [facility] [place] Other Start: 08-19-2020 End: 36-29-7561Pzo [facility]Start: 08-15-2023 End: 09-49-3197Ygjeflr smoking status NHISSmokes tobacco dailyNOMS Healthcare History of tobacco useCigarette SmokerNOPA HealthcareStart: 08-19-2020 End: 84-88-2163Llbilsloop smoked current (pack per day) - Edbrbsiu9ZNCQ HealthcareStart: 08-21-2023 End: 18-59-0264Ccdkopn intakeEx-drinker (finding)[facility] HealthcareStart: 05-88-9849Fdu Assigned At BirthNot on fileR[facility]ERTON HOSPITAL HealthcareStart: 11-28-2024 Tobacco use and exposureSmokeless tobacco non-userProPremier Health [facility] SystemStart: 11-28-2024 End: 64-35-5442Nldfvgjig beverage intakeCurrent non-drinker of alcohol (finding) [facility] HospitalAdolescent depression screening robwcaltll41BntCemmtfFormerly [facility], [facility] Hospitaltart: 45-27-4369Fdi assigned at [facility] Start: 81-09-3720XdvIarahi (finding)[facility] Hospitaltart: 12-29-2024 End: 55-41-5249Qtufrzk smoking statusLight tobacco smoker (finding)[facility] Digestive HealthSexual OrientationEast [facility] Regional Hospital Digestive Health Start: 16-30-1115Ifxyaer smoking status NHISNever smoked tobacco (finding)[facility] HospitalHow often do you have a drink containing alcohol?NeverThe [facility] Hospital Goals DatePatient GoalDesired Activity/StatePersonal health goal Functional Status FpgsXlurrcvctnNrlyfvEdtzxuvz54-36-1450Ndrvs score [AUDIT-C]0 04/24/2025 9:12 AM EDT [facility] Clinical Notes 02-17-2022 to 04-29-2025 Note Date & XembZaaoCxdpzvoe85-17-7160 Miscellaneous Notes* Telephone Encounter - NATE May - 04/29/2025 8:32 AM EDT Discussed surgery with pt. documented in this encounterThe Christ Hospital10-22-2025 Telephone encounter Note* Telephone Encounter - NATE May - 04/29/2025 8:32 AM EDT Discussed surgery with pt. [facility]10-17-2025 History of Present illness Narrative* Chen Neumann MD - 04/24/2025 9:00 AM EDT Endometrial Biopsy Procedure Note Indications: abnormal uterine bleeding-L, fibroid uterus and pelvic pain Pelvic US (04/01/25)- FINDINGS: Uterus measures 9.4 x 3.9 x 4.9 cm. Endometrial echo stripe thickness was 8.7 mm. There is a hypoechoic or isoechoic mass in the left side of the fundus of the uterus and measures 4.9 x 4.7x 6.0 cm. Appearance is suggestive of uterine fibroid. Cervix appears normal. Right ovary measures 4.7 x 2.9 x 2.9 cm. There is a cyst in the right ovary and measures 2.8 x 2.0 cm. Left ovary measures 1.7 x 2.1 x 2.4 cm. Left ovary appears unremarkable. No other adnexal mass is identified. Color Doppler study reveals presence of the color Doppler flow without evidence of torsion. No free fluid is seen in the cul-de-sac. IMPRESSION: * There is an approximately 6.0 x 4.9 x 4.7 cm fibroid in the left fundal uterine wall. Overall appearance is stable. * Normal ovaries with right ovarian cyst and measures 2.8 x 2.0 cm. No evidence of ovarian torsion. * No free fluid is seen in the cul-de-sac. I personally reviewed images from this study- uterus 9 cm with exophytic fibroid at left fundus measuring about 6 cm, simple ROV cyst with no malignant features (AP) Procedure Details The risks (including infection, bleeding, pain, and uterine perforation) and benefits of the procedure were explained to the patient and Written informed consent was obtained. Sterile speculum placed and cervix visualized, Hurricaine gel applied to cervical portio and endocervical canal then the cervix was prepped with betadine. An allis clamp was applied to the anterior lip of the cervix for stabilization and traction. A pipelle passed without difficulty to sample the en dometrium at a depth of 8.5 cm. The sample was sent for pathologic examination. The patient tolerated the procedure well. Patient was offered a medical entertainment director, and all sensitive parts of the examination were performed with COUNTER SERVER present. Condition: Stable Complications: None Plan: The patient was advised to call for any fever or for prolonged or severe pain or bleeding. She was advised to use Motrin 800 mg as needed for mild to moderate pain. She was advised to avoid vaginal intercourse for 48 hours or until the bleeding has completely stopped. Follow up: Will call to discuss results of biopsy. Proceed with scheduling surgery for 05/26/25; surgical consents reviewed and signed today Pre-op medical clearance underway and pt's PCP (Jenifer Loyola NP) will send letter when completed but was ok with proceeding with scheduling Chen Neumann MD documented in this encounterThe [facility] Hospital10-08-2025 Evaluation note* Diagnosis Onset Date Resolution Status Admit Date Essential hypertension acuteOctober 2024 3:12pmHyperlipidemiaacuteOctober 2024 3:12pmMorbid (severe) obesity due to excess caloriesacuteOctober 2024 3:12pmNicotine dependenceacuteOctober 2024 3:12pmOSA (obstructive sleep apnea)acuteOctober 2024 3:12pmPre-operative clearanceacuteOctober 2024 3:12pmElevated WBC countacuteOctober 2024 3:09pmEssential hypertensionacuteOctober 2024 3:09pmInsomniaacuteOctober 2024 3:09pmMorbid (severe) obesity due to excess caloriesacuteOctober 2024 3:09pmNicotine dependenceacuteOctober 2024 3:09pmOSA (obstructive sleep apnea)acuteOctober 2024 3:09pmPre- operative clearanceacuteOctober 2024 3:09pm [facility] Work Phone: 1(282) 430-728609-24-2025 Miscellaneous Notes* Telephone Encounter - NATE Benitez - 04/01/2025 3:08 PM EDT Pt called wanting to inform Dr Hoang that she got pelvic US done and thyroid panel drawn today Message has been sent to provider Appt has been scheduled for EMB documented in this encounterThe [facility] Hospital09-24-2025 Telephone encounter Note* Telephone Encounter - NATE Benitez - 04/01/2025 3:08 PM EDT Pt called wanting to inform Dr Hoang that she got pelvic US done and thyroid panel drawn today Message has been sent to provider Appt has been scheduled for EMB [facility]09-17-2025 History of Present illness Narrative* Chen Neumann MD - 03/25/2025 1:30 PM EDT [employer] WORKER Consult HPI: Patient Damien is a 45 y.o. female here for hysterectomy consult. She has seen Dr Trevino in [place]. Pt states she has irregular bleeding that started about 9 months ago, bleeding heavily during periods and now also in between periods. She has 6.1 cm uterine fibroid that was on CT01/19/2025. She does have pelvic pain and discomfort and was seen in ED in January 2025 with acute exacerbation of the pain. 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 Review of Systems - Psychological ROS: denies mood changes or sleep disturbances Ophthalmic ROS: denies visual disturbances ENT ROS: denies hearing loss Allergy and Immunology ROS: denies nasal congestion Hematological and Lymphatic ROS: denies bruising, swollen lymph nodes or blood clots Endocrine ROS: denies cold intolerance, hot flashes Breast ROS: denies breast tenderness, denies breast lumps or nipple discharge Respiratory ROS: Denies shortness of breath or cough Cardiovascular ROS: Denies chest pain, denies edema of extremities or palpitations Gastrointestinal ROS: Denies nausea, vomiting, constipation or diarrhea. Denies blood in stools. denies heartburn Musculoskeletal ROS: denies joint pain or swelling Neurological ROS: dizziness, headache, weakness Dermatological ROS: denies hair changes, mole changes, rash + fatigue, + dysmenorrhea, + heavy and painful periods, + accidents in between periods, + constipation and sense of pelvic pressure in pelvis BP 132/76 Ht 160 cm (5' 2.99 ) Wt 94.3 kg (208 lb) LMP 2025 (Approximate) BMI 36.85 kg/m Objective: Physical Exam Constitutional: the patient was observed to be alert and in no acute distress. Neck: the appearance of the neck was normal. Pulmonary: no respiratory distress. CTAB Vascular:. there was no peripheral edema. RRR Skin: normal skin color and pigmentation. Neurological: the patient was oriented to person, place, and time and mood and affect were appropriate Abdomen: soft, obese, NT, ND, (+) BS Pelvic: deferred until next visit Lab Results Component Value Date WBC 15.1 (H) 01/19/2025 HGB 14.5 01/19/2025 HCT 42.6 01/19/2025 MCV 88 01/19/2025 PLT 361 01/19/2025 Lab Results Component Value Date TSH 3.180 01/20/2015 CT abd/ pelvis (01/20/25)- FINDINGS: Visualized portions of lung parenchyma appear unremarkable. No pleural or pericardial effusions. No intra-abdominal free air or free fluid. Noncirrhotic liver morphology with no focal hepatic lesion. Intra-/extrahepatic biliary ductal prominence likely reflects reservoir effect in the setting of prior cholecystectomy. This appears similar to prior examination. Spleen, pancreas, and adrenal glands appear unremarkable. Nonobstructive 3 mm calculus mid pole left kidney. No hydronephrosis or suspicious renal lesion. No pelvic free fluid. Solid left fundal uterine lesion measures 6.1 cm (likely fibroid, previously 1.8 cm in 2016). Likely physiologic left adnexal cyst measures 3.0 cm. The small bowel, terminal ileum, large bowel, and appendix appear unremarkable. No abdominal or pelvic lymphadenopathy. Nonaneurysmal abdominal aorta. No acute osseous abnormality. IMPRESSION: * No acute abdominopelvic process. * Left fundal uterine fibroid measures 6.1 cm. I independently reviewed the images in this study and findings include: uterus approximately 9.2 x 4.3 x 5.7 cm uterus with large type 5-6 subserous fibroid measuring 6.1 cm and projecting in to leftposterolateral pelvis Impression: 45yo with AUB-L, dysmenorrhea, pelvic pain due to fibroid uterus, completed childbearing, desires definitive surgical management Plan: We reviewed patient's diagnosis of abnormal uterine bleeding (AUB) based on history of heavy,painful periods, mass effect symptoms and used PALM COEIN mnemonic to explore differential diagnosis. Reviewed structural causes of AUB and role of pelvic ultrasound, and endometrial biopsy in evaluation. Also reviewed nonstructural causes of AUB including coagulopathy, ovulatory dysfunction, endometrial and iatrogenic causes. Based on patient's history and evaluation thus far, we will proceed with labs and complete US for intial evaluation and ask patient to return for EMB. Questions answered and patient information provided. We reviewed therapeutic options to target AUB symptoms including medical (CHC, LARCs like Lng-IUD, TXA, NSAIDs), minor surgical/ procedural (endometrial ablation, uterine fibroid embolization) and major surgical (myomectomy, hysterectomy). We reviewed attendant risks, benefits, alternatives and comp lications related to each option including but not limited to: risks of ablation failure/ recurrentsymptoms with impaired ability to evaluate cavity after ablation; post-ablation tubal ligation syndrome in patients undergoing endometrial ablation with previous or concurrent tubal ligation; and significant risk of placenta accreta spectrum disorders if after ablation performed, with risks to mother and fetus' lives. We discussed the pathophysiology of uterine fibroids. Based on their location either beneath musosa(submucosal), within wall of uterus (intramural) or projecting from outside surface of uterus (subserosal), they can cause different symptoms. Symptoms of fibroids can include abnormal uterine bleeding, pressure/ pain symptoms from compression of surrounding structures, and complications (miscarriage/ loss, delivery, hemorrhage, growth restriction and malpresentation) and pain with menses, sex or all the time. Fibroids are typically non-cancerous growths of uterine muscle. Based on some studies, the risk of sarcoma being present is 1/225 to 1/580. The patient understands that fibroids typically grow in thepresence of estrogen. Fibroids may grow in size or become more numerous over time. Estrogen is mainly released by the ovaries. When women go through menopause, estrogen levels decrease and the majority of the time fibroids will decrease in size. If asymptomatic, fibroids may be management expectantly. We discussed management options including estrogen/progesterone hormones, Lupron, Lysteda for bleeding, uterine artery embolization, myomectomy, progesterone secreting IUD, endometrial ablation, and hysterectomy. The patient understands that some of these therapies act to change the characteristicsof fibroids and thus mitigate symptoms caused by fibroids. The patient understands that some of these therapies have little to no effect on fibroids and act primarily to manage symptoms caused by fibroids. Based on patient's symptoms of both AUB, dysmenorrhea and bulk symptoms/ pelvic pain from fibroid uterus, I recommend surgical management as previously described- GAGANDEEP HANNA. At there age, I would recommend ovarian preservation if ovaries appear normal. Patient will need to complete labs (TSH) and pelvic US then return for EMB and surgical consents. We reviewed need for medical optimization/ clearance as well (Jenifer Black, CORINA- works with Cameron Ng MD now [facility]) Total time spent was 35 minutes: Preparing to see the patient (e.g., review of tests) Obtaining and/or reviewing separately obtained history Performing a medically appropriate examination and/or evaluation Counseling and educating the patient/family/caregiver Ordering medications, tests, or procedures Referring and communicating with other health child caregiver private home (not separately reported) Documenting clinical information in the electronic or other health record Independently interpreting results (not separately reported) and communicating results to the patient/family/caregiver NATE Benitez 03/25/25 1:36 PM Chen Neumann MD documented in this encounterThe [facility] Hospital08-21-2025 History of Present illness Narrative* Ernesto Trevino DO - 02/26/2025 11:30 AM EDT Subjective Patient ID: Damien Maradiaga is a 45 y.o. female who presents today after being diagnosed with a 6 cm fundal fibroid by CT. Patient presented to the ED in mid January with excruciating abdominal pain. Patient has been experiencing prolonged, heavy, irregular menses for months. She states she is bleeding almost every day. She is a smoker. She has had 1 child. She desires no future pregnancies. She is interested in a robotic hysterectomy for definitive management of her fibroid, AUB, menorrhagia, and dysmenorrhea. Chief Complaint: Heavy, painful, irregular menses with recently diagnosed 6 cm fibroid uterus Menstrual History: OB History 2 Para 1 Term 1 AB 1 Living 1 SAB IAB 1 Ectopic Multiple Live Births 1 Patient's last menstrual period was 2025 (approximate). The following portions of the patient's history were reviewed and updated as appropriate: allergies, current medications, past family history, past medical history, past social history, past surgicalhistory, problem list, and medication reconciliation was completed including current medication andpost discharge medication. Review of Systems Constitutional: negative Respiratory: Smoked Cardiovascular: Chronic hypertension Gastrointestinal: Rectal bleeding Genitourinary heavy, painful, irregular menses with recently diagnosed 6 cm fibroid Objective BP (!) 154/96 Ht 160 cm (5' 3 ) Wt 93.1 kg (205 lb 3.2 oz) LMP 2025 (Approximate) BMI36.35 kg/m General: alert, appears stated age, and cooperative Assessment 1. Uterine leiomyoma, unspecified location 2. Menorrhagia with irregular cycle 3. Abnormal uterine bleeding (AUB) 4. Dysmenorrhea 5. Cigarette smoker Plan We discussed AUB, uterine fibroids. Review treatment options. Patient is a smoker, so combination control is not an option. She declines other forms of hormonal management she says she can not tolerate those. We discussed Interventional Radiology, fibroidectomy, as well as hysterectomy. Patient would like to proceed with a robotic hysterectomy. Referral will be made to [facility] for a preoperative consult for potential robotic hyste[facility] Miscellaneous Notes* Telephone Encounter - Krissy Buckley CMA - 02/12/2025 10:56 AM EDT Patient called needing to be schedule for a follow up from the ER on 01/19/25. She stated that the ER found a left uterine fibroid measuring 6.1cm. She is scheduled with Dr. Trevino on 02/26/25. She reports being in a lot of pain, and she is having heavy bleeding. Please advise. Thank you. - Krissy Buckley CMA 02/12/25 11:14 AM * Telephone Encounter - VINI Schaeffer - 02/12/2025 10:56 AM EDT RX for ibuprofen 800 mg sent to pharmacy. If patient is bleeding more than a pad per hour she should return to the ED. Thank you. * Telephone Encounter - Krissy Buckley CMA - 02/12/2025 10:56 AM EDT Called patient and advised patient of Jenifer's instructions. Patient stated she is going through a maxi pad per hour. She is going to the ED per Jenifer. - Krissy Buckley CMA 02/12/25 11:32 AM [facility] Telephone encounter Note* Telephone Encounter - Krissy Buckley CMA - 02/12/2025 10:56 AM EDT Patient called needing to be schedule for a follow up from the ER on 01/19/25. She stated that the ER found a left uterine fibroid measuring 6.1cm. She is scheduled with Dr. Trevino on 02/26/25. She reports being in a lot of pain, and she is having heavy bleeding. Please advise. Thank you. - Krissy Buckley CMA 02/12/25 11:14 AM [facility] Telephone encounter Note* Telephone Encounter - VINI Schaeffer - 02/12/2025 10:56 AM EDT RX for ibuprofen 800 mg sent to pharmacy. If patient is bleeding more than a pad per hour she should return to the ED. Thank you. [facility] Float: [place] [id number] Telephone encounter Note* Telephone Encounter - Krissy Buckley CMA - 02/12/2025 10:56 AM EDT Called patient and advised patient of Jenifer's instructions. Patient stated she is going through a maxi pad per hour. She is going to the ED per Jenifer. - Krissy Buckley CMA 02/12/25 11:32 AM [facility] Evaluation + Plan note Future Scheduled Tests Radiology* CT Abdomen/Pelvis w/ Contrast 01/20/25 [facility] 07-10-2025 Hospital Discharge instructions Follow Up Care 01/15/2025 12:55:35 With:Magalis DELAROSA, SHELTON Jacobsen, [facility] Address: [address] [place] [address], [address] [phone] [phone] When:Within 1 Month(s) [facility] 06-05-2025 History of Present illness Narrative* Jenifer Loyola NP - 12/11/2024 4:27 PM EDTAssociated Problem(s): Irritable bowel syndrome with constipation Restart miralax Fliuds, fiber Will trial meds for IBS c according to what insurance allows Abd xray * Jenifer Loyola NP - 12/11/2024 4:26 PM EDTAssociated Problem(s): Change in bowel habit Refer to GI * Jenifer Loyola NP - 12/11/2024 3:20 PM EDT Images from the original note were not included. Damien Maradiaga is a 44 y.o. female presents with chief complaint of No chief complaint on file. HPI: Abd pain/constipation: Constant, worse if eating or BM, lower abd, pressure, sharp pain like a hot knife, sour stomach, +nausea no vomiting usually No heart burn, blood with BM, usually BM: twice a week but only if uses enema, small pieces, no diarrhea noted Worse constipation over the last year but used to have it off and on. Used linzess in the past, butthen it stopped working Fatigue: severe, wears CPAP machine, but tired about 3 hours into day, lays down in work day. This has been going on for some time Some SOB in the morning, no chest pain/pressure/heaviness/tightness SUBJECTIVE: MEDICATIONS: Current Outpatient Medications Medication Instructions albuterol HFA 90 mcg/act inhaler 2 puffs, Inhalation, Every 4 hours PRN clonazePAM (KLONOPIN) 0.5 mg, Oral, Every 12 hours PRN metoprolol succinate XL (TOPROL-XL) 25 mg, Oral, Daily, Total dose is 75mg daily metoprolol succinate XL (TOPROL-XL) 50 mg, Oral, Daily, Total dose is 75mg daily metroNIDAZOLE (FLAGYL) 500 mg, 2 times daily pantoprazole (Protonix) 40 MG EC tablet 1 pill twice a day for 7 days, then decrease to 1 pill daily. Do not crush, chew, or split. Rimegepant Sulfate (Nurtec) 75 MG tablet dispersible 1 tablet, Oral, Daily PRN traZODone (DESYREL) 50 mg, Oral, Nightly, Take 1 tablet by mouth at bedtime ALLERGIES: Allergies Allergen Reactions Dhea Shortness of breath DHEA *ALTERNATIVE MEDICINES* [Drug allergy] 11/02/2022 01:44 PM: Difficulty breathing; Hormone DHE REVIEW OF SYMPTOMS: Review of Systems Constitutional: Positive for fatigue. Negative for appetite change, chills and fever. HENT: Negative for congestion, ear pain and sore throat. Eyes: Negative for pain, discharge, redness and visual disturbance. Respiratory: Negative for cough, shortness of breath and wheezing. Cardiovascular: Negative for chest pain, palpitations and leg swelling. Gastrointestinal: Positive for abdominal pain, blood in stool and constipation. Negative for diarrhea, nausea and vomiting. Genitourinary: Negative for difficulty urinating, dysuria and frequency. Musculoskeletal: Negative for arthralgias, back pain, joint swelling and myalgias. Skin: Negative for rash and wound. Neurological: Negative for dizziness, tremors, seizures, syncope and headaches. Psychiatric/Behavioral: Negative for behavioral problems, self-injury and suicidal ideas. The patient is not nervous/anxious. Hematological: Does not bruise/bleed easily. Endocrine: Negative for polydipsia, polyphagia and polyuria. Allergic/Immunologic: Negative for environmental allergies and food allergies. PAST MEDICAL HISTORY Past Medical History: Diagnosis Date Abnormal uterine bleeding Abscess of breast, right Anxiety COVID-19 virus detected Generalized anxiety disorder with panic attacks (CMS/HCC) Heart palpitations Hypertension (CMS/HCC) Impacted cerumen, bilateral Insomnia Irritable bowel syndrome with constipation Kidney stone Left anterior shoulder pain 08/21/2023 Migraine headache with aura (CMS/HCC) Morbid obesity with body mass index (BMI) of 40.0 to 49.9 (CMS/HCC) Muscle spasms of neck 08/21/2023 Obstructive sleep apnea, adult BiPAP titration 11/7cm H20, small dreamwear nasal mask, ramp time 20mins with heated humidificationfor nasal dryness Pancreatitis [id number] condition Tobacco user Past Surgical History: Procedure Laterality Date APPENDECTOMY 2006 SECTION, LOW TRANSVERSE x 1 CHOLECYSTECTOMY COLONOSCOPY 2007,2012 LAMINECTOMY URETERAL STENT PLACEMENT family history includes Bipolar disorder in her mother; Diabetes in her father; Heart disease in her father; Hyperlipidemia in her father; Hypertension in her father; Inflammatory bowel disease in her mother; Kidney disease in her father; Mental illness in her brother and mother; Seizures in her mother. OBJECTIVE: Visit Vitals Wt 200 lb BMI 34.33 kg/m Smoking Status Every Day BSA 2.02 m Physical Exam Vitals and nursing note reviewed. Constitutional: General: She is not in acute distress. Appearance: Normal appearance. HENT: Head: Normocephalic and atraumatic. Right Ear: External ear normal. Left Ear: External ear normal. Nose: Nose normal. Mouth/Throat: Mouth: Mucous membranes are moist. Eyes: Extraocular Movements: Extraocular movements intact. Conjunctiva/sclera: Conjunctivae normal. Cardiovascular: Rate and Rhythm: Normal rate and regular rhythm. Pulses: Normal pulses. Heart sounds: Normal heart sounds. Pulmonary: Effort: Pulmonary effort is normal. Breath sounds: Normal breath sounds. No wheezing or rhonchi. Abdominal: General: Bowel sounds are normal. There is no distension. Palpations: Abdomen is soft. There is no mass. Tenderness: There is no abdominal tenderness (generalized tenderness). Musculoskeletal: General: Normal range of motion. Cervical back: Normal range of motion and neck supple. Skin: General: Skin is warm and dry. Capillary Refill: Capillary refill takes 2 to 3 seconds. Findings: No rash. Neurological: General: No focal deficit present. Mental Status: She is alert and oriented to person, place, and time. Psychiatric: Mood and Affect: Mood normal. Behavior: Behavior normal. Thought Content: Thought content normal. Judgment: Judgment normal. ASSESSMENT AND PLAN: No follow-ups on file. Problem List Items Addressed This Visit Irritable bowel syndrome with constipation Restart miralax Fliuds, fiber Will trial meds for IBS c according to what insurance allows Abd xray Relevant Medications polyethylene glycol, PEG, 3350 (MiraLax) 17 GM/SCOOP powder lubiprostone (Amitiza) 8 MCG capsule Other Relevant Orders TSH T4, free CBC and differential Ambulatory referral to Gastroenterology Morbid (severe) obesity due to excess calories (CMS/HCC) Discussed with patient their BMI (actual, verses recommended). We have also discussed lifestyle modifications: attempts to perform physical activity as chronic conditions allow, also to monitor dietary intake: increasing protein/fruits/veggies and lowering carb intake (unless contraindicated). Limit sodas, juices, and sugary drinks. Essential (primary) hypertension (CMS/HCC) - Primary Please check blood pressure daily and record DASH diet Limit caffeine Take medication as directed Contact office if chest pain, pressure, dizziness, shortness of breath, swelling legs Recommend slow position changes Current meds: b amara Relevant Orders Comprehensive metabolic panel Nicotine dependence Relevant Orders Urinalysis with reflex microscopic (clean catch) CBC and differential Rectal bleeding Relevant Orders CBC and differential Iron + transferrin + TIBC Ferritin Ambulatory referral to Gastroenterology Change in bowel habit Refer to GI Relevant Orders CBC and differential Ambulatory referral to Gastroenterology Other fatigue Relevant Orders TSH T4, free Vitamin B12 Iron + transferrin + TIBC Ferritin Vitamin D deficiency Relevant Orders Vitamin D 25 hydroxy Comprehensive metabolic panel * Jenifer Loyola NP - 12/11/2024 7:17 AM EDTAssociated Problem(s): Morbid (severe) obesity due to excess calories (CMS/HCC) Discussed with patient their BMI (actual, verses recommended). We have also discussed lifestyle modifications: attempts to perform physical activity as chronic conditions allow, also to monitor dietary intake: increasing protein/fruits/veggies and lowering carb intake (unless contraindicated). Limit sodas, juices, and sugary drinks. * Jenifer Loyola NP - 12/11/2024 7:16 AM EDTAssociated Problem(s): Essential (primary) hypertension (CMS/HCC) Please check blood pressure daily and record DASH diet Limit caffeine Take medication as directed Contact office if chest pain, pressure, dizziness, shortness of breath, swelling legs Recommend slow position changes Current meds: b amara documented in this encounterSaint [facility] [id number] Instructions* Patient Instructions* Jenifer Loyola NP - 12/11/2024 3:20 PM EDT Check labs, check abd xray Miralax 1 scoop in 4 oz fluids daily, will order something for constipation and refer to GI documented in this [facility]05-20-2025 Telephone encounter Note* Telephone Encounter - Jenifer Loyola NP - 11/25/2024 7:30 AM EDT Contact pt, see if she now has insurance and does she still need a referral to have a colonoscopy etc to see what is cause of her weight loss and sxs? Also she is due for a mammogram, if she has her insurance is it ok for use to get her scheduled some place to get it done? [place] [facility] [id number] Miscellaneous Notes* Telephone Encounter - Jenifer Loyola NP - 11/25/2024 7:30 AM EDT Contact pt, see if she now has insurance and does she still need a referral to have a colonoscopy etc to see what is cause of her weight loss and sxs? Also she is due for a mammogram, if she has her insurance is it ok for use to get her scheduled some place to get it done? [place] documented in this encounterSaint [facility] [id number] History of Present illness Narrative* Jenifer Loyola NP - 10/27/2024 6:13 PM EDTAssociated Problem(s): Rectal bleeding Pics of clots, also at same time can have vag bleeding No insurance, will not do any CT test until after 11/06/24 when insurance kicks in Differentials: malignancy, IBS -C, colorectal/vaginal fistula, rectocele * Jenifer Loyola NP - 10/27/2024 6:11 PM EDTAssociated Problem(s): Encounter for screening mammogram for malignant neoplasm of breast Will order after insurance 11/06/24 * Jenifer Loyola NP - 10/27/2024 6:11 PM EDTAssociated Problem(s): Irritable bowel syndrome with constipation Hx of this, constipation ongoing for at least since 06/01 Having to use enemas, suppositories * Jenifer Loyola NP - 10/27/2024 6:10 PM EDTAssociated Problem(s): Heart palpitations Controlled with meds * DORA STEINBERG - 10/27/2024 5:00 PM EDT Pt has been having constipation since May (by her self) pt has been using enemas and suppositories for bowel movements about every other day. Pt has been having vaginal bleeding with the constipation, pt has nausea and vomiting, pt does not feel sensation when needing to push, pt has small outer hemorrhoids, pt states she has had multiple colonoscopy (been 4-5 years +) pt believes they were normal possible some polyps. She had an endo scope done and a hyda hernia was seen and ulcers. Pt has a lot of stomach pressure and bloating. Pt states she typically has a liquid diet hardly eats Pt states she eats a lot of raw food-veggies some soups and or pastas and no meats Pt does not have insurance until november * Jenifer Loyola NP - 10/27/2024 5:00 PM EDT Images from the original note were not included. Damien Maradiaga is a 44 y.o. female presents with chief complaint of Anxiety HPI: Anxiety Presents for follow-up visit. Symptoms include excessive worry, irritability, nausea and nervous/anxious behavior. Patient reports no chest pain, dizziness, palpitations, shortness of breath or suicidal ideas. Symptoms occur most days. The severity of symptoms is moderate. The quality of sleep is fair. Compliance with medications is 76-100%. Hypertension This is a chronic problem. The current episode started more than 1 year ago. The problem is unchanged. The problem is uncontrolled. Associated symptoms include anxiety. Pertinent negatives include nochest pain, headaches, palpitations, peripheral edema or shortness of breath. Risk factors for coronary artery disease include obesity and smoking/tobacco exposure. Past treatments include beta blockers. The current treatment provides moderate improvement. Compliance problems: has been out of meds for a few days, only been able to take 25mg dose. Rectal Bleeding This is a chronic problem. The current episode started more than 1 month ago (sicne 06/01). The problem occurs intermittently. The problem has been gradually worsening. Associated symptoms include abdominal pain (generalized soreness), a change in bowel habit, fatigue and nausea. Pertinent negatives include no arthralgias, chest pain, chills, congestion, coughing, fever, headaches, joint swelling, myalgias, rash, sore throat, urinary symptoms or vomiting. Nothing aggravates the symptoms. Treatments tried: enema's laxatives. The treatment provided no relief. SUBJECTIVE: MEDICATIONS: Current Outpatient Medications Medication Instructions albuterol HFA 90 mcg/act inhaler 2 puffs, Inhalation, Every 4 hours PRN clonazePAM (KLONOPIN) 0.5 mg, Oral, Every 12 hours PRN metoprolol succinate XL (TOPROL-XL) 25 mg, Oral, Daily, Total dose is 75mg daily metoprolol succinate XL (TOPROL-XL) 50 mg, Oral, Daily, Total dose is 75mg daily pantoprazole (Protonix) 40 MG EC tablet 1 pill twice a day for 7 days, then decrease to 1 pill daily. Do not crush, chew, or split. Rimegepant Sulfate (Nurtec) 75 MG tablet dispersible 1 tablet, Oral, Daily PRN traZODone (DESYREL) 50 mg, Oral, Nightly, Take 1 tablet by mouth at bedtime ALLERGIES: Allergies Allergen Reactions Dhea Shortness of breath DHEA *ALTERNATIVE MEDICINES* [Drug allergy] 11/02/2022 01:44 PM: Difficulty breathing; Hormone DHE REVIEW OF SYMPTOMS: Review of Systems Constitutional: Positive for fatigue and irritability. Negative for appetite change, chills and fever. HENT: Negative for congestion, ear pain and sore throat. Eyes: Negative for pain, discharge, redness and visual disturbance. Respiratory: Negative for cough, shortness of breath and wheezing. Cardiovascular: Negative for chest pain, palpitations and leg swelling. Gastrointestinal: Positive for abdominal pain (generalized soreness), blood in stool, change in bowel habit, hematochezia and nausea. Negative for constipation, diarrhea and vomiting. Genitourinary: Positive for vaginal discharge. Negative for difficulty urinating, dysuria and frequency. Musculoskeletal: Negative for arthralgias, back pain, joint swelling and myalgias. Skin: Negative for rash and wound. Neurological: Negative for dizziness, tremors, seizures, syncope and headaches. Psychiatric/Behavioral: Negative for behavioral problems, self-injury and suicidal ideas. The patient is nervous/anxious. Hematological: Does not bruise/bleed easily. Endocrine: Negative for polydipsia, polyphagia and polyuria. Allergic/Immunologic: Negative for environmental allergies and food allergies. PAST MEDICAL HISTORY Past Medical History: Diagnosis Date Abnormal uterine bleeding Abscess of breast, right Anxiety COVID-19 virus detected Generalized anxiety disorder with panic attacks (CMS/HCC) Heart palpitations Hypertension (CMS/HCC) Impacted cerumen, bilateral Insomnia Irritable bowel syndrome with constipation Kidney stone Left anterior shoulder pain 08/21/2023 Migraine headache with aura (CMS/HCC) Morbid obesity with body mass index (BMI) of 40.0 to 49.9 (CMS/HCC) Muscle spasms of neck 08/21/2023 Obstructive sleep apnea, adult BiPAP titration 11/7cm H20, small dreamwear nasal mask, ramp time 20mins with heated humidificationfor nasal dryness Pancreatitis [id number] condition Tobacco user Past Surgical History: Procedure Laterality Date APPENDECTOMY 2006 SECTION, LOW TRANSVERSE x 1 CHOLECYSTECTOMY COLONOSCOPY 2007,2012 LAMINECTOMY URETERAL STENT PLACEMENT family history includes Bipolar disorder in her mother; Diabetes in her father; Heart disease in her father; Hyperlipidemia in her father; Hypertension in her father; Inflammatory bowel disease in her mother; Kidney disease in her father; Mental illness in her brother and mother; Seizures in her mother. OBJECTIVE: Visit Vitals BP (!) 146/92 (BP Location: Left arm, Patient Position: Sitting, BP Cuff Size: Large adult) Pulse 89 Temp 97.8 F (Temporal) Resp 20 Wt 194 lb 12.8 oz SpO2 98% BMI 33.44 kg/m Smoking Status Every Day BSA 2 m Physical Exam Vitals and nursing note reviewed. Constitutional: General: She is not in acute distress. Appearance: Normal appearance. She is not ill-appearing. HENT: Head: Normocephalic and atraumatic. Right Ear: External ear normal. Left Ear: External ear normal. Nose: Nose normal. Mouth/Throat: Mouth: Mucous membranes are moist. Eyes: Extraocular Movements: Extraocular movements intact. Conjunctiva/sclera: Conjunctivae normal. Neck: Vascular: No carotid bruit. Cardiovascular: Rate and Rhythm: Normal rate and regular rhythm. Pulses: Normal pulses. Heart sounds: Normal heart sounds. No murmur heard. Pulmonary: Effort: Pulmonary effort is normal. Breath sounds: Normal breath sounds. No wheezing or rhonchi. Abdominal: General: Bowel sounds are normal. There is no distension. Palpations: Abdomen is soft. There is no mass. Tenderness: There is no abdominal tenderness (generalized about the entire abd). There is no guarding or rebound. Musculoskeletal: General: Normal range of motion. Cervical back: Normal range of motion and neck supple. Right lower leg: No edema. Left lower leg: No edema. Lymphadenopathy: Cervical: No cervical adenopathy. Skin: General: Skin is warm and dry. Capillary Refill: Capillary refill takes 2 to 3 seconds. Findings: No rash. Neurological: General: No focal deficit present. Mental Status: She is alert and oriented to person, place, and time. Psychiatric: Mood and Affect: Mood normal. Behavior: Behavior normal. Thought Content: Thought content normal. Judgment: Judgment normal. ASSESSMENT AND PLAN: Follow up in about 4 weeks (around 11/24/2024) for Recheck. Problem List Items Addressed This Visit Heart palpitations Controlled with meds Relevant Medications metoprolol succinate XL (Toprol-XL) 25 MG 24 hr tablet metoprolol succinate XL (Toprol-XL) 50 MG 24 hr tablet Irritable bowel syndrome with constipation Hx of this, constipation ongoing for at least since 06/01 Having to use enemas, suppositories RESOLVED: Anxiety Generalized anxiety disorder with panic attacks (CMS/HCC) .OARRS reviewed Current meds: benzo and TCA, PHQ 9=14 ARON 7=14 Med agreement: 10/27/24 Relevant Medications clonazePAM (KlonoPIN) 0.5 MG tablet Hyperlipidemia (CMS/HCC) Not on statin therapy Check labs Relevant Orders Lipid panel Encounter for screening mammogram for malignant neoplasm of breast Will order after insurance 11/06/24 Relevant Orders Bilateral screening mammogram Morbid (severe) obesity due to excess calories (CMS/HCC) - Primary Discussed with patient their BMI (actual, verses recommended). We have also discussed lifestyle modifications: attempts to perform physical activity as chronic conditions allow, also to monitor dietary intake: increasing protein/fruits/veggies and lowering carb intake (unless contraindicated). Limit sodas, juices, and sugary drinks. Relevant Orders Comprehensive metabolic panel Essential (primary) hypertension (CMS/HCC) Please check blood pressure daily and record DASH diet Limit caffeine Take medication as directed Contact office if chest pain, pressure, dizziness, shortness of breath, swelling legs Recommend slow position changes Current meds: b amara Get refilled Fu in 4 weeks Relevant Orders Comprehensive metabolic panel Microalbumin / creatinine, urine ratio RESOLVED: Body mass index (BMI) 35.0-35.9, adult Nicotine dependence The patient has been advised of the risks of continued smoking: stroke, [place], all forms of cancer, lung disease, and . Options for quitting smoking include: cold turkey, hypnosis, acupuncture, nicotine replacement meds(gum, lozenges, and patches), Buproprion, and Varenicline. At this time pt is encouraged to evaluate their goals for wanting to quit smoking, and reach out toprovider when ready to start this process Relevant Orders CBC and differential Urinalysis with reflex microscopic (clean catch) Rectal bleeding Pics of clots, also at same time can have vag bleeding No insurance, will not do any CT test until after 11/06/24 when insurance kicks in Differentials: malignancy, IBS -C, colorectal/vaginal fistula, rectocele Change in bowel habit Other Visit Diagnoses Primary hypertension (CMS/HCC) Relevant Medications metoprolol succinate XL (Toprol-XL) 25 MG 24 hr tablet metoprolol succinate XL (Toprol-XL) 50 MG 24 hr tablet * Jenifer Loyola NP - 10/27/2024 7:32 AM EDTAssociated Problem(s): Hyperlipidemia (CMS/HCC) Not on statin therapy Check labs * Jenifer Loyola NP - 10/27/2024 7:29 AM EDTAssociated Problem(s): Nicotine dependence The patient has been advised of the risks of continued smoking: stroke, [place], all forms of cancer, lung disease, and . Options for quitting smoking include: cold turkey, hypnosis, acupuncture, nicotine replacement meds(gum, lozenges, and patches), Buproprion, and Varenicline. At this time pt is encouraged to evaluate their goals for wanting to quit smoking, and reach out toprovider when ready to start this process * Jenifer Loyola NP - 10/27/2024 7:29 AM EDTAssociated Problem(s): Generalized anxiety disorder with panic attacks (CMS/HCC) .OARRS reviewed Current meds: benzo and TCA, PHQ 9=14 ARON 7=14 Med agreement: 10/27/24 * Jenifer Loyola NP - 10/27/2024 7:28 AM EDTAssociated Problem(s): Morbid (severe) obesity due to excess calories (CMS/HCC) Discussed with patient their BMI (actual, verses recommended). We have also discussed lifestyle modifications: attempts to perform physical activity as chronic conditions allow, also to monitor dietary intake: increasing protein/fruits/veggies and lowering carb intake (unless contraindicated). Limit sodas, juices, and sugary drinks. * Jenifer Loyola NP - 10/27/2024 7:28 AM EDTAssociated Problem(s): Essential (primary) hypertension (CMS/HCC) Please check blood pressure daily and record DASH diet Limit caffeine Take medication as directed Contact office if chest pain, pressure, dizziness, shortness of breath, swelling legs Recommend slow position changes Current meds: b amara Get refilled Fu in 4 weeks * Jenifer Loyola NP - 10/27/2024 7:27 AM EDTAssociated Problem(s): Obstructive sleep apnea, adult You have a diagnosis of obstructive sleep apnea. It is recommended that you wear your PAP device any time while in bed sleeping. Not using the PAP device can increase your risk of elevated/uncontrolled high blood pressure, atrial fibrillation, heart attack, stroke, or sudden . Compliance with PAP: How many hours of use per night: Do you feel more refreshed in the morning: Company that supplies your machine and tubing/filters etc: Doctor that manages your KIARA: documented in this encounterSaint [facility] [id number] Instructions* Patient Instructions* Jenifer Loyola NP - 10/27/2024 5:00 PM EDT Get labs completed: you have to go to [facility] and you have to say you want direct access testing Call me after you get it done, so I am looking for results Then on 11/06/24 give us a copy of your insurance card so we can get the CT scan approved and scheduled Then we will go from there documented in this [facility]02-13-2024 History of Present illness Narrative* Jenifer Loyola NP - 08/21/2023 6:05 PM ESTAssociated Problem(s): Generalized anxiety disorder with panic attacks (CMS/HCC) Continue with SSRI as well as klonopin prn OARRS reviewed, fu in 3 months for this * Jenifer Loyola NP - 08/21/2023 6:05 PM ESTAssociated Problem(s): Encounter for screening mammogram for malignant neoplasm of breast No insurance, needs both PAP and mammogram Gave her number of [facility] for her to call to schedule through them * Jenifer Loyola NP - 08/21/2023 6:04 PM ESTAssociated Problem(s): Hypertension ([facility]) Stable, no change in dose of meds * Jenifer Loyola NP - 08/21/2023 6:04 PM ESTAssociated Problem(s): Epigastric pain Will start with BID protonix for 7 days then go down to 1 pill daily Fu in 4 weeks Add zofran as well No insurance at this point after speaking with pt regarding testing and labs We will trial oral meds first and then fu Also advised of direct access testing at [facility] as well * Jenifer Loyola NP - 08/21/2023 6:03 PM ESTAssociated Problem(s): Obstructive sleep apnea, adult Continue use of PAP * DORA STEINBERG - 08/21/2023 2:40 PM EST Sour stomach- pt is unsure if it is stress related since her mom has cancer and daughter is off to college. Pt states she can barely eat in the last two months. Pain on the right side under the breast. Has had vomiting. Frequent nausea. Alternating diarrhea toconstipation. Stomach cramps. Tailbone pain. Pt states she may be starting early menopause Periods are becoming more light in the last two months Needing a refill on the albuterol inhaler, klonoPin * Jenifer Loyola NP - 08/21/2023 2:40 PM EST Images from the original note were not included. Damien Maradiaga is a 43 y.o. female presents with chief complaint of No chief complaint on file. HPI: Step mother with metastatic cancer, pt's daughter is going to be going to [place] for school in [id number] stressors, also does not have insurance Sleep apnea: wearing her PAP machine nightly and is doing well with that Hx of stomach ulcers in the past, feels just like this Anxiety Presents for follow-up visit. Symptoms include depressed mood, excessive worry, nausea and nervous/anxious behavior. Patient reports no chest pain, dizziness, insomnia, palpitations, shortness of breath or suicidal ideas. Symptoms occur most days. The severity of symptoms is moderate. Compliance with medications is 76-100%. Abdominal Pain This is a new problem. The current episode started more than 1 month ago. The onset quality is sudden. The problem occurs constantly. The problem has been rapidly worsening. The pain is located in the epigastric region and RUQ. The pain is moderate. The quality of the pain is aching, burning and sharp. Associated symptoms include nausea, vomiting and weight loss. Pertinent negatives include no arthralgias, constipation, diarrhea, dysuria, fever, frequency, headaches, hematochezia or myalgias. The pain is aggravated by eating. The pain is relieved by Nothing. SUBJECTIVE: MEDICATIONS: Current Outpatient Medications Medication Instructions albuterol HFA 90 mcg/act inhaler 2 puffs, Inhalation, Every 4 hours PRN amitriptyline (Elavil) 25 MG tablet 1 tablet, Oral, Nightly, Per Dr Maguire Sleep doctor clonazePAM (KLONOPIN) 0.5 mg, Oral, Every 12 hours PRN fluticasone (Flonase) 50 MCG/ACT nasal spray 2 sprays, Each Nostril, Daily, Shake gently. Before first use, prime pump. After use, clean tip and replace cap. ibuprofen 800 MG tablet 1 tablet, Oral, Every 6 hours PRN loratadine (Claritin) 10 MG tablet 1 tablet, Oral, Daily metoprolol succinate XL (TOPROL-XL) 50 mg, Oral, Daily, Do not crush or chew. TOTAL DOSE IS 75 MG metoprolol succinate XL (TOPROL-XL) 25 mg, Oral, Daily, Do not crush or chew. TOTAL DOSE IS 75 MG ondansetron ODT (ZOFRAN-ODT) 4 mg, Oral, Every 8 hours PRN ondansetron ODT (ZOFRAN-ODT) 4 mg, Oral, Every 8 hours PRN pantoprazole (Protonix) 40 MG EC tablet 1 pill twice a day for 7 days, then decrease to 1 pill daily. Do not crush, chew, or split. Rimegepant Sulfate (Nurtec) 75 MG tablet dispersible 1 tablet, Oral, Daily PRN tiZANidine (Zanaflex) 4 MG tablet 1 tablet, Oral, Every 12 hours PRN traZODone (Desyrel) 50 MG tablet 1 tablet, Oral, Nightly ALLERGIES: Allergies Allergen Reactions Dhea Shortness of breath DHEA *ALTERNATIVE MEDICINES* [Drug allergy] 11/02/2022 01:44 PM: Difficulty breathing; Hormone DHE REVIEW OF SYMPTOMS: Review of Systems Constitutional: Positive for weight loss. Negative for appetite change, chills and fever. HENT: Negative for congestion, ear pain and sore throat. Eyes: Negative for pain, discharge, redness and visual disturbance. Respiratory: Negative for cough, shortness of breath and wheezing. Cardiovascular: Negative for chest pain, palpitations and leg swelling. Gastrointestinal: Positive for abdominal pain, nausea and vomiting. Negative for blood in stool, constipation, diarrhea and hematochezia. Genitourinary: Negative for difficulty urinating, dysuria and frequency. Musculoskeletal: Negative for arthralgias, back pain, joint swelling and myalgias. Skin: Negative for rash and wound. Neurological: Negative for dizziness, tremors, seizures, syncope and headaches. Psychiatric/Behavioral: Negative for behavioral problems, self-injury and suicidal ideas. The patient is nervous/anxious. The patient does not have insomnia. Hematological: Does not bruise/bleed easily. Endocrine: Negative for polydipsia, polyphagia and polyuria. Allergic/Immunologic: Negative for environmental allergies and food allergies. PAST MEDICAL HISTORY Past Medical History: Diagnosis Date Abnormal uterine bleeding Abscess of breast, right Anxiety COVID-19 virus detected Generalized anxiety disorder with panic attacks (CMS/HCC) Heart palpitations Hypertension (CMS/HCC) Impacted cerumen, bilateral Insomnia Irritable bowel syndrome with constipation Kidney stone Left anterior shoulder pain 08/21/2023 Migraine headache with aura (CMS/HCC) Morbid obesity with body mass index (BMI) of 40.0 to 49.9 (CMS/HCC) Muscle spasms of neck Obstructive sleep apnea, adult BiPAP titration 11/7cm H20, small dreamwear nasal mask, ramp time 20mins with heated humidificationfor nasal dryness Pancreatitis [id number]-[id number]-80 condition Tobacco user Past Surgical History: Procedure Laterality Date APPENDECTOMY 2006 SECTION, LOW TRANSVERSE x 1 CHOLECYSTECTOMY COLONOSCOPY 2007,2012 LAMINECTOMY URETERAL STENT PLACEMENT family history includes Bipolar disorder in her mother; Diabetes in her father; Heart disease in her father; Hyperlipidemia in her father; Hypertension in her father; Inflammatory bowel disease in her mother; Kidney disease in her father; Mental illness in her brother and mother; Seizures in her mother. OBJECTIVE: Visit Vitals BP 134/90 (BP Location: Left arm, Patient Position: Sitting, BP Cuff Size: Large adult) Pulse 73 Temp 97.1 F (Temporal) Resp 18 Ht 5' 4 Wt 209 lb 3.2 oz SpO2 99% BMI 35.91 kg/m Smoking Status Every Day BSA 2.07 m Physical Exam Vitals reviewed. Constitutional: General: She is not in acute distress. Appearance: Normal appearance. HENT: Head: Normocephalic and atraumatic. Right Ear: External ear normal. Left Ear: External ear normal. Nose: Nose normal. Mouth/Throat: Mouth: Mucous membranes are moist. Eyes: Extraocular Movements: Extraocular movements intact. Conjunctiva/sclera: Conjunctivae normal. Neck: Vascular: No carotid bruit. Cardiovascular: Rate and Rhythm: Normal rate and regular rhythm. Pulses: Normal pulses. Heart sounds: Normal heart sounds. Pulmonary: Effort: Pulmonary effort is normal. Breath sounds: Normal breath sounds. Abdominal: General: Bowel sounds are normal. There is no distension. Palpations: Abdomen is soft. There is no mass. Tenderness: There is no abdominal tenderness (RUQ and epigastric region). Musculoskeletal: General: Normal range of motion. Cervical back: Neck supple. Skin: General: Skin is warm and dry. Capillary Refill: Capillary refill takes 2 to 3 seconds. Findings: No rash. Neurological: General: No focal deficit present. Mental Status: She is alert and oriented to person, place, and time. Psychiatric: Mood and Affect: Mood normal. Behavior: Behavior normal. Thought Content: Thought content normal. Judgment: Judgment normal. ASSESSMENT AND PLAN: No follow-ups on file. Problem List Items Addressed This Visit Obstructive sleep apnea, adult Continue use of PAP Insomnia Hypertension (CMS/HCC) Stable, no change in dose of meds Relevant Medications metoprolol succinate XL (Toprol-XL) 50 MG 24 hr tablet metoprolol succinate XL (Toprol-XL) 25 MG 24 hr tablet Heart palpitations Relevant Medications metoprolol succinate XL (Toprol-XL) 50 MG 24 hr tablet metoprolol succinate XL (Toprol-XL) 25 MG 24 hr tablet Irritable bowel syndrome with constipation Generalized anxiety disorder with panic attacks (CMS/HCC) Continue with SSRI as well as klonopin prn OARRS reviewed, fu in 3 months for this Relevant Medications clonazePAM (KlonoPIN) 0.5 MG tablet Encounter for screening mammogram for malignant neoplasm of breast - Primary No insurance, needs both PAP and mammogram Gave her number of [facility] for her to call to schedule through them Relevant Orders Bilateral screening mammogram Epigastric pain Will start with BID protonix for 7 days then go down to 1 pill daily Fu in 4 weeks Add zofran as well No insurance at this point after speaking with pt regarding testing and labs We will trial oral meds first and then fu Also advised of direct access testing at [facility] as well Relevant Medications pantoprazole (Protonix) 40 MG EC tablet ondansetron ODT (Zofran-ODT) 4 MG disintegrating tablet ondansetron ODT (Zofran-ODT) 4 MG disintegrating tablet documented in this encounterSaint [facility] [id number] Evaluation note* Encounter Date Diagnosis Assessment Notes Treatment Notes Treatment Clinical Notes Feb, Nasal congestion (ICD-10 - R09.8 1) Feb,Viral URI with cough (ICD-10 - J06.9) Advised patient that COVID PCR test was negative today. Advised patient that will treat as viral URI. Supportive care as directed, increase fluids and rest, Tylenol/Motrin as directed, OTC cough/cold remedies as directed on packaging, cool mist humidifier, throat lozenges. Discussed infection control practices such as good hand washing and mask wearing. Patient to follow up with PCP if symptoms persist or worsen despite treatment. Immediate eval for SOB, difficulty, chest pain, fevers that do not break with antipyretic or any other concerning symptoms as reviewed on patient education handout. Patient verbalizes understanding and is agreeable to treatment plan. Patient left in stable condition [employer] Other Evaluation + Plan note No data available for this section [facility] Evaluation + Plan note Future Appointments Appointment Date:02/13/2025 10:45:00 AM Scheduled Provider:Ricardo Burns MD Location:[facility] Appointment Type[facility] Follow Up Future Scheduled Tests Radiology* CT Abdomen/Pelvis w/o Contrast 01/16/25 [facility] Evaluation note* Diagnosis Epigastric pain- Primary Abdominal pain, epigastric Encounter for screening mammogram for malignant neoplasm of breast Obstructive sleep apnea, adult Primary insomnia Persistent disorder of initiating or maintaining sleep Primary hypertension (CMS/HCC) Unspecified essential hypertension Heart palpitations Palpitations Irritable bowel syndrome with constipation Irritable bowel syndrome Generalized anxiety disorder with panic attacks (CMS/HCC) Muscle spasms of neck [facility]* Diagnosis Epigastric pain- Primary Abdominal pain, epigastric Encounter for screening mammogram for malignant neoplasm of breast Obstructive sleep apnea, adult Primary insomnia Persistent disorder of initiating or maintaining sleep Primary hypertension (CMS/HCC) Unspecified essential hypertension Heart palpitations Palpitations Irritable bowel syndrome with constipation Irritable bowel syndrome Generalized anxiety disorder with panic attacks (CMS/HCC) Muscle spasms of neck Primary hypertension (CMS/HCC) Unspecified essential hypertension Heart palpitations Palpitations Muscle spasms of neck Generalized anxiety disorder with panic attacks (CMS/HCC) documented [facility]* Diagnosis Epigastric pain- Primary Abdominal pain, epigastric Encounter for screening mammogram for malignant neoplasm of breast Obstructive sleep apnea, adult Primary insomnia Persistent disorder of initiating or maintaining sleep Primary hypertension (CMS/HCC) Unspecified essential hypertension Heart palpitations Palpitations Irritable bowel syndrome with constipation Irritable bowel syndrome Generalized anxiety disorder with panic attacks (CMS/HCC) Muscle spasms of neck Rectal bleeding- Primary Hemorrhage of rectum and anus Morbid (severe) obesity due to excess calories (CMS/HCC) Essential (primary) hypertension (CMS/HCC) Unspecified essential hypertension Body mass index (BMI) 35.0-35.9, adult Anxiety Anxiety state, unspecified Generalized anxiety disorder with panic attacks (CMS/HCC) Cigarette nicotine dependence with nicotine-induced disorder Encounter for screening mammogram for malignant neoplasm of breast Mixed hyperlipidemia (CMS/HCC) Mixed hyperlipidemia Primary hypertension (CMS/HCC) Unspecified essential hypertension Heart palpitations Palpitations Irritable bowel syndrome with constipation Irritable bowel syndrome Change in bowel habit documented in this encounter [facility]* Diagnosis Trichomoniasis- Primary [facility]* Diagnosis Epigastric pain- Primary Abdominal pain, epigastric Encounter for screening mammogram for malignant neoplasm of breast Obstructive sleep apnea, adult Primary insomnia Persistent disorder of initiating or maintaining sleep Primary hypertension (CMS/HCC) Unspecified essential hypertension Heart palpitations Palpitations Irritable bowel syndrome with constipation Irritable bowel syndrome Generalized anxiety disorder with panic attacks (CMS/HCC) Muscle spasms of neck Rectal bleeding- Primary Hemorrhage of rectum and anus Morbid (severe) obesity due to excess calories (CMS/HCC) Essential (primary) hypertension (CMS/HCC) Unspecified essential hypertension Body mass index (BMI) 35.0-35.9, adult Anxiety Anxiety state, unspecified Generalized anxiety disorder with panic attacks (CMS/HCC) Cigarette nicotine dependence with nicotine-induced disorder Encounter for screening mammogram for malignant neoplasm of breast Mixed hyperlipidemia (CMS/HCC) Mixed hyperlipidemia Primary hypertension (CMS/HCC) Unspecified essential hypertension Heart palpitations Palpitations Irritable bowel syndrome with constipation Irritable bowel syndrome Change in bowel habit Irritable bowel syndrome with constipation- Primary Irritable bowel syndrome Essential (primary) hypertension (CMS/HCC) Unspecified essential hypertension Change in bowel habit Rectal bleeding Hemorrhage of rectum and anus Morbid (severe) obesity due to excess calories (CMS/HCC) Other fatigue Vitamin D deficiency Cigarette nicotine dependence with nicotine-induced disorder documented [facility]* Diagnosis Epigastric pain- Primary Abdominal pain, epigastric Encounter for screening mammogram for malignant neoplasm of breast Obstructive sleep apnea, adult Primary insomnia Persistent disorder of initiating or maintaining sleep Primary hypertension Unspecified essential hypertension Heart palpitations Palpitations Irritable bowel syndrome with constipation Irritable bowel syndrome Generalized anxiety disorder with panic attacks Muscle spasms of neck Rectal bleeding- Primary Hemorrhage of rectum and anus Morbid (severe) obesity due to excess calories (CMS-HCC) Essential (primary) hypertension Unspecified essential hypertension Body mass index (BMI) 35.0-35.9, adult Anxiety Anxiety state, unspecified Generalized anxiety disorder with panic attacks Cigarette nicotine dependence with nicotine-induced disorder Encounter for screening mammogram for malignant neoplasm of breast Mixed hyperlipidemia Mixed hyperlipidemia Primary hypertension Unspecified essential hypertension Heart palpitations Palpitations Irritable bowel syndrome with constipation Irritable bowel syndrome Change in bowel habit Irritable bowel syndrome with constipation- Primary Irritable bowel syndrome Essential (primary) hypertension Unspecified essential hypertension Change in bowel habit Rectal bleeding Hemorrhage of rectum and anus Morbid (severe) obesity due to excess calories ([facility]) Other fatigue Vitamin D deficiency Cigarette nicotine dependence with nicotine-induced disorder Vitamin D deficiency- Primary Iron deficiency Disorders of iron metabolism documented in this encounter [facility]* Diagnosis Epigastric pain- Primary Abdominal pain, epigastric Encounter for screening mammogram for malignant neoplasm of breast Obstructive sleep apnea, adult Primary insomnia Persistent disorder of initiating or maintaining sleep Primary hypertension Unspecified essential hypertension Heart palpitations Palpitations Irritable bowel syndrome with constipation Irritable bowel syndrome Generalized anxiety disorder with panic attacks Muscle spasms of neck Rectal bleeding- Primary Hemorrhage of rectum and anus Morbid (severe) obesity due to excess calories (CMS-HCC) Essential (primary) hypertension Unspecified essential hypertension Body mass index (BMI) 35.0-35.9, adult Anxiety Anxiety state, unspecified Generalized anxiety disorder with panic attacks Cigarette nicotine dependence with nicotine-induced disorder Encounter for screening mammogram for malignant neoplasm of breast Mixed hyperlipidemia Mixed hyperlipidemia Primary hypertension Unspecified essential hypertension Heart palpitations Palpitations Irritable bowel syndrome with constipation Irritable bowel syndrome Change in bowel habit Irritable bowel syndrome with constipation- Primary Irritable bowel syndrome Essential (primary) hypertension Unspecified essential hypertension Change in bowel habit Rectal bleeding Hemorrhage of rectum and anus Morbid (severe) obesity due to excess calories (CMS-HCC) Other fatigue Vitamin D deficiency Cigarette nicotine dependence with nicotine-induced disorder Generalized anxiety disorder with panic attacks documented in this encounter [facility]* Diagnosis Epigastric pain- Primary Abdominal pain, epigastric Encounter for screening mammogram for malignant neoplasm of breast Obstructive sleep apnea, adult Primary insomnia Persistent disorder of initiating or maintaining sleep Primary hypertension Unspecified essential hypertension Heart palpitations Palpitations Irritable bowel syndrome with constipation Irritable bowel syndrome Generalized anxiety disorder with panic attacks Muscle spasms of neck Rectal bleeding- Primary Hemorrhage of rectum and anus Morbid (severe) obesity due to excess calories (CMS-HCC) Essential (primary) hypertension Unspecified essential hypertension Body mass index (BMI) 35.0-35.9, adult Anxiety Anxiety state, unspecified Generalized anxiety disorder with panic attacks Cigarette nicotine dependence with nicotine-induced disorder Encounter for screening mammogram for malignant neoplasm of breast Mixed hyperlipidemia Mixed hyperlipidemia Primary hypertension Unspecified essential hypertension Heart palpitations Palpitations Irritable bowel syndrome with constipation Irritable bowel syndrome Change in bowel habit Irritable bowel syndrome with constipation- Primary Irritable bowel syndrome Essential (primary) hypertension Unspecified essential hypertension Change in bowel habit Rectal bleeding Hemorrhage of rectum and anus Morbid (severe) obesity due to excess calories ([facility]) Other fatigue Vitamin D deficiency Cigarette nicotine dependence with nicotine-induced disorder Primary hypertension Unspecified essential hypertension Heart palpitations Palpitations documented in this encounter [facility]* Diagnosis Pelvic cramping- Primary Uterine leiomyoma, unspecified location [facility] Diagnosis Uterine leiomyoma, unspecified location- Primary Menorrhagia with irregular cycle Abnormal uterine bleeding (AUB) Dysmenorrhea Cigarette smoker Tobacco use disorder documented [facility] this [facility]* Diagnosis Abnormal uterine bleeding (AUB)- Primary Uterine leiomyoma, unspecified location Pelvic pain Essential (primary) hypertension Unspecified essential hypertension Obesity, Class II, BMI 35-39.9 Cigarette nicotine dependence without complication documented in this encounter [facility]* Diagnosis Onset Date Resolution Status Admit Date Essential hypertension acuteOctober 2024 3:12pmHyperlipidemiaacuteOctober 2024 3:12pmMorbid (severe) obesity due to excess caloriesacuteOctober 2024 3:12pmNicotine dependenceacuteOctober 2024 3:12pmOSA (obstructive sleep apnea)acuteOctober 2024 3:12pmPre-operative clearanceacuteOctober 2024 3:12pm [facility] Work Phone: Evaluation note* Diagnosis Abnormal uterine bleeding (AUB)- Primary Obesity, Class II, BMI 35-39.9 Anxiety Anxiety state, unspecified Essential (primary) hypertension Unspecified essential hypertension Pelvic pain in female Unspecified symptom associated with female genital organs Subserous leiomyoma of uterus documented in this [facility] N[facility]ative - Reported* Type Description Date Medical History kidney stones Medical HistoryfibromyalgiaMedical HistoryHTNMedical Historymigraine headache Medical Historylumbar disc diseaseSurgical Historylumbar laminectomySurgical HistorylithotripsySurgical HistoryC sectionSurgical Historycholecystectomy Surgical Historywisdom teethSurgical HistorycolonoscopySurgical HistoryEGD Surgical Historykidney stentHospitalization Historysee above [facility] Discharge instructions No data available for this section [facility] InstructionsNot on filedocumented in this encounter [facility] SystemInstructionsNot on filedocumented in this encounter [facility] SystemInstructions* Attachments The following attachments cannot be sent through Care Everywhere. * Deciding to have a hysterectomy (Welsh) documented in this encounterPro[facility] SystemInstructionsNot on file documented in this encounterProMedidc Health SystemInstructionsNot on file documented in this encounterProMedidc Health SystemInstructionsNot on file documented in this encounterPro[facility] SystemProgress note No data available for this section [facility] Reason for referral (narrative)No reason for referral information availableZanesville City Hospital Work Phone: Summary Purpose Family History No Family History Records Found Relationship Condition Age at Onset Recorded Date/T jaja brother Unknown fatherDiabetes mellitusUnknownHeart diseaseUnknownmotherEpilepsyUnknownDeceased Unknown Advance Directives No Advanced Directives Records Found Advance Directive Response Recorded Date/ Time Advance Directives No November 23 6:52am Chief Complaint and Reason for Visit Chief Complaint Admit Date surgical clearance April 15, 2025 3: 12pm Reason for Visit Admit Date Essential hypertension April 15, 2025 3:12pm Hyperlipidemia April 15, 2025 3: 12pm Morbid (severe) obesity due to excess ca lories April 15, 2025 3:12pm Nicotine dependence April 15, 2025 3: 12pm KIARA (obstructive sleep apnea) April 3:12pm Pre-operative clearance April 15 3:12pm Chief Complaint Admit Date surgical clearance April 15, 2025 3: 12pm 2W April 29, 2025 3 :09pm Reason for Visit Admit Date Essential hypertension April 15, 2025 3:12pm Hyperlipidemia April 15, 2025 3: 12pm Morbid (severe) obesity due to excess ca lories April 15, 2025 3:12pm Nicotine dependence April 15, 2025 3: 12pm KIARA (obstructive sleep apnea) April 3:12pm Pre-operative clearance April 15 3:12pm Elevated WBC count April 29, 2025 3 :09pm Essential hypertension April 29 3:09pm Insomnia April 29, 2025 3 :09pm Morbid (severe) obesity due to excess ca lories April 29, 2025 3:09pm Nicotine dependence April 29, 2025 3 :09pm KIARA (obstructive sleep apnea) April 292024 3:09pm Pre-operative clearance April 29 3:09pm Additional Source Comments REASON FOR VISIT (unrecogniz ed section and content) ReasonCommentsAnxietyReasonCommentsMed RefillReasonCommentsFollow-upPatient presents for an ER follow-up.ReasonCommentsNew PatientConsultDiscuss hysterectomyReasonCommentsBiopsyReasonOnset FhfeJillurdmQsurenwct03/22/2025 INFORMATION SOURCE (unrecogn ized section and content) DATE CREATED AUTHOR 08/12/2022 [facility] DATE CREATED AUTHOR AUTHOR'S ORGANIZ ATION 09/27/2022 [facility] DATE CREATED AUTHOR AUTHOR'S ORGANIZ ATION 12/13/2024 [facility] DATE CREATED AUTHOR AUTHOR'S ORGANIZ ATION 01/09/2025 [facility] DATE CREATED AUTHOR AUTHOR'S ORGANIZ ATION 01/18/2025 [facility] DATE CREATED AUTHOR AUTHOR'S ORGANIZ ATION 02/28/2025 [facility] DATE CREATED AUTHOR AUTHOR'S ORGANIZ ATION 04/10/2025 [facility] DATE CREATED AUTHOR AUTHOR'S ORGANIZ ATION 04/28/2025 [facility] DATE CREATED AUTHOR AUTHOR'S ORGANIZ ATION 05/05/2025 [facility] Care Teams (unrecognized sec tion and content) Team MemberRelationshipSpecialtyStart DateEnd Date Deep Ng MD [address] [place] [address] PCP - GeneralFamily Medicine08/15/23Team MemberRelationshipSpecialtyStart DateEnd Date Deep Ng MD [address] [place] [address] PCP - GeneralFamily Medicine08/15/23Team MemberRelationshipSpecialtyStart DateEnd Date Deep Ng MD [address] [place] [address] PCP - GeneralFamily Medicine08/15/23Team MemberRelationshipSpecialtyStart DateEnd Date Deep Ng MD [address] [place] [address] PCP - GeneralFamily Medicine08/15/23Team MemberRelationshipSpecialtyStart DateEnd Date Deep Ng MD [address] [place] [address] PCP - GeneralFamily Medicine08/15/23Team MemberRelationshipSpecialtyStart DateEnd Date Deep Ng MD [address] [place] [address] PCP - GeneralFamily Medicine08/15/23Team MemberRelationshipSpecialtyStart DateEnd Date Deep Ng MD [address] [place] [address] PCP - Generalmily Medicine08/15/23Team MemberRelationshipSpecialtyStart DateEnd Date Deep Ng MD [address] [place] [address] PCP - Generalmily Medicine08/15/23Team MemberRelationshipSpecialtyStart DateEnd Date Deep Ng MD [address] [place] [address] PCP - Generalmily Medicine08/15/23Team MemberRelationshipSpecialtyStart DateEnd Date Deep Ng MD [address] [place] [address] PCP - Generalmily Medicine08/15/23Team MemberRelationshipSpecialtyStart DateEnd Date Jenifer Loyola, CERTIFIED LEGAL INVESTIGATOR-FILENET ADMIN [address] [place] [address] [facility] - [facility] Practitioner03/25/25Team MemberRelationshipSpecialtyStart Date End Date Jenifer Loyola, CERTIFIED LEGAL INVESTIGATOR-FILENET ADMIN [address] [place] [address] PCP - GeneralNurse Practitioner03/25/25 Team Status: Active Member Role Status Dates Jenifer Loyola NP-C Primary Care Provider Active Team Status: Inactive Member Role Status Dates Jenifer Loyola NP-C Primary Care Provider Active Start: April 15, 2025 End: April 15, 2025Santo Nova ProviderActiveStart: April 15, 2025 End: April 15, 2025Team MemberRelationshipSpecialtyStart DateEnd Date Jenifer Loyola APRNFILENET ADMIN [address] [place] [address] PCP - GeneralNurse Practitioner03/25/25Team MemberRelationshipSpecialtyStart Date End Date Jenifer Loyola APRNBOSTON [facility] [address] [place] [address] PCP - [facility] Practitioner03/25/25 Team Status: Active Member Role/Relationship Status Dates BOOKER Nova Primary Care Provider Active Team Status: Inactive Member Role/Relationship Status Dates BOOKER Nova Primary Care Provider Active Start: April 15, 2025 End: April 15, 2025Santo Nova ProviderActiveStart: April 15, 2025 End: April 15, 2025 Team Status: Inactive Member Role/Relationship Status Dates Jenifer Loyola NP-Carla Primary Care Provider Active Start: April 29, 2025 End: April 29, 2025Santo Nova ProviderActiveStart: April 29, 2025 End: April 29, 2025 Goals (unrecognized section and content) Goals may be documented in a n alternate section FOR RECORDS PERTAINING TO PATIENTS WHO ARE OR HAVE BEEN ENROLLED IN A CHEMICAL DEPENDENCY/SUBSTANCEABUSE PROGRAM, SOME INFORMATION MAY BE OMITTED. This clinical summary was aggregated from multiple sources. Caution should be exercised in using it in the provision of clinical care. This summary normalizes information from multiple sources, and as a consequence, information in this document may materially change the coding, format and clinical context of patient data. In addition, data may be omitted in some cases. CLINICAL DECISIONS SHOULD BE BASED ON THE PRIMARY CLINICAL RECORDS. [facility], [facility]. provides no warranty or guarantee of the accuracy or completeness of information in this document.
--- OUTSIDE RECORDS SUMMARY | 2025-06-08 08:59 | XMS_ITS | Encounter Summary ---
Author Organization Davia tem Address [id number] [place] [address] Care Team Providers Care Vender Name Role Phone Jenifer Loyola APRN-RAILROAD ENGINEER Primary Care Provider Encounter Details DateTypeDepartmentCare Team (Latest Contact Info)Xvhejdbzsiu95/18/2025Travel Social History Tobacco UseTypesPacks/DayYears UsedDateSmoking Tobacco: Every DayCigarettes Smokeless Tobacco: NeverAlcohol UseStandard Drinks/WeekCommentsNo0 (1 standard drink = 0.6 oz pure alcohol)PHQ-2AnswerDate RecordedTotal Mcsye0440/23/2025 AUDIT-CAnswerDate RecordedQ1: How often do you have [...] in as a part of a household?No05/26/2025hildcareAnswerDate WtolpjxzBynftvcncAoqcrmu71/12/2019EmploymentAnswerDate RecordedEmploymentUnknown 12/18/2018Hunger ScreeningAnswerDate RecordedWithin the past 12 months we worried whether our food would run out before we got money to buy more.Never True05/27/2025Within the past 12 months the food we bought just didn't last and we didn't have money to get more.Never True05/27/2025Purpose - LifeAnswerDate RecordedPurpose and direction in hybfKsdmcqw40/11/2021CommentsNoSex and Gender InformationValueDate RecordedSex Assigned at CfwbvLduoij17/19/2020 1:16 PM ESTLegal RyoCxoqqc81/06/2015 11:28 AM EDTGender IdentityNot on fileSexual OrientationNot on filedocumented as of this encounter Functional Status documented as of this encounter Plan of Treatment DateTypeDepartmentCare Team (Latest Contact Info)Nbsoginense32/03/2025 10:00 AM ESTProcedure visit [facility] [address] [place] [phone] 06/23/2025 8:30 AM ESTHospital Encounter [facility] -Surgery [address] [place] [address] Idalia Neumann MD [address] [place], [place] [id number] 06/23/2025 8:30 AM EST - 06/23/2025 11:30 AM ESTSurgery [facility] [address] [place] [phone] Idalia Neumann MD [address] [facility] , [address] [place] [address] DAVINCI HYSTERECTOMY QVYFWYQVVSMWC92/22/2025 11:00 AM ESTOffice Visit [facility] [address] [place] [address] [address] [place] [address] Idalia Neumann MD [facility] , [address] [place] [address] 08/10/2025 11:00 AM ESTOffice Visit [facility] [address] [place] [address] [facility] [address] [place] [address] Idalia Neumann MD [facility] , [facility] [address] [place] [address] 09/22/2025 9:00 AM EDTOffice Visit [facility] [place] [address] [place] [address] Agnieszka Whipple MD [address] [place] [address] [address], [address] [place] [address] NamePriorityAssociated DiagnosesDate/TimeDAVINCI HYSTERECTOMY SALPINGECTOMY Pelvic pain in female Subserous leiomyoma of uterus Abnormal uterine bleeding (AUB) 06/23/2025 8:30 AM ESTDAVINCI CYSTECTOMY OVARIAN Pelvic pain in female Subserous leiomyoma of uterus Abnormal uterine bleeding (AUB) 06/23/2025 8:30 AM ESTEXCISION LIPOMA MIDSECTION Pelvic pain in female Subserous leiomyoma of uterus Abnormal uterine bleeding (AUB) 06/23/2025 8:30 AM ESTdocumented as of this encounter Visit Diagnoses Not on filedocumented in this encounter Additional Health Concerns AssessmentNoted TimePHQ-9 Depression Total Score: 12011/28/2024 12:43 PM EDTA Body Mass Index follow-up plan has been documented for the nrrblgr3011/28/2024 1:38 PM EDTdocumented as of this encounter Care Teams Team MemberRelationshipSpecialtyStart DateEnd Date Jenifer Loyola APRN-RAILROAD ENGINEER [address] [place] [address] PCP - GeneralNurse Practitioner03/25/25documented as of this encounter
--- OUTSIDE RECORDS SUMMARY | 2025-06-08 08:59 | XMS_ITS | Encounter Summary ---
Author Organization [employer] [facility] tem Address [id number] [address] [place] [address] Care Team Providers Care Pediatric Intensive Physician Name Role Phone Jenifer Loyola APRN-STAFF ANESTHESIOLOGIST Primary Care Provider Encounter Details DateTypeDepartmentCare Team (Latest Contact Info)Gqlukkkfuja75/24/2025Results Follow-Up [facility] [address] [facility] [address] [place] [address] Idalia Neumann MD [address] [facility] [address] [address] [place] [address] Thyroid profile includes TSH FT4 Social History Tobacco UseTypesPacks/DayYears UsedDateSmoking Tobacco: Every DayCigarettes Smokeless Tobacco: NeverAlcohol UseStandard Drinks/WeekCommentsNo0 (1 standard drink = 0.6 oz pure alcohol)PHQ-2AnswerDate RecordedTotal Wvltn6337/23/2025 AUDIT-CAnswerDate RecordedQ1: How often do you have [...] RecordedIn the past 12 months has the [employer], gas, oil, or water [employer] threatened to shut off services in your home?No05/26/2025Housing InstabilityAnswerDate RecordedAre you worried or concerned that in the next two months you may not have stable housing that you own, rent or stay in as a part of a household?No05/26/2025hildcareAnswerDate XuhkyflcSglryebswPsernww65/12/2019EmploymentAnswerDate RecordedEmploymentUnknown 12/18/2018Hunger ScreeningAnswerDate RecordedWithin the past 12 months we worried whether our food would run out before we got money to buy more.Never True05/27/2025Within the past 12 months the food we bought just didn't last and we didn't have money to get more.Never True05/27/2025Purpose - LifeAnswerDate RecordedPurpose and direction in heftTaizkwu29/11/2021CommentsNoSex and Gender InformationValueDate RecordedSex Assigned at AjoymKckhjq72/19/2020 1:16 PM ESTLegal KaxAdpkhv19/06/2015 11:28 AM EDTGender IdentityNot on fileSexual OrientationNot on filedocumented as of this encounter Functional Status * AUDIT-C ScoreAnswerDate of YqhtshzixaEwjyaa842/17/2025 9:12 AM Kady Souza * QuestionAnswerDate of AssessmentAuthorQ1: How often do you have a drink containing alcohol?Never04/24/2025 9:12 AM Kady SouzaQ2: How many drinks containing alcohol do you have on a typical day when you are drinking? Patient does not drink04/24/2025 9:12 AM Kady SouzaQ3: How often do you have six or more drinks on one occasion?Never04/24/2025 9:12 AM Kady Souza * QuestionAnswerDate of AssessmentAuthorFunctional EeeskyEtrbatyzilu58/18/2025 6:18 PM Yara Shi, SARA documented as of this encounter Plan of Treatment DateTypeDepartmentCare Team (Latest Contact Info)Jwxoxuypmyj87/03/2025 10:00 AM ESTProcedure visit [facility] [address] [place] [address] 06/23/2025 8:30 AM ESTHospital Encounter [facility] -Surgery [address] [place] [address] Idalia Neumann MD [facility], [address] [place] [address] 06/23/2025 8:30 AM EST - 06/23/2025 11:30 AM ESTSurgery [facility] -Surgery [address] [place] [address] Idalia Neumann MD [address], [address] [place] [address] DAVINCI HYSTERECTOMY SNEQMPJEGLKCX28/22/2025 11:00 AM ESTOffice Visit [facility] [place] [address] Idalia Neumann MD [facility], [address] [place] [address] 08/10/2025 11:00 AM ESTOffice Visit [facility] [place] [address] Idalia Neumann MD [address], [address] [place] [address] 09/22/2025 9:00 AM EDTOffice Visit [facility] [place] [address] [place] [address] Agnieszka Whipple MD [address] [place] [address] [address] [place] [address] NamePriorityAssociated DiagnosesDate/TimeDAVINCI HYSTERECTOMY SALPINGECTOMY Pelvic [...] self care documented as of this encounter Visit Diagnoses Not on filedocumented in this encounter Additional Health Concerns AssessmentNoted TimePHQ-9 Depression Total Score: 12011/28/2024 12:43 PM EDTA Body Mass Index follow-up plan has been documented for the pwinwjf1111/28/2024 1:38 PM EDTdocumented as of this encounter Care Teams Team MemberRelationshipSpecialtyStart DateEnd Date Jenifer Loyola, GLAZE MIXER-STAFF ANESTHESIOLOGIST [address] [place] [address] PCP - GeneralNurse Practitioner03/25/25documented as of this encounter
--- OUTSIDE RECORDS SUMMARY | 2025-06-08 08:59 | XMS_ITS | Clinical Summary ---
Author Organization [facility] Address [address] [place] [address] Care Team Providers Care Applied Computer [employer] Professor Name Role Phone Deep Ng MD Primary Care Provider [phone] Allergies Active AllergyReactionsCriticalityNoted DateCommentsDheaShortness of breathHigh 08/15/2023 DHEA *ALTERNATIVE MEDICINES* [Drug allergy] 11/02/2022 01:44 PM: Difficulty breathing; Hormone DHE Medications MedicationSigDispense QuantityRefillsLast FilledStart DateEnd DateStatus Rimegepant Sulfate (Nurtec) 75 MG tablet dispersible Take 1 tablet by mouth Daily as needed (Migraine SANCHEZ)Active albuterol HFA 90 mcg/act inhaler Inhale 2 puffs every 4 (four) hours if needed for wheezingActive pantoprazole (Protonix) 40 MG EC tablet Indications:Epigastric pain1 pill twice a day for 7 days, then decrease to 1 pill daily. Do not crush, chew, or split. 30 tablet 4Active traZODone (Desyrel) 50 MG tablet Indications:Primary insomniaTake 1 tablet (50 mg) by mouth at bedtime Take 1 tablet by mouth at bedtime 90 tablet 4Active metroNIDAZOLE (Flagyl) 500 MG tablet Take 500 mg by mouth in the morning and 500 mg before bedtime.5Active lubiprostone (Amitiza) 8 MCG capsule Indications:Irritable bowel syndrome with constipationTake 1 capsule (8 mcg) by mouth in the morning and 1 capsule (8 mcg) in the evening. Take with meals. 60 capsule 5Active clonazePAM (KlonoPIN) 0.5 MG tablet Indications:Generalized anxiety disorder with panic attacksTake 1 tablet (0.5 mg) by mouth every 12 (twelve) hours if needed for anxiety 60 tablet 5Active metoprolol succinate XL (Toprol-XL) 50 MG 24 hr tablet Indications:Primary hypertension,Heart palpitationsTake 1 tablet (50 mg) by mouth Daily 90 tablet 5Active metoprolol succinate XL (Toprol-XL) 25 MG 24 hr tablet Indications:Primary hypertension,Heart palpitationsTake 1 tablet (25 mg) by mouth Daily 90 tablet 5Active Active Problems ProblemNoted DateDiagnosed DateIron mzwaaxjmjj72/16/2025Other tufcahe6612/11/2024 Vitamin D /05/2025Morbid (severe) obesity due to excess calories 10/27/2024 Assessment & Plan (12/11/2024 7:17 AM EDT): Discussed with patient their BMI (actual, verses recommended). We have also discussed lifestyle modifications: attempts to perform physical activity as chronic conditions allow, also to monitor dietary intake: increasing protein/fruits/veggies and lowering carb intake (unless contraindicated). Limit sodas, juices, and sugary drinks. Assessment & Plan (10/27/2024 6:11 PM EDT): Discussed with patient their BMI (actual, verses recommended). We have also discussed lifestyle modifications: attempts to perform physical activity as chronic conditions allow, also to monitor dietary intake: increasing protein/fruits/veggies and lowering carb intake (unless contraindicated). Limit sodas, juices, and sugary drinks. Essential (primary) jczrlvvolrxd11/21/2025 Assessment & Plan (12/11/2024 7:16 AM EDT): Please check blood pressure daily and record DASH diet Limit caffeine Take medication as directed Contact office if chest pain, pressure, dizziness, shortness of breath, swelling legs Recommend slow position changes Current meds: b amara Assessment & Plan (10/27/2024 6:10 PM EDT): Please check blood pressure daily and record DASH diet Limit caffeine Take medication as directed Contact office if chest pain, pressure, dizziness, shortness of breath, swelling legs Recommend slow position changes Current meds: b amara Get refilled Fu in 4 weeks Nicotine qprovmqgqq88/21/2025 Assessment & Plan (10/27/2024 7:29 AM EDT): The patient has been advised of the risks of continued smoking: stroke, IA, all forms of cancer, lung disease, and . Options for quitting smoking include: cold turkey, hypnosis, acupuncture, nicotine replacement meds(gum, lozenges, and patches), Buproprion, and Varenicline. At this time pt is encouraged to evaluate their goals for wanting to quit smoking, and reach out toprovider when ready to start this process Rectal fewjqkgn96/21/2025 Assessment & Plan (10/27/2024 6:13 PM EDT): Pics of clots, also at same time can have vag bleeding No insurance, will not do any CT test until after 11/06/24 when insurance kicks in Differentials: malignancy, IBS -C, colorectal/vaginal fistula, rectocele Change in bowel habit10/27/2024 Assessment & Plan (12/11/2024 4:26 PM EDT): Refer to GI Obstructive sleep apnea, adult08/21/2023 Overview (08/21/2023): BiPAP titration 11/7cm H20, small dreamwear nasal mask, ramp time 20mins with heated humidificationfor nasal dryness Assessment & Plan (10/27/2024 7:27 AM EDT): You have a diagnosis of obstructive sleep [...] tubing/filters etc: Doctor that manages your KIARA: Assessment & Plan (08/21/2023 6:03 PM EST): Continue use of PAP Fddhzeln52/13/2024Heart qsrxyhyqamln08/13/2024 Assessment & Plan (10/27/2024 6:10 PM EDT): Controlled with meds Pancreatitis ([facility])08/21/2023Irritable bowel syndrome with constipation 08/21/2023 Assessment & Plan (12/11/2024 4:27 PM EDT): Restart miralax Fliuds, fiber Will trial meds for IBS c according to what insurance allows Abd xray Assessment & Plan (10/27/2024 6:11 PM EDT): Hx of this, constipation ongoing for at least since 06/01 Having to use enemas, suppositories Abscess of breast, right08/21/2023Migraine headache with aura08/21/2023 Generalized anxiety disorder with panic ilazlzg9208/21/2023 Overview (10/27/2024): Med agreement: 10/27/24 Assessment & Plan (10/27/2024 5:26 PM EDT): .OAR[place] reviewed Current meds: benzo and TCA, PHQ 9=14 ARON 7=14 Med agreement: 10/27/24 Assessment & Plan (08/21/2023 6:05 PM EST): Continue with SSRI as well as klonopin prn OAR[place] reviewed, fu in 3 months for this Left anterior shoulder pain08/21/20239338Qefwqqrggmcnvq60/13/2024 Assessment & Plan (10/27/2024 7:32 AM EDT): Not on statin therapy Check labs Encounter for screening mammogram for malignant neoplasm of myorga1808/21/2023 Assessment & Plan (10/27/2024 6:11 PM EDT): Will order after insurance 11/06/24 Assessment & Plan (08/21/2023 6:05 PM EST): No insurance, needs both PAP and mammogram Gave her number of [facility] for her to call to schedule through them Epigastric pain08/21/2023 Assessment & Plan (08/21/2023 6:06 PM EST): Will start with BID protonix for 7 days then go down to 1 pill daily Fu in 4 weeks Add zofran as well No insurance at this point after speaking with pt regarding testing and labs We will trial oral meds first and then fu Also advised of direct access testing at [facility] as well Muscle spasms of neck08/21/2023 Resolved Problems ProblemNoted DateDiagnosed DateResolved DateBody mass index (BMI) 35.0-35.9, adult504/8466Ztttzedknpvm86 Assessment & Plan (08/21/2023 6:04 PM EST): Stable, no change in dose of meds Morbid obesity with body mass index (BMI) of 40.0 to 49.90/ Nxevjqe06Tobacco user Family History Medical HistoryRelationNameCommentsMental illnessBrotherDiabetesFatherHeart diseaseFatherHyperlipidemiaFatherHypertensionFatherKidney diseaseFatherBipolar disorderMotherInflammatory bowel diseaseMotherMental illnessMotherSeizuresMother RelationNameStatusCommentsBrotherFatherMother Social History Tobacco UseTypesPacks/DayYears UsedDateSmoking Tobacco: Every GorTwyjjxxkmw042 Tobacco Cessation:Ready to Q uit: Not Asked; Counseling Given: Not Answered Alcohol UseStandard Drinks/WeekCommentsNot Currently0 (1 standard drink = 0.6 oz pure alcohol)CommentsUnknownSex and Gender InformationValueDate Recorded Sex Assigned at BirthNot on fileLegal SdvUfolik17/15/2023 7:26 PM EDTGender IdentityNot on fileSexual OrientationNot on file Last Filed Vital Signs Vital SignReadingTime TakenCommentsBlood Cmtfmpej513/9606 3:54 PM EDT Zlnig9678 3:23 PM ZQPJjteagfyhzh86.9 ??C (98.5 ??F)12/11/2024 3:23 PM EDTRespiratory Zquv297312/11/2024 3:23 PM EDTOxygen Bztimpwisr26%12/11/2024 3:23 PM EDTInhaled Oxygen Concentration--Tbepvf95.7 kg (200 lb)12/11/2024 3:23 PM EDT Xnlqym424.6 cm (5' 4 )08/21/2023 2:42 PM ESTBody Mass Index34.33008/21/2023 2:42 PM EST Plan of Treatment Not on file Insurance Care Teams Team MemberRelationshipSpecialtyStart DateEnd Date Deep Ng MD PCP - GeneralFamily Medicine08/15/23
--- OUTSIDE RECORDS SUMMARY | 2025-06-08 08:59 | XMS_ITS | Clinical Summary ---
Author Organization [employer] tem Address [facility] [id number] [address] [place] [address] Care Team Providers Care Electrician Rectifier Maintenance Name Role Phone Jenifer Loyola APRN-SCHOOL GUIDANCE COUNSELOR Primary Care Provider Allergies Active AllergyReactionsCriticalityNoted DateCommentsPrasterone (Dhea)12/04/2017 Morphine (Pf)GI Disturbance,Abdominal Pain,Abnormal GcwfwwcbHcrvnj10/19/2025 Zqzufhlgych21/22/2019 Medications MedicationSigDispense QuantityRefillsLast FilledStart DateEnd DateStatus clonazePAM (KlonoPIN) 0.5 mg tablet Take 1 tablet (0.5 mg total) by mouth daily as needed for anxiety.10/27/2024 Active metoprolol succinate XL (TOPROL XL) 50 mg 24 hr tablet Take 2 tablets (100 mg total) by mouth in the morning.5Active ssomtxknlr-mencgenmnmlcv-frcj (FIORICET, ESGIC) 50-325-40 mg per tablet Indications:Other migraine without status migrainosus, not intractableTake 1 tablet by mouth every 6 (six) hours as needed for headaches. 15 tablet 5Active losartan (COZAAR) 100 mg tablet Take 1 tablet (100 mg total) by mouth in the morning for 30 days. 30 tablet 5Active busPIRone (BUSPAR) 5 mg tablet Take 1 tablet (5 mg total) by mouth 3 (three) times a day for 30 days. 90 tablet 5Active NIFEdipine XL (PROCARDIA XL) 60 mg 24 hr tablet Take 1 tablet (60 mg total) by mouth in the morning for 30 days. 30 tablet 5Active magnesium oxide (MAGOX) 400 mg tablet Take 1 tablet (400 mg total) by mouth nightly for 30 days. 30 tablet 5Active lubiprostone (AMITIZA) 8 MCG capsule Take 1 capsule (8 mcg total) by mouth daily with breakfast. Discontinued(Therapy completed) losartan (COZAAR) 50 mg tablet Take 1 tablet (50 mg total) by mouth in the morning. Discontinued Active Problems ProblemNoted DateDiagnosed DateHypertensive wyeydfyldjcisg43/19/2025Hypertensive eycdvtn6105/26/2025Pelvic pain in suzvsx8804/24/2025Subserous leiomyoma of uterus 04/24/2025bnormal uterine bleeding (AUB)04/24/2025Essential (primary) nqtohakyhtvx14/21/2025Rectal nfauwjji83/21/2025Nicotine rgnmebfrzi15/21/2025 Change in bowel habit10/27/20245479Rjipnrtxcgpp12/13/2024Obstructive sleep apnea, adult08/21/2023 Overview (11/28/2024): BiPAP titration 11/7cm H20, small dreamwear nasal mask, ramp time 20mins with heated humidificationfor nasal dryness Migraine headache with aura08/21/2023Left anterior shoulder pain08/21/2023 Irritable bowel syndrome with xjsefccjwude93/13/7239Qtuypuas72/13/2024 Generalized anxiety disorder with panic znxlgeg8308/21/2023 Overview (11/28/2024): Med agreement: 10/27/24 Epigastric pain08/21/2023Obesity, Class II, BMI 35-39.9008/29/2019Heart uhtogunbwdig72/02/2016AnxietyHyperlipidemiaChest painDyspnea on exertion Encounters DateTypeDepartmentCare OlwyLgoohwikyuu87/18/2025 5:58 PM EST - 05/28/2025 11:11 AM ESTHospital Encounter [facility] - ICU [address] [place] [phone] Kyree Lazo MD Hypertensive encephalopathy (Primary Dx); Hypertensive urgency Discharge Disposition: Home05/26/2025 12:06 PM EST - 05/26/2025 5:14 PM EST Emergency [facility] - Emergency [address] [place] [phone] Darian Hawkins MD Hypertensive emergency (Primary Dx) Discharge Disposition: [facility]05/26/20259764Lvagqr27/17/2025Telephone [facility] Neurology, A Department of [facility] [address] [facility] [address] [place] [phone] Iman Elizabeth Ebftacfrbia34/13/2025 1:59 PM EST - 05/21/2025 6:00 PM ESTEmergency [facility] - Emergency [address] [place] [phone] Komal Yin, Other migraine without status migrainosus, not intractable (Primary Dx); Hypertension, unspecified type Discharge Disposition: Home05/21/20255358Xjpsiz63/27/2025Results Follow-Up [facility] [address] [place] [address] [address] [place] [phone] Idalia Neumann MD Surgical Fzbhljqrd75/22/2025Telephone [facility] [address] [place] [phone] Mar Jones, RMA Xhwvmwvhr23/20/4837Fthsmd63/17/2025 9:00 AM EDTProcedure visit [facility] [address] [place] [address] [address] [place] [phone] Idalia Neumann MD Abnormal uterine bleeding (AUB) (Primary Dx); Obesity, Class II, BMI 35-39.9; Anxiety; Essential (primary) hypertension; Pelvic pain in female; Subserous leiomyoma of oomcoz6904/22/20259504Bzqyvj35/14/2025 12:10 PM EDT - 04/21/2025 11:59 PM EDTHospital Encounter [facility] - Cardiovascular [address] [place] [phone] HTN (hypertension); Preoperative clearance Discharge Disposition: Home04/21/20257031Pjsalz35/29/2025Results Follow-Up [facility] Physicians Obstetrics/Gynecology [address] [place] [phone] Jenifer Wu, [facility] Ultrasound pelvic with hfcxaqgewzbe67/24/2025 1:33 PM EDT - 04/01/2025 11:59 PM EDTHospital Encounter [facility] - Ultrasound [address] [place] [phone] Dysmenorrhea; Menorrhagia with irregular cycle; Abnormal uterine bleeding (AUB) Discharge Disposition: Home04/01/2025Results Follow-Up [facility] [address] [place] [address] [address] [place] [phone] Idalia Neumann MD Thyroid profile includes TSH FTTelephone [facility] [address] [place] [address] [address] [place] [phone] Shola Anthony Aviva 03/31/20256717Ljlcko86/17/2025 1:30 PM EDTOffice Visit [facility] [address] [place] [address] [address] [place] [phone] Idalia Neumann MD Abnormal uterine bleeding (AUB) (Primary Dx); Uterine leiomyoma, unspecified location; Pelvic pain; Essential (primary) hypertension; Obesity, Class II, BMI 35-39.9; Cigarette nicotine dependence without oqiahttltwqt23/16/8631Hepaob54/15/2025 Travelfrom Last 3 Months Family History Medical HistoryRelationNameCommentsEarly deathBrotherJoshuaDiabetesFatherJ. DaughertyHeart diseaseFatherJ. DaughertyColon cancerMaternal GrandmotherEarly deathMotherBARBARABreast cancerNeg HxOvarian cancerNeg HxUterine cancerNeg Hx RelationNameStatusCommentsBrotherJoshuaAliveFatherJ. DaughertyAliveMaternal GrandmotherMotherBARBARAAlive Social History Tobacco UseTypesPacks/DayYears UsedDateSmoking Tobacco: Every DayCigarettes Smokeless Tobacco: Never Tobacco Cessation:Ready to Q uit: Not Asked; Counseling Given: Not Answered Alcohol UseStandard Drinks/WeekCommentsNo0 (1 standard drink = 0.6 oz pure alcohol)PHQ-2AnswerDate RecordedTotal Qquwb7272/23/2025UDIT-CAnswerDate RecordedQ1: How often do you have a drink containing alcohol?Never04/24/2025Q2: How many drinks containing alcohol do you have on a typical day when you are drinking?Patient does not drink04/24/2025Q3: How often do you have six or more drinks on one occasion?Never04/24/2025Overall Financial Resource Strain (CARDIA) AnswerDate RecordedHow hard is it for you to pay for the very basics like food, housing, medical care, and heating?Not hard at all05/26/2025PRAPARE - TransportationAnswerDate RecordedIn the past 12 months, has lack of transportation kept you from medical appointments or from getting medications?No 05/26/2025In the past 12 months, has lack of transportation kept you from meetings, work, or from getting things needed for daily living?No05/26/2025HC UtilitiesAnswerDate RecordedIn the past 12 months has the [employer] Monitoring, gas, oil, or water [employer] threatened to shut off services in your home?No05/26/2025Housing InstabilityAnswerDate RecordedAre you worried or concerned that in the next two months you may not have stable housing that you own, rent or stay in as a part of a household?No05/26/2025hildcareAnswerDate RecordedChildcareUnknown 12/18/2018EmploymentAnswerDate LpadtoxfLievxgoyxqMtzdoaa64/12/2019Hunger ScreeningAnswerDate RecordedWithin the past 12 months we worried whether our food would run out before we got money to buy more.Never True05/27/2025Within the past 12 months the food we bought just didn't last and we didn't have money to get more.Never True05/27/2025Purpose - LifeAnswerDate RecordedPurpose and direction in hhiiHlntenw50/11/2021CommentsNoSex and Gender Information ValueDate RecordedSex Assigned at PdwqcPdltia54/19/2020 1:16 PM ESTLegal Sex Rxkbhu8102/11/2015 11:28 AM EDTGender IdentityNot on fileSexual OrientationNot on file Last Filed Vital Signs Vital SignReadingTime TakenCommentsBlood Wlttvwpc578/9205/28/2025 8:52 AM EST Asrdb693905/28/2025 8:52 AM NSBZebtcjvsihl24.1 ??C (97 ??F)05/28/2025 4:00 AM EST Respiratory Zoag078407/28/2024 8:52 AM ESTOxygen Ycalxmdlyr77%05/28/2025 4:00 AM ESTInhaled Oxygen Concentration--Pxhvgw04.7 kg (215 lb 6.4 oz)05/27/2025 2:56 AM CLFMbegav681 cm (5' 3 )05/26/2025 6:06 PM ESTBody Mass Index38.16107/26/2024 6:06 PM EST Plan of Treatment DateTypeDepartmentCare Team (Latest Contact Info)Xoxiertxkfh75/03/2025 10:00 AM ESTProcedure visit [facility] -[facility] Testing [address] [place] [phone] 06/23/2025 8:30 AM ESTHospital Encounter [facility] -Surgery [address] [place] [address] Idalia Neumann MD [address], [address] [place], [place] [phone] 06/23/2025 8:30 AM EST - 06/23/2025 11:30 AM ESTSurgery [facility] -Surgery [facility] [place] [phone] Idalia Neumann MD [address], [address] [place] [address] DAVINCI HYSTERECTOMY TGFAFAVAAXJHD31/22/2025 11:00 AM ESTOffice Visit [facility] [place] [phone] Idalia Neumann MD [address], [address] [place] [address] 08/10/2025 11:00 AM ESTOffice Visit [facility] [place] [phone] Idalia Neumann MD [address] [place] [address] 09/22/2025 9:00 AM EDTOffice Visit [facility] [address] [phone] Agnieszka Whipple MD [address] [place] [address] [address] [place] [address] NamePriorityAssociated DiagnosesDate/TimeDAVINCI HYSTERECTOMY SALPINGECTOMY Pelvic pain in female Subserous leiomyoma of uterus Abnormal uterine bleeding (AUB) 06/23/2025 8:30 AM ESTDAVINCI CYSTECTOMY OVARIAN Pelvic pain in female Subserous leiomyoma of uterus Abnormal uterine bleeding (AUB) 06/23/2025 8:30 AM ESTEXCISION LIPOMA MIDSECTION Pelvic pain in female Subserous leiomyoma of uterus Abnormal uterine bleeding (AUB) 06/23/2025 8:30 AM ESTHealth MaintenanceDue DateLast DoneCommentsTobacco Zxfpphojzm71/18/8589Pujomsfmi55/18/2018DTaP,Tdap and Td Vaccines (2 - Td or Tdap)09/02/945245/02/2008COVID-19 Vaccine ( season)2025 02/02/2021, 11/11/2020Influenza Ftktggc48Adult BMI Follow Up Plan/Depression Yignljoin56/Tobacco Pokyndcnw01dult BMI Byhyifxxo45Pap Smear /, 11/28/2024 Goals GoalPatient Goal TypeAssociated ProblemsRecent ProgressPatient-Stated?Author Home with self care Katie Cruz LSW Note: Evaluation of progress towards goal: Patient will return home with self care Medical Devices Not on file Procedures Procedure NamePriorityDate/TimeAssociated DiagnosisCommentsCOMPREHENSIVE METABOLIC QSCHIGsancsu77/20/2025 5:28 AM EST CBC WITH AUTO LRVHIXNJQVPKBwqvvsr95/20/2025 5:28 AM EST ECHO COMPLETE WO NAZGCKXUIkcnjdy14/19/2025 10:57 AM EST RESPIRATORY CARE PNTPZEPAORzlsbpe64/19/2025 9:27 AM ESTHEMOGLOBIN S8SSmdlkpc 05/27/2025 5:57 AM EST LIPID IHKJFBOJdkkxjx97/19/2025 5:57 AM EST THYROID PROFILE INCLUDES TSH HN4Ygqcgli52/19/2025 5:57 AM EST T3, IILASucpnji25/19/2025 5:57 AM EST EZVCTUSTNUioubon98/19/2025 5:57 AM EST COMPREHENSIVE METABOLIC MMZSUXtpjral89/19/2025 5:57 AM EST CBC WITH AUTO GITGYDFSKINYAkbxlzc74/19/2025 5:57 AM EST HEPATITIS PANEL, FLXQVZhslhjm24/19/2025 5:52 AM EST POCT NURSING URINE MACROSCOPIC PSCvfuuqw72/18/2025 1:56 PM EST TROP I, HIGH SENSITIVITY 1 HSTDQWSH25/18/2025 1:56 PM EST ER EXTRA URINE COVNORFHXA89/18/2025 1:48 PM EST ER EXTRA URINE ZBWQKKRIOWL19/18/2025 1:48 PM EST ER EXTRA AFDAQWZWJ58/18/2025 1:48 PM EST EXTRA TUBES BLUE APVNfzeetb74/18/2025 12:35 PM EST EXTRA PSLKMLjfqdpq34/18/2025 12:35 PM EST TROPONIN I, HIGH SENSITIVITY 0 MQRALNUG08/18/2025 12:35 PM EST TROPONIN I, HIGH SENSITIVITY 0 SRLEMHIB13/18/2025 12:35 PM EST BASIC METABOLIC NZJZLQQPE86/18/2025 12:35 PM EST CBC WITH AUTO JQACFETHIKOXYPRY88/18/2025 12:35 PM EST PM ED CRITICAL FVLTVunzvqa87/18/2025 12:09 PM EST ECG 12-IBQNTRJS41/18/2025 11:49 AM EST TROP I, HIGH SENSITIVITY 1 NTMSKYXN98/13/2025 4:06 PM EST EXTRA TUBES BLUE VVHEiayyrj75/13/2025 3:04 PM EST EXTRA OFSLOTxovxkb28/13/2025 3:04 PM EST TROPONIN I, HIGH SENSITIVITY 0 FQJCGJEN91/13/2025 2:50 PM EST NJNEYJLMXNWNK86/13/2025 2:50 PM EST TROPONIN I, HIGH SENSITIVITY 0 DYLXEOLO38/13/2025 2:50 PM EST COMPREHENSIVE METABOLIC JPBJUNOUE21/13/2025 2:50 PM EST CBC WITH AUTO DWXNSRKJCXMAMAXD48/13/2025 2:50 PM EST ECG 12-RUDGXSNB64/13/2025 2:49 PM EST XR CHEST 1 WLVPCZ2005/21/2025 2:[address] CTA DRUZCLTJUGU37/13/2025 2:[address] CTA GFVUNILY09/13/2025 2:[address] BRAIN WO CONT STROKE OJEOPRHOS90/13/2025 2:30 PM EST PM ED CRITICAL GBLXXkjedmj33/13/2025 2:19 PM EST ED PHYSICIAN NIHSS AND THROMBOLYTIC WFAPCNTGUkoywkq21/13/2025 2:19 PM EST BEDSIDE CILBTUSNthsyiu34/13/2025 2:12 PM EST CBC WITH AUTO LXTTXZOWHQAXVjxvwzv85/20/2025 3:36 PM EDT Other specified abnormal findings of blood chemistry SURGICAL JUOKTJJGSVsmndtj28/17/2025 10:46 AM EDT Abnormal uterine bleeding (AUB) ECG 12-OMZPYqkzmhf00/14/2025 12:33 PM EDT HTN (hypertension) Preoperative clearance CBC WITH AUTO DWJTIVYHJFUVThviisr39/14/2025 12:26 PM EDT Essential (primary) hypertension Encounter for other preprocedural examination Iron deficiency BASIC METABOLIC NCRYBCgzcacx44/14/2025 12:26 PM EDT Essential (primary) hypertension Encounter for other preprocedural examination Iron deficiency US PELVIC WITH MTKIGLBNYLZPYgiayny44/24/2025 2:13 PM EDT Dysmenorrhea Menorrhagia with irregular cycle Abnormal uterine bleeding (AUB) THYROID PROFILE INCLUDES TSH ZX1Lgicdkf78/24/2025 1:33 PM EDT Abnormal uterine bleeding (AUB) Uterine leiomyoma, unspecified location Pelvic pain HIGH RISK HPV W/OYQVCdcvfsc56/23/2025 1:36 PM EDT Well woman exam with routine gynecological exam Pap smear for cervical cancer screening from Last 3 Months or Most Recently Relevant to Health Maintenance Results * (ABNORMAL) CBC auto differential (05/28/2025 5:28 AM EST) Only the most recent of6 resultswithin the time period is included. ComponentValueRef RangeTest MethodAnalysis TimePerformed AtPathologist Signature WBC13.7(H)4 - 11 10^9/L107/28/2024 5:59 AM [facility] Count4.663.8 - 5.2 10^12/L107/28/2024 5:59 AM [facility] Jeapbbefgr87.411.7 - 15.5 g/dL05/28/2025 5:59 AM [facility] Tdlbglkfzv82.735 - 47 %05/28/2025 5:59 AM [facility]ENTERMCV9080 - 100 fL05/28/2025 5:59 AM [facility]ENTERMCH31.027 - 34 pg 05/28/2025 5:59 AM [facility]ENTERMCHC34.632 - 36 g/dL05/28/2025 5:59 AM [facility]ERRDW13.011.5 - 15 %05/28/2025 5:59 AM EST [facility] HOSPITALPlatelet Xltjr590603 - 450 10^9L107/28/2024 5:59 AM [facility] HOSPITALMPV8.17 - 12 fL05/28/2025 5:59 AM [facility] HOSPITALNeutrophils %73.7%05/28/2025 5:59 AM [facility] HOSPITALLymphocytes %17.8%05/28/2025 5:59 AM [facility]PITAL Monocytes %7.4%05/28/2025 5:59 AM [facility] HOSPITALEosinophils %0.1 %05/28/2025 5:59 AM [facility] HOSPITALBasophils %1.0%05/28/2025 5:59 AM [facility] HOSPITALNeutrophils Absolute (A)10.1(H)1.5 - 6.6 10^9/L 05/28/2025 5:59 AM [facility] HOSPITALLymphocytes Absolute2.41.0 - 3.5 10^05/28/2025 5:59 AM [facility] HOSPITALMonocytes Absolute1.0 (H)0.0 - 0.9 10^/L107/28/2024 5:59 AM [facility] HOSPITALEosinophils Absolute0.00.0 - 0.4 10^905/28/2025 5:59 AM [facility] Basophils Absolute0.10.0 - 0.2 10^05/28/2025 5:59 AM [facility] HOSPITALDifferential TypeAUTOMATED SPEGFTEUBSYC48/20/2025 5:59 AM [facility] HOSPITALSpecimen (Source)Anatomical Location / LateralityCollection Method / VolumeCollection TimeReceived TimeBloodVenous blood / Unknown Venipuncture / Qcaqzlf7105/28/2025 5:28 AM EST05/28/2025 5:51 AM EST Narrative Authorizing ProviderResult TypeResult StatusKaleem U Lazo MDLAB BLOOD ORDERABLES Final ResultPerforming OrganizationAddressCity/State/ZIP CodePhone Number FOS[address] [address], * (ABNORMAL) Comprehensive metabolic panel (05/28/2025 5:28 AM EST) Only the most recent of3 resultswithin the time period is included. ComponentValueRef RangeTest MethodAnalysis TimePerformed AtPathologist Signature YLQLYM631743 - 146 mmol/L107/28/2024 6:20 AM [facility] POTASSIUM3.93.5 - 5.0 mmol/L107/28/2024 6:20 AM [facility] KJFHPQRS75655 - 109 mmol/L107/28/2024 6:20 AM [facility] CARBON AICUCAH72(L)22 - 32 mmol/L107/28/2024 6:20 AM [facility] CENTERANION GAP95 - 15 mmol/L107/28/2024 6:20 AM [facility] BLOOD UREA EODKBAHV097 - 23 mg/dL05/28/2025 6:20 AM [facility] CENTERCREATININE0.470.40 - 1.00 mg/dL05/28/2025 6:20 AM [facility] CENTERComment:METHOD TRACEABLE TO IDMS UXZKKHWOJFFEHBK617(H)65 - 99 mg/dL 05/28/2025 6:20 AM [facility]ENTERCALCIUM9.08.5 - 10.5 mg/dL 05/28/2025 6:20 AM [facility] CENTERTOTAL PROTEIN7.46.0 - 8.0 g/dL 05/28/2025 6:20 AM [facility] CENTERALBUMIN3.73.2 - 5.3 g/dL 05/28/2025 6:20 AM [facility] CENTERALKALINE FYWQLVXRGBV7722 - 130 U/L107/28/2024 6:20 AM [facility]ENTERAST24<=41 U/L107/28/2024 6:20 AM [facility]ENTERALT42(H)<=31 U/L107/28/2024 6:20 AM [facility] CENTERBILIRUBIN,TOTAL0.70.3 - 1.2 mg/dL05/28/2025 6:20 AM [facility]GFR Non-Race Dependent>90>=60 ml/min/1.73sq.m 05/28/2025 6:20 AM [facility] CENTERComment: eGFR not reported due to non-numeric value for Creatinine. Reported eGFR is based on the CKD-EPI 2020 equation that does not use a race coefficient. Specimen (Source)Anatomical Location / LateralityCollection Method / Volume Collection TimeReceived TimeBloodVenous blood / UnknownVenipuncture / Unknown 05/28/2025 5:28 AM EST05/28/2025 5:51 AM EST Narrative Authorizing ProviderResult TypeResult StatusKaedouard Lazo MDLAB BLOOD ORDERABLES Final ResultPerforming OrganizationAddressCity/State/ZIP CodePhone Number [address] [phone], * Echo complete W/O contrast (05/27/2025 10:57 AM EST)ComponentValueRef Range Test MethodAnalysis TimePerformed AtPathologist SignatureLVOT stroke volume 53.57mlXCELERALV Systolic Zmfydv23.26uPNOCZPEXMH86%QNTLAYYRW5870 - 44 %XCELERA LV Diastolic Rgzqpw03.96sFEKEOYXYRVQXn0.504.95 - 6.87 cmXCELERALVIDs3.002.91 - 4.40 cmXCELERAIVS1.100.6 - 1.1 cmXCELERAPW1.000.6 - 1.1 cmXCELERALVOT diameter 1.22rjKOTBFTFNMA9.36cm/sXCELERAMV TDI E' (medial)9.57cm/sXCELERALA Volume Index26.8mL/g1ISWBFLOY/A ratio1.15XCELERAE wave deceleration evvw626.00msec XCELERAMV Peak E Vel93.40cm/sXCELERAMV Peak A Vel81.40cm/sXCELERALA size4.20cm XCELERAAortic root3.50cmXCELERALA pnyqov25.01ou6CHLLCRDNX diastolic dimension (basal)38.7ewALUGVLQCVYCG6.00cmXCELERAAV peak byg005.00cm/sXCELERALVOT peak vel1.09m/sXCELERAAV VTI31.90cmXCELERALVOT peak VTI23.60cmXCELERAAV mean gradient5.00mmHgXCELERAAV peak gradient8.07mmHgXCELERAAV valve area1.68XCELERA Valve area - Index0.8XCELERAMV pressure 1/2 time67.00msXCELERAMV valve area p 1/2 method3.03nl5BOCPWLIKZ ESV A2C49.80mLXCELERALV ESV A4C57.10mLXCELERALV RWT 2D44.44XCELERAEcho EF Hnabfjpux82%XCELERAAV Velocity Ratio0.74XCELERALeft Ventricle Lwkp894.674401807621773sRCIBSDWWnhrtqfsalatcage Septum Diastolic Thickness by 2O49ltXWKEAJBXAAO17.4cm/sXCELERARA 2D Xwquoz07.0mL/r8YTPKDWVHA area17.0sl3FBWPFGXMNTNHA-8.39XCELERAZLVIDD-2.59XCELERAEnergy loss index19.23 XCELERAAnatomical RegionLateralityModalityChestN/AUltrasoundSpecimen (Source) Anatomical Location [...] wall motion is normal. Authorizing ProviderResult TypeResult Berta Lazo [facility] ECHO ORDERABLES Final Result * Thyroid profile includes TSH FT4 (05/27/2025 5:57 AM EST) Only the most recent of2 resultswithin the time period is included. ComponentValueRef RangeTest MethodAnalysis TimePerformed AtPathologist Signature FREE T40.770.61 - 1.60 ng/dL05/27/2025 6:47 AM [facility]ENTERT[facility] 2.660.49 - 4.67 uIU/mL05/27/2025 6:47 AM [facility] (Source)Anatomical Location / LateralityCollection Method / VolumeCollection TimeReceived TimeBloodVenous blood / UnknownVenipuncture / Stapgfa2805/27/2025 5:57 AM EST05/27/2025 6:09 AM EST Narrative Authorizing ProviderResult TypeResult Berta Lazo MDLAB BLOOD ORDERABLES Final ResultPerforming OrganizationAddressCity/State/ZIP CodePhone Number [address] [address], * T3, free (05/27/2025 5:57 AM EST)ComponentValueRef RangeTest MethodAnalysis TimePerformed AtPathologist SignatureFREE T32.662.50 - 3.90 pg/mL05/27/2025 10:06 AM [facility] LABORATORYSpecimen (Source)Anatomical Location / LateralityCollection Method / VolumeCollection TimeReceived Time BloodVenous blood / UnknownVenipuncture / Zezywes0505/27/2025 5:57 AM EST 05/27/2025 6:09 AM EST Narrative Authorizing ProviderResult TypeResult StatusKyree TAYLOR BLOOD ORDERABLES Final ResultPerforming OrganizationAddressCity/State/ZIP CodePhone Number [facility] [address] [place] [address], * Magnesium (05/27/2025 5:57 AM EST) Only the most recent of2 resultswithin the time period is included. ComponentValueRef RangeTest MethodAnalysis TimePerformed AtPathologist Signature MAGNESIUM2.11.8 - 2.6 mg/dL05/27/2025 6:40 AM [facility] Specimen (Source)Anatomical Location / LateralityCollection Method / Volume Collection TimeReceived TimeBloodVenous blood / UnknownVenipuncture / Unknown 05/27/2025 5:57 AM EST05/27/2025 6:09 AM EST Narrative Authorizing ProviderResult TypeResult StatusKyree TAYLOR BLOOD ORDERABLES Final ResultPerforming OrganizationAddressCity/State/ZIP CodePhone Number [address] [phone], * Hemoglobin A1c (05/27/2025 5:57 AM EST)ComponentValueRef RangeTest Method Analysis TimePerformed AtPathologist SignatureHEMOGLOBIN A1C5.04.4 - 5.6 % 05/27/2025 9:57 AM [facility]ORATORYComment: ?ADA Guidelines ?Result ?HgbA1c ? Normal : ? less than 5.7 % ? Prediabetes : ?5.7 % ??to 6.4 % Diabetes : > 6.4 % ?Use with caution in patients with abnormal hemoglobin variants as ??the half-life of red blood cells and in vivo glycation rates are ??affected. EST. AVERAGE MDFFZIK84eb/dL05/27/2025 9:57 AM [facility] LABORATORYSpecimen (Source)Anatomical Location / LateralityCollection Method / VolumeCollection TimeReceived TimeBloodVenous blood / UnknownVenipuncture / [id number]/27/2025 5:57 AM EST05/27/2025 6:09 AM EST Narrative Authorizing ProviderResult TypeResult StatusKyree Lazo MDLAB BLOOD ORDERABLES Final ResultPerforming OrganizationAddressCity/State/ZIP CodePhone Number [facility] [address] [place] [address], * (ABNORMAL) Lipid profile (05/27/2025 5:57 AM EST)ComponentValueRef RangeTest MethodAnalysis TimePerformed AtPathologist MivornbmgRFQCYZENWDW555(H)150 - 200 mg/dL05/27/2025 9:56 AM [facility] [id number] 27 - 150 mg/dL05/27/2025 9:56 AM [facility] LABORATORYHDL HWZEDIMXAXV74>39 mg/dL05/27/2025 9:56 AM [facility] LABORATORYComment: HDL <40 mg/dL - High Risk HDL > or = 40mg/dL- Desirable HDL >60 mg/dL - Negative Risk LDL (CALC)166(H)<130 mg/dL05/27/2025 9:56 AM [facility] LABORATORYComment: LDL <100 mg/dL - Desirable LDL >160 mg/dL - High Risk CHOLESTEROL:HDL4.71.0 - 5.011 9:56 AM [facility] LABORATORYVERY LOW UUBOOVADXFS640 - 30 mg/dL05/27/2025 9:56 AM [facility] LABORATORYSpecimen (Source)Anatomical Location / Laterality Collection Method / VolumeCollection TimeReceived TimeBloodVenous blood / UnknownVenipuncture / Dttppiz5805/27/2025 5:57 AM EST05/27/2025 6:09 AM EST Narrative Authorizing ProviderResult TypeResult StatusKaleem Nghia Lazo MDLAB BLOOD ORDERABLES Final ResultPerforming OrganizationAddressCity/State/ZIP CodePhone Number [facility] [address] [place] [address], * Hepatitis panel, acute (05/27/2025 5:52 AM EST)ComponentValueRef RangeTest MethodAnalysis TimePerformed AtPathologist SignatureHEPATITIS B SURF AG Zps-ZsgobgtsCbu-Qdxemunt21/19/2025 6:55 PM [facility] LABORATORYHEPATITIS A VYOWot-ObdxvfcwUup-Saukgmeb89/19/2025 6:55 PM [facility]ORATORYHEPATITIS B CORE GLQZsn-SlgczjzzRgj-Ytmtyrek 05/27/2025 6:55 PM [facility] LABORATORYANTI HCV W/PCR REFLX Gau-WzfjbsszUgi-Ukfhulkb32/19/2025 6:55 PM [facility]ORATORYComment: If recent infection suspected, recommend repeat testing (>2 months). Fghqcf-fd-tccysb ratio is <1.0. Specimen (Source)Anatomical Location / LateralityCollection Method / Volume Collection TimeReceived TimeBloodVenous blood / UnknownVenipuncture / Unknown 05/27/2025 5:52 AM EST05/27/2025 11:47 AM EST Narrative Authorizing ProviderResult TypeResult StatusRaparish Corin OFFICE MACHINE MECHANIC-CNPLAB BLOOD ORDERABLESFinal ResultPerforming OrganizationAddressCity/State/ZIP CodePhone Number [facility] [address] [place] [address], * Troponin I, High Sensitivity 1 Hour (05/26/2025 1:56 PM EST) Only the most recent of2 resultswithin the time period is included. ComponentValueRef RangeTest MethodAnalysis TimePerformed AtPathologist Signature TROPONIN I, HIGH SENSITIVITY<2<16 ng/L107/26/2024 2:40 PM ESTPROMEDIST. MARY REGIONAL MEDICAL CENTERpecimen (Source)Anatomical Location / LateralityCollection Method / VolumeCollection TimeReceived TimeBloodVenous blood / Unknown Venipuncture / Jllcotr9505/26/2025 1:56 PM EST05/26/2025 2:07 PM EST Narrative Authorizing ProviderResult TypeResult StatusDarian Hawkins MDLAB BLOOD ORDERABLESFinal ResultPerforming OrganizationAddressCity/State/ZIP CodePhone Number [facility] [address] [place] [address], [place] * (ABNORMAL) POCT Nursing Urine Macroscopic UA (05/26/2025 1:56 PM EST)Component ValueRef RangeTest MethodAnalysis TimePerformed AtPathologist [facility] Urine Specific Gravity1.0151.010, 1.015, 1.020, 1.9105805/26/2025 1:59 PM EST [facility] Urine Leukocyte EsteraseNegative Bqcehqpy00/18/2025 1:59 PM [facility]PROM[facility] Urine AzibuwmJxlnspcgXxjojgzq78/18/2025 1:59 PM [facility]PROM[facility] Urine pH7.55.0, 6.0, 6.5, 7.0, 7.5, 8.0, 8.5, 5. 1:59 PM ESTPROMEDILOS [facility] Urine ProteinNegativeNegative 05/26/2025 1:59 PM ESTPROMEDILOS AN[facility] Urine Glucose LifqinsgEtqscaep72/18/2025 1:59 PM ESTPROMAR[facility] Urine OhbfsnyHigjthwqSzzpulvt89/18/2025 1:59 PM ESTPROM[facility] Urine Urobilinogen0.2 E.U./dL05/26/2025 1:59 PM ESTPROMAR[facility] Urine VgbmakhqzOkfcmrcsSpmahykn71/18/2025 1:59 PM ESTPROMAR[facility] Urine Blood/HGBLarge(A)Negative 05/26/2025 1:59 PM ESTPROSPECIALTY HOSPITAL OF SOUTHER[facility] CALIFORNIApecimen (Source) Anatomical Location / LateralityCollection Method / VolumeCollection Time Received LpayAytwh88/18/2025 1:56 PM EST05/26/2025 1:59 PM EST Narrative Authorizing ProviderResult TypeResult StatusDarian Hawkins MDPOINT OF CARE TEST ORDERABLESFinal ResultPerforming OrganizationAddWarren General Hospitalty/State/ZIP CodePhone Number [address] [place] [address], [place] * Extra Urine [place] (05/26/2025 1:48 PM EST)ComponentValueRef RangeTest Method Analysis TimePerformed AtPathologist SignatureExtra TubeAuto Resulted 05/26/2025 3:01 PM ESTW[facility] (Source) Anatomical Location / LateralityCollection Method / VolumeCollection Time Received TimeUrineUrine specimen collection, clean catch / Rpluqca5505/26/2025 1:48 PM EST05/26/2025 2:10 PM EST Narrative Authorizing ProviderResult TypeResult StatusDarian Hawkins MDURINE ORDERABLES Final ResultPerforming OrganizationAddressty/State/ZIP CodePhone Number [address] [place] [address], [place] * Extra Urine Culture (05/26/2025 1:48 PM EST)ComponentValueRef RangeTest Method Analysis TimePerformed AtPathologist SignatureExtra TubeAuto Resulted 05/26/2025 3:01 PM ESTW[facility] (Source) Anatomical Location / LateralityCollection Method / VolumeCollection Time Received TimeUrineUrine specimen collection, clean catch / Dbqxmfj6305/26/2025 1:48 PM EST05/26/2025 2:10 PM EST Narrative Authorizing ProviderResult TypeResult StatusDarian Hawkins MDURINE ORDERABLES Final ResultPerforming OrganizationAddWarren General Hospitalty/State/ZIP CodePhone Number [address] [place] [address], [place] * Extra Urine (05/26/2025 1:48 PM EST)ComponentValueRef RangeTest MethodAnalysis TimePerformed AtPathologist SignatureExtra TubeAuto Zlrocdos21/18/2025 3:01 PM ESTW[facility] (Source)Anatomical Location / LateralityCollection Method / VolumeCollection TimeReceived TimeUrineUrine specimen collection, clean catch / Nradmvp1205/26/2025 1:48 PM EST05/26/2025 2:10 PM EST Narrative Authorizing ProviderResult TypeResult StatusRogertricmatty Hawkins MDURINE ORDERABLES Final ResultPerforming OrganizationAddressty/State/ZIP CodePhone Number [address] [address], [place] * Troponin I, High Sensitivity 0 Hour (05/26/2025 12:35 PM EST) Only the most recent of2 resultswithin the time period is included. ComponentValueRef RangeTest MethodAnalysis TimePerformed AtPathologist Signature TROPONIN I, HIGH SENSITIVITY<2<16 ng/L107/26/2024 1:18 PM ESTPROSPECIALTY HOSPITAL OF SOUTHERN CALIFORNIApecimen (Source)Anatomical Location / LateralityCollection Method / VolumeCollection TimeReceived TimeBloodVenous blood / Unknown Venipuncture / Dbvsvsp0505/26/2025 12:35 PM EST05/26/2025 12:48 PM EST Narrative Authorizing ProviderResult TypeResult StatusDarian TAYLOR BLOOD ORDERABLESFinal ResultPerforming OrganizationAddressCity/State/ZIP CodePhone Number [address] [address], [place] * Light Blue Top (05/26/2025 12:35 PM EST) Only the most recent of2 resultswithin the time period is included. ComponentValueRef RangeTest MethodAnalysis TimePerformed AtPathologist Signature Extra TubeAuto Ydlxauki50/18/2025 2:03 PM [facility] Specimen (Source)Anatomical Location / LateralityCollection Method / Volume Collection TimeReceived TimeBloodVenous blood / Ntcaunn5305/26/2025 12:35 PM EST 05/26/2025 12:48 PM EST Narrative Authorizing ProviderResult TypeResult StatusRogertricmatty TAYLOR BLOOD ORDERABLESFinal ResultPerforming OrganizationAddressty/State/ZIP CodePhone Number [address] [address], [place] * Basic Metabolic Panel (05/26/2025 12:35 PM EST) Only the most recent of2 resultswithin the time period is included. ComponentValueRef RangeTest MethodAnalysis TimePerformed AtPathologist Signature AMIJQL200276 - 146 mmol/L107/26/2024 1:05 PM [facility]ITALPOTASSIUM4.03.5 - 5.0 mmol/L107/26/2024 1:05 PM [facility]ITALCHLORIDE10298 - 109 mmol/L107/26/2024 1:05 PM [facility]ITALCARBON DYQWTCZ8035 - 32 mmol/L107/26/2024 1:05 PM EST [facility]ITALANION GAP95 - 15 mmol/L107/26/2024 1:05 PM EST [facility]ITALBLOOD UREA HPGRZBPD004 - 23 mg/dL05/26/2025 1:05 PM [facility]ITALCREATININE0.530.40 - 1.00 mg/dL 05/26/2025 1:05 PM [facility]ITALComment:METHOD TRACEABLE TO IDMS RQWWYIQTFWSHPVZ7288 - 99 mg/dL05/26/2025 1:05 PM [facility]ITALCALCIUM8.68.5 - 10.5 mg/dL05/26/2025 1:05 PM EST [facility] HOSPITALEGFR Non-Race Dependent>90>=60 ml/min/1.73sq.m107/26/2024 1:05 PM [facility]ITALComment: eGFR not reported due to non-numeric value for Creatinine. Reported eGFR is based on the CKD-EPI 2020 equation that does not use a race coefficient. Specimen (Source)Anatomical Location / LateralityCollection Method / Volume Collection TimeReceived TimeBloodVenous blood / UnknownVenipuncture / Unknown 05/26/2025 12:35 PM EST05/26/2025 12:48 PM EST Narrative Authorizing ProviderResult TypeResult StatusPatricmatty TAYLOR BLOOD ORDERABLESFinal ResultPerforming OrganizationAddressCity/State/ZIP CodePhone Number [facility] [address] [address], * Critical Care (05/26/2025 12:09 PM EST) [...] with: admitting provider ?? Authorizing ProviderResult TypeResult StatusDarian Hawkins MDPROCEDURE/MINOR SURGICAL ORDERABLESFinal Result * ECG 12 lead (05/26/2025 11:49 AM EST) Only the most recent of3 resultswithin the time period is included. Specimen (Source)Anatomical Location / LateralityCollection Method / Volume Collection TimeReceived Time05/26/2025 11:49 AM EST Narrative [facility] - 05/26/2025 12:28 PM EST Authorizing ProviderResult TypeResult StatusDarian Hawkins MDECG ORDERABLES Final ResultPerforming OrganizationAddressCity/State/ZIP CodePhone Number [facility] * X-ray chest 1 view (05/21/2025 2:47 PM EST)Anatomical RegionLateralityModality Body, ChestN/AComputed RadiographySpecimen (Source)Anatomical Location / LateralityCollection Method / VolumeCollection TimeReceived Time05/21/2025 2:49 PM EST Narrative 05/21/2025 2:50 PM EST XR CHEST 1 VW 05/21/2025 2:35 PM INDICATION: Stroke alert. Headaches. Left facial numbness. COMPARISON: 04/18/2016. TECHNIQUE: PA view of the chest. FINDINGS: Trachea is midline. Cardiomediastinal silhouette is unremarkable. No focal consolidation, pleural effusion, or discrete pneumothorax. IMPRESSION: No acute cardiopulmonary process. Finalized by Luis Eduardo Linda MD on 05/21/2025 2:50 PM Procedure Note Luis Eduardo Linda MD - 05/21/2025 XR CHEST 1 05/21/2025 2:35 PM INDICATION: Stroke alert. Headaches. Left facial numbness. COMPARISON: 04/18/2016. TECHNIQUE: PA view of the chest. FINDINGS: Trachea is midline. Cardiomediastinal silhouette is unremarkable. No focal consolidation, pleural effusion, or discrete pneumothorax. IMPRESSION: No acute cardiopulmonary process. Finalized by Luis Eduardo Linda MD on 05/21/2025 2:50 PM Authorizing ProviderResult TypeResult StatusRachel Rita Lagos OFFICE MACHINE MECHANIC-[facility] DIAGNOSTIC IMAGING ORDERABLESFinal Result * CT angiogram carotid (05/21/2025 2:45 PM EST)Anatomical RegionLaterality ModalityNeuro, Neck, Vascular, Neuro CoveraN/AComputed TomographySpecimen (Source)Anatomical Location / LateralityCollection Method / VolumeCollection TimeReceived Time05/21/2025 2:54 PM EST Narrative 05/21/2025 3:[address] CTA CAROTID HISTORY: Headache, vision changes, tongue numbness COMPARISON: None TECHNIQUE: * ??CTA of the carotid arteries performed after administration of 100 mL Omnipaque 350 intravenous contrast. ??3-D post-processing techniques were utilized. ?? * ??All CT scans at this facility use dose modulation, iterative reconstruction, and/or weight based dosing when appropriate to reduce radiation dose to as low as reasonably achievable. ??The NASCET methodology was utilized for calculation of percent stenosis. FINDINGS: Three-vessel aortic arch with minimal atherosclerotic calcification. Brachiocephalic and bilateral subclavian arteries appear unremarkable. Bilateral carotid vasculature appears unremarkable. Bilateral vertebral arteries appear unremarkable. Left dominant vertebral arterial circulation. Visualized pulmonary parenchyma and cervical soft tissues appear grossly unremarkable. IMPRESSION: ?? * ??No cervical large vessel stenosis, occlusion, dissection, or aneurysm. Approved by Resident: Sen Talbert MD ??on 05/21/2025 2:54 PM Desmond Pierce MD have personally reviewed the image(s) and agree with and/or edited the report Finalized by Desmond Duran MD on 05/21/2025 3:02 PM Procedure Note Desmond Duran MD - 05/21/2025 CT CTA CAROTID HISTORY: Headache, vision changes, tongue numbness COMPARISON: None TECHNIQUE: * CTA of the carotid arteries performed after administration of 100 mLOmnipaque 350 intravenous contrast. 3-D post-processing techniques wereutilized. * All CT scans at this facility use dose modulation, iterativereconstruction, and/or weight based dosing when appropriate to reduceradiation dose to as low as reasonably achievable. The NASCET methodologywas utilized for calculation of percent stenosis. FINDINGS: Three-vessel aortic arch with minimal atherosclerotic calcification. Brachiocephalic and bilateral subclavian arteries appear unremarkable. Bilateral carotid vasculature appears unremarkable. Bilateral vertebral arteries appear unremarkable. Left dominant vertebral arterial circulation. Visualized pulmonary parenchyma and cervical soft tissues appear grossly unremarkable. IMPRESSION: * No cervical large vessel stenosis, occlusion, dissection, oraneurysm. Approved by Resident: Sen Talbert MD on 05/21/2025 2:54PM Desmond Pierce MD have personally reviewed the image(s) and agree withand/or edited the report Finalized by Desmond Duran MD on 05/21/2025 3:02 PM Authorizing ProviderResult TypeResult StatusRachel Rita Lagos OFFICE MACHINE MECHANIC-CNPIMG CT ORDERABLESFinal Result * CT angiogram head (05/21/2025 2:32 PM EST)Anatomical RegionLateralityModality Head, Neuro, Vascular, Head and Neck, Neuro CoveraN/AComputed Tomography Specimen (Source)Anatomical Location / LateralityCollection Method / Volume Collection TimeReceived Time05/21/2025 2:49 PM EST Narrative 05/21/2025 2:[address] CTA HEAD CLINICAL INFORMATION: headache vision changes tongue numbness. COMPARISON: None. PROCEDURE: Routine CTA [place] was obtained after the uncomplicated intravenous administration of contrast. Sagittal and coronal reformatted images with 3-D Maximum intensity projection reconstructionsof the [place] constructed under concurrent physician supervision [...] posterior cerebral artery. Right posterior cerebral artery is patent. Internal carotid arteries are normal. Minimal atherosclerotic calcifications present. Anterior cerebral arteries and anterior commuting artery appear normal. The middle cerebral arteries are patent. Venous contamination degrades assessment for subtle abnormalities. 3-D reformatted images confirm the source data findings. IMPRESSION: * ??No evidence of large vessel occlusion. Finalized by Reza Esparza MD on 05/21/2025 2:51 PM Procedure Note Reza Esparza MD - 05/21/2025 CT CTA HEAD CLINICAL INFORMATION: headache vision changes tongue numbness. COMPARISON: None. PROCEDURE: Routine CTA [place] was obtained after the uncomplicatedintravenous administration of contrast. Sagittal and coronal reformattedimages with 3-D Maximum intensity projection reconstructions of the [place] constructed under concurrent physician supervision on aindependent workstation for evaluation of vascular abnormalities. Arterial blood flow was measured to assist the stroke clinical team in the diagnosis of large vessel occlusion in patients undergoing screening foracute ischemic stroke using Rapid AI software when clinically indicated. All CT scans at this facility use dose modulation, iterativereconstruction, and/or weight based dosing when appropriate to reduceradiation dose to as low as reasonably achievable. 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 Right posterior cerebral artery is patent. Internalcarotid arteries are normal. Minimal atherosclerotic calcificationspresent. Anterior cerebral arteries and anterior commuting artery appearnormal. The middle cerebral arteries are patent. Venous contamination degradesassessment for subtle abnormalities. 3-D reformatted images confirm the source data findings. IMPRESSION: * No evidence of large vessel occlusion. Finalized by Reza Esparza MD on 05/21/2025 2:51 PM Authorizing ProviderResult TypeResult StatusRachel Rita Lagos OFFICE MACHINE MECHANIC-CNPIMG CT ORDERABLESFinal Result * CT brain without contrast stroke alert (05/21/2025 2:30 PM EST)Anatomical RegionLateralityModalityNeuro, Head, Head and Neck, Neuro CoveraN/AComputed TomographySpecimen (Source)Anatomical Location / LateralityCollection Method / VolumeCollection TimeReceived Time05/21/2025 2:31 PM EST Narrative 05/21/2025 2:[address] BRAIN WO CONT STROKE ALERT CLINICAL HISTORY: Headache. Vision changes. COMPARISON: ??CT brain 04/20/2011.. TECHNIQUE: CT brain without intravenous contrast. ??Automated exposure control was utilized. FINDINGS: No acute intracranial hemorrhage, mass effect, shift of midline structures, or abnormal extra axialfluid collection. No evidence of acute large vessel territorial ischemia. Overall brain volume is normal. Ventricular system size and morphology are normal, basal cisterns are patent. Orbits are symmetric. No depressed or displaced calvarial fracture. Partial empty sella. Mucous retention cyst of the right maxillary sinus. Frothy secretions within the sphenoid sinuses. Mastoid aircells are well-aerated. Presumed cerumen within the external auditory canals. IMPRESSION: * ??No acute intracranial findings by CT. All CT scans at this facility use dose modulation, iterative reconstruction, and/or weight based dosing when appropriate to reduce radiation dose to as low as reasonably achievable. Finalized by Luis Eduardo Linda MD on 05/21/2025 2:33 PM Procedure Note Luis Eduardo Linda MD - 05/21/2025 CT BRAIN WO CONT STROKE ALERT CLINICAL HISTORY: Headache. Vision changes. COMPARISON: CT brain 04/20/2011.. TECHNIQUE: CT brain without intravenous contrast. Automated exposurecontrol was utilized. FINDINGS: No acute intracranial hemorrhage, mass effect, shift of midlinestructures, or abnormal extra axial fluid collection. No evidence of acutelarge vessel territorial ischemia. Overall brain volume is normal.Ventricular system size and morphology are normal, basal cisterns arepatent. Orbits are symmetric. No depressed or displaced calvarial fracture.Partial empty sella. Mucous retention cyst of the right maxillary sinus.Frothy secretions within the sphenoid sinuses. Mastoid air cells arewell-aerated. Presumed cerumen within the external auditory canals. IMPRESSION: * No acute intracranial findings by CT. All CT scans at this facility use dose modulation, iterativereconstruction, and/or weight based dosing when appropriate to reduceradiation dose to as low as reasonably achievable. Finalized by Luis Eduardo Linda MD on 05/21/2025 2:33 PM Authorizing ProviderResult TypeResult StatusRaparish Lagos OFFICE MACHINE MECHANIC-CNPIMG CT ORDERABLESFinal Result * Critical Care (05/21/2025 2:19 PM EST) Narrative Komal Yin DO - 05/21/2025 2:19 PM EST Komal Yin DO 05/25/2025 7:47 PM Critical Care Performed by: Komal Yin DO Authorized by: Komal Yin DO ?? Critical care provider statement: ??Critical care time (minutes): ??35 ??Critical care was necessary to treat or prevent imminent or life-threatening deterioration of the following conditions: ??DISCOTHEQUE DANCER failure or compromise ??Critical care was time spent personally by me on the following activities: ??Discussions with consultants, evaluation of patient's response to treatment, examination of patient, obtaining history from patient or surrogate, ordering and performing treatments and interventions, ordering and review of laboratory studies, ordering and review of radiographic studies, pulse oximetry and re-evaluation of patient's condition ??I assumed direction of critical care for this patient from another provider in my specialty: yes ?Care discussed with: admitting provider ?? Authorizing ProviderResult TypeResult Pancho Yin DOPROCEDURE/MINOR SURGICAL ORDERABLESFinal Result * ED NIHSS And Thrombolytic MD Screening (05/21/2025 2:19 PM EST) Narrative Komal Yin DO - 05/21/2025 2:19 PM EST Komal Yin DO 05/25/2025 7:47 PM ED NIHSS And Thrombolytic MD Screening Performed by: VINI Monteiro Authorized by: VINI Monteiro ?? Time NIHSS was performed: ??05/21/2025 2:20 PM Interval: ??Baseline LOC: 0 - Alert ?? LOC Questions: 0 - Answers both correctly ?? LOC Commands: 0 - Performs both tasks correctly ?? Best Gaze: 0 - Normal horizontal movements ?? Visual Vargas: 0 - No visual field defect ?? Facial Movements: 0 - Normal ?? Motor Function Right Arm: 0 - No drift right arm holds for 10 seconds ?? Motor Function Left Arm: 0 - No drift left arm holds for 10 seconds ?? Motor Function Right Le - No drift right leg holds for full 5 seconds ?? Motor Function Left Le - No drift left leg, holds for full 5 seconds ?? Limb Ataxia: 0 - No limb ataxia ?? Sensory: 0 - No sensory loss ?? Language: 0 - Language normal ?? Articulation: 0 - Articulation normal ?? Extinction or Inattention: 0 - Extinction or inattention absent ?? Confirmed Time of Onset or Last Known Well: Date: ??05/21/2025 ?? Time: ??10:00 EST TOTAL NIHSS SCORE: ??0 Do presenting disabilities interfere with lifestyle(i.e. work, hobbies, entertainment etc.?: No ?? Other Contraindications: ??Low NIHSS with s/s that do not interfere with quality of life Decision for Thrombolytics: ??Thrombolytics will not be given based on the history and assessment of the patient. Authorizing ProviderResult TypeResult StatusRachel Rita MARTINI PROCEDURE/MINOR SURGICAL ORDERABLESFinal Result * Bedside Glucose *Place/Obtain serum glucose if >500 per glucometer. (05/21/2025 2:12 PM EST)ComponentValueRef RangeTest MethodAnalysis Time Performed AtPathologist SignatureBedside Glucose (POC)9565 - 99 mg/dL 05/21/2025 2:13 PM ESTPROMEDICA BEVERLY HOSPITALpecimen (Source) Anatomical Location / LateralityCollection Method / VolumeCollection Time Received Timearterial/kepfzzums24/13/2025 2:12 PM EST05/21/2025 2:13 PM EST Narrative Authorizing ProviderResult TypeResult StatusPOINT OF CARE TEST ORDERABLESFinal ResultPerforming OrganizationAddressCity/State/ZIP CodePhone Number [facility] [address] [place] [address], * Surgical Pathology (04/24/2025 10:46 AM EDT)ComponentValueRef RangeTest Method Analysis TimePerformed AtPathologist SignatureCase ReportSurgical Pathology Report ? Case: [id number] ? Authorizing Provider: ??Idalia Neumann MD ? Collected: ? 04/24/2025 1046 ? Ordering Location: ? [facility] ??Received: ?04/24/2025 1046 ? Pathologist: ? Osvaldo Mendez MD ? Specimen: ?Endometrium, EMB ? 05/04/2025 12:02 PM [facility] Endometrium, biopsy:: Proliferative endometrium with a fragment suggestive of benign polyp.05/04/2025 12:02 PM [facility] at 1202 EDTClinical LgmvqmefiwqZBV03/27/2025 12:02 PM [facility] LABORATORYGross DescriptionReceived in formalin labeled IDDI, EMB are pink-cadet soft tissue fragments admixed with hemorrhagic and mucoid material, 1.5 x 1.1 x 0.3 cm in aggregate. The specimen is filtered and entirely submitted in a single cassette. (1, ns, [id number],m5) DM. Fixation Time: Tissue removed from patient: 1046 Time specimen placed in formalin: 1046 Cold ischemic time: Less than 1 minute Total fixation time: 53-1/2 hours 05/04/2025 12:02 PM [facility]ORATORYEmbedded Images 05/04/2025 12:02 PM [facility]ATORYSpecimen (Source) Anatomical Location / LateralityCollection Method / VolumeCollection Time Received TimeEndometrial structure / Bvxuvnd9404/24/2025 10:46 AM EDT1 10:46 AM EDT Narrative Authorizing ProviderResult TypeResult StatusAnirudy Neumann MD PATHOLOGY/CYTOLOGY ORDERABLESFinal ResultPerforming OrganizationAddress City/State/ZIP CodePhone Number [facility] [address] [place] [address], [place] [phone] * Ultrasound pelvic with transvaginal (04/01/2025 2:13 PM EDT)Anatomical Region LateralityModalityBody, PelvisUltrasoundSpecimen (Source)Anatomical Location / LateralityCollection Method / VolumeCollection TimeReceived Time04/05/2025 11:01 AM EDT Narrative 04/05/2025 11:05 AM EDT HISTORY: A 45-year-old female with a history of the abnormal uterine bleeding, dysmenorrhea and menorrhagia with irregular cycles. Pelvic pain and bloating. TECHNIQUE: ??Multiple real-time images of the pelvis are obtained by using transabdominal and transvaginal approaches. Color Doppler study is performed. COMPARISON: ??Comparison is made with the CT scan of the abdomen and pelvis of 01/19/2021. FINDINGS: ??Uterus measures 9.4 x 3.9 x 4.9 cm. Endometrial echo stripe thickness was 8.7 mm. Thereis a hypoechoic or isoechoic mass in the left side of the fundus of the uterus and measures 4.9 x 4.7 x 6.0 cm. Appearance is suggestive of uterine [...] is seen in the cul-de-sac. IMPRESSION: * ??There is an approximately 6.0 x 4.9 x 4.7 cm fibroid in the left fundal uterine wall. Overall appearance is stable. * ??Normal ovaries with right ovarian cyst and measures 2.8 x 2.0 cm. No evidence of ovarian torsion. * ??No free fluid is seen in the cul-de-sac. Finalized by Anish Kamara MD on 04/05/2025 11:05 AM Procedure Note Anish Kamara MD - 04/05/2025 HISTORY: A 45-year-old female with a history of the abnormal uterinebleeding, dysmenorrhea and menorrhagia with irregular cycles. Pelvic painand bloating. TECHNIQUE: Multiple real-time images of the pelvis are obtained by using transabdominal and transvaginal approaches. Color Doppler study isperformed. COMPARISON: Comparison is made with the CT scan of the abdomen and pelvisof 01/19/2021. FINDINGS: Uterus measures 9.4 x 3.9 x 4.9 cm. Endometrial echo stripethickness was 8.7 mm. There is a hypoechoic or isoechoic mass in the leftside of the fundus of the uterus and measures 4.9 x 4.7 x 6.0 cm.Appearance is suggestive of uterine fibroid. Cervix appears normal. Right ovary measures 4.7 x 2.9 x 2.9 cm. There is a cyst in the rightovary and measures 2.8 x 2.0 cm. Left ovary measures 1.7 x 2.1 x 2.4 cm.Left ovary appears unremarkable. No other adnexal mass is identified. Color Doppler study reveals presence of the color Doppler flow withoutevidence of torsion. No free fluid is seen in the cul-de-sac. IMPRESSION: * There is an approximately 6.0 x 4.9 x 4.7 cm fibroid in the left fundaluterine wall. Overall appearance is stable. * Normal ovaries with right ovarian cyst and measures 2.8 x 2.0 cm. Noevidence of ovarian torsion. * No free fluid is seen in the cul-de-sac. Finalized by Anish Kamara MD on 04/05/2025 11:05 AM Authorizing ProviderResult TypeResult Mayela Wu OFFICE MACHINE MECHANIC-CNPIMG US ORDERABLESFinal Result * High risk HPV w/zackery (11/28/2024 1:36 PM EDT)ComponentValueRef RangeTest MethodAnalysis TimePerformed AtPathologist SignatureHPV 16NegativeNegative 12/02/2024 12:28 PM [facility] 18Negative Mspdxzft94/27/2025 12:28 PM [facility]ORYOTHER HIGH RISK RVGRkwxxofgLglpuvse24/27/2025 12:28 PM [facility]ATORYComment:HPV types 31, 33, 35, 39, 45, 52, 56, 58, 59, 66, and 68 DNA were undetectable.Specimen (Source)Anatomical Location / LateralityCollection Method / VolumeCollection TimeReceived TimeThinPrep cytology technique (qualifier value)Cervix uteri structure / Enjalfn3911/28/2024 1:36 PM EDT 12/02/2024 3:08 AM EDT Narrative Authorizing ProviderResult TypeResult Mayela Wu OFFICE MACHINE MECHANIC-CNPLAB BLOOD ORDERABLESFinal ResultPerforming OrganizationAddressCity/State/ZIP CodePhone Number [facility] [address] [place] [address], [place] [phone] from Last 3 Months or Most Recently Relevant to Health Maintenance Insurance Advance Directives * Full Code (Latest Code Status on File) Date ActivatedDate ZfjhjbdkfgwGxgnkjbe77/19/2025 7:17 AM05/28/2025 1:25 PM Care Teams Team MemberRelationshipSpecialtyStart DateEnd Date Jenifer Loyola, OFFICE MACHINE MECHANIC-SCHOOL GUIDANCE COUNSELOR [address] [place] [phone] PCP - GeneralNurse Practitioner03/25/25
--- OUTSIDE RECORDS SUMMARY | 2025-06-08 08:59 | XMS_ITS | Encounter Summary ---
Author Organization [facility] tem Address [id number] [address] [place] [address] Care Team Providers Care Poultry Killer Name Role Phone Jenifer Loyola APRN-RADIOSONDE OPERATOR Primary Care Provider Reason for Visit * ReasonOnset PileGemmpdpjCyrpwritmnd78/17/2025 Encounter Details DateTypeDepartmentCare Team (Latest Contact Info)Dovqlosmcuq66/17/2025Telephone [facility], A Department of [facility] [address] [facility] [address] [place] [phone] Iman Elizabeth Appointment Social History Tobacco UseTypesPacks/DayYears UsedDateSmoking Tobacco: Every DayCigarettes Smokeless Tobacco: NeverAlcohol UseStandard Drinks/WeekCommentsNo0 (1 standard drink = 0.6 oz pure alcohol)PHQ-2AnswerDate RecordedTotal Ayabu6026/23/2025 AUDIT-CAnswerDate RecordedQ1: How often do you have [...] RecordedIn the past 12 months has the [employer], gas, oil, or water company threatened to shut off services in your home?No05/26/2025Housing InstabilityAnswerDate RecordedAre you worried or concerned that in the next two months you may not have stable housing that you own, rent or stay in as a part of a household?No05/26/2025hildcareAnswerDate TqsvojxjEilerhhrcXfvvaxm11/12/2019EmploymentAnswerDate RecordedEmploymentUnknown 12/18/2018Hunger ScreeningAnswerDate RecordedWithin the past 12 months we worried whether our food would run out before we got money to buy more.Never True05/27/2025Within the past 12 months the food we bought just didn't last and we didn't have money to get more.Never True05/27/2025Purpose - LifeAnswerDate RecordedPurpose and direction in lhtzKraviag51/11/2021CommentsNoSex and Gender InformationValueDate RecordedSex Assigned at AdedzTguqdx47/19/2020 1:16 PM ESTLegal PecIrzmmj16/06/2015 11:28 AM EDTGender IdentityNot on fileSexual OrientationNot on filedocumented as of this encounter Functional Status documented as of this encounter Miscellaneous Notes * Telephone Encounter - Iman Elizabeth - 05/25/2025 2:21 PM EST What is the reason for the call? Appointment If appointment requested, what is the reason for the appointment? 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 Yes, but referral says for I10 (ICD-10-CM) - Hypertension, unspecified type then says refer to PCP for follow up. But also says follow up Dr Whipple Were they seen in the hospital? What hospital were they seen at? 05/21/25 [facility] - Emergency What is a good call back number? Patient can be reached at [phone] Silk Screen Operator wasn't sure sure since stroke work up was done if this should go to that care team. But then, the referral is for the Hypertension. Please advise , thank you so much * Telephone Encounter - VINI Ye - 05/25/2025 2:21 PM EST Patient can follow up as new patient appointment with fellow or danielle. Though upon further review can as Dr. Ball about transitional MRI as he screened the call. Please await scheduling until Dr. Ball reviews. * Telephone Encounter - Mitul Ball MD - 05/25/2025 2:21 PM EST I would have her follow up with general neurology for migraine management Thanks * Telephone Encounter - Iman Elizabeth - 05/25/2025 2:21 PM EST Please ask the following questions to the new patient that you are schedulin. IS THIS DUE TO AN ACCIDENT? -No 2. IS THIS WORKER'S COMP? PLEASE VERIFY IF THIS IS WORKERS COMP AND DOCUMENT (We do not accept any new workers comp cases) -No 3. WHAT INSURANCE? -[employer] POS II 4. HAVE YOU EVER BEEN SEEN BY A NEUROLOGIST BEFORE? IF YES, WHO AND WHEN? IS THIS A SECOND OPINION? -Yes, she wasn't sure of name , NO 5. ANY CHANCE OF NOW OR BEFORE YOUR APPOINTMENT? -No 6. OFFERED NAN FOR SOONER APPOINTMENT? -NO 7. PATIENT IS SCHEDULED ON/WITH: -Dr Whipple 09/22/25 9:00 patient wanted to stay in [facility] 8. WHO CALLED TO SCHEDULE APPOINTMENT? -patient documented in this encounter Plan of Treatment DateTypeDepartmentCare Team (Latest Contact Info)Nghjopvjdgf34/03/2025 10:00 AM ESTProcedure visit [facility] -Pre Admission Testing [address] [place] [address] 06/23/2025 8:30 AM ESTHospital Encounter [facility] -Surgery [address] [place] [address] Idalia Neumann MD [address] [facility] , [address] [place] [address] 06/23/2025 8:30 AM EST - 06/23/2025 11:30 AM ESTSurgery [facility] -Surgery [address] [place] [phone] Idalia Neumann MD [address] [place] [address] [address] MA[address]ARIEGOS, [address] [place] [address] DAVINCI HYSTERECTOMY PYLEHQFCJWUJD59/22/2025 11:00 AM ESTOffice Visit [facility] [address] [place] [phone] Idalia Neumann MD [address] [place] [address] [address], [address] [place] [address] 08/10/2025 11:00 AM ESTOffice Visit [facility] BATCHEL[facility] [address] [place] [phone] Idalia Neumann MD [address] [place] [address] [address], [address] [place] [address] 09/22/2025 9:00 AM EDTOffice Visit [facility] [place] [address] [place] [address] Agnieszka Whipple MD [address] [place] [address], [address] [place] [phone] NamePriorityAssociated DiagnosesDate/TimeDAVINCI HYSTERECTOMY SALPINGECTOMY Pelvic pain in [...] follow-up plan has been documented for the hklxctx0511/28/2024 1:38 PM EDTdocumented as of this encounter Care Teams Team MemberRelationshipSpecialtyStart DateEnd Date Jenifer Loyola, MANAGER CLINICAL INFORMATICS-RADIOSONDE OPERATOR [address] [place] [address] PCP - GeneralNurse Practitioner03/25/25documented as of this encounter
--- OUTSIDE RECORDS SUMMARY | 2025-06-08 08:59 | XMS_ITS | Encounter Summary ---
Author Organization [facility] tem Address [id number] [address] [place] [address] Care Team Providers Care Press Bucker Name Role Phone Jenifer Loyola APRNWINTHROP COMMUNITY [facility]OSP[facility] Primary Care Provider Encounter Details DateTypeDepartmentCare Team (Latest Contact Info)Rkuqodxysfn85/29/2025Results Follow-Up [facility] [address] [place] [phone] Jenifer Wu, COMPLIANCE COUNSELWINTHROP COMMUNITY HOSPITAL [address] [place] [address] Ultrasound pelvic with transvaginal Social History Tobacco UseTypesPacks/DayYears UsedDateSmoking Tobacco: Every DayCigarettes Smokeless Tobacco: NeverAlcohol UseStandard Drinks/WeekCommentsNo0 (1 standard drink = 0.6 oz pure alcohol)PHQ-2AnswerDate RecordedTotal Ogprr4180/23/2025 AUDIT-CAnswerDate RecordedQ1: How often do you have [...] RecordedIn the past 12 months has the [employer], gas, oil, or water [employer] threatened to shut off services in your home?No05/26/2025Housing InstabilityAnswerDate RecordedAre you worried or concerned that in the next two months you may not have stable housing that you own, rent or stay in as a part of a household?No05/26/2025hildcareAnswerDate YdhvajwaTmapunyjcOrmylue12/12/2019EmploymentAnswerDate RecordedEmploymentUnknown 12/18/2018Hunger ScreeningAnswerDate RecordedWithin the past 12 months we worried whether our food would run out before we got money to buy more.Never True05/27/2025Within the past 12 months the food we bought just didn't last and we didn't have money to get more.Never True05/27/2025Purpose - LifeAnswerDate RecordedPurpose and direction in kcugOvwacpc22/11/2021CommentsNoSex and Gender InformationValueDate RecordedSex Assigned at GguejVeexzq60/19/2020 1:16 PM ESTLegal MskRwhznr56/06/2015 11:28 AM EDTGender IdentityNot on fileSexual OrientationNot on filedocumented as of this encounter Functional Status * AUDIT-C ScoreAnswerDate of KiyzinffppNkkopi120/17/2025 9:12 AM Kady Souza * QuestionAnswerDate of [...] AM Kady Souza * QuestionAnswerDate of AssessmentAuthorFunctional PyqtmmXjbwpcvbuzg93/18/2025 6:18 PM Yara Shi RN documented as of this encounter Plan of Treatment DateTypeDepartmentCare Team (Latest Contact Info)Xhkmpieitkg20/03/2025 10:00 AM ESTProcedure visit [facility] -[facility] Ad[facility] Testing [address] [place] [address] 06/23/2025 8:30 AM ESTHospital Encounter [facility] -Surgery [address] [place] [address] Idalia Neumann MD [facility] [address], [address] [place] [address] 06/23/2025 8:30 AM EST - 06/23/2025 11:30 AM ESTSurgery [facility] -Surgery [address] [place] [address] Idalia Neumann MD [facility], [address] [place] [address] DAVINCI HYSTERECTOMY LQEIFZETJLABD96/22/2025 11:00 AM ESTOffice Visit [facility] [address] [place] [address] Idalia Neumann MD [address], [address] [place] [address] 08/10/2025 11:00 AM ESTOffice Visit [facility] [address] [place] [address] Idalia Neumann MD [address], [address] [place] [address] 09/22/2025 9:00 AM EDTOffice Visit [facility] [place] [address] Agnieszka Whipple MD [address] [place] [address] [address] [place] [address] NamePriorityAssociated DiagnosesDate/TimeDAVINCI HYSTERECTOMY SALPINGECTOMY Pelvic [...] follow-up plan has been documented for the xuogpgk0311/28/2024 1:38 PM EDTdocumented as of this encounter Care Teams Team MemberRelationshipSpecialtyStart DateEnd Date Jenifer Loyola, COMPLIANCE COUNSEL-HEALTH SERVICES MANAGER [address] [place] [address] PCP - GeneralNurse Practitioner03/25/25documented as of this encounter
--- OUTSIDE RECORDS SUMMARY | 2025-06-08 08:59 | XMS_ITS | Clinical Summary ---
Author Organization [facility] Address [address] [place] [address] Care Team Providers Care Filler In Name Role Phone Unavailable Primary Care Provider Unavailabl e Social History Tobacco UseTypesPacks/DayYears UsedDateSmoking Tobacco: Never AssessedUT Safety & EnvironmentAnswerDate RecordedFear of Current or Ex-PartnerNot on file 08/30/2023Emotionally AbusedNot on file08/30/2023hysically AbusedNot on file 08/30/2023Sexually AbusedNot on file08/30/2023hysically or Sexually AbusedNot on file08/30/2023CommentsUnknownSex and Gender InformationValueDate RecordedSex Assigned at BirthNot on fileLegal RphEwosnu55/29/2022 9:56 PM EDT Gender IdentityNot on fileSexual OrientationNot on file Plan of Treatment Not on file
--- NOTE | 2025-06-08 09:01 | MR_ITS ---
The [address] [address] Patient Name: MYLES MARADIAGA MRN: [id number] date: 1980 Sex: F Assigned Patient Location: MRI Current Patient Location: MRI Accession/Order Number: [id number] Exam Date: 06/08/2025 09:05 Report Date: 06/08/2025 15:44 At the request of: TD MALDONADO NP Procedure: MR head/brain wo con MR head/brain wo con 06/08/2025 9:40 AM SIGN AND SYMPTOMS: Headache, Change In Vision, Tongue Numbness PROTOCOL: Multiplanar multisequence MR images of the brain without IV contrast COMPARISON: None. FINDINGS: Extra axial spaces: Age appropriate. Hemorrhage: None. Ventricular system: Within normal limits. Basal cisterns: Within normal limits and not effaced. Cerebral parenchyma: Within normal limits. Midline shift: None.. Cerebellum: Within normal limits. Brainstem: Within normal limits. OTHER: Calvarium: Normal marrow signal. Vascular system: Satisfactory flow voids within the anterior and posterior circulation. Visualized Paranasal sinuses: Polypoid mucosal thickening is noted in the right maxillary sinus. There is mucosal thickening in the right sinuses. Visualized Orbits: Within normal limits. Visualized upper cervical spine: Within normal limits. Sella and skull base: Within normal limits. MR/MR head/brain wo con IMPRESSION: No acute intracranial pathology. Polypoid mucosal thickening is noted in the right maxillary sinus. There is mucosal thickening in the right sinuses. Impression dictated by: Cameron Fish M.D. 06/08/2025 3:44 PM Dictation Location: [place] [address] Electronically authenticated by: [id number] Y Date: 06/08/2025 15:44
== END 2025-06-08 08:55 | disposition home or self-care (01) ==
PROVIDERS: PCP Nurse Practitioner; Visit Provider Nurse Practitioner
DX: R51.9 Headache, unspecified (principal); H53.9 Unspecified visual disturbance; R20.0 Anesthesia of skin
CPT/HCPCS: 70551